=== PATIENT | female | born 2000 | race Caucasian/White ===

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

== ENCOUNTER 2021-02-19 01:58 | Emergency (ER) | payer OTHER, SELFPAY ==
--- NOTE | ~2021-02-19 | XR_ITS ---
EXAMINATION: XR chest 2V DATE: 02/19/2021 02:43 INDICATION: Burning pain in the chest TECHNIQUE: PA and lateral views of the chest are obtained. COMPARISON: None available FINDINGS: The lungs are free of acute opacities. There is no pleural effusion or pneumothorax. The ca rdiomediastinal silhouette is normal. The visualized bones and soft tissues are unremarkable. IMPRESSION: 1. No acute cardiopulmonary abnormality. Reviewed, dictated and finalized at location A.
--- NOTE | 2021-02-19 02:00 | ECG_ITS ---
Measurements Intervals [place] Rate: 115 P: 44 NM: 164 QRS: 40 QRSD: 101 T: 20 QT: 337 QTc: 467 Interpretive Statements SINUS TACHYCARDIA INCOMPLETE RIGHT BUNDLE BRANCH BLOCK BASELINE ARTIFACT- I, II, III, AVR, AVF ABNORMAL ECG Electronically Signed On 02-19-2021 7:12:58 CDT by Jonah Dutton D.O.
[2021-02-19 02:01] VITALS: BP 157/97; PULSE 110; RESP 16; TEMP 36.7; O2SAT 99
[2021-02-19 02:30] LABS: Basophils Absolute Auto 0.1 K/mm3 (0.0-0.1); Basophils Percent Auto 0.9 % (0.2-1.2); Eosinophils Absolute Auto 0.2 K/mm3 (0-0.3); Eosinophils Percent Auto 3.4 % (0-4.4); Hematocrit 44.3 % (37.0-47.0); Hemoglobin 14.9 g/dL (12.0-15.0); Immature Granulocyte Absolute 0.02 K/mm3 (0.00-0.031); Immature Granulocyte Percent A 0.3 % (0-0.5); Lymphocytes Absolute Auto 1.68 K/mm3 (0.9-3.2); Lymphocytes Percent Auto 28.9 % (18.3-44.2); Mean Corpuscular HGB Conc 33.6 g/dl (32-36); Mean Corpuscular Hemoglobin 28.4 pg (26-34); Mean Corpuscular Volume 84.5 fl (80-100); Mean Platelet Volume 11.7 fl (7.4-10.4); Monocytes Absolute Auto 0.5 K/mm3 (0.1-0.6); Monocytes Percent Auto 9.3 % (2.6-8.5); Neutrophils Absolute Auto 3.3 K/mm3 (1.3-6.7); Neutrophils Percent Auto 57.2 % (45.5-73.1); Platelet Count Result 198 k/mm3 (150-375); Red Blood Count 5.24 M/mm3 (4.2-5.4); Red Cell Distribution Width 12.7 % (11.5-14.5); White Blood Count 5.8 K/mm3 (4.5-10.0)
[2021-02-19 02:39] LABS: Anion Gap 9 mmol/L (8-16); Blood Urea Nitrogen 4 mg/dL (8-21); Calcium 9.8 mg/dL (8.9-10.7); Carbon Dioxide 24 mmol/L (22-30); Chloride 105 mmol/L (98-107); Estimated CRCL calculation 175 ml/min; Estimated Glomerular Filt Rate > 60; Glucose 107 mg/dL (65-110); Potassium 3.8 mmol/L (3.4-5.0); Sodium 138 mmol/L (134-143)
[2021-02-19 02:41] LABS: Prothrombin Time 12.6 Seconds (11.1-14.7)
[2021-02-19 02:44] LABS: Partial Thromboplastin Time 32.1 SECONDS (22.3-36.8)
[2021-02-19 02:50] LABS: Troponin I < 0.012 ng/mL (0.000-0.034)
[2021-02-19 03:05] LABS: Alanine Aminotransferase 72 U/L (4-35); Albumin Level 4.7 g/dL (3.7-5.6); Alkaline Phosphatase 94 U/L (45-116); Aspartate Amino Transferase 55 U/L (14-36); Bilirubin,Total 0.4 mg/dL (0.2-1.3); Lipase 55 U/L (23-300)
[2021-02-19 03:06] VITALS: BP 143/96; PULSE 112; PULSE 113; RESP 23; TEMP 36.5; O2SAT 97; O2SAT 99
--- NOTE | 2021-02-19 03:26 | ED.GENADULT ---
HPI - General Adult General Chief complaint: Chest Pain Stated complaint: chest burning x1 wk Time Seen by Provider: 02/19/21 03:08 History of Present Illness HPI narrative: Patient 20-year-old female presents the emergency department with chief complaint of chest burning. The patient reports she is been having burning in her chest when she coughs for the last several months since she had COVID-19. The patient denies fever reports that she smokes cigarettes denies wheezing patient reports that has not improved by anything nor is it worsened by anything. The patient does report that she has an appointment scheduled with her primary care physician but I decided that since has been continuing on she decided to come to the emergency department. The patient denies swelling in her lower extremities denies localizing pain in her chest. Related Data Allergies Allergy/AdvReac Type Severity Reaction Status Date / Time No Known Allergies Allergy Unverified 07/02/17 20:35 Review of Systems Review of Systems: Narrative: A 10 system review of systems was completed on the patient and is negative except for what is stated in the HPI. Nursing and ancillary documentation was reviewed. PMFSH Past Medical History Medical History Hypothyroidism Social History Social History Smoking status: Never smoker Exam Narrative: Exam Narrative: GENERAL: Well-appearing, well-nourished, and in no acute distress. HEAD: Normocephalic, atraumatic. EYES: PERRLA and EOMI. ENT: Nares clear, no rhinorrhea or epistaxis. Mucous membranes moist. NECK: Supple. CHEST: Clear to auscultation. No respiratory distress. HEART: Regular rate and rhythm. No murmur heard. Normal peripheral pulses. ABDOMEN: Soft, nontender, nondistended, normal active bowel sounds. EXTREMITIES: Normal range of motion. No edema. SKIN: Warm, dry, no rash. NEURO: No focal deficits. Alert and oriented x3. PSYCH: Normal mood and affect. Course Course Emergency Course: EKG is sinus tachycardia rate [address] elevation or ST depression Vital Signs Vital signs: Vital Signs Temperature 36.7 C 02/19/21 02:01 Pulse Rate 110 H 02/19/21 02:01 Respiratory Rate 16 02/19/21 02:01 Blood Pressure 157/97 H 02/19/21 02:01 Pulse Oximetry 99 02/19/21 02:01 Temperature 36.5 C 02/19/21 03:06 Pulse Rate 112 H 02/19/21 03:06 Respiratory Rate 23 H 02/19/21 03:06 Blood Pressure 143/96 H 02/19/21 03:06 Pulse Oximetry 99 02/19/21 03:06 Medical Decision Making Vital Signs Vital Signs: Vital Signs Temperature 36.7 C 02/19/21 02:01 Pulse Rate 110 H 02/19/21 02:01 Respiratory Rate 16 02/19/21 02:01 Blood Pressure 157/97 H 02/19/21 02:01 Pulse Oximetry 99 02/19/21 02:01 Temperature 36.5 C 02/19/21 03:06 Pulse Rate 112 H 02/19/21 03:06 Respiratory Rate 23 H 02/19/21 03:06 Blood Pressure 143/96 H 02/19/21 03:06 Pulse Oximetry 99 02/19/21 03:06 Lab Data Result diagrams: 02/19/21 02:12 02/19/21 02:12 Labs: Lab Results 02/19/21 02/19/21 02/19/21 Range/Units 02:11 02:12 02:12 WBC 5.8 (4.5-10.0) K/mm3 RBC 5.24 (4.2-5.4) M/mm3 Hgb 14.9 (12.0-15.0) g/dL Hct 44.3 (37.0-47.0) % MCV 84.5 (80-100) fl MCH 28.4 (26-34) pg MCHC 33.6 (32-36) g/dl RDW 12.7 (11.5-14.5) % Plt Count 198 (150-375) k/mm3 MPV 11.7 H (7.4-10.4) fl Immature Gran % (Auto) 0.3 (0-0.5) % Neut % (Auto) 57.2 (45.5-73.1) % Lymph % (Auto) 28.9 (18.3-44.2) % [place] % (Auto) 9.3 H (2.6-8.5) % Eos % (Auto) 3.4 (0-4.4) % Baso % (Auto) 0.9 (0.2-1.2) % Lymph # (Auto) 1.68 (0.9-3.2) K/mm3 [place] # (Auto) 0.5 (0.1-0.6) K/mm3 Eos # (Auto) 0.2 (0-0.3) K/mm3 Baso # (Auto) 0.1 (0.0-0.1) K/mm3 Abs Immat Gran (auto) 0.02 (0.00-0.03
[2021-02-19 04:25] VITALS: BP 141/92; PULSE 107; RESP 22; O2SAT 97
== END 2021-02-19 04:27 | disposition home or self-care (01) ==
PROVIDERS: Emergency Provider Emergency Medicine; PCP Physician Assistant
DX: R07.89 Other chest pain (principal); E03.9 Hypothyroidism, unspecified; R00.0 Tachycardia, unspecified; I45.10 Unspecified right bundle-branch block; Z86.16 Personal history of COVID-19
CPT/HCPCS: 36415; 71046; 80048; 80076; 83690; 84484; 85025; 85610; 85730; 93005; 99284

== ENCOUNTER 2021-12-07 15:59 | Outpatient (CLI) | payer OTHER, SELFPAY ==
--- NOTE | ~2021-12-07 | XR_ITS ---
EXAM: XR finger 2nd LT min 2V HISTORY: PAIN IN INDEX FINGER OF LEFT HAND, PAIN IN LEFT FINGERS COMPARISON: None available FINDINGS: Normal mineralization. No fracture or dislocation. No lytic or blastic lesion. Joint space s maintained. No erosion or periosteal change. Soft tissues within normal limits. IMPRESSION: Normal left second finger radiograph findings. Reviewed, dictated and finalized at location K.
== END 2021-12-07 16:00 | disposition home or self-care (01) ==
PROVIDERS: PCP Physician Assistant; Visit Provider Physician Assistant
DX: R50.9 Fever, unspecified (principal)
CPT/HCPCS: 73140

== ENCOUNTER 2022-10-05 14:41 | Emergency (ER) | payer SELFPAY ==
[2022-10-05 14:53] VITALS: BP 116/60; PULSE 88; RESP 16; TEMP 37.1; O2SAT 99
--- NOTE | 2022-10-05 15:29 | ED.URI ---
HPI - URI/Sore Throat General Chief Complaint: Upper Respiratory Infection Stated Complaint: covid sx Time Seen by Provider: 10/05/22 15:29 Source: patient Mode of arrival: ambulatory Limitations: no limitations History of Present Illness HPI Narrative: patient is a 21-year-old female that presents with 3-4 days of sore throat, fatigue, headache, nausea, sweats chills. taken home COVID test that was negative. patient has taken Tylenol and DayQuil with little to no relief. Related Data Allergies Allergy/AdvReac Type Severity Reaction Status Date / Time No Known Allergies Allergy Verified 10/05/22 14:51 Review of Systems Review of Systems: CONSTITUTIONAL: Denies malaise, chills, sweats, or fever.? EYES: Denies visual changes, redness, or discharge.? ENT: Reports rhinorrhea, congestion, sinus pain, otalgia and sore throat.? CARDIOVASCULAR: Denies chest pain, palpitations, or edema.? RESPIRATORY: Reports cough.? Denies dyspnea.? GASTROINTESTINAL: Denies abdominal pain, nausea, vomiting, diarrhea? SKIN: Denies rash or itching.? MUSCULOSKELETAL: Denies myalgia.? NEUROLOGIC: Denies headache All systems reviewed & are unremarkable except as noted in HPI and below PMFSH Past Medical History Medical History Hypothyroidism Social History Social History Smoking status: Never smoker Comments At time of signature, agree with nursing past medical, surgical, social and family history. There is no relevant family history pertinent to the presenting complaint? Exam Narrative: GENERAL: Well-appearing, well-nourished, and in no acute distress.? HEAD: Normocephalic, atraumatic.? EYES: PERRLA, conjunctivae clear, and EOMI. No nystagmus.? ENT: Nares clear, turbinates pink, no rhinorrhea or epistaxis. Mucous membranes moist. TM pearly forrester with sharp light reflex bilaterally; no tragal tenderness. Oropharynx without erythema or lesions. Tonsils not enlarged and without exudate.? NECK: Supple. No lymphadenopathy. CHEST: No respiratory distress. Tight lung patel throughout with expiratory wheezes.? No bony deformities, no asymmetry. Speaks in full sentences.? HEART: Regular rate and rhythm. No murmur heard. ? ABDOMEN: Soft, nontender, nondistended EXTREMITIES: Normal range of motion. No edema. ? SKIN: Warm, dry, no rash.? NEURO: Alert and oriented x3. No focal deficits. PSYCH: Normal mood and affect? Course Course Emergency Course: Patient is aware of diagnosis, understands and agrees to treatment plan.? Anticipatory guidance given.? Patient agrees to follow-up as directed and is aware of reasons to seek care at the emergency department.? Portions of this record may have been created with voice recognition software? Level of Care: Express Care Visit Reevaluation(s) Reevaluation #1: patient still has expiratory wheezes, patient reports feeling much better and able to take a deep breath. Date: 10/05/22 Time: 16:40 Vital Signs Vital signs: Vital Signs Temperature 37.1 C 10/05/22 14:53 Pulse Rate 88 10/05/22 14:53 Respiratory Rate 16 10/05/22 14:53 Blood Pressure 116/60 10/05/22 14:53 Pulse Oximetry 99 10/05/22 14:53 Oxygen Delivery Room Air 10/05/22 14:53 Temperature 37.1 C 10/05/22 14:53 Pulse Rate 88 10/05/22 14:53 Respiratory Rate 16 10/05/22 14:53 Blood Pressure 116/60 10/05/22 14:53 Pulse Oximetry 99 10/05/22 14:53 Oxygen Delivery Room Air 10/05/22 14:53 Reviewed MDM - URI/Sore Throat MDM Narrative Medical decision making narrative: Differential diagnosis considered: Clement virus, strep pharyngitis, allergic rhinitis, upper respiratory tract infection, sinusitis, rhinosinusitis, nasopharyngitis. viral pharyngitis, otitis media, otitis externa, pneumonia, bronchitis, viral cough syndrome, viral syndrome, and influenza.? Exam findings show no acute concerns or c
[2022-10-05] MEDS: predniSONE 20 MG TABLET 60 MG PO (15:49)
[2022-10-05] MEDS: IPRATROPIUM BR 0.02% INH SOLN 0.5 MG/2.5 ML VIAL INHALATION (15:50)
[2022-10-05] MEDS: ALBUTEROL SULFATE NEB 2.5 MG/3 ML INH INHALATION (15:50)
== END 2022-10-05 16:45 | disposition home or self-care (01) ==
PROVIDERS: Emergency Provider Nurse Practitioner Family
DX: J06.9 Acute upper respiratory infection, unspecified (principal); E03.9 Hypothyroidism, unspecified
CPT/HCPCS: 87081; 87804; 87880; 94640; 99213; G0463; J7512

== ENCOUNTER 2023-05-12 12:19 | Emergency (ER) | payer OTHER, MEDICAID, SELFPAY ==
--- NOTE | 2023-05-12 12:24 | ED.WOUNDLAC ---
HPI - Wound/Laceration General Chief Complaint: Wound/Laceration Stated Complaint: Left Arm Laceration Time Seen by Provider: 05/12/23 12:23 Source: patient Mode of arrival: ambulatory Limitations: no limitations History of Present Illness HPI narrative: Abbey is a 22-year-old female patient presenting to the clinic today with complaints of a left arm laceration that occurred yesterday around 2:00 p.m. states she was helping her significant other with a transmission when she was under the car and caught her left wrist/arm on the jackie part of the underside of the truck. Has a 4 cm gaping laceration to the volar aspect of the left wrist. She reports tetanus status is unknown Related Data Allergies Allergy/AdvReac Type Severity Reaction Status Date / Time No Known Allergies Allergy Verified 05/12/23 12:24 Review of Systems Review of Systems: Pertinent positives per HPI. Patient denies any fever, chills, rash, headache, visual changes, dizziness, cough, runny nose, sore throat, shortness of breath, chest pain, palpitations, nausea, vomiting, diarrhea, constipation, abdominal pain, or any urinary issues. PMFSH Past Medical History Medical History Hypothyroidism Social History Social History Smoking status: Never smoker Comments At the time of my signature, I reviewed and agree with the nursing past medical, surgical, social, and family history. There is no relevant family history pertinent to the patient complaint. Exam Narrative: General: Well-developed, well nourished, in no apparent distress Head: Normocephalic, atraumatic. Cardio: Regular rate and rhythm, s1 and s2 normal, no murmur appreciated. Resp: Clear to auscultation bilaterally, no rhonchi, rales, wheezing or rubs. Integumentary: [place], warm, and dry, 4 cm gaping volar medial wrist laceration, 7 superficial scratches to the left forearm Course Course Emergency Course: Portions of this record may have been created with voice recognition software. Level of Care: Express Care Visit Vital Signs Vital signs: Vital signs reviewed Procedures Laceration Laceration 1: Date: 05/12/23 Site: upper extremity (Left wrist) Side (If applicable): left Size (cm): 4 Description: linear, flap and irregular Depth: simple, single layer Local Anesthetic: lidocaine 1% Amount of anesthesia used (mL): 2 Pre-repair: wound explored, irrigated and irrigated extensively ====== Skin Level ====== Skin layer closed with: nylon Size (cm): 4-0 Number of sutures: 3 Technique: simple, interrupted ====== Subcutaneous Layer ====== ====== Muscle Layer ====== ====== Tendon Layer ====== Dressing: Verbal consent obtained for laceration repair. Risk and benefits explained and patient voiced understanding. Area was cleansed with wound wasg and a 25 gauge needle was then used to instill (2) ml of 1% lidocaine without epi into the wound edges. Area was prepped and draped using sterile technique. A 4-0 suture on a p needle was used to place (3) interrupted sutures bringing the wound edges together- well approximated- mckayla. Patient tolerated procedure well. Sterile dressing applied. MDM - Wound/Laceration MDM Narrative Medical decision making narrative: At the time of visit patient is resting comfortably on the exam table. Laceration repair was performed placing 3 interrupted sutures loosely to allow for drainage as wound is greater than [address] the patient on Keflex. Superficial scratches were cleansed with wound cleanser and triple antibiotic ointment was applied. Triple antibiotic and dressing was applied over the low left wrist laceration. Tetanus shot was given and supportive measures were discussed with the patient she voiced
[2023-05-12 12:35] VITALS: BP 160/93; PULSE 106; RESP 16; TEMP 37.7; O2SAT 99
[2023-05-12] MEDS: TETANUS,DIPHTHERIA,AC PERTUSSIS ADULT (0.5 ML) BOOSTRIX IM (12:47)
== END 2023-05-12 13:14 | disposition home or self-care (01) ==
LOC: EXPCOLL 12:25
PROVIDERS: Emergency Provider Nurse Practitioner Family
DX: S61.512A Laceration without foreign body of left wrist, initial encounter (principal); W45.8XXA Other foreign body or object entering through skin, initial encounter; Z23 Encounter for immunization; E03.9 Hypothyroidism, unspecified
CPT/HCPCS: 12002; 90471; 90715; 99213; G0463

== ENCOUNTER 2023-05-23 14:47 | Emergency (ER) | payer OTHER, MEDICAID, SELFPAY ==
[2023-05-23 15:00] VITALS: BP 127/58; PULSE 99; RESP 18; TEMP 36.8; O2SAT 100
--- NOTE | 2023-05-23 15:18 | ED.GENADULT ---
HPI - General Adult General Chief complaint: Wound/Laceration Stated complaint: Stitch Removal Time Seen by Provider: 05/23/23 15:18 Source: patient, RN notes reviewed and old records reviewed Mode of arrival: ambulatory Limitations: no limitations History of Present Illness HPI narrative: 22-year-old female presents to the [facility] requesting to have sutures removed hours placed 11 days ago. States that she only took 3 doses of the antibiotic Related Data Home Medications Medication Instructions Recorded Confirmed No Home Medications 05/23/23 05/23/23 Allergies Allergy/AdvReac Type Severity Reaction Status Date / Time No Known Allergies Allergy Verified 05/23/23 14:57 Review of Systems Review of Systems: All systems reviewed & are unremarkable except as noted in HPI and below Constitutional: Constitutional: Reports no additional constitutional complaints Eyes: Eyes: Reports no additional eye complaints ENT: Reports system reviewed and no additional complaints, except as documented Cardiovascular: Cardiovascular: Reports no additional cardiovascular complaints, Denies chest pain and Denies dyspnea Respiratory: Respiratory: Reports no additional respiratory complaints, Denies chest congestion, Denies cough and Denies dyspnea Gastrointestinal: Gastrointestinal: Reports no additional gastrointestinal complaints, Denies abdominal pain, Denies nausea and Denies vomiting Musculoskeletal: Musculoskeletal: Reports no additional musculoskeletal complaints Integumentary/Breasts: Skin/Breast: Reports as per HPI Neurologic: Reports system reviewed and no additional complaints, except as documented Psychiatric: Psychiatric: Reports no additional psychiatric complaints Allergic/Immunologic: Allergic/Immunologic: Reports no additional allergic/immunologic complaints PMFSH Past Medical History Medical History Hypothyroidism Social History Social History Smoking status: Never smoker Comments At the time of my signature, I reviewed and agree with the nursing past medical, surgical, social, and family history. There is no relevant family history pertinent to the patient complaint. Exam Const: General: cooperative, healthy appearing, comfortable, no acute distress, well developed, alert and well nourished Nutritional Appearance: well nourished Orientation/consciousness: patient oriented x3 Limitations: no limitations HENMT: Head: normal to inspection Ears: hearing grossly normal bilaterally and external ears normal Face/Nose/Sinus: Normal external nose present, Normal nares present, Normal nasal mucous membranes and turbinates present, normal facial exam and face symmetric Face and sinus: normal facial exam and face symmetric Eyes: General: appearance normal, both eyes and all related structures Alignment and Position: alignment normal Periorbital: periorbital findings normal Pupils: Equal, round and reactive pupils present EOM: EOMs intact bilaterally Neck: Neck: normal visual inspection, full ROM, no lymphadenopathy and no meningeal signs Chest: Chest palpation & inspection: normal inspection of the chest Resp: Effort & Inspection: normal respiratory effort and able to speak in complete sentences Cardio: Rate: regular rate Rhythm: regular rhythm Back/Spine/Pelvis: Cervical Spine: cervical ROM normal Skin: General skin exam: normal color and no rashes or lesions noted Lesions: no lesions Rashes: no rashes Other: [place], inflammation noted around surgical site, area cleaned with surgical wound hand dry cleaner. Three sutures removed. Five Steri-Strips placed Neuro: General: patient oriented x3, gait normal, tone normal, moves all extremities and no meningeal signs Cranial nerves: Yes Equal, round and reactive pupils present Cognition (Neuro): normal cognition Speech: normal speech Gait exa
== END 2023-05-23 15:33 | disposition home or self-care (01) ==
PROVIDERS: Emergency Provider Nurse Practitioner
DX: Z48.02 Encounter for removal of sutures (principal); E03.9 Hypothyroidism, unspecified
CPT/HCPCS: 99211; G0463

== ENCOUNTER 2023-12-07 14:47 | Emergency (ER) | payer OTHER, MEDICAID, SELFPAY ==
[2023-12-07 15:05] VITALS: BP 114/74; PULSE 94; RESP 22; TEMP 36.6; O2SAT 100
[2023-12-07 15:38] LABS: Basophils Absolute Auto 0.1 K/mm3 (0.0-0.1); Basophils Percent Auto 0.6 % (0.2-1.2); Eosinophils Percent Auto 0.5 % (0-4.4); Hematocrit 41.2 % (37.0-47.0); Hemoglobin 14.3 g/dL (12.0-15.0); Immature Granulocyte Absolute 0.03 K/mm3 (0.00-0.031); Immature Granulocyte Percent A 0.4 % (0-0.5); Lymphocytes Absolute Auto 1.17 K/mm3 (0.9-3.2); Lymphocytes Percent Auto 13.9 % (18.3-44.2); Mean Corpuscular HGB Conc 34.7 g/dl (32-36); Mean Corpuscular Hemoglobin 29.5 pg (26-34); Mean Corpuscular Volume 85.1 fl (80-100); Mean Platelet Volume 11.8 fl (7.4-10.4); Monocytes Absolute Auto 0.5 K/mm3 (0.1-0.6); Neutrophils Absolute Auto 6.6 K/mm3 (1.3-6.7); Neutrophils Percent Auto 78.6 % (45.5-73.1); Platelet Count Result 224 k/mm3 (150-375); Red Blood Count 4.84 M/mm3 (4.2-5.4); Red Cell Distribution Width 12.9 % (11.5-14.5); White Blood Count 8.4 K/mm3 (4.5-10.0)
[2023-12-07 15:50] LABS: Alanine Aminotransferase 14 U/L (6-35); Albumin Level 4.9 g/dL (3.5-5.1); Alkaline Phosphatase 78 U/L (38-126); Anion Gap 11 mmol/L (4-12); Aspartate Amino Transferase 18 U/L (14-36); Bilirubin,Total 0.7 mg/dL (0.2-1.3); Blood Urea Nitrogen 7 mg/dL (7-17); Calcium 10.2 mg/dL (8.4-10.2); Carbon Dioxide 21 mmol/L (22-30); Chloride 107 mmol/L (98-107); Estimated CRCL calculation 151 ml/min; Estimated Glomerular Filt Rate > 60; Glucose 119 mg/dL (65-110); Lipase 52 U/L (23-300); Potassium 3.8 mmol/L (3.4-5.0); Sodium 139 mmol/L (137-145)
--- NOTE | 2023-12-07 16:11 | ED.ABDPAIN ---
HPI - Abdominal Pain General Chief Complaint: Abdominal Pain Stated Complaint: abd pain, Time Seen by Provider: 12/07/23 15:40 Source: patient Mode of arrival: ambulatory Limitations: no limitations History of Present Illness HPI narrative: Zainab is a 23-year-old female patient presenting to ER today with complaints of upper abdominal pain that started yesterday. She reports that this morning the pain came back and was worse. She took a Zofran and that did not help. States the pain is a dull ache/burning pain in the upper abdomen and into the chest. Last menstrual period was October 05. 2, para 1. Last bowel movement was this morning. Does have some associated nausea. Related Data Home Medications Medication Instructions Recorded Confirmed No Home Medications 05/23/23 05/23/23 Allergies Allergy/AdvReac Type Severity Reaction Status Date / Time No Known Allergies Allergy Verified 05/23/23 14:57 Review of Systems Review of Systems: Pertinent positives per HPI. Patient denies any fever, chills, rash, headache, visual changes, dizziness, cough, runny nose, sore throat, shortness of breath, palpitations, nausea, vomiting, diarrhea, constipation, PMFSH Past Medical History Medical History Hypothyroidism Social History Social History Smoking status: Never smoker Comments At the time of my signature, I reviewed and agree with the nursing past medical, surgical, social, and family history. There is no relevant family history pertinent to the patient complaint. Exam Narrative: General: Well-developed, well nourished, in no apparent distress. Head: Normocephalic, atraumatic. Cardio: Regular rate and rhythm, s1 and s2 normal, no murmur appreciated. Resp: Clear to auscultation bilaterally, no rhonchi, rales, wheezing or rubs. Abdomen: Soft, pliable, bowel sounds present in all quadrants, upper abdominal tender to palpation, no organomegly, no CVAT tenderness. Course Course Emergency Course: Portions of this record may have been created with voice recognition software. Vital Signs Vital signs: Vital Signs Temperature 36.6 C 12/07/23 15:05 Pulse Rate 94 12/07/23 15:05 Respiratory Rate 22 H 05/03/24 15:05 Blood Pressure 114/74 12/07/23 15:05 Pulse Oximetry 100 12/07/23 15:05 Oxygen Delivery Room Air 12/07/23 15:05 Temperature 36.6 C 12/07/23 15:05 Pulse Rate 94 12/07/23 15:05 Respiratory Rate 22 H 12/07/23 15:05 Blood Pressure 114/74 12/07/23 15:05 Pulse Oximetry 100 12/07/23 15:05 Oxygen Delivery Room Air 12/07/23 15:05 Vital signs reviewed MDM - Abdominal Pain MDM Narrative Medical decision making narrative: At the time of visit patient is resting comfortably on the exam table. Patient appears to be nontoxic. Labs: CBC shows white blood cell count of 8.4, H&H of 14.3 and 41.2, platelet count is 224, chemistry shows sodium a 139, potassium at 3.8, CO2 of 21, chloride 107, BUN of 7, creatinine 0.5, GFR is greater than 60, glucose is 119, liver function test within normal limits, lipase is 52. Urinalysis pending Medications ordered: 1 L of normal saline, 4 mg of Zofran, Maalox 30 mL Plan: Patient eloped after seeing provider-states that the nurse was rude and she wants to go to a different emergency room. INT removed and patient left. Differential Diagnosis Differential diagnosis: Likely abdominal pain, acute appendicitis, constipation, diverticulitis, endometriosis, gastroenteritis, pancreatitis and small bowel obstruction Lab Data 12/07/23 15:33 12/07/23 15:33 Labs: Lab Results 12/07/23 Range/Units 15:33 WBC 8.4 (4.5-10.0) K/mm3 RBC 4.84 (4.2-5.4) M/mm3 Hgb 14.3 (12.0-15.0) g/dL Hct 41.2 (37.0-47.0) % MCV 85.1 (80-100) fl MCH 29.5 (26-34) pg MCHC 34
--- NOTE | 2023-12-07 16:30 | PC.NURSE ---
Pt standing in hallway yelling I AM LEAVING. Pt went back into her room, this RN walked in with pts medications and pt states you don't even know what is wrong with me and you are giving me medications? This RN explained the ordered medications were fluids, medicine to help nausea, and medicine to help settle the acid in her stomach. Pt responded with Fuck that, I am going to another ER. Take this shit out of my arm. This RN continued to remove pts IV. IV was removed intact with pt complaining, stating you don't have to be so fucking rude, you ripped that out of my arm as hard as you could. This RN educated the pt on how IVs were removed. Pt then ambulated out of the ER in her gown yelling, grab my shit, Neil. I will get dressed in the car. COMPUTER SUPPORT TECHNICIAN Lit fernandez.
== END 2023-12-07 16:38 | disposition left against medical advice (07) ==
PROVIDERS: Emergency Medicine; Emergency Provider Nurse Practitioner Family
DX: O26.891 Other specified pregnancy related conditions, first trimester (principal); R10.10 Upper abdominal pain, unspecified; O99.281 Endocrine, nutritional and metabolic diseases complicating pregnancy, first trimester; E03.9 Hypothyroidism, unspecified; Z3A.00 Weeks of gestation of pregnancy not specified
CPT/HCPCS: 36415; 80053; 81025; 83690; 85025; 99283

== ENCOUNTER 2024-05-20 12:28 | Emergency (ER) | payer OTHER, MEDICAID, SELFPAY ==
[2024-05-20 12:35] VITALS: BP 121/55; PULSE 94; RESP 20; TEMP 37.4; O2SAT 100
--- NOTE | 2024-05-20 12:48 | ED.WOUNDLAC ---
HPI - Wound/Laceration General Chief Complaint: Wound/Laceration Stated Complaint: remove stitches Source: patient Mode of arrival: ambulatory Limitations: no limitations History of Present Illness HPI narrative: 23-year-old female presented for suture removal. She reports [address] to the right eyebrow which were placed 8 days ago at an outside hospital. Denies any complication of the wound. Related Data Home Medications Medication Instructions Recorded Confirmed No Home Medications 05/23/23 05/23/23 Allergies Allergy/AdvReac Type Severity Reaction Status Date / Time No Known Allergies Allergy Verified 05/23/23 14:57 Review of Systems Review of Systems: CONSTITUTIONAL: Denies body aches, fever, chills, or sweats. EYES: Denies visual changes, redness, or discharge. CARDIOVASCULAR: Denies chest pain, palpitations, or edema. RESPIRATORY: Denies cough or dyspnea. SKIN: reports laceration/sutures right eyebrow NEUROLOGIC: Denies headache PMFSH Past Medical History Medical History Hypothyroidism Social History Social History Smoking status: Never smoker Comments At time of signature, I have reviewed and agree with nursing past medical, surgical, social and family history unless otherwise noted. Please see nursing chart for further information. There is no relevant family history pertinent to the presenting complaint Exam Narrative: GENERAL: Well-appearing EYES: conjunctivae clear, and EOMI. ENT: Mucous membranes moist. CHEST: Clear to auscultation. HEART: Regular rate and rhythm. SKIN: Warm, dry. right eyebrow with approx 1cm vertical lac healing; [address] NEURO: Alert and oriented x3. Course Course Emergency Course: Patient is aware of diagnosis, understands and agrees to treatment plan. Anticipatory guidance given. Patient agrees to follow-up as directed and is aware of reasons to seek care at the emergency department. Portions of this record may have been created with voice recognition software Level of Care: Express Care Visit Vital Signs Vital signs: Vital Signs Temperature 99.3 F 05/20/24 12:35 Pulse Rate 94 05/20/24 12:35 Respiratory Rate 20 05/20/24 12:35 Blood Pressure 121/55 L 05/20/24 12:35 Pulse Oximetry 100 05/20/24 12:35 Oxygen Delivery Room Air 05/20/24 12:35 Temperature 99.3 F 05/20/24 12:35 Pulse Rate 94 05/20/24 12:35 Respiratory Rate 20 05/20/24 12:35 Blood Pressure 121/55 L 05/20/24 12:35 Pulse Oximetry 100 05/20/24 12:35 Oxygen Delivery Room Air 05/20/24 12:35 Reviewed Procedures Other Procedure Procedure 1: Other Procedure: 3 sutures removed from right eyebrow, the suture at the distal end of the wound was complicated for removal. LET gel applied. Pt tolerated well. MDM - Wound/Laceration MDM Narrative Medical decision making narrative: Discussed physical exam findings. Tolerated suture removal. Advised supportive measures and signs/symptoms to go to the ER. Pt is appropriate for outpt treatment and f/u. Differential Diagnosis Differential diagnosis: Likely laceration, abrasion, avulsion of skin and other (suture removal) Discharge Plan Discharge Clinical Impression: Encounter for removal of sutures Patient Disposition: Home, Self-Care Condition: Stable Instructions: Head Laceration (ED) Additional Instructions: Keep the area clean and dry - cleanse with warm water and mild soap and allow to fully dry. Ok to apply neosporin to the site Keep it open to air (no bandages) Watch for worsening symptoms including pain, redness, swelling, streaking, pus/drainage, fever. Go to the ER with any of these symptoms or concerns. Follow up with primary care provider in 1 week as needed. Prescriptions: No Action No Home Medications
[2024-05-20] MEDS: LIDOCAINE, EPINEPHRINE, TETRACAINE VISCOUS SOLN 3 ML TOPICAL (13:13)
== END 2024-05-20 13:35 | disposition home or self-care (01) ==
PROVIDERS: Emergency Provider Nurse Practitioner Family
DX: S01.111D Laceration without foreign body of right eyelid and periocular area, subsequent encounter (principal); X58.XXXD Exposure to other specified factors, subsequent encounter; E03.9 Hypothyroidism, unspecified
CPT/HCPCS: 99211; G0463

== ENCOUNTER 2024-10-15 10:59 | Emergency (ER) | payer OTHER, MEDICAID, SELFPAY ==
[2024-10-15 11:05] VITALS: BP 144/74; PULSE 92; RESP 18; TEMP 36.2; O2SAT 100
--- NOTE | 2024-10-15 11:12 | ED.GENADULT ---
HPI - General Adult General Chief complaint: Nausea/Vomiting/Diarrhea Stated complaint: Vomiting/Chest Discomfort Source: patient and RN notes reviewed Mode of arrival: ambulatory Limitations: no limitations History of Present Illness HPI narrative: 24 y/o female presented for c/o burning in the chest with nausea and occasional vomiting. Onset one week, however she is 2 months post and says she also had these symptoms throughout her . Pt contacted her pcp today, who advised Obgyn follow up. Pt took Pepcid today only, nothing else for symptoms this week. States she was seen at 12 hospitals throughout her and says no one could find the source and no one is taking her seriously. Denies any alleviating or aggravating factors, pain is described as a pressure and has frequent dry heaves. Taking ibuprofen. Related Data Home Medications ?Medication ?Instructions ?Recorded ?Confirmed ?Last Taken ?Type No Home Medications 05/23/23 05/23/23 Unknown History Allergies Allergy/AdvReac Type Severity Reaction Status Date / Time No Known Allergies Allergy Verified 10/15/24 11:12 Review of Systems Review of Systems: CONSTITUTIONAL: Denies body aches, fever, chills ENT: Denies rhinorrhea, congestion CARDIOVASCULAR: reports chest pain, Denies palpitations, or edema. RESPIRATORY: Denies cough or dyspnea. GASTROINTESTINAL: Endorses nausea, vomiting, diarrhea. Denies abdominal pain, hematochezia, melena, hematemesis GENITOURINARY: Denies dysuria, hematuria, or CVA tenderness. SKIN: Denies rash, itching, or wounds. MUSCULOSKELETAL: Denies back pain, joint pain NEUROLOGIC: Denies headache, numbness, tingling, or weakness. All systems reviewed & are unremarkable except as noted in HPI and below PMFSH Past Medical History Medical History Hypothyroidism Social History Social History Smoking status: Never smoker Comments At time of signature, I have reviewed and agree with nursing past medical, surgical, social and family history unless otherwise noted. Please see nursing chart for further information. There is no relevant family history pertinent to the presenting complaint Exam Narrative: GENERAL: Tearful. and in no acute distress. EYES: EOMI. Conjunctivae normal. ENT: Mucous membranes pink and moist. CHEST: No respiratory distress. Clear to auscultation. Nontender chest. HEART: Regular rate and rhythm. No murmur appreciated. Normal peripheral pulses. ABDOMEN: abd soft, nondistended, normal active bowel sounds. nontender abdomen; No guarding, rebound tenderness, asymmetry SKIN: Warm, dry, no rash. Capillary refill normal. Normal skin turgor. NEURO: No focal deficits. Alert and oriented x3. Course Course Emergency Course: Patient is aware of diagnosis, understands and agrees to treatment plan. Anticipatory guidance given. Patient agrees to follow-up as directed and is aware of reasons to seek care at the emergency department. Portions of this record may have been created with voice recognition software Level of Care: Express Care Visit Vital Signs Vital signs: Vital Signs Temperature 97.1 F L 10/15/24 11:05 Pulse Rate 92 10/15/24 11:05 Respiratory Rate 18 10/15/24 11:05 Blood Pressure 144/74 H 10/15/24 11:05 Pulse Oximetry 100 10/15/24 11:05 Oxygen Delivery Room Air 10/15/24 11:05 Temperature 97.1 F L 10/15/24 11:05 Pulse Rate 92 10/15/24 11:05 Respiratory Rate 18 10/15/24 11:05 Blood Pressure 144/74 H 10/15/24 11:05 Pulse Oximetry 100 10/15/24 11:05 Oxygen Delivery Room Air 10/15/24 11:05 Medical Decision Making MDM Narrative Medical decision making narrative: Pt tearful throughout the encounter. PO maalox given. Pt walked out of room stating she was going to the ER. Before she left, Discussed possible etiologies, advised against NSAIDs and recommend f/u with GI. Also advised close f/u with obgyn regarding possible depression, pt states she is not depressed just tired of dealing with this and not being taken seriously. She is scheduled with obgyn tomorrow. Says she is going to the ER. Differential Diagnosis Differential Diagnosis: Consider gastroenteritis, GERD, bowel obstruction or perforation, cholecystitis, appendicitis, hernia, mesenteric ischemia, pancreatitis, peritonitis, AAA Vital Signs Vital Signs: Vital Signs Temperature 97.1 F L 10/15/24 11:05 Pulse Rate 92 10/15/24 11:05 Respiratory Rate 18 10/15/24 11:05 Blood Pressure 144/74 H 10/15/24 11:05 Pulse Oximetry 100 10/15/24 11:05 Oxygen Delivery Room Air 10/15/24 11:05 Temperature 97.1 F L 10/15/24 11:05 Pulse Rate 92 10/15/24 11:05 Respiratory Rate 18 10/15/24 11:05 Blood Pressure 144/74 H 10/15/24 11:05 Pulse Oximetry 100 10/15/24 11:05 Oxygen Delivery Room Air 10/15/24 11:05 Discharge Plan Discharge Clinical Impression: Chest pain due to GERD Patient Disposition: Elopement After Seen by Prov Condition: Stable Instructions: Antibiotic Form, Depression (DC), Diet for Stomach Ulcers and Gastritis (ED), GERD (Gastroesophageal Reflux Disease) (ED) Additional Instructions: STOP ibuprofen Tylenol only for pain Stay hydrated. Take small sips of fluid containing electrolytes frequently. Bacon foods (bananas, rice, applesauce, toast, crackers) Avoid fatty, greasy, fried. acidic, or spicy foods. Limit dairy until symptoms are improved. Remain sitting up after meal for at least 30 minutes Take medicine as directed You must follow up with your OBGYN as well as PCP within 3 days. Follow up with the GI specialist, call to schedule an appointment. You should go to the hospital if you experience persistent nausea and vomiting that does not resolve and does not allow you to tolerate any food or fluids, fevers, increasing abdominal pain, persistent diarrhea, dizziness, fainting, or for any other concerns. Patient Language: Citizen Of [place] Prescriptions: No Action No Home Medications Follow-up/Referrals: Oni Jefferson MD [Physician] - [facility] [Primary Care Provider] -
[2024-10-15] MEDS: MAG HYDROX/AL HYDROX/SIMETH 30 ML UDC PO (11:21)
--- OUTSIDE RECORDS SUMMARY | 2024-10-15 12:39 | XMS_ITS | Data Portability ---
Author Organization [employer] , [facility]_Marito Address [address] [place] [address] Assessment No assessment recorded. 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 Procedures None recorded. Surgeries None recorded. Imaging US, obstetric , follow-up 2023 024 [facility], [address] [place], [address], 07/09/2024 19:30:09 US, obstetric , follow-up 2023 024 [facility] Not available 06/23/2024 15:24:42 Medication Orders None recorded. Patient TargetsNo targets recorded. Patient InstructionsNo instructions recorded. Reason for Referral None Reported. Results Created Date Observation Date Name Description Value Unit Range Abnormal Flag Note LastModifiedBy Organization Detail LastModifiedTime 06/23/20 24 06/25/2024 COMPR EHENS CHELLY METAB OLIC PANEL sodium 140 mmol/ L 136 - 145 normal Not Available [address], [address], 06/25/2024 12:48:43 06/23/20 24 06/25/2024 COMPR EHENS CHELLY METAB OLIC PANEL potassium 3.9 mmol/ L 3.5 - 5.1 normal Not Available [address], [address], 06/25/2024 12:48:43 06/23/2006/25/2024 COMPR EHENS CHELLY METAB OLIC PANEL chloride 106 mmol/ L 98 - 107 normal Not Available [address], [address], 06/25/2024 12:48:43 06/23/2006/25/2024 COMPR EHENS CHELLY METAB OLIC PANEL glucose 90 mg/dL 74 - 106 normal Not Available [address], [address], 06/25/2024 12:48:43 06/23/20 24 06/25/2024 COMPR EHENS CHELLY METAB OLIC PANEL carbon dioxide 23 mmol/ L 20 - 32 normal Not Available [address], [address], 06/25/2024 12:48:43 06/23/2006/25/2024 COMPR EHENS CHELLY METAB OLIC PANEL calcium 8.8 mg/dL 8.5 - 10.1 normal Not Available [address], [address], 06/25/2024 12:48:43 06/23/2006/25/2024 COMPR EHENS CHELLY METAB OLIC PANEL creatinine 0.42 mg/dL 0.60 - 1.00 low Not Available [place] [facility] [address] [place], [address], 06/25/2024 12:48:43 06/23/20 24 06/25/2024 COMPR EHENS CHELLY METAB OLIC PANEL eGFR 142 mL/mi n/1.7 3m2 >60 normal The eGFR is based on the CKD-E PI 2020 equat ion. To calcu late the new eGFR from a previ ous Creat inine or Cysta tin C resul t, go to [email or web address] :[email or web address] s/[email or web address] qi/gf r_cal culat or Not Available [address], [address], 06/25/2024 12:48:43 06/23/20 24 06/25/2024 COMPR EHENS CHELLY METAB OLIC PANEL AST 9 U/L 15 - 37 low Not Available [address], [address], 06/25/2024 12:48:43 06/23/20 24 06/25/2024 COMPR EHENS CHELLY METAB OLIC PANEL ALT 12 U/L 14 - 59 low Not Available [address], [address], 06/25/2024 12:48:43 06/23/20 24 06/25/2024 COMPR EHENS CHELLY METAB OLIC PANEL alk phos 117 U/L 46 - 116 high Not Available [place] [facility] [address] [place] [address], [address], 06/25/2024 12:48:43 06/23/20 24 06/25/2024 COMPR EHENS CHELLY METAB OLIC PANEL albumin 2.7 g/dL 3.4 - 5.0 low Not Available [address], [address], 06/25/2024 12:48:43 06/23/20 24 06/25/2024 COMPR EHENS CHELLY METAB OLIC PANEL protein, total 6.2 g/dL 6.4 - 8.2 low Not Available [place] [facility] [address] [place] [address], [address], 06/25/2024 12:48:43 06/23/20 24 06/25/2024 COMPR EHENS CHELLY METAB OLIC PANEL bilirubin, total 0.3 mg/dL 0.2 - 1.0 normal Not Available [address], [address], 06/25/2024 12:48:43 06/23/20 24 06/25/2024 COMPR EHENS CHELLY METAB OLIC PANEL urea nitrogen (BUN) 3 mg/dL 7 - 18 low Not Available [facility] [address] [place] [address], [address], 06/25/2024 12:48:43 07/09/20 24 07/11/2024 STREP TOCOC CUS, GROUP B CULTU RE streptococcu s, group B culture SEE NOTE abnormal STREP TOCOC CUS, GROUP B CULTU RE Micro Numbe r: [id number] Test Statu s: Final Speci men Sourc e: Recto vag Speci men Quali ty: Adequ ate Resul t: Group B Strep tococ cus isola bertin Beta- hemol ytic strep tococ ci are predi ctabl y susce ptibl e to Penic illin and other beta- lacta ms. Susce ptibi lity testi ng not routi theo perfo rmed. Pleas e conta ct the labor atory withi n 3 days if susce ptibi lity testi ng is josesito ed. Note per CDC guide lines optim al recov kaleb is achie april by swabb ing both the lower vagin a and rectu m (thro ugh the anal sphin cter) . Not Available [facility] [address] [address], [place], [address], 07/11/2024 08:37:41 08/05/20 24 08/05/2024 COMPR EHENS CHELLY METAB OLIC PANEL glucose 131 mg/dL 70-99 high Not Available [facility] (Lab) [address] [place], [address], 08/05/2024 11:21:24 08/05/20 24 08/05/2024 COMPR EHENS CHELLY METAB OLIC PANEL BUN 4 mg/dL 7-18 low Not Available [facility] (Lab) [address] [facility], [place], [address], 08/05/2024 11:21:24 08/05/20 24 08/05/2024 COMPR EHENS CHELLY METAB OLIC PANEL creatinine 0.44 mg/dL 0.55-1 [address] [facility] (Lab) [address] [place], [address], 08/05/2024 11:21:24 08/05/20 24 08/05/2024 COMPR EHENS CHELLY METAB OLIC PANEL sodium 137 mmol/ L 136-[address] [facility] (Lab) [address] [place], [address], 08/05/2024 11:21:24 08/05/20 24 08/05/2024 COMPR EHENS CHELLY METAB OLIC PANEL potassium 3.3 mmol/ L 3.5-5. [address] [facility] (Lab) [address] [place], [address], 08/05/2024 11:21:24 08/05/20 24 08/05/2024 COMPR EHENS CHELLY METAB OLIC PANEL chloride 109 mmol/ L 97-[address] [facility] (Lab) [address] [place], [address], 08/05/2024 11:21:24 08/05/20 24 08/05/2024 COMPR EHENS CHELLY METAB OLIC PANEL total CO2 21.0 mmol/ L 21-[address] [facility] (Lab) [address] [facility], [place], [address], 08/05/2024 11:21:24 08/05/20 24 08/05/2024 COMPR EHENS CHELLY METAB OLIC PANEL calcium 8.6 mg/dL 8.5-[address] [facility] (Lab) [address] [facility], [place], [address], 08/05/2024 11:21:24 08/05/20 24 08/05/2024 COMPR EHENS CHELLY METAB OLIC PANEL total bilirubin 0.2 mg/dL 0.2-1. 2 THIS ASSAY IS NOT RECOM ELIZABETH D FOR PATIE NTS UNDER GOING TREAT MENT WITH ELTRO MBOPA G DUE TO THE POTEN TIAL FOR FALSE LY ELEVA BERTIN RESUL TS. Not Available [facility] (Lab) [address] [facility], [place], [address], 08/05/2024 11:21:24 08/05/20 24 08/05/2024 COMPR EHENS CHELLY METAB OLIC PANEL total protein 6.0 g/dL 6.4-8. [address] [facility] (Lab) [place], [address], 08/05/2024 11:21:24 08/05/20 24 08/05/2024 COMPR EHENS CHELLY METAB OLIC PANEL albumin 2.3 g/dL 3.4-5. [address] [facility] (Lab) [place], [address], 08/05/2024 11:21:24 08/05/20 24 08/05/2024 COMPR EHENS CHELLY METAB OLIC PANEL AST 10 U/L 15-37 low Not Available [facility] (Lab) [address] [facility], [place], [address], 08/05/2024 11:21:24 08/05/20 24 08/05/2024 COMPR EHENS CHELLY METAB OLIC PANEL ALT 8 U/L 14-55 low Not Available [facility] (Lab) [place], [address], 08/05/2024 11:21:24 08/05/20 24 08/05/2024 COMPR EHENS CHELLY METAB OLIC PANEL alk phosphatase 180 U/L 50-136 high Not Available [facility] (Lab) [address] [facility], [place], [address], 08/05/2024 11:21:24 08/05/20 24 08/05/2024 COMPR EHENS CHELLY METAB OLIC PANEL anion gap 7.0 mmol/ L 2-[address] [facility] (Lab) [place], [address], 08/05/2024 11:21:24 08/05/20 24 08/05/2024 COMPR EHENS CHELLY METAB OLIC PANEL BUN creatinine ratio 9.0 6-26 Not Available [facility] (Lab) [place], [address], 08/05/2024 11:21:24 08/05/20 24 08/05/2024 COMPR EHENS CHELLY METAB OLIC PANEL A:g ratio 0.6 ratio 1.0-2. [address] [facility] (Lab) [place], [address], 08/05/2024 11:21:24 08/05/20 24 08/05/2024 COMPR EHENS CHELLY METAB OLIC PANEL est GFR >90 mL/mi n/1.7 3_M2 >90 NOTE: eGFR is not calcu lated for patie nts <18 years of age or gende r unkno wn. This is an estim ated GFR calcu latio n using the new CKD EPI creat inine equat ion witho ut race and so does not requi re a corre ction facto r for race. This estim ated GFR shoul d not be used for calcu latin g drug doses . Not Available [facility] (Lab) [address], [place], [address], 08/05/2024 11:21:24 08/05/20 24 08/05/2024 TYPE AND SCREE N ABO/Rh(D) O POSITI VE Not Available [facility] (Lab) [place], [address], 08/05/2024 11:32:35 08/05/20 24 08/05/2024 TYPE AND SCREE N antibody screen NEGATI VE Not Available [facility] (Lab) [place], [address], 08/05/2024 11:32:35 08/05/20 24 08/05/2024 TYPE AND SCREE N xm expiration 2024,2 359 Not Available [facility] (Lab) [place], [address], 08/05/2024 11:32:35 08/05/20 24 08/05/2024 UA REFLE X TO MICRO specimen type URINE CLEAN CATCH Not Available [facility] (Lab) [place], [address], 08/05/2024 11:35:42 08/05/20 24 08/05/2024 UA REFLE X TO MICRO color LIGHT YELLOW Not Available [facility] (Lab) [address], [place], [address], 08/05/2024 11:35:42 08/05/20 24 08/05/2024 UA REFLE X TO MICRO clarity CLEAR Not Available [facility] (Lab) [address] [facility], [place], [address], 08/05/2024 11:35:42 08/05/20 24 08/05/2024 UA REFLE X TO MICRO specific gravity 1.011 1.001- 1.[address] [facility] (Lab) [address], [place], [address], 08/05/2024 11:35:42 08/05/20 24 08/05/2024 UA REFLE X TO MICRO pH, urine 6.5 5.0-9. [address] [facility] (Lab) [address] [facility], [place], [address], 08/05/2024 11:35:42 08/05/20 24 08/05/2024 UA REFLE X TO MICRO leukocytes NEGATI VE neg Not Available [facility] (Lab) [address] [facility], [place], [address], 08/05/2024 11:35:42 08/05/20 24 08/05/2024 UA REFLE X TO MICRO nitrite NEGATI VE neg Not Available [facility] (Lab) [address], [place], [address], 08/05/2024 11:35:42 08/05/20 24 08/05/2024 UA REFLE X TO MICRO protein NEGATI VE mg/dL <30 Not Available [facility] (Lab) [place], [address], 08/05/2024 11:35:42 08/05/20 24 08/05/2024 UA REFLE X TO MICRO glucose NORMAL mg/dL norm Not Available [facility] (Lab) [place], [address], 08/05/2024 11:35:42 08/05/20 24 08/05/2024 UA REFLE X TO MICRO ketone NEGATI VE mg/dL neg Not Available [facility] (Lab) [address], [place], [address], 08/05/2024 11:35:42 08/05/20 24 08/05/2024 UA REFLE X TO MICRO urobilinogen NORMAL mg/dL norm Not Available [facility] (Lab) [place], [address], 08/05/2024 11:35:42 08/05/20 24 08/05/2024 UA REFLE X TO MICRO bilirubin NEGATI VE mg/dL neg Not Available [facility] (Lab) [place], [address], 08/05/2024 11:35:42 08/05/20 24 08/05/2024 UA REFLE X TO MICRO blood NEGATI VE neg Not Available [facility] (Lab) [place], [address], 08/05/2024 11:35:42 08/05/20 24 08/05/2024 SYPHI LIS IGG IGM AB syphilis IgG IgM Ab NON-RE ACTIVE nr No serol ogic evide nce of syphi lis. No follo w-up neces massimo unles s clini alexandrea indic ated. Not Available [facility] (Lab) [place], [address], 08/05/2024 11:42:20 08/05/20 24 08/05/2024 DRUGS OF ABUSE PANEL , URINE amphetamines , urine NEGATI VE neg Not Available [facility] (Lab) [address] [facility], [place], [address], 08/05/2024 12:11:12 08/05/20 24 08/05/2024 DRUGS OF ABUSE PANEL , URINE barbituates, urine NEGATI VE neg Not Available [facility] (Lab) [address], [place], [address], 08/05/2024 12:11:12 08/05/2008/05/2024 DRUGS OF ABUSE PANEL , URINE benzodiazapi yenny, urine NEGATI VE neg Not Available [facility] (Lab) [address] [facility], [place], [address], 08/05/2024 12:11:12 08/05/20 24 08/05/2024 DRUGS OF ABUSE PANEL , URINE cannabinoids /THC, urine POSITI VE neg abnormal Not Available [facility] (Lab) [address] [facility], [place], [address], 08/05/2024 12:11:12 08/05/20 24 08/05/2024 DRUGS OF ABUSE PANEL , URINE cocaine, urine NEGATI VE neg Not Available [facility] (Lab) [address] [facility], [place], [address], 08/05/2024 12:11:12 08/05/20 24 08/05/2024 DRUGS OF ABUSE PANEL , URINE methadone, urine NEGATI VE neg Not Available [facility] (Lab) [address] [facility], [place], [address], 08/05/2024 12:11:12 08/05/20 24 08/05/2024 DRUGS OF ABUSE PANEL , URINE opiates, urine NEGATI VE neg Not Available [facility] (Lab) [place], [address], 08/05/2024 12:11:12 08/05/20 24 08/05/2024 DRUGS OF ABUSE PANEL , URINE phencyclidin es, urine NEGATI VE neg NOTE: RESUL TS OF THIS DRUG SCREE N SHAGGY D BE USED FOR MEDIC AL PURPO SES ONLY AND NOT FOR LEGAL OR EMPLO YMENT PURPO SES. POSIT CHELLY RESUL TS ARE NOT CONFI RMED. MEDIC ATION S CONTA INING EPHED RINE MAY CAUSE FALSE POSIT CHELLY AMPHE TAMIN E CALL [phone], LAB, TO REQUE ST CONFI RMATI ON TESTI NG. IF CREAT ININE IS <40 mg/dL . RECOL LECTI ON IS SUGGE STED. AMPHE TAMIN E- 500 NG/ML JOS TURAT E- 200 NG/ML BENZO DIAZE PINES - 200 NG/ML THC- 50 NG/ML COCAI NE- 150 NG/ML METHA DONE- 300 NG/ML OPIAT E- 300 MG/ML PCP- 25 NG/ML Not Available [facility] (Lab) [place], [address], 08/05/2024 12:11:12 08/05/20 24 08/05/2024 DRUGS OF ABUSE PANEL , URINE creatinine, urine 80.9 mg/dL 28-217 Not Available [facility] (Lab) [place], [address], 08/05/2024 12:11:12 08/05/20 24 08/05/2024 CREAT ININE , URINE creatinine, urine 79.1 mg/dL 28-217 Not Available [facility] (Lab) [place], [address], 08/05/2024 17:26:16 08/05/20 24 08/05/2024 TOTAL PROTE IN, URINE total protein, urine 14.7 mg/dL <10 high Not Available [facility] (Lab) [address] [facility], [place], [address], 08/05/2024 17:26:17 08/05/20 24 08/08/2024 SJS SURGI KAYLEE PATHO LOGY path report [facility] Hospi shayla Depar tment of Labor atory Medic ine [address] [place] [address] Telep elly: , exten noe [id number] Patho logy Repor t Surgi kaylee Patho logy Repor t Name: ABBEY WAITE Speci men #: [id number] Age: [birth year] (Age: 23) Locat ion: [facility] IF Sex: F Proce dure Date: 08/05 Hospi shayla #: [id number] Date Recei april: 025 Date Repor bertin: 025 Provi bhargavi: BEAR Chin MD [facility] e: Place nta Clini kaylee Histo ry: G2, P2 at 39-6/ 7 weeks with mecon ium stain ed fluid . 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 The membr anes are thick , edema tous, and green and exhib it a circu mmarg inate inser tion. The umbil ical cord is 27 cm in lengt h with a diame ter of 1.2 cm. It is eccen trica lly inser bertin, 5 cm from the edge of the disc. The cord does not exhib it any areas of stric ture or true knots . Secti ons of the cord revea l three vesse ls. The disc is 558 grams and 17 x 15 x 3 cm. The surfa ce is blue- green with promi nent vascu latur e. The mater nal surfa ce is disru pted and the compl etene ss of the disc canno t be gross ly asses sed. Secti ons revea l a red brown paren chyma with a singl e 1 cm firm hayder ated area near the cente r of the disc, occup amanda less than 5% of the total place ntal volum e. Repre senta tive tissu e is submi tted as follo ws: 1 - membr anes 2 - umbil ical cord 3 paren chyma to inclu de mater nal surfa ce and firm area 4 paren chyma to inclu de surfa ce. Gross exami natio n (when appli cable ) was perfo rmed at [facility], [address] [place] [address] . This case was inter prete d and jennifer d out at [facility], [address] [facility]. , [facility] [address] . Keren ctron icall y Jennifer d Out ENE GROSS MD Not Available [facility] (Lab) One [facility], [place], [address], 08/08/2024 14:07:40 08/06/19 25 08/06/2024 CBC WITH DIFF WBC 11.33 x10'3 /uL 4.5-11 .[address] [facility] (Lab) One [facility], [place], [address], 08/06/2024 09:06:49 08/06/1908/06/2024 CBC WITH DIFF RBC 3.49 x10'6 /uL 4.20-5 .[address] [facility] (Lab) [address], [place], [address], 08/06/2024 09:06:49 08/06/1908/06/2024 CBC WITH DIFF hemoglobin 10.1 g/dL 12.0-1 [address] [facility] (Lab) [address] [place], [address], 08/06/2024 09:06:49 08/06/1908/06/2024 CBC WITH DIFF hematocrit 29.2 % 38.0-4 [address] [facility] (Lab) [address], [place], [address], 08/06/2024 09:06:49 08/06/1908/06/2024 CBC WITH DIFF MCV 83.7 fL 81.0-[address] [facility] (Lab) [address] [place], [address], 08/06/2024 09:06:49 08/06/1908/06/2024 CBC WITH DIFF MCH 28.9 pg 27.0-[address] [facility] (Lab) [address], [place], [address], 08/06/2024 09:06:49 08/06/1908/06/2024 CBC WITH DIFF MCHC 34.6 g/dL 32.0-[address] [facility] (Lab) [address], [place], [address], 08/06/2024 09:06:49 08/06/1908/06/2024 CBC WITH DIFF RDW 12.6 % 11.5-[address] [facility] (Lab) [address] [facility], [place], [address], 08/06/2024 09:06:49 08/06/1908/06/2024 CBC WITH DIFF platelet count 134 x10'3 /uL 130-[address] [facility] (Lab) [address] [facility], [place], [address], 08/06/2024 09:06:49 08/06/1908/06/2024 CBC WITH DIFF MPV 14.2 fL 9.3-12 .[address] [facility] (Lab) [address], [place], [address], 08/06/2024 09:06:49 08/06/1908/06/2024 CBC WITH DIFF diff type AUTOMA BERTIN DIFFER ENTIAL Not Available [facility] (Lab) [address] [facility], [place], [address], 08/06/2024 09:06:49 08/06/1908/06/2024 CBC WITH DIFF neutrophils 73.4 % Not Available [facility] (Lab) [address], [place], [address], 08/06/2024 09:06:49 08/06/1908/06/2024 CBC WITH DIFF lymphocytes 16.6 % Not Available [facility] (Lab) [address], [place], [address], 08/06/2024 09:06:49 08/06/1908/06/2024 CBC WITH DIFF monocytes 7.7 % Not Available [facility] (Lab) [address] [facility], [place], [address], 08/06/2024 09:06:49 08/06/1908/06/2024 CBC WITH DIFF eosinophils 1.5 % Not Available [facility] (Lab) [place], [address], 08/06/2024 09:06:49 08/06/1908/06/2024 CBC WITH DIFF basophils 0.4 % Not Available [facility] (Lab) [address] [facility], [place], [address], 08/06/2024 09:06:49 08/06/1908/06/2024 CBC WITH DIFF immature granulocytes 0.4 % Not Available [facility] (Lab) [address] [facility], [place], [address], 08/06/2024 09:06:49 08/06/1908/06/2024 CBC WITH DIFF abs. neutrophils 8.32 x10'3 /uL 1.80-7 [address] [facility] (Lab) [address] [place], [address], 08/06/2024 09:06:49 08/06/1908/06/2024 CBC WITH DIFF abs. lymphocytes 1.88 x10'3 /uL 1.00-[address] [facility] (Lab) [address] [place], [address], 08/06/2024 09:06:49 08/06/1908/06/2024 CBC WITH DIFF abs. monocytes 0.87 x10'3 /uL 0.24-0 .[address] [facility] (Lab) [address] [facility], [place], [address], 08/06/2024 09:06:49 08/06/19 25 08/06/2024 CBC WITH DIFF abs. eosinophils 0.17 x10'3 /uL 0.04-[address] [facility] (Lab) [place], [address], 08/06/2024 09:06:49 08/06/19 25 08/06/2024 CBC WITH DIFF abs. basophils 0.05 x10'3 /uL 0.01-[address] [facility] (Lab) [place], [address], 08/06/2024 09:06:49 08/06/19 25 08/06/2024 CBC WITH DIFF abs. immature grans 0.04 x10'3 /uL 0.00-[address] [facility] (Lab) One [facility], [place], [address], 08/06/2024 09:06:49 06/23/20 24 06/23/2024 , david lutz follo w-up No observ ation record ed. junler Maggie [address], [place], [address], 06/23/2024 16:40:37 07/09/20 24 07/09/2024 US, david tric follo w-up No observ ation record ed. tamikadavis Maggie [address], [place], [address], 07/13/2024 22:17:26 Result Notes None recorded. Problems Name Problem SNOMED Code Status Onset Date Resolution Date Notes Provider Name and Address Organization Details Recorded Time [id number] Active 2023 TRENTON Hampton [address] [facility], [place], [phone], [facility] 4 09:25:32 Hyperemesi s gravidarum [id number] Active Severe. Has presented to ER multiple times. Currently on Reglan/ Promethazi ne/ Prednisone pack. Patient continues taking Pepcid, Reglan, and Potassium. Continues to experience vomiting occasional ly but much improved overall. --> Update 06/23/24: Pt declines refills, doing well on above listed regimen. UA dip notable for SG 1.000, no Ketones. Up 3 lbs from last visit 3 weeks ago. TRENTON Gurrola [address] [place] [address], [phone], [facility] 4 15:41:53 Marijuana user [id number] Active Carlita Lara, JAGDEEP [address] [place] [address], [phone], [facility] 4 13:08:56 Varicella non-immune [id number] Active Plan Varicella Vaccine . TRENTON Gurrola [address] [place] [address], [phone], [facility] 4 15:41:30 Hypokalemi a [id number] Active K+ 3.4 on 05/19/24. Rx for p.o. K+ given. --> Update 06/23/24: Repeat CMP drawn; results pending. Pt self admittedly has been tolerating K+ supplement ation and has 3 doses left. Further POC pending lab result review. TRENTON Gurrola [address] [place] [address], [phone], [facility] IV 4 15:41:19 High risk 52002695 Active Hx: [id number] L1, Delivery Methods: x 1. NOB labs: B+/RI/NRx4 . Last Pap: 08/2023 NILM. GTT: 129. GBS: ____. Aneuploidy screening: UNITY NIPT & MSAFP WNL. Anatomy Scan: Complete on 04/21/24 with [facility]. TRENTON Gurrola [address] [place] [address], [phone], [place] [facility] IV 4 15:44:00 High risk 31441492 Active Hx: [id number] L1, Delivery Methods: x 1. NOB labs: B+/RI/NRx4 . Last Pap: 08/2023 NILM. GTT: 129. GBS: ____. Aneuploidy screening: [facility] NIPT & MSAFP WNL. Anatomy Scan: Complete on 04/21/24 with [facility]. TRENTON Gurrola [address] [place] [address], [address], [facility] - [facility] IV 4 15:44:00 Syncope 115466057 Active head laceration from trauma r/t syncope. Sutures removed by PCP in 05/2024. --> Update 06/23/24: lac intact, healing well, no erythema or drainage at site. TRENTON Gurrola [address] [place] [address], [phone], [facility] - [facility] IV 4 15:42:11 Syncope [id number] Active head laceration from trauma r/t syncope. Sutures removed by PCP in 05/2024. --> Update 06/23/24: lac intact, healing well, no erythema or drainage at site. TRENTON Gurrola [address] [place], [address], [employer] - [facility] IV 4 15:42:11 Obesity 617819105 Active BMI 36.9. GTT 129. U/S: 03/24 62.2%. TRENTON Gurrola [facility] [place], [address], [place] [employer] - [facility] IV 4 15:43:29 Obesity 987648344 Active BMI 36.9. GTT 129. U/S: 03/24 62.2%. TRENTON Gurrola [address] [place], [address], [employer] - [facility] IV 4 15:43:29 Uterine size for dates discrepanc y 801104825 Active noted on 06/23/24. Repeat Growth/YUDELKA : 27.8%, YUDELKA 9.83. Elana Tayler TRENTON Nava [address] [place], [address], [facility] [employer] [facility] IV 4 15:43:48 Uterine size for dates discrepanc y 135860561 Active noted on 06/23/24. Repeat Growth/YUDELKA : 27.8%, YUDELKA 9.83. ElanaTRENTON Scott [address] [facility], [place], [address], [facility] IV 4 15:43:48 Problem Notes None recorded. Procedures Surgical History Date Name Laterality Status Provider Name and Address Organization Details Recorded Time Date of Last Pap Smear completed [facility] [employer] [facility] IV 08/08/2023 13:10:07 Remove tonsils and adenoids completed Jazmyn [facility] [employer] IV 04/21/2024 16:55:14 Imaging Results Imaging Date Name Status LastModified by Organiz ation Details LastModified Time 06/23/2024 US, obstetric, follow-up completed kavita Lutze [address], [place], [address], 06/23/2024 16:40:37 07/09/2024 US, obstetric, follow-up completed marcelino Maggie [address], [place], [address], 07/13/2024 22:17:26 Procedure Notes None recorded. Medical Equipment None Reported. Allergies No known drug allergies Medications Name Sig Start Date Stop Date Status Note LastModified by Organization Details LastModified Time senna s 8.6-50mg tablets TAKE 1 TABLET BY MOUTH EVERY DAY 12/17 completed Not Available Not Available Not Available cyclobenzap rine 10 mg tablet 04/21 completed Not Available Not Available Not Available Vitamin B-6 25 mg tablet TAKE 1 TABLET BY MOUTH EVERY 8 HOURS NEEDED FOR NAUSEA AND VOMITING 12/17 completed Not Available Not Available Not Available nicotine 14 mg/24 hr daily transdermal patch APPLY 1 PATCH TOPICALLY TO THE SKIN EVERY DAY 04/21 completed Not Available Not Available Not Available sucralfate 1 gram tablet 03/24 completed Not Available Not Available Not Available prednisone 20 mg tablet TAKE 2 TABLETS BY MOUTH ONCE DAILY FOR 3 DAYS, THEN TAKE 1 ONCE DAILY FOR 3 DAYS 08/08 completed Not Available Not Available Not Available omeprazole 40 mg capsule,del ayed release 04/21 completed Not Available Not Available Not Available famotidine 20 mg tablet TAKE 1 TABLET BY MOUTH TWICE DAILY 07/14 completed Not Available Not Available Not Available cephalexin 500 mg capsule TAKE 1 CAPSULE BY MOUTH EVERY 12 HOURS FOR 7 DAYS 08/08 completed Not Available Not Available Not Available promethazin e 25 mg tablet 12/17 completed Not Available Not Available Not Available Promethegan 25 mg rectal suppository UNWRAP AND INSERT 1 SUPPOSITO RY RECTALLY EVERY 12 HOURS 01/13 completed Not Available Not Available Not Available polyethylen e glycol 3350 17 gram/dose oral powder MIX 17 GRAMS OF POWDER INTO 8 OZ OF WATER AND DRINK ONCE A DAY 12/17 completed Not Available Not Available Not Available methylpredn isolone 4 mg tablets in a dose pack TAKE BY MOUTH DIRECTED ON INSIDE OF PACKAGE 12/17 completed Not Available Not Available Not Available albuterol sulfate HFA 90 mcg/actuati on aerosol inhaler INHALE 2 PUFFS BY MOUTH 4 TIMES DAILY NEEDED FOR SHORTNESS OF BREATH FOR WHEEZING 12/05 completed Not Available Not Available Not Available ondansetron 4 mg disintegrat ing tablet DISSOLVE 1 TABLET ON THE TONGUE EVERY 6 HOURS NEEDED 12/17 completed Not Available Not Available Not Available metoclopram teri 10 mg tablet TAKE 1 TABLET BY MOUTH FOUR TIMES DAILY 07/14 completed Not Available Not Available Not Available cyclobenzap rine 5 mg tablet TAKE 1 TABLET BY MOUTH THREE TIMES DAILY NEEDED FOR MUSCLE STRAIN 03/04 completed Not Available Not Available Not Available Pepcid 07/14 completed Not Available Not Available Not Available 07/14 completed Not Available Not Available Not Available FeroSul 325 mg (65 mg iron) tablet TAKE 1 TABLET BY MOUTH TWICE DAILY 07/14 completed Not Available Not Available Not Available PNV #30-iron-fo lic acid-omega3 05/14 completed Not Available Not Available Not Available potassium chloride ER 20 mEq tablet,exte nded release TAKE 1 TABLET BY MOUTH EVERY DAY 07/14 completed Not Available Not Available Not Available [employer] (doxylamine ) 25 mg tablet TAKE 1 TABLET BY MOUTH EVERY NIGHT AT BEDTIME NEEDED FOR SLEEP 12/17 completed Not Available Not Available Not Available Vitals Date Recorded Body height Body mass index (BMI) Body weight Systolic blood pressure Diastolic blood pressure Provider Name and Address Organization Details Last Updated DateTime 06/23/2024 160.02 cm 36.9 kg/m2 36606.64 9908 g 120 mm[Hg] 78 mm[Hg] Rosalie Rossi [employer] IV 4 14:15:15 Date Recorded Body height Body mass index (BMI) Body weight Systolic blood pressure Diastolic blood pressure Provider Name and Address Organization Details Last Updated DateTime 07/09/2024 160.02 cm 36.5 kg/m2 76103.03 g 120 mm[Hg] 75 mm[Hg] [facility] [employer] IV 4 15:05:12 Date Recorded Body height Body mass index (BMI) Body weight Systolic blood pressure Diastolic blood pressure Provider Name and Address Organization Details Last Updated DateTime 07/14/2024 160.02 cm 37.2 kg/m2 62513.4 g 120 mm[Hg] 60 mm[Hg] [facility] [employer] IV 4 14:29:31 Date Recorded Body height Body mass index (BMI) Body weight Systolic blood pressure Diastolic blood pressure Provider Name and Address Organization Details Last Updated DateTime 07/23/2024 160.02 cm 37.6 kg/m2 26251.02 g 125 mm[Hg] 70 mm[Hg] [facility] [employer] IV 4 14:25:21 Date Recorded Body height Body mass index (BMI) Body weight Systolic blood pressure Diastolic blood pressure Provider Name and Address Organization Details Last Updated DateTime 08/04/2024 160.02 cm 37.6 kg/m2 51955.3 g 125 mm[Hg] 80 mm[Hg] [facility] [employer] IV 4 14:12:02 Social History Question Answer Notes LastModified by Organizat ion Details LastModified Time Tobacco Smoking Status Current Every Day Smoker Loren Carlos [facility], [facility] 01/14/2024 12:38:29 Are You Blind Or Do You Have Difficulty Seeing? No [email or web address] Information not available 08/08/2023 Are You Currently Employed? Yes [email or web address] Information not available 08/08/2023 Are You Deaf Or Do You Have Serious Difficulty Hearing? No [email or web address] Information not available 08/08/2023 What Type Of Diet Are You Following? REGULAR Information not available 01/14/2024 How Many Children Do You Have? 1 [email or web address] Information not available 08/08/2023 Are There Any Occupational Health Risks Where You Work? No [email or web address] Information not available 08/08/2023 What Is Your Relationship Status? Single [email or web address] Information not available 08/08/2023 Are You Sexually Active? Yes [email or web address] Information not available 08/08/2023 At What Age Did You Start Smoking Tobacco? 19 Information not available 01/14/2024 How Much Tobacco Do You Smoke? 0.5 PPD Information not available 01/14/2024 What Types Of Sporting Activities Do You Participate In? 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 No Information not available 08/08/2023 How Many Years Have You Smoked Tobacco? 4 [email or web address] Information not available 01/14/2024 Sex: Female Functional Status Question Answer Note LastModified by Organization D etails LastModified Time What is your exercise level? Moderate [email or web address] Information not available 08/08/2023 Mental Status None recorded. Family History Relationship Description Onset Age of this Age Resolved Age Notes LastModified by Organization Details LastModified Time Father No current problems or disability [email or web address] Not available 10/2023 13:11:04 Mother No current problems or disability Not available 10/2023 13:11:04 Medical History Condition Response Other Cancer N High Blood Pressure N Colon Cancer N Cytomegalovirus N Hyperthyroidism N Breast Cancer N Herpes (HSV) N MRSA N Blood Transfusion N Lung Cancer N Depression N Hypothyroidism N Incontinence N Panic Attacks N Neurological Disorder N Deep Vein Thrombosis N Anxiety Disorder N Autoimmune disease N Arthritis N Tuberculosis/Positive PPD N Shingles N Polycystic Ovarian Syndrome N Infertility N Cervical Cancer N Hematuria N Chlamydia N Varicosities N Stroke N Crohn's Disease N Seasonal allergies N Alzheimer's/Dementia N COPD/Emphysema N HPV/Genital Warts N Endometriosis N IBS (Irritable Bowel Syndrome) N History of Abnormal Pap N High Cholesterol N Liver Disease N Fibromyalgia N Kidney Infection N Ulcer N Kidney Disease N HIV N Gallbladder disease N Von Willebrand disease N Sickle Cell Disease/Trait N ADD/ADHD N Eating Disorder N Diabetes Mellitus (non-insulin dependent ) N Anemia N Ovarian Problems N Multiple Sclerosis N Gonorrhea N Frequent Urinary Tract infections N Osteopenia N Headaches/migraines N GERD (reflux) N Ovarian Cancer N Diabetes (insulin dependent) N Seizures/Epilepsy N Breast Problems N Fibroids N Asthma N Heart Attack N Endometrial Cancer N Lupus N Rubella N Blood Clotting Disorder N Bipolar Disorder N Diabetes Mellitus (during ) N Ulcerative Colitis N Hepatitis N Heart Disease N Pulmonary Embolism N RPR N Chicken Pox N Osteoporosis N Gynecological History Statement/Question Response Flow Moderate Date of last HPV Date of LMP 10/06/2023 Duration of Flow (days) 6 Most Recent Mammogram Current Control Method Age at Menarche 14 Date of Last Colonoscopy Most Recent Bone Density Frequency of Cycle (Q days) 28-30 Date of Last Pap Smear 08/08/2023 Obstetrics History GPAL:G 2 P 1 0 0 1 Type Value Full Term 1 Living 1 Total 2 Past Encounters Encounter ID Performer Location Encounter Start Date Encounter Closed Date Diagnosis/Indication Diagnosis SNOMED-CT Code Diagnosis ICD10 Code Diagnosis Note [id number] TRENTON [place] [facility] [address] [place] [address] 08/08/2023 12:51:36 08/08/2023 13:45:54 Gynecologic examination 73442169 Z01.419 22y.o. here for annual exam. - Pap today - RTO PRN or annual Screening for malignant neoplasm of cervix 401188836 Z12.4 ASCCP guidelines reviewed with pt. Pap collected and sent. Further POC pending lab result review. Pt states understand ing of POC. Depression screening 171 318982 Z13.31 PHQ9: Negative. Pt educated on normal scoring. No further management needed. Female infertility 32296 08 N97.9 Will refer to [facility]. Discussed need for partner to have semen analysis since her HSG was normal, she is having regular cycles, and she is getting +OPK's [id number] TRENTON [place] [facility] [address] [place] [address] 12/06/2023 11:29:33 12/06/2023 11:54:59 Amenorrhea 46597944 N91.0 N91.1 Z32.00 UPT in office is positive. Pt educated on dietary recommenda tions, to take PNV daily, on Threatened Ab precaution s, and when to notify HCP/go to ER. Plan to F/U in 2 weeks for NOB visit. test positive 866529024 Z32.01 Unable to determine viabilityH CG todayGesta tional sac visualized intrauteri neWill RTO in 2 weeks for repeat scan [id number] TRENTON [place] [address] [address] 12/20/2023 11:47:54 12/20/2023 12:33:06 Normal 32247807 Z34.82 Additional diagnosis detail: Encounter for supervisio n of other normal , second trimester Gestation period, 7 weeks 03437758 Z3A.01 Additional diagnosis detail: 7 weeks gestation of Hyperemesi s gravidarum 95759645 O21.0 Finish Medrol PackContin ue Reglan and Promethazi ne [id number] TRENTON [place] [address] [address] 12/18/2023 10:52:17 12/18/2023 11:30:14 Nausea and vomiting 95217959 R11.2 Discussed need to finish Medrol packRx for Reglan sentStates Zofran is ineffectiv ePromethaz ine suppositor ies rx'd Moderate dehydration 754 7290787 105 E86.0 Discussed importance of fluid intake test positive 591284601 Z32.01 BSUS with FHT's at 132. Keep upcoming NOB visit on 12/20/23 Nondepende nt cannabis abuse, continuous 764689446 F12.10 Discussed risks of smoking marijuana with . Patient states it is the only thing that helps her [id number] PAGE CUELLAR, BSW [facility] [address] [place] [address] 01/14/2024 12:34:08 01/14/2024 13:30:46 Gestation period, 10 weeks 00784022 Z3A.10 Normal 2932671 2 Z34.91 Pt comes in today for a New/First OB visit.Gest ation: 10w 5dEDD: 08/06/2024 -- PMH: HTN, Anxiety, Depression ? No PMH-- Medication s: Taking daily PNV when she can keep it down. Daily marijuana user, famotidine , metoclopra mide, promethazi ne suppositor ies.-- Previous OB History: Vaginal delivery- No complicati ons with vaginal delivery or - - Mom/Sister s with hx of Pre-Eclamp myah: Denies-- History of Genital HSV: Denies-- Genetic Questions in OB Episode Done-- Accepts [employer]. Would like to know gender. Discussed logging on to the [employer] portal to find Gender Results-- PAP up to date --BMI at Confirmati on: 32.2 POC-- NOB labs done today-- Accepts [employer]-- PAP Up to Date-- Pre-Pregna ncy BMI: 32.2-- RTC 4 weeks Guide: Given and reviewed. Toxoplasmo sis precaution s reviewed. Reviewed office visit schedule during . Reviewed Quickening and normal FHTs. Greater than thirty minutes spent with patient in consultati on (>50% face-to-fa ce). Patient labs and notes were reviewed. Patient questions were answered. Additional patient care was coordinate d. screening 9917 80502 Z36.89 Carrier de tection, molecular genetics 1359994 Z14.8 Hyperemesi s gravidarum 70420769 O21.0 Pt educated on smaller/mo re frequent meals, pushing p.o. water intake by taking sips, and avoiding spicy/frie d foods. Advised against smoking marijuana in as it can have the opposite side effects.Af ter consulting with Dr. Lara patient will be sent to [facility] for direct admit to L&D for fluids and anti-emeti cs. Nicotine user 897307699 Z72.0 Marijuana user 477806602 F12.90 [id number] JESSICA AGUILAR NP [address] [address] 02/11/2024 15:42:46 02/11/2024 17:08:48 Gestation period, 14 weeks 69000046 Z3A.14 Additional diagnosis detail: 14 weeks gestation of Normal 8149513 2 Z34.82 Pt is here for a LEYDA appointmen t. She is taking vitamins. She has no complaints or questions. Has not felt movement yet. Denies vaginal bleeding, abdominal cramps, contractio ns, or LOF. Denies headache, vision changes, swelling of hands or face, and epigastric pain. Discussed PTL and precaution s given. There are no identifiab le risk factors for pre-term labor. Additional diagnosis detail: Encounter for supervisio n of other normal , second trimester Hyperemesis 642277080 R1 1.10 Patient reports improvemen t with regular use of reglan and Pepcid.- Reviewed diet changes to reduce acid (decrease tomatoes, chocolate, citrus juice, spicy foods), sleeping with torso elevated- Recommend Tums as needed [id number] HETAL MOLINA DO [address] [address] 03/04/2024 14:55:57 03/04/2024 15:58:29 Gestation period, 17 weeks 65549841 Z3A.17 Additional diagnosis detail: 17 weeks gestation of Normal 3290493 2 Z34.82 Additional diagnosis detail: Encounter for supervisio n of other normal , second trimester Screening for disorder 764635043 Z36.0 [id number] Chelsie Lara MD [address] [address] 03/24/2024 15:05:08 03/24/2024 16:17:41 Gestation period, 20 weeks 32758250 Z3A.20 screening 2437 11758 Z36.3 Normal 9510692 2 Z34.82 [id number] LE CHÁVEZ NP [address] [address] 04/21/2024 16:27:36 04/21/2024 17:30:21 Normal 65952510 Z34.82 Pt is here for a LEYDA appointmen светлана. She is taking vitamins. She has no complaints or questions. Reports feeling movement. Denies vaginal bleeding, abdominal cramps, N/V, contractio ns, or LOF. Denies headache, vision changes, swelling of hands or face, and epigastric pain. Discussed PTL and precaution s given. There are no identifiab le risk factors for pre-term labor. Reminded pt that I do not delivery babies.Rec ommended to see delivery provider next visitRTC - 4 wks Gestation period, 24 weeks 515828344 Z3A.24 screening for malformation 389270838 Z36.3 Disorder o f left sciatic nerve 3132126479 51392 M54.32 [id number] Jordana GarzaZhao is, [facility] [address] [place] [address] 05/14/2024 10:04:36 05/14/2024 14:37:45 Hypokalemia 45506122 E87.6 [id number] Jordana GarzaZhao is, [facility] [address] [place] [address] 05/19/2024 14:34:19 05/19/2024 16:21:48 Normal 94794833 Z34.83 screening 2437 27787 Z36.89 Acute hypokalemia 968755 03 E87.6 Gestation period, 28 weeks 72202998 Z3A.28 [id number] Jordana GarzaZhao is, [facility] h [address] [facility] [address] 06/02/2024 14:19:19 06/02/2024 15:09:36 Gestation period, 35 weeks 43413476 Z3A.35 Normal 3851300 2 Z34.83 [id number] Chelsie Lara MD [facility] [address] [facility] [address] 06/23/2024 14:04:39 06/24/2024 15:25:15 Normal 27669277 Z34.83 Patient continues taking Pepcid, reglan and Potassium. Continues to have vomiting occasional ly but much improved. Patient denies vaginal leaking, bleeding, cramping. Endorses movement.F ollow up in 2 weeks Hypokalemia 91838186 E87 .6 Varicella non-immune 371 409061 O09.899 Z28.39 Marijuana user 624766041 F12.90 Hyperemesi s gravidarum 93867151 O21.0 Gestation period, 33 weeks 99307409 Z3A.33 Uterine si ze for dates discrepancy 424906579 O26.487 [id number] Jordana Jean is, [facility] [address] [facility] [address] 07/09/2024 14:13:03 07/09/2024 15:21:35 screening 422411504 Z36.85 Normal 2916719 2 Z34.83 Morbid obesity 241513422 E66.01 [id number] Jordana Jean is, [facility] [address] [facility] [address] 07/14/2024 14:08:16 07/14/2024 15:02:03 screening 983678543 Z36.85 Normal 6892255 2 Z34.83 Gestation period, 36 weeks 66532616 Z3A.36 [id number] Jordana Jean is, [facility] [address] [facility] [place] [address] 07/23/2024 14:18:32 07/23/2024 14:48:27 Gestation period, 38 weeks 45371421 Z3A.38 Normal 5510806 2 Z34.83 [id number] Jordana GarzaZhao is, [facility] [address] [facility] [place] [address] 08/04/2024 14:03:44 08/04/2024 15:40:18 Normal 16712558 Z34.83 Gestation period, 39 weeks 96175055 Z3A.39 Health Concerns Section Related Observation LastModified by Organization Detai ls LastModified Time None Recorded Concern Status LastModified by Organization Details LastModified Time None Recorded Advance Directives Directive None Recorded Payers Encounter Date Sequence Insurance Name Policy Number Policy Sivla Covered Member ID Silva Member ID Guarantor Name 06/23/2024 2 [place] [facility] Abbey Gearing [id number] Abbey Gearing 06/23/2024 1 [facility] [employer] Abbey Gearing [id number] Abbey Gearing 07/09/2024 2 [place] [facility] Abbey Gearing [id number] Abbey Gearing 07/09/2024 1 [facility] [employer] Abbey Gearing [id number] Abbey Gearing 07/14/2024 2 [place] [facility] [place] [facility] Abbey Gearing [id number] Abbey Gearing 07/14/2024 1 [facility] [employer] Abbey Gearing [id number] Abbey Gearing 07/23/2024 2 [place] [facility] [place] [facility] Abbey Gearing [id number] Abbey Gearing 08/04/2024 2 [place] [facility] Abbey Gearing [id number] Abbey Gearing Notes Date Note Type Note Provider Name and Address Organization Details Recorded Time 06/23/2024 text/html Patient is here today for a routine OB visit. She is currently at {{6 7 8 9 10 11 1 2 13 14 15 16 17 18 19 20 21 22 23 24 25 26 27 28 2 9 30 31 32 33 34 35 36 37 38 39 40 41 33.5#}} weeks gestation. vitamins: {{yes* no}} She {{has* has not}} felt movement.She denies any complaints of the presence of vaginal bleed, leaking fluid, abdominal cramps, nausea, vomiting, headache or visual disturbances. Chelsie Lara MD [address] [facility], [place], [address], [facility] 06/28/2024 08:04:47 07/09/2024 text/html Patient is here today for a routine OB visit. She is currently at {{6 7 8 9 10 11 1 2 13 14 15 16 17 18 19 20 21 22 23 24 25 26 27 28 2 9 30 31 32 33 34 35 36* 37 38 39 4 0 41}} weeks gestation. vitamins: {{yes* no}} She {{has* has not}} felt movement.She denies any complaints of the presence of vaginal bleed, leaking fluid, abdominal cramps, nausea, vomiting, headache or visual disturbances. Pt states she is still smoking and wants to know what affects the baby. Pt stated she cut back. No concerns today. Jordana Mercer CNM [address] [place], [address], [facility] 07/09/2024 15:20:49 07/14/2024 text/html Patient is here today for a routine OB visit. She is currently at {{6 7 8 9 10 11 1 2 13 14 15 16 17 18 19 20 21 22 23 24 25 26 27 28 2 9 30 31 32 33 34 35 36 37 38 39 40 41 36.5#}} weeks gestation. vitamins: {{yes* no}} She {{has* has not}} felt movement. She denies any complaints of the presence of vaginal bleed, leaking fluid, abdominal cramps, nausea, vomiting, headache or visual disturbances. No concerns Jrodana Mercer CNM [facility] [place], [address], [facility] 07/14/2024 14:44:40 07/23/2024 text/html Patient is here today for a routine OB visit. She is currently at {{6 7 8 9 10 11 1 2 13 14 15 16 17 18 19 20 21 22 23 24 25 26 27 28 2 9 30 31 32 33 34 35 36 37 38* 39 4 0 41}} weeks gestation. vitamins: {{yes no*}} She {{has* has not}} felt movement.She denies any complaints of the presence of vaginal bleed, leaking fluid, abdominal cramps, nausea, vomiting, headache or visual disturbances. No concerns Jordana Mercer CNM [address] [place], [address], [employer] IV 07/23/2024 14:45:41 08/04/2024 text/html Patient is here today for a routine OB visit. She is currently at {{6 7 8 9 10 11 1 2 13 14 15 16 17 18 19 20 21 22 23 24 25 26 27 28 2 9 30 31 32 33 34 35 36 37 38 39 40 41 39.5#}} weeks gestation. vitamins: {{yes no*}} She {{has* has not}} felt movement.She denies any complaints of the presence of vaginal bleed, leaking fluid, abdominal cramps, headache or visual disturbances. Pt c/o nausea and vomiting. Jordana Mercer, CNMontserrat [address] [facility], [place], [address], [facility] Data Symmetry 08/04/2024 14:27:25 OBGyn Episode Ob Episode Information Episode Created Date Number of Fetuses Patient Bloodtype Patient rh Status Prepregnancy Weight lbs Domestic Partner Domestic Partner Phone Father Name Materials Research Engineer Status 12/20/19 24 1 O Positive OPEN Fetus Data First Name Last Name Admitted to NICU Weight (g) Sex Living Outcome Pediatric Complications Fetus ID Race Codes Race Delivery Type [id number] Problems Problem Notes Previous at 16y/o. Delivery Plans: [facility]. PP Contraception Plans: uncertain at this time Problem Name Start Date End Date Resolution Snomed Code Not e Syncope [id number] head lacer ation from trauma r/t syncope. Sutures removed by PCP in 05/2024. --> Update 06/23/24: lac intact, healing well, no erythema or drainage at site. Obesity [id number] BMI 36.9. GTT 129. U/S: 03/24 62.2%. Varicella non-immune [id number] Plan Varicella Vaccine . Marijuana user [id number] Hypokalemia [id number] K+ 3.4 o n 05/19/24. Rx for p.o. K+ given. --> Update 06/23/24: Repeat CMP drawn; results pending. Pt self admittedly has been tolerating K+ supplementation and has 3 doses left. Further POC pending lab result review. Uterine size for dates discrepancy [id number] noted on 08/23/23. Repeat Growth/YUDELKA: 27.8%, YUDELKA 9.83. Hyperemesis gravidarum [id number] Severe. Has pre sented to ER multiple times. Currently on Reglan/ Promethazine/ Prednisone pack. Patient continues taking Pepcid, Reglan, and Potassium. Continues to experience vomiting occasionally but much improved overall. --> Update 06/23/24: Pt declines refills, doing well on above listed regimen. UA dip notable for SG 1.000, no Ketones. Up 3 lbs from last visit 3 weeks ago. High risk [id number] Hx: [id number], Delivery Methods: x 1. NOB labs: B+/RI/NRx4. Last Pap: 08/2023 NILM. GTT: 129. GBS: ____. Aneuploidy screening: UNITY NIPT & MSAFP WNL. Anatomy Scan: Complete on 04/21/24 with [facility]. Craig Calculation Initial Craig Date Initial Exam Date Initial Exam Provider Initial Ultrasound Date Last Menstrual Period Date Ultra Sound Weeks Gestation 08/06/2024 12/20/2023 12/20/2023 10/06/2023 7 Eighteen To Twenty Week Craig Update Ultra Sound Date Fundal Height At Umbil Quickening Date Ultra Sound Latest Weeks Gestation Final Craig Confirmed By Final Craig Confirmed Date Final Craig Date Ultra Sound Latest Days Gestation 0 awittler 06/19/2024 08/06/19 25 0 Pre-celeste Flowsheet Flowsheet Date 12/20/2023 Boland Score Blood Edema Fundus Height Fundus Units Glucose Ketones Leukocytes Nitrite Labor Signs Protein Cervic Dilation Cervic Effacement Cervic Station none none none neg Type Weight in lbs Pre/Post Dialysis Refused Weight 182.082001539696 BP Diastolic BP Location Tested BP Systolic BP Type 62 118 Fetus Heart Rate Present A 161 Fetus Movement Comments Hyperemesis much improved wi th Medrol pack, Reglan. She has used Promethazine supposity x 1 and will use PRN Flowsheet Date 01/14/2024 Boland Score Blood Edema Fundus Height Fundus Units Glucose Ketones Leukocytes Nitrite Labor Signs Protein Cervic Dilation Cervic Effacement Cervic Station none none none trace Type Weight in lbs Pre/Post Dialysis Refused With clothes 182.900593075954 BP Diastolic BP Location Tested BP Systolic BP Type 64 L arm 112 sitting Fetus Heart Rate Present A 142 Present Fetus Movement A No Comments 1st OB visit today. NOB and unity collected. Pap is UTD. Severe hyperemesis, patient states has been vomiting since 0800 yesterday morning. Also c/o stabbing chest pain. Patient is daily marijuana user and is wanting help to stop smoking cigarettes and marijuana. Education provided on marijuana side effects when will make nausea and vomitting worse. Patient states that promethazine and reglan no longer helping. Went ER yesterday and patient states doc just told her to quit smoking marijuana. Consulted with Dr. Lara and recommended sending patient to [facility], patient will be directly admitted to L&D. Patient notified of recommendations, voices understanding left office to go to [facility]. Flowsheet Date 02/11/2024 Boland Score Blood Edema Fundus Height Fundus Units Glucose Ketones Leukocytes Nitrite Labor Signs Protein Cervic Dilation Cervic Effacement Cervic Station Type Weight in lbs Pre/Post Dialysis Refused Weight 187.051334501471 BP Diastolic BP Location Tested BP Systolic BP Type 60 112 Fetus Heart Rate Present A 143 Fetus Movement A No Comments LEYDA No Ob complaints. report s improvement with N/V and GERD symptoms. RTC in 4 wks AFP at next visit. Flowsheet Date 03/04/2024 Boland Score Blood Edema Fundus Height Fundus Units Glucose Ketones Leukocytes Nitrite Labor Signs Protein Cervic Dilation Cervic Effacement Cervic Station Type Weight in lbs Pre/Post Dialysis Refused Weight 192.57777363725 BP Diastolic BP Location Tested BP Systolic BP Type 68 116 Fetus Heart Rate Present A 145 Fetus Movement Comments was in ER for nausea/vomitin gdiscussed thc use increases the symptoms and causes exterminator termite affects on neonates mental and emotional development. AFP todayRTO in 3-4w for anatomy scan Flowsheet Date 03/24/2024 Boland Score Blood Edema Fundus Height Fundus Units Glucose Ketones Leukocytes Nitrite Labor Signs Protein Cervic Dilation Cervic Effacement Cervic Station none none none neg Type Weight in lbs Pre/Post Dialysis Refused With clothes 194.034035138638 BP Diastolic BP Location Tested BP Systolic BP Type 62 110 sitting Fetus Heart Rate Present A 140 Fetus Movement A Yes Comments Incomplete Anatomical survey . Follow up in 4 weeks. Flowsheet Date 04/21/2024 Boland Score Blood Edema Fundus Height Fundus Units Glucose Ketones Leukocytes Nitrite Labor Signs Protein Cervic Dilation Cervic Effacement Cervic Station none none Type Weight in lbs Pre/Post Dialysis Refused With clothes 195.360859316093 BP Diastolic BP Location Tested BP Systolic BP Type 70 110 sitting Fetus Heart Rate Present A 138 Present Fetus Movement A Yes Comments Anatomy completed today. Ant erior Placenta. No OB complaints today. Says that she is having some left sided siatica pain. Will refer her to PT. Next visit will have 3T labs & 1hr GTT. RTC - 4wks. Flowsheet Date 05/14/2024 Boland Score Blood Edema Fundus Height Fundus Units Glucose Ketones Leukocytes Nitrite Labor Signs Protein Cervic Dilation Cervic Effacement Cervic Station none trace Type Weight in lbs Pre/Post Dialysis Refused With clothes 199.075304511757 BP Diastolic BP Location Tested BP Systolic BP Type 60 110 sitting Fetus Heart Rate Present A 144 Fetus Movement A Yes Comments ob prob visit-head laceratio n from syncope CDI, will have sutures removed by PCP next week, reviewed hypokalemia and Rx sent has 3T labs 05/19 Flowsheet Date 05/19/2024 Boland Score Blood Edema Fundus Height Fundus Units Glucose Ketones Leukocytes Nitrite Labor Signs Protein Cervic Dilation Cervic Effacement Cervic Station 27 cm Type Weight in lbs Pre/Post Dialysis Refused With clothes 201.257007371374 BP Diastolic BP Location Tested BP Systolic BP Type 60 100 sitting Fetus Heart Rate Present A 135 Fetus Movement Comments 3T labs and CMP today, no OB concerns Flowsheet Date 06/02/2024 Boland Score Blood Edema Fundus Height Fundus Units Glucose Ketones Leukocytes Nitrite Labor Signs Protein Cervic Dilation Cervic Effacement Cervic Station 30 cm Type Weight in lbs Pre/Post Dialysis Refused With clothes 204.824964052743 BP Diastolic BP Location Tested BP Systolic BP Type 60 110 sitting Fetus Heart Rate Present A 135 Fetus Movement A Yes Comments CMP up to 3.4 continue oral Potassium. 28 week labs WNL Flowsheet Date 06/23/2024 Boland Score Blood Edema Fundus Height Fundus Units Glucose Ketones Leukocytes Nitrite Labor Signs Protein Cervic Dilation Cervic Effacement Cervic Station 36 cm none neg Type Weight in lbs Pre/Post Dialysis Refused 208.42834307899 BP Diastolic BP Location Tested BP Systolic BP Type 78 120 Fetus Heart Rate Present A 138 Present Fetus Movement A Yes Comments S>D. 27.8%, YUDELKA 9.83, 4D don e. Pt educated on PTL precautions and discussed when to notify HCP/go to L&D. Flowsheet Date 07/09/2024 Boland Score Blood Edema Fundus Height Fundus Units Glucose Ketones Leukocytes Nitrite Labor Signs Protein Cervic Dilation Cervic Effacement Cervic Station Type Weight in lbs Pre/Post Dialysis Refused With clothes 206.542659564343 BP Diastolic BP Location Tested BP Systolic BP Type 75 120 sitting Fetus Heart Rate Present A 135 Fetus Movement Comments 34%ile, concerned about MJ u se, has cut back. Encouraged cessation but reassured her baby will not be taken away for only MJ use Flowsheet Date 07/14/2024 Boland Score Blood Edema Fundus Height Fundus Units Glucose Ketones Leukocytes Nitrite Labor Signs Protein Cervic Dilation Cervic Effacement Cervic Station 35 cm none neg Type Weight in lbs Pre/Post Dialysis Refused With clothes 210.883142388760 BP Diastolic BP Location Tested BP Systolic BP Type 60 120 sitting Fetus Heart Rate Present A 140 Fetus Movement A Yes Comments GBS + reviewed labor precaut ions Flowsheet Date 07/23/2024 Boland Score Blood Edema Fundus Height Fundus Units Glucose Ketones Leukocytes Nitrite Labor Signs Protein Cervic Dilation Cervic Effacement Cervic Station 36 cm none neg Type Weight in lbs Pre/Post Dialysis Refused With clothes 212.135261253380 BP Diastolic BP Location Tested BP Systolic BP Type 70 125 sitting Fetus Heart Rate Present A 144 Fetus Movement A Yes Comments doing well no OB concerns Flowsheet Date 08/04/2024 Boland Score Blood Edema Fundus Height Fundus Units Glucose Ketones Leukocytes Nitrite Labor Signs Protein Cervic Dilation Cervic Effacement Cervic Station 40 cm Type Weight in lbs Pre/Post Dialysis Refused With clothes 212.648291537795 BP Diastolic BP Location Tested BP Systolic BP Type 80 125 sitting Fetus Heart Rate Present A 140 Fetus Movement A Yes Comments IOL 08/07 [address] Menstrual History Last Menstrual Date Menses Monthly On Bcp Conception Prior Menses Frequency Hcg Plus Date Menarche Onset Age 0310/06/2023 Delivery Information Delivery Date Delivery Type Labor Anesthesia Weeks Gestation Incision Type Labor Labor Length Hrs Delivered By Post Complications Tubal Sterilization Discharge Date Comments Discharge Information Feeding Method Contraceptive Method Maternal HG B and HCT Levels Ob Episode Information Episode Created Date Number of Fetuses Patient Bloodtype Patient rh Status Prepregnancy Weight lbs Domestic Partner Domestic Partner Phone Father Name Materials Research Engineer Status 08/08/19 24 1 CLOSED Fetus Data First Name Last Name Admitted to NICU Weight (g) Sex Living Outcome Pediatric Complications Fetus ID Race Codes Race Delivery Type M Full Term [id number] Craig Calculation Initial Craig Date Initial Exam Date Initial Exam Provider Initial Ultrasound Date Last Menstrual Period Date Ultra Sound Weeks Gestation 0 Eighteen To Twenty Week Craig Update Ultra Sound Date Fundal Height At Umbil Quickening Date Ultra Sound Latest Weeks Gestation Final Craig Confirmed By Final Craig Confirmed Date Final Craig Date Ultra Sound Latest Days Gestation 0 0 Menstrual History Last Menstrual Date Menses Monthly On Bcp Conception Prior Menses Frequency Hcg Plus Date Menarche Onset Age Delivery Information Delivery Date Delivery Type Labor Anesthesia Weeks Gestation Incision Type Labor Labor Length Hrs Delivered By Post Complications Tubal Sterilization Discharge Date Comments 7 Discharge Information Feeding Method Contraceptive Method Maternal HG B and HCT Levels
--- OUTSIDE RECORDS SUMMARY | 2024-10-15 12:39 | XMS_ITS | Data Portability ---
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 Plan of Treatment Reminders Order Date Submit Date Provider Last Modified By Organization Details Last Modified Time Details Appointments None recorded. Lab rapid SARS CoV 2 Ag, QL IA, respiratory specimen 2021 022 CAMMIE In-Office Order, Internal Use Only DO Not Attach Compendium DO Not Attach Compendium, Do Not Delete/merge, [id number] 15:30:27 rapid SARS CoV 2 Ag, QL IA, respiratory specimen 2021 022 [email or web address] In-Office Order, Internal Use Only DO Not Attach Compendium DO Not Attach Compendium, Do Not Delete/merge, [id number] 2 16:13:33 HbA1c (hemoglobin A1c), blood 2019 020 [facility], [address], [place], [address], 0 16:09:27 HIV 1+2 AB + HIV 1 p24 Ag, qualitative immunoassay , serum 2019 020 CAM[facility]E [facility], [address], [place], [address], 0 16:09:28 RPR (rapid plasma reagin), serum 2019 020 [facility], [address], [place], [address], 0 16:09:28 CT + NG + TV, DNA, urine/swab 2019 020 [facility], [address], [place], [address], 0 16:09:27 TSH + free T4, serum 2019 020 [facility], [address], [place], [address], 0 16:09:26 Referral nutritionis t/dietitian referral [address], [address], [place], [address], 2 09:31:53 Procedures None recorded. Surgeries None recorded. Imaging XR, finger(s), 2 or more view 2021 [facility], [facility] [address], [place], [address], 19:28:38 Medication Orders dextrometho marshal-umesh enesin ER 60 mg-1,200 mg tab,extend release,12h r 2021 [email or web address] [facility]71837, [address] [place] [address], [place], [place], [id number], 2 15:55:27 Medrol (Juan Alberto) 4 mg tablets in a dose pack 2021 [facility] #71039, [address], [place], [place], [id number], 2 14:30:50 ibuprofen 600 mg tablet 2021 [facility] #07799, [address], [place], [place], [id number], 16:41:49 Multivitami ns 28 mg iron-800 mcg tablet 2021 022 CAMMIE [facility]698, [address], [place], [place], [id number], 16:41:28 Patient TargetsNo targets recorded. Patient Instructions Encounter Date Encounter Id Patient Instructions Last Modified By Organization Details Last Modified Time 06/08/2020 [id number] safer sex: care instructions Not available 06/08/2020 16:29:50 12/07/2021 [id number] polycystic ovary syndrome: care instructions Not available 12/08/2021 09:31:41 03/15/2022 [id number] Reviewed the following recommendations: -Stay home and separate from others as much as possible. -Monitor your symptoms and seek medical attention for trouble breathing, persistent chest pain, confusion, or bluish lips or face. -Wear a mask if you must be around other people. -Wash your hands often for 20 seconds with soap and water and clean high-touch surfaces daily -You may discontinue home isolation if your symptoms are improving and it has been 10 days since symptoms started. [email or web address] Not available 03/15/2022 15:55:27 Reason for Referral Machine Inspector/dietitian Refer ral for Polycystic ovary syndrome Referring Physician: Kiran Cabrera, Systems Software Engineer, Encounter Date: 12/07/2021 Results Created Date Observation Date Name Description Value Unit Range Abnormal Flag Note LastModifiedBy Organization Detail LastModifiedTime 06/17/2006/18/2020 TSH + free T4, serum TSH 2.290 uIU/m L 0.450- 4.500 Not Available [facility] ([facility]) [address], [place], [address], 06/19/2020 16:09:26 06/17/20 20 06/18/2020 TSH + free T4, serum T4,free(dire ct) 1.22 NG/dL 0.93-1 .60 Not Available [facility] ([facility]) [address] [place], [address], 06/19/2020 16:09:26 06/17/20 20 06/19/2020 CT + NG + TV, DNA, urine /swab chlamydia by YVES Negati ve negati ve Not Available [facility] ([facility]) [address] [place], [address], 06/19/2020 16:09:26 06/17/2006/19/2020 CT + NG + TV, DNA, urine /swab gonococcus by YVES Negati ve negati ve Not Available [facility] ([facility]) [address] [place], [address], 06/19/2020 16:09:26 06/17/20 20 06/19/2020 CT + NG + TV, DNA, urine /swab trich vag by YVES Negati ve negati ve Not Available [facility] ([facility]) [address] [place], [address], 06/19/2020 16:09:26 06/17/2006/18/2020 HbA1c (hemo globi n A1c), blood hemoglobin A1C 5.6 % 4.8-5. 6 Predi abete s: 5.7 - 6.4 Diabe ayanna: >6.4 Glyce angela contr ol for adult s with diabe ayanna: <7.0 Not Available [facility] ([facility]) [address], [place], [address], 06/19/2020 16:09:27 06/17/2006/18/2020 RPR (rapi d plasm a reagi n), serum RPR Non Reacti ve non reacti ve Not Available [facility] ([facility]) [address] [place], [address], 06/19/2020 16:09:28 06/17/2006/18/2020 HIV 1+2 AB + HIV 1 p24 Ag, quali tativ e immun oassa y, serum HIV screen 4TH generation wrfx Non Reacti ve non reacti ve Not Available [facility] ([facility]) [address], [place], [address], 06/19/2020 16:09:28 01/14/20 22 01/13/2022 rapid SARS CoV 2 Ag, QL IA, respi rator y speci men rapid SARS CoV 2 Ag, QL IA, respiratory specimen negati ve Not Available In-Office Order Internal Use Only DO Not Attach Compendium DO Not Attach Compendium, Do Not Delete/merge, [id number] 01/13/2022 15:35:27 03/13/20 22 03/13/2022 rapid SARS CoV 2 Ag, QL IA, respi rator y speci men rapid SARS CoV 2 Ag, QL IA, respiratory specimen positi ve Not Available In-Office Order Internal Use Only DO Not Attach Compendium DO Not Attach Compendium, Do Not Delete/merge, [id number] 03/13/2022 15:18:59 02/20/20 21 02/19/2021 XR, chest No observ ation record ed. [address] (Imaging) [address] [place] [address] [place] [address], [phone], 02/23/2021 14:15:26 12/08/19 22 12/07/2021 XR, finge r(s), 2 or more view No observ ation record ed. [address] [place] [address], [address], 12/08/2021 14:50:19 Result Notes None recorded. Problems Name Problem SNOMED Code Status Onset Date Resolution Date Notes Provider Name and Address Organization Details Recorded Time Attention deficit hyperactivi ty disorder 383780741 Active Daily Pepe [place] null, [place] [facility] 5 14:22:53 Otitis media 51033141 Completed 11/27/2019 SEB IRVING Attn: Jb g,[address], [place], [address], [place] [facility] 0 15:36:36 Pharyngitis 071924890 Completed 11/27/2019 SEB IRVING Attn: Jb simon,[address], [place], [address], [facility] 0 15:36:41 Problem Notes None recorded. Procedures Surgical History Date Name Laterality Status Provider Name and Address Organization Details Recorded Time 1 hysteroscopy completed Rachell Andrews [place] 12/07/2021 16:09:56 0 Tonsillectomy completed Daily Pepe [place] 09/17/2014 14:22:53 Adenoidectomy completed Daily camargo [place] - [facility] 07/25/2017 14:14:27 Imaging Results Imaging Date Name Status LastModified by Organiz ation Details LastModified Time 02/19/2021 XR, chest completed [address] (Imaging) [address] [facility] [address] [place] [address], [phone], 02/23/2021 14:15:26 12/07/2021 XR, finger(s), 2 or more view completed [address] [facility] [address] [place] [address], [address], 12/08/2021 14:50:19 Procedure Notes None recorded. Medical Equipment None Reported. Allergies No known drug allergies Medications Name Sig Start Date Stop Date Status Note LastModified by Organization Details LastModified Time amoxicillin 500 mg capsule 02/23 completed Not Available Not Available Not Available metformin 500 mg tablet 12/07 completed Not Available Not Available Not Available cetirizine 10 mg tablet Take 1 tablet every day by oral route for 30 days. 12/07 completed Not Available Not Available Not Available ibuprofen 800 mg tablet 12/07 completed Not Available Not Available Not Available fluconazole 150 mg tablet Take 1 tablet by oral route for 1 day. 12/07 completed Not Available Not Available Not Available ondansetron HCl 8 mg tablet 12/07 completed Not Available Not Available Not Available dextroamphe tamine-amph etamine 10 mg tablet TAKE 1 TABLET BY MOUTH EVERY DAY AT NOON 12/07 completed Not Available Not Available Not Available metformin 850 mg tablet active Not Available Not Available Not Available permethrin 5 % topical cream APPLY (THOROUGH LY MASSAGE INTO SKIN FROM HEAD TO SOLES OF FEET) BY TOPICAL ROUTE ONCE LEAVE ON FOR 8-14 HR, THEN REMOVE BY THOROUGH WASHING 11/14 completed Not Available Not Available Not Available acetaminoph en 300 mg-codeine 30 mg tablet 02/23 completed Not Available Not Available Not Available amoxicillin 500 mg tablet Take 1 tablet twice a day by oral route for 10 days. 07/25 completed Not Available Not Available Not Available Adderall XR 20 mg capsule,ext ended release Take 1 capsule every day by oral route. 09/04 completed Not Available Not Available Not Available alprazolam 0.5 mg tablet 12/07 completed Not Available Not Available Not Available doxycycline monohydrate 100 mg capsule 01/19 completed Not Available Not Available Not Available levothyroxi ne 50 mcg tablet Take 1 tablet every day by oral route before meals. 12/07 completed Not Available Not Available Not Available dextroamphe tamine-amph etamine 20 mg tablet TAKE 1 TABLET BY MOUTH EVERY DAY 12/07 completed Not Available Not Available Not Available dextrometho rphan-guaif enesin ER 60 mg-1,200 mg tab,extend release,12h r Take 1 tablet every 12 hours by oral route for 10 days. 2021 active Not Available Not Available Not Avai lable ergocalcife rol (vitamin D2) 1,250 mcg (50,000 unit) capsule Take 1 capsule every week by oral route. 04/08 completed Not Available Not Available Not Available ibuprofen 600 mg tablet Take 1 tablet every 8 hours by oral route for 14 days. active Not Available Not Available No t Available methylpredn isolone 4 mg tablets in a dose pack TAKE DIRECTED ON THE PACKAGE X5 DAYS active Not Available Not Available No t Available albuterol sulfate HFA 90 mcg/actuati on aerosol inhaler Inhale 2 puffs every 4 hours by inhalatio n route as needed. 04/19 completed Not Available Not Available Not Available ondansetron 4 mg disintegrat ing tablet 12/07 completed Not Available Not Available Not Available azithromyci n 1 gram oral packet Take 1 g every day by oral route. 04/08 completed Not Available Not Available Not Available azithromyci n 500 mg tablet 1 tablet po x once 11/20 completed Not Available Not Available Not Available medroxyprog esterone 150 mg/mL intramuscul ar syringe 11/14 completed Not Available Not Available Not Available Focalin 09/04 completed Not Available Not Available Not Available 28 mg iron-800 mcg tablet Take 1 tablet every day by oral route for 90 days. active Not Available Not Available No t Available Vitals Date Recorded Body height Body mass index (BMI) Percentile per age and sex Body mass index (BMI) Body weight Heart rate Oxygen saturation Oxygen saturation in Arterial blood by Pulse oximetry Systolic blood pressure Diastolic blood pressure Provider Name and Address Organization Details Last Updated DateTime 2 161.29 cm 98 % 39.1 kg/m2 570221. 69 g 92 /min 98 % 98 % 118 mm[Hg] 78 mm[Hg] Rachell Andrews MA [facility] 2 16:12:12 Social History Question Answer Notes LastModified by [employer] ion Details LastModified Time Tobacco Smoking Status Current Every Day Smoker lucy once in a while Rachell Andrews MA [facility], [facility] 12/07/2021 16:10:38 Animal Exposure? Yes Dog [email or web address] Information not available 09/17/2014 Do You Wear A Helmet When Biking? No [email or web address] Information not available 09/17/2014 Are You Or Have You Been Involved With Bullying? No Information not available 09/17/2014 What Is Your Level Of Caffeine Consumption? Heavy Information not available 04/19/2020 What Type Of Lead Software Engineer Do You Use? None [email or web address] Information not available 09/17/2014 What Type Of Diet Are You Following? REGULAR [email or web address] Information not available 09/17/2014 Which Illicit Or Recreational Drugs Have You Used? N/a Information not available 04/19/2020 Do You Or Have You Ever Used E-cigarettes Or Vape? Never Used Electronic Cigarettes Information not available 11/27/2019 Have There Been Any Changes To Your Family Or Social Situation? Yes Pt Had A Baby At Age 17. [email or web address] Information not available 11/19/2018 Are There Any Guns Present In Your Home? No Information not available 04/08/2019 Hard Of Hearing Or Deaf In One Or Both Ears? No Information not available 04/19/2020 What Is Your Home Situation? Other Lives With Boyfriend, Sister, And Pt Baby Information not available 09/17/2014 Do You Use Insect Repellent Routinely? Yes [email or web address] Information not available 09/17/2014 Legally Blind In One Or Both Eyes? No Information not available 04/19/2020 Live Alone Or With Others? With Others Information not available 04/19/2020 What Was The Date Of Your Most Recent Tobacco Screening? 12/07/2021 Information not available 12/07/2021 How Many Children Do You Have? 1 Information not available 03/18/2020 What Is Your Parents' Marital Status? Unmarried [email or web address] Information not available 09/17/2014 Pool Exposure No Information not available 09/17/2014 Do You Have Any Siblings? 1 Sister 1 Brother [email or web address] Information not available 09/17/2014 Do You Have Smoke And Carbon Monoxide Detectors In Your Home? Yes [email or web address] Information not available 09/17/2014 Are You Passively Exposed To Smoke? Yes Inside Smokers [email or web address] Information not available 09/17/2014 Do You Or Have You Ever Used Smokeless Tobacco? Never Used Smokeless Tobacco Information not available 11/27/2019 How Much Tobacco Do You Smoke? 0.5 PPD Information not available 12/07/2021 What Types Of Sporting Activities Do You Participate In? None Information not available 02/24/2020 General Stress Level Low Information not available 03/18/2020 Do You Use Sunscreen Routinely? Yes [email or web address] Information not available 09/17/2014 On What Date Was Tobacco Cessation Counseling Provided? 12/07/2021 Information not available 12/07/2021 How Many Years Have You Smoked Tobacco? 1 Information not available 11/27/2019 Sex: Unknown Functional Status Question Answer Note LastModified by Organization D etails LastModified Time Are you able to care for yourself? Yes Information n ot available 04/19/2020 What is your exercise level? None [email or web address] Information not available 07/25/2017 Mental Status None recorded. Family History Relationship Description Onset Age of this Age Resolved Age Notes LastModified by Organization Details LastModified Time Unspecified Relation Diabetes mellitus Not available 2014 14:22:53 Unspecified Relation Hypercholest erolemia [email or web address] Not available 2014 14:22:53 Unspecified Relation Family history of malignant neoplasm [email or web address] Not available 2014 14:22:53 Father No current problems or disability [email or web address] Not available 07/25 14:12:08 Mother No current problems or disability [email or web address] Not available 07/25 14:12:08 Medical History Condition Response Coronary Artery Disease N Other N Atrial Fibrillation N High Blood Pressure N Kidney or Bladder Problems N Thyroid Problems N GI Problems N Depression N COPD N Blood Clots N Skin Problems N Anemia N Heart Attack ([place]) N Anxiety Disorder N Diabetes N Muscle, Joint, or Bone Problems N Seizures/Epilepsy N Acid Reflux (GERD) N Cancer N Stroke N Asthma N Allergies N High Cholesterol N Hepatitis N Liver Disease N Headaches N Heart Failure N Osteoporosis N Gynecological History Statement/Question Response Flow Moderate Frequency of Cycle (Q days) 28 Menses Monthly N Duration of Flow (days) 6 Age at Menarche 11 Current Control Method None Age at First Child 16 LMP Approximate Obstetrics History GPAL:G 1 P 0 1 0 1 Type Value Multiple Births 0 Full Term 0 Induced 0 Spontaneous 0 Premature 1 Living 1 Ectopics 0 Total 1 Immunizations Vaccine Type Date Status Note Provider Nam e and Address Organization Details Recorded Time Meningococcal MCV4O 8 completed Not Available [facility] 08/23/2019 02:49:14 meningococcal B, OMV 8 completed Not Available [facility] 08/23/2019 02:51:06 Influenza, split virus, quadrivalent, PF 8 completed Not Available [facility] 08/23/2019 02:36:30 Hib, unspecified formulation 2 completed Daily Pe[place], [place] [facility] 09/17/2014 08:38:51 pneumococcal conjugate PCV 7 4 completed Daily [place] [facility] 09/17/2014 08:38:51 Hep B, adolescent or pediatric 2 completed Daily [place] [facility] 09/17/2014 08:38:51 Tdap 2 completed Daily [place] [facility] 09/17/2014 08:38:51 meningococcal MCV4, unspecified formulation 3 completed Daily [place] [facility] 09/17/2014 08:38:51 DTaP 2 completed Daily Mosheryle JESS[place] [facility] 09/17/2014 08:38:51 IPV 2 completed Daily MosherJESSIE helm [place] [facility] 09/17/2014 08:38:51 DTaP 2 completed Daily Moshervolodymyr [place] [facility] 09/17/2014 08:38:51 MMR 4 completed Daily [place] [facility] 09/17/2014 08:38:51 DTaP 2 completed Daily Moshervolodymyr [place] [facility] 09/17/2014 08:38:51 IPV 2 completed Daily [place] [facility] 09/17/2014 08:38:51 influenza, unspecified formulation 3 completed Daily MosherJESSIE helm [place] [facility] 09/17/2014 08:38:51 Hib, unspecified formulation 2 completed Daily Moshervolodymyr [place] [facility] 09/17/2014 08:38:51 IPV 7 completed Daily [place] [facility] 09/17/2014 08:38:51 Hep A, ped/adol, 2 dose 7 completed Daily [place] [facility] 09/17/2014 08:38:51 varicella 4 completed Daily [place] [facility] 09/17/2014 08:38:51 varicella 7 completed Daily [place] [facility] 09/17/2014 08:38:51 DTaP 3 completed [place] [facility] 09/17/2014 08:38:51 Hep B, adolescent or pediatric 2 completed Daily [place] [facility] 09/17/2014 08:38:51 Hib, unspecified formulation 2 completed [place] [facility] 09/17/2014 08:38:51 influenza, unspecified formulation 0 completed Dailymaranda [place] [facility] 09/17/2014 08:38:51 influenza, unspecified formulation 1 completed Daily [place] [facility] 09/17/2014 08:38:51 pneumococcal conjugate PCV 7 3 completed Daily [place] [facility] 09/17/2014 08:38:51 Hep B, adolescent or pediatric 2 completed Daily [place] [facility] 09/17/2014 08:38:51 DTaP 7 completed Daily [place] [facility] 09/17/2014 08:38:51 IPV 3 completed Daily [place] [facility] 09/17/2014 08:38:51 MMR 6 completed Daily [place] [facility] 09/17/2014 08:38:51 Hep B, adolescent or pediatric 0 completed Daily [place] [facility] 09/17/2014 08:38:51 Hep A, ped/adol, 2 dose 5 completed Daily [place] [facility] 09/17/2014 08:38:51 Past Encounters Encounter ID Performer Location Encounter Start Date Encounter Closed Date Diagnosis/Indication Diagnosis SNOMED-CT Code Diagnosis ICD10 Code Diagnosis Note [id number] [facility] (Peds) [address] [place] [address] 09/17/2014 13:49:16 09/17/2014 14:45:38 Otitis media 28628609 Avoid water in ears. Can use decongesta nt to relieve pressure. Amoxicilli n bid for 10 days ERX. Pharyngitis 805158841 Owens pportive treatment otc recommende d. Hand hygiene. [id number] [facility] [address] [place] [address] 07/25/2017 13:45:04 07/27/2017 10:44:48 Well child 382667839 Z00.129 discussed routine adolescent carediscus sed safety and home schoolingd iscussed healthy weight with diet and exercise declined HPV. discussed importance of control which pt will be starting. Obesity 808082104 E66.9 weight reduction with diet and exercise Increased blood pressure 90762132 R03.0 RTC 1 month to recheck. work on diet and exercise Poor socia l circumstances 683146500 Z60.9 Attention deficit hyperactivity disorder 681684550 F90.9 rtc 1 month to recheck BP and evaluate results. [id number] [facility] [address] [place] [address] 09/04/2017 11:13:45 09/05/2017 08:33:24 Attention deficit hyperactivity disorder 918473733 F90.9 pt states her focus is improved on medication . [id number] [facility] [address] [place] [address] 11/27/2017 13:44:16 11/28/2017 09:49:40 Attention deficit hyperactivity disorder 652305360 F90.9 pt states her focus is improved on medication . when pt starts home schooling she may require a half dose at noon. will follow. Active or passive immunization 032773210 Z23 Infestatio n by Sarcoptes scabiei al hominis 826368362 B86 [id number] [facility] [address] [place] [address] 05/29/2018 16:14:19 05/31/2018 16:25:04 Active or passive immunization 909592152 Z23 Attention deficit hyperactivity disorder 501323888 F90.9 pt states her focus is improved on medication . pt states she is not having any problems with insomnia. [id number] [facility] [address] [place] [address] 11/14/2018 11:25:37 11/15/2018 13:15:23 Obesity 566198602 E66.9 weight reduction with diet and exercise [facility] 262401515 Z30.02 discussed with t importance of OCP and condom use in preventing STD and . pt's response is oh well we dont want to use condoms and we dont want to prevent anything. Nausea 041182338 R11.0 likely due to viral illness. reassuranc e. rest, push fluids, etc [id number] [facility] [address] [place] [address] 11/19/2018 15:48:52 11/20/2018 10:39:51 Attention deficit hyperactivity disorder 625372460 F90.9 pt states her focus is improved on medication . pt states she is not having any problems with insomnia. Chlamydial infection 105 515137 A74.9 Vitamin D deficiency 347 45331 E55.9 [id number] MD Glory [facility] (Peds) [address] [place] [address] 04/08/2019 16:35:37 04/09/2019 09:53:43 Attention deficit hyperactivity disorder 483258958 F90.9 pt states her focus is improved on medication . pt states she is not having any problems with insomnia. will do refill when pt returns on 04-14 [id number] MD [facility] [address] [place] [address] 11/21/2019 15:35:44 11/26/2019 10:25:55 Attention deficit hyperactivity disorder 200852798 F90.9 pt states her focus is improved on medication . pt states she is not having any problems with insomnia. [id number] SEB IRVING [facility] [address] [place] [address] 11/27/2019 09:37:31 12/01/2019 09:56:32 Allergic rhinitis 90326537 J30.9 Patient has has allergies and post nasal drip. This may be casing patient to have chronic dry cough x 2 months. Avoid triggers, take medication as prescribed . - trial of cetirizine Cough 85413042 R05 chronic dry cough x weeks. Does have allergies and not currently on anything. has never been told she has asthma in the past-trial of albuterol [id number] SEB IRVING [facility] [address] [place] [address] 12/09/2019 14:06:20 12/10/2019 11:59:48 Allergic rhinitis 46906585 J30.9 Patient has has allergies and post nasal drip. This may be casing patient to have chronic dry cough x 2 months. Avoid triggers, take medication as prescribed . - trial of cetirizine - stop smoking- f/u prn Obesity [id number] E66.9 patient weights 240lbs. Has trouble losing weight. Is not folling any diets and only drinks sweetened drinks. Not exercising . - labs- 30 mins of excercise 5x week- discussed diet and portions. She is to start by gibing up soda/sweet drinks. may do crystal lyte.- f/u prn [id number] Blossom Vasquez MA [facility] [address] [place] [address] 12/12/2019 09:52:49 12/16/2019 03:46:34 [id number] SEB IRVING [facility] [address] [place] [address] 12/24/2019 15:41:01 12/25/2019 11:34:53 Attention deficit hyperactivity disorder [id number] F90.9 patient has been taking adderall for ADHD for many years. She is doing well on medication without any side effects. denies palpitatio n, cp, sob, weight loss, decreased appetite. [id number] SEB IRVING [facility] [address] [place] [address] 01/23/2020 14:32:31 01/27/2020 06:10:49 Hypothyroidism 93150283 E03.9 TSH 10.9. started on levothyrox ine 50 mcg. Patient needs to have labs taken. She is taking medication in moring one hour before food. - continue medication - obtain labs [id number] SEB IRVING [facility] [address] [place] [address] 02/24/2020 09:46:46 02/25/2020 09:44:55 Hypothyroidism 64714736 E03.9 TSH 10.9. started on levothyrox ine 50 mcg. Patient needs to have labs taken. She is taking medication in moring one hour before food. - continue medication - obtain labs Attention deficit hyperactivity disorder 137775219 F90.9 patient has been taking adderall for ADHD for many years. She is doing well on medication without any side effects. denies palpitatio n, cp, sob, weight loss, decreased appetite. [id number] SEB IRVING [facility] [address] [place] [address] 03/18/2020 09:26:20 03/19/2020 08:47:03 Obesity 605603960 E66.9 patient weights 240lbs. Has trouble losing weight. Is not folling any diets and only drinks sweetened drinks. Not exercising . - labs- 30 mins of excercise 5x week- discussed diet and portions. She is to start by gibing up soda/sweet drinks. may do crystal lyte.- f/u prn [id number] SEB IRVING [facility] [address] [place] [address] 04/19/2020 11:07:32 04/21/2020 13:13:06 At increased risk of sexually transmitted infection [id number] Z20.2 patient with recent exposure of chlamydia and completed treatment continues to have symptoms. She has had unprotecte d intercours e with same partner who was treated at different time. - labs, will treat prophylact ically after labs obtained.- UA- disucssed safe sex- need repeat testing in 3 months Urinary tr act infectious disease 52859627 N39.0 patient is having dysuria. Hypothyroidism 96464357 E03.9 TSH 10.9. started on levothyrox ine 50 mcg. Patient needs to have labs taken. She is taking medication in moring one hour before food. - continue medication - obtain labs [id number] SEB IRVING [facility] [address] [place] [address] 06/08/2020 16:23:51 06/09/2020 08:38:27 Hyperglycemia 23990162 R73.9 patient checked glucose this morning and was >230. Worried about diabetes. Ate a lot of lasgna the night before. At [facility] risk of sexually transmitted infection 232743450 Z20.2 patient with recent exposure of chlamydia and completed treatment continues to have symptoms. She has had unprotecte d intercours e with same partner who was treated at different time. - labs, will treat prophylact ically after labs obtained.- UA- disucssed safe sex- need repeat testing in 3 months Urinary tr act infectious disease 22824732 N39.0 patient is having dysuria. Hypothyroidism 49257482 E03.9 TSH 10.9. started on levothyrox ine 50 mcg. Patient needs to have labs taken. She is taking medication in moring one hour before food. - continue medication - obtain labs [id number] SEB IRVING [facility] [address] [place] [address] 12/07/2021 15:47:42 12/08/2021 16:53:41 Trying to conceive [id number] Z31.9 continue to follow OBGYN Pain in fi nger of left hand [id number] M79.645 - rice- ibupfrofen - xray Polycystic ovary syndrome 225703255 E28.2 discussed diet in detail, increasing exercise to [address] continue with Dr Lofton [id number] SEB SMITH [facility] [address] [place] [address] 01/13/2022 14:54:57 01/17/2022 09:03:20 Suspected COVID-19 [id number] Z20.398 [id number] SEB SMITH [facility] [address] [place] [address] 03/13/2022 14:59:03 03/14/2022 10:08:28 Viral syndrome 228914917 B34.9 COVID positivept requesting phone visitprovi bhargavi tried calling pt 3x, phone number cannot take calls at this timewill keep as nurse visit [id number] Fabian Cao MD [facility] [address] [place] [address] 03/15/2022 13:55:35 03/16/2022 09:54:03 COVID-19 [id number] U07.1 Patient tested positive on 03/13/22.Sym ptoms began 03/10/22 which include sore throat, ear pain, nasal congestion , chest tightness and a productive cough.Per CDC guidelines patient may leave quarantine on 03/16/22 and must continue to wear a well fitting mask until 03/20/22.Seb mireles voiced understand ingPatient wanted to return to work sooner, but 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 Health Concerns Section Related Observation LastModified by Organization Detai ls LastModified Time None Recorded Concern Status LastModified by Organization Details LastModified Time None Recorded Advance Directives Directive None Recorded Payers Encounter Date Sequence Insurance Name Policy Number Policy Silva Covered Member ID Silva Member ID Guarantor Name 06/08/2020 1 [facility] (MEDICAID HMO) [id number] Abbey Gearing [id number] Riya Gearing 12/07/2021 1 [facility] (MEDICAID HMO) [id number] 0003 Abbey Gearing [id number] Riya Gearing 01/13/2022 1 [facility] (MEDICAID HMO) [id number] 0003 Abbey Gearing [id number] Riya Gearing 03/13/2022 1 [facility] (MEDICAID HMO) [id number] 0003 Abbey Gearing [id number] Riya Perez 03/15/2022 1 [facility] (MEDICAID HMO) [id number] 0003 Abbey Farahing [id number] Riya Perez Notes Date Note Type Note Provider Name and Address Organization Details Recorded Time 06/08/2020 text/html patient presents for lab work. She has elevated blood glucose of >200 fasting this morning and is concerned about diabetes. She has not had lab work done from last visit and wants it sent to [facility]. SEB IRVING Attn: Accounting,[address], [place], [address], [facility] 06/08/2020 16:31:33 12/07/2021 text/html Abbey is a 21 YO F pmhxz adhd, PCOS presenting for finger pain and questions Right hand dominant patient with pointer and middle finger pain x 2 months. elbow started 3 weeks. . pointer finger worst on left hand. no medication for pain. 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 no numbness or tingling. pain is left elbow is constant. finger has worsened in last month. Patient follows Dr Lofton. Was given metformin for PCOS and advised weight loss. she has been with her boyfriend for years and has one child. She does not ce protection and has not been able to get . SEB IRVING Attn: Accounting,[address], [place], [address], [facility] 12/08/2021 09:32:13 03/13/2022 text/html Pt presents for COVID test. SEB SMITH Attn: Accounting[address] [place], [address], [facility] 03/13/2022 16:12:31 03/15/2022 text/html COVID-19 Symptom s December 2019Reported bypatient.COVID-19 Signs and Symptomscough improving (productive of green sputum); headache resolved; sore throat improving; No fever, abdominal pain, nausea, or vomiting. No loss of taste or smell Associated Symptoms:chest pain;yellow-green, thick sputum;green sputum; +nasal congestion Prior Labs and ImagingCOVID-19 nasopharyngeal swab (positive POC rapid covid on 03/13/22) Abbey is a 21 year old female presenting via phone for an evaluation of covid. Patient tested positive on 03/13/22. Her symptoms include sore throat, ear pain, nasal congestion, chest tightness and a productive cough. Patient has not been taking anything consistently for her symptoms.ibuprofen has provided no relief. Otherwise as noted below. Fabian Cao MD Attn: Accounting,[address], [place], [address], [facility] 03/30/2022 12:36:55 OBGyn Episode Ob Episode Information Episode Created Date Number of Fetuses Patient Bloodtype Patient rh Status Prepregnancy Weight lbs Domestic Partner Domestic Partner Phone Father Name [place] Packer Status 07/25/20 17 1 CLOSED Fetus Data First Name Last Name Admitted to NICU Weight (g) Sex Living Outcome Pediatric Complications Fetus ID Race Codes Race Delivery Type Prematur e [id number] Craig Calculation Initial Craig Date Initial Exam [...] Complications Tubal Sterilization Discharge Date Comments 7 37 false Discharge Information Feeding Method Contraceptive Method Maternal HG B and HCT Levels
--- OUTSIDE RECORDS SUMMARY | 2024-10-15 12:39 | XMS_ITS | Data Portability ---
Author Organization [facility] Hawks Address [address] [place] [address] Care Team Providers Care Booster Operator Name Role Phone MARC WALTERS Primary Care Provider Assessment Encounter Date Assessment Date Assessment LastModified by Organization Details LastModified Time 02/08/2022 02/08/2022 handouts given, plan se for partner, will check progesterone level with next cycle, if under 10 plan letrozole 5mg days 3-9, will need monthly progesterone levels to continue, limited cycles, ovarian hyperstimulation, multiple gestation ans other se reviewed, if severe pain to ED. will await semen analysis and prog level will schedule med check in 3-4 months Not available 02/08/2022 17:15:37 06/02/2022 06/02/2022 reviewed side effects risks and benefits of letrozole including hyperstimulation of ovary, need for limited use, multiple gestation, chowdary, cramping, if any severe abd pain to ED. SA rx and all handouts given f/u 3 mo if no +UPT, will be checking progesterone monthly Not available 06/02/2022 12:38:50 Plan of Treatment Reminders Order Date Submit Date Provider Last Modified By Organization Details Last Modified Time Details Appointments None recorded. Lab 17-hydroxyp rogesterone , QN, serum 2020 021 [facility] (Lab), [address], [place], [address], 21:05:41 dhea-sulfat e, serum 2020 021 [facility] (Lab), [address] [facility] [address], [place], [address], 1 21:05:37 estradiol, serum 2020 [facility] (Lab), [address], [place], [address], 21:05:38 FSH (follicle-s timulating hormone), serum 2020 [facility] (Lab), [address], [place], [address], 1 21:05:39 HbA1c (hemoglobin A1c), blood 2020 [facility] (Lab), [address], [place], [address], 21:05:37 lh (luteinizin g hormone), serum 2020 [facility] (Lab), [address], [place], [address], 21:05:38 progesteron e, serum 2020 [facility] (Lab), [address] [facility], [place], [address], 21:05:39 prolactin, serum 2020 [facility] (Lab), [address], [place], [address], 1 21:05:39 shbg (sex hormone-bin ding globulin), serum 2020 [facility] (Lab), [address], [place], [address], 1 21:05:40 TSH, serum or plasma 2020 [facility] (Lab), [address], [place], [address], 21:05:40 testosteron e free/testos terone total, ratio, serum 2020 [facility] (Lab), [address], [place], [address], 21:05:41 Referral None recorded. Procedures None recorded. Surgeries None recorded. Imaging None recorded. Medication Orders letrozole 2.5 mg tablet 2021 [id number], [address], [place], [id number], 2 12:39:21 metformin 850 mg tablet 2021 [id number], [address], [place], [id number], 2 16:56:31 metformin 500 mg tablet 2020 021 [email or web address] 1 [facility] #[id number], [address], [place], [id number], 2 16:56:28 Patient TargetsNo targets recorded. Patient InstructionsNo instructions recorded. Reason for Referral None Reported. Results Created Date Observation Date Name Description Value Unit Range Abnormal Flag Note LastModifiedBy Organization Detail LastModifiedTime 06/20/2006/20/2021 HEMOG LOBIN A1C hemoglobin A1C 5.6 % 0-5.6 The Ameri can [employer] [facility] [employer] n recom mends that a prima ry goal of thera nasim logan d be a HBA1C of < 7% and that physi ciaeliezer logan d reeva luate the treat ment regim en in patie nts with HBA1C value s consi stent ly > 8%. <5.7% Lisandra l 5.7 - 6.4% Incre ased risk for diabe ayanna >=6.5 % Diagn ostic of diabe ayanna <7.0% Goal of thera py >8.0% Actio n sugge sted Not Available [facility] (Lab) [address] [facility] [address], [place], [address], 06/25/2021 21:05:37 06/20/20 21 06/20/2021 DHEA SULFA TE DHEA-sulfate 193 ug/dL Femal e Range s Age(y ) Range (ug/d L) 10-15 34-28 0 15-20 65-36 8 20-25 148-4 07 25-35 99-34 0 35-45 61-33 7 45-55 35-25 6 55-65 19-20 5 65-75 9-246 > 75 12-15 4 Not Available [facility] (Lab) [address] [facility], [place], [address], 06/25/2021 21:05:37 06/20/20 21 06/20/2021 LH (LUTE NIZIN G HORMO NE) LH 32.5 mIU/m L This assay was perfo rmed using [employer] ratio n reage nts and test kits. Value s obtai tracey with other assay metho ds or kits canno t be used inter [facility] . Femal es Mid-F ollic ular: 2.4-1 2.6 mIU/m L Mid-C ycle: 14.0- 95.6 mIU/m L Mid-L uteal : 1.0-1 1.4 mIU/m L Postm enopa use: 7.7-5 8.5 mIU/m L Not Available [facility] (Lab) [address] [place], [address], 06/25/2021 21:05:38 06/20/20 21 06/20/2021 ESTRA DIOL estradiol 118.0 pg/mL This assay was perfo rmed using [employer] reage nts and test kits. Value s obtai tracey with other assay metho ds or kits canno t be used inter [facility] . Femal e Estra diol Range s: Folli cular phase 12.4- 233 pg/mL Ovula tion phase 41.0- 398 pg/mL Lutea l phase 22.3- 341 pg/mL Postm enopa usal< 5-138 pg/mL Healt hy Pregn ant Women 1st Trime ster1 54-32 43 pg/mL 2nd Trime ster1 561-2 1280 pg/mL 3rd Trime ster8 525-> 36611 pg/mL Not Available [facility] (Lab) [address] [place], [address], 06/25/2021 21:05:38 06/20/20 21 06/20/2021 PROGE STERO NE progesterone 0.68 NG/mL This assay was perfo rmed using [employer] reage nts and test kits. Value s obtai tracey with other assay metho ds or kits canno t be used [facility] . Femal e Proge stero ne Range s: Folli cular phase 0.06- 0.89 ng/mL Ovula tion phase 0.12- 12.00 ng/mL Lutea l phase 1.83- 23.90 ng/mL Postm enopa usal< 0.05- 0.13 ng/mL Healt hy Pregn ant Women 1st Trime ster1 1.0-4 4.30 2nd Trime ster2 5.40- 83.30 3rd Trime ster5 8.70- 214.0 0 Not Available [facility] (Lab) [address] [place], [address], 06/25/2021 21:05:39 06/20/20 21 06/20/2021 PROLA CTIN prolactin, total 15.10 NG/mL 4.79-2 3.30 This assay was perfo rmed using [employer] reage nts and test kits. Value s obtai tracey with other assay metho ds or kits canno t be used inter [facility] . Not Available [facility] (Lab) [address] [place], [address], 06/25/2021 21:05:39 06/20/20 21 06/20/2021 FSH FSH 7.9 mIU/m L This assay was perfo rmed using [employer] reage nts and test kits. Value s obtai tracey with other assay metho ds or kits canno t be used inter [facility] . Femal es Folli cular : 3.5-1 2.5 mIU/m L Ovula tion: 4.7-2 1.5 mIU/m L Lutea l: 1.7-7 .7 mIU/m L Postm enopa use: 25.8- 134.8 mIU/m L Not Available [facility] (Lab) [address] [place], [address], 06/25/2021 21:05:39 06/20/20 21 06/20/2021 TSH, REFLE X FREE T4 TSH 3.85 uIU/m L 0.30-5 .33 Not Available [facility] (Lab) [address] [place], [address], 06/25/2021 21:05:40 06/20/20 21 06/20/2021 HUMAN SEX HORMO NE CONSTANCE NG GLOBU NATHANIEL sex hormone binding globulin 16.6 nmole s/L Not Available [facility] (Lab) [address] [place], [address], 06/25/2021 21:05:40 06/20/20 21 06/20/2021 VITAM IN B12 vitamin B12 342 pg/mL 180-91 4 Lisandra l Range : 180-9 14 pg/mL . Indet ermin ate Range : 145-1 80 pg/mL . Defic ient Range : <=145 pg/mL . Not Available [facility] (Lab) [address] [place], [address], 06/25/2021 21:05:41 06/20/20 21 06/20/2021 TESTO STERO NE, FREE( DIALY SIS) AND TOTAL (LC/M S/MS) testosterone , total 66 NG/dL 2-45 high For addit ional infor matmadi antonio e refer to http: //derrick joseph.que stdia gnost ics.c om/fa q/Tot Maricruz Proctor [facility] (This link is being provi ded for infor peg nal/ educa raad l purpo ses only. ) This test was devel oped and its elsa tical perfo rmanc e sukh cteri stics have been deter mined by [facility]. It has not been clear ed or appro april by the FDA. This assay has been valid ated pursu ant to the CLIA regul ation s and is used for clini shanice purpo ses. Not Available [facility] (Lab) [address], [place], [address], 06/25/2021 21:05:41 06/20/20 21 06/20/2021 TESTO STERO NE, FREE( DIALY SIS) AND TOTAL (LC/M S/MS) testosterone , free 10.9 pg/mL 0.1-6. 4 high This test was devel oped and its elsa tical perfo rmanc e sukh cteri stics have been deter mined by [facility]. It has not been clear ed or appro april by the FDA. This assay has been valid ated pursu ant to the CLIA regul ation s and is used for clini shanice purpo ses. Perfo rming Organ izati on Uvaldo ruvalcaba n: Site ID: [id number] Name: [facility] Addre ss: [id number] [address] [facility] [place] [address] Direc tor: Tomas espinal M.D. Not Available [facility] (Lab) [address], [place], [address], 06/25/2021 21:05:41 06/20/20 21 06/20/2021 17-OH PROGE STERO NE 17-hydroxypr ogesterone, lc/MS/MS 105 NG/dL Adult Femal e Refer ence Range s for 17-Hy droxy proge stero ne: Pre-M enopa usal Mid Folli cular : 23-10 2 ng/dL Pre-M enopa usal Surge : 67-34 9 ng/dL Pre-M enopa usal Mid Lutea l: 139-4 31 ng/dL Postm enopa usal Phase : < or = 45 ng/dL Pregn camille: First Trime ster: 78-45 7 ng/dL Secon d Trime ster: 90-35 7 ng/dL Third Trime ster: 144-5 78 ng/dL This test was devel oped and its elsa tical perfo rmanc e sukh cteri stics have been deter mined by [facility] . It has not been clear ed or appro april by FDA. This assay has been valid ated pursu ant to the CLIA regul ation s and is used for clini shanice purpo ses. Perfo rming Organ izati on Infor matlala n: Site ID: [id number] Name: [facility] , Addre ss: [id number] [facility] [place] [phone] Dire tor: Ale stephens MD,Ph D,BAYRON Not Available [facility] (Lab) [address] [facility] [address], [place], [address], 06/25/2021 21:05:41 Result Notes None recorded. Problems Name Problem SNOMED Code Status Onset Date Resolution Date Notes Provider Name and Address Organization Details Recorded Time Depressi ve disorder 24016739 Completed 201512/02/2020 Depressi on NOS;Jd rded Elsewher e: No Locat ion: [facility] S ource: EHR Garbage Pick Up Worker cory: N Celesteti ce ID: 0001 Junior lable Time: 01:30:[address] [facility] 12:54:15 Secondar y amenorrh ea [id number] Completed 201612/02/2020 Secondar y amenorrh ea;Recor ded Elsewher e: No Locat ion: [facility] S ource: EHR Garbage Pick Up Worker cory: N Practi ce ID: 0001 Junior lable Time: 10:30:00 AM Rosalie patel [facility] 12:54:56 Gestatio n period, 33 weeks [id number] Completed 201612/02/2020 33 weeks gestatio n of pregnanc y;Record ed Elsewher e: No Locat ion: [facility] S ource: EHR Garbage Pick Up Worker cory: N Celesteti ce ID: 0001 Junior lable Time: 05:00:00 PM Rosalie [facility] 12:54:25 Gestatio n period, 34 weeks [id number] Completed 201612/02/2020 34 weeks gestatio n of pregnanc y;Record ed Elsewher e: No Locat ion: [facility] S ource: EHR Garbage Pick Up Worker cory: N Celesteti ce ID: 0001 Junior lable Time: 05:00:00 PM Rosalie [facility] 12:54:26 Gestatio n period, 17 weeks [id number] Completed 201612/02/2020 17 weeks gestatio n of pregnanc y;Record ed Elsewher e: No Locat ion: [facility] S ource: EHR Garbage Pick Up Worker cory: N Celesteti ce ID: 0001 Junior lable Time: 02:00:00 PM Rosalie [facility] 12:54:21 Pregnanc y-induce d hyperten noe Completed 201612/02/2020 Gestatio nal htn w/o signific ant proteinu sushila, third trimeste r;Record ed Elsewher e: No Locat ion: [facility] S ource: EHR Garbage Pick Up Worker cory: N Celesteti ce ID: 0001 Junior lable Time: 01:00:00 PM Rosalie [facility] 12:54:54 Vaginola bial hernia Completed 201512/02/2020 Other specifie d noninfla mmatory disorder s of vagina;R ecorded Elsewher e: No Locat ion: [facility] S ource: EHR Garbage Pick Up Worker cory: N Practi ce ID: 0001 Junior lable Time: 04:00:00 PM Rosalie patel, [facility] 12:55:[address] Concept Completed 201612/02/2020 Encntr for architect naval exam (general ) (routine ) w/o abn findings ;Practic e ID: 0001 Rosalie Monroy [facility] 12:55:02 Uterine size for dates discrepa ncy Completed 201612/02/2020 Uterine size-vadim e discrepa ncy, second trimeste r;Practi ce ID: 0001 Rosalie [facility], [facility] 12:55:07 Pregnanc y, childbir th and puerperi um finding Completed 201612/02/2020 Encntr for suprvsn of normal first preg, first trimeste r;Practi ce ID: 0001 Rosalie [facility] 12:54:48 Pregnanc y, childbir th and puerperi um finding Completed 201612/02/2020 Encntr for suprvsn of normal first preg, second trimeste r;Practi ce ID: 0001 Rosalie Mon[facility], [facility] 12:54:50 Pregnanc y, childbir th and puerperi um finding Completed 201612/02/2020 Encntr for suprvsn of normal first preg, third trimeste r;Practi ce ID: 0001 Rosalie [facility], [facility] 12:54:52 Gestatio n period, 32 weeks [id number] Completed 201612/02/2020 32 weeks gestatio n of pregnanc y;Practi ce ID: 0001 Rosalie Mon[facility] 12:54:23 Single live [id number] Completed 201612/02/2020 Single live ;Re corded Elsewher e: No Locat ion: [facility] raman [facility] S ource: EHR Garbage Pick Up Worker cory: N Practi ce ID: 0001 Junior lable Time: 01:00:00 PM Rosalie [facility] 12:54:[address] Concept Completed 201712/02/2020 Encounte r for architect naval exam w/ abnormal finding; Recorded Elsewher e: No Locat ion: [facility] S ource: EHR Garbage Pick Up Worker cory: N Practi ce ID: 0001 Junior lable Time: 03:00:00 PM Rosalie Monroy [facility] 12:55:01 Syphilis test finding [id number] Completed 201612/02/2020 Encntr screen for infectio ns w sexl mode of transmis s;Record ed Elsewher e: No Locat ion: [facility] S ource: EHR Garbage Pick Up Worker cory: N Practi ce ID: 0001 Junior lable Time: 03:00:00 PM Rosalie Mon[facility] 12:55:05 Blood leukocyt e number above referenc e range [id number] Completed 201512/02/2020 Elevated white blood cell count, unspecif ied;Jd rded Elsewher e: No Locat ion: [facility] S ource: EHR Garbage Pick Up Worker cory: N Practi ce ID: 0001 Junior lable Time: 04:00:00 PM Rosalie Mon[facility] 12:54:35 Normal pregnanc y in multigra casey [id number] Completed 201612/02/2020 Encounte r for suprvsn of normal pregnanc y, third trimeste r;Record ed Elsewher e: No Locat ion: [facility] S ource: EHR Garbage Pick Up Worker cory: N Practi ce ID: 0001 Junior lable Time: 01:30:00 PM Rosalie Monroy [facility] 12:54:46 Body mass index 30+ - obesity [id number] Completed 201612/02/2020 Body mass index (BMI) 34.0-34. 9, adult;Re corded Elsewher e: No Locat ion: [facility] S ource: EHR Garbage Pick Up Worker cory: N Practi ce ID: 0001 Junior lable Time: 10:30:[address] [facility] 12:54:[address] Concept Completed 201612/02/2020 Encntr for routine child health exam w/o abnormal findings ;Recorde d Elsewher e: No [facility]: EHR Garbage Pick Up Worker cory: N Celesteti ce ID: 0001 Junior lable Time: 10:30:[address] [facility] 12:54:59 Evaluati on finding Completed 201512/02/2020 Hematuri a, unspecif ied;Jd rded Elsewher e: No [facility] EHR Garbage Pick Up Worker cory: N Celesteti ce ID: 0001 Junior lable Time: 04:00:00 PM Rosalie [facility] 12:54:19 Infectio n screenin g Completed 201712/02/2020 Encounte r for screenin g for oth infec/pa rastc diseases ;Recorde d Elsewher e: No Locat ion: [facility] S ource: EHR Garbage Pick Up Worker cory: N Practi ce ID: 0001 Junior lable Time: 10:00:[address] [facility] 12:54:37 Chlamydi al infectio n [id number] Completed 201512/02/2020 Chlamydi al infectio n, unspecif ied;Jd rded Elsewher e: No Locat ion: [facility] S ource: EHR Garbage Pick Up Worker cory: N Practi ce ID: 0001 Junior lable Time: 03:16:30 PM Rosalie Mon[facility], [facility] 12:54:14 Gestatio n period, 35 weeks [id number] Completed 201612/02/2020 35 weeks gestatio n of pregnanc y;Record ed Elsewher e: No Locat ion: [facility] S ource: EHR Garbage Pick Up Worker cory: N Practi ce ID: 0001 Junior lable Time: 01:00:00 PM Rosalie [facility] 12:54:28 Acute vaginiti s [id number] Completed 201712/02/2020 Vaginiti s;Record ed Elsewher e: No Locat ion: [facility] S ource: EHR Garbage Pick Up Worker cory: N Practi ce ID: 0001 Junior lable Time: 10:00:00 AM Rosalie [facility] 12:54:10 Gestatio n period, 36 weeks [id number] Completed 201612/02/2020 36 weeks gestatio n of pregnanc y;Record ed Elsewher e: No Locat ion: [facility] S ource: EHR Garbage Pick Up Worker cory: N Practi ce ID: 0001 Junior lable Time: 03:00:00 PM Rosalie [facility] 12:54:30 Educatio n Completed 201512/02/2020 Encounte r for other general counseli ng and advice on contrace ption;Re corded Elsewher e: No Locat ion: [facility] S ource: EHR Garbage Pick Up Worker cory: N Practi ce ID: 0001 Junior lable Time: 01:30:00 PM Rosalie [facility] 12:54:17 Non-prot einuric hyperten noe of pregnanc y [id number] Completed 201612/02/2020 Gestatnl htn without signific ant protein, comp childbir th;Pract ice ID: 0001 Rosalie [facility] 12:54:44 Lacerati on of female perineum Completed 201612/02/2020 First degree perineal lacerati on during delivery ;Practic e ID: 0001 Rosalie [facility] 12:54:40 Gestatio n period, 37 weeks [id number] Completed 201612/02/2020 37 weeks gestatio n of pregnanc y;Practi ce ID: 0001 Rosalie [facility] 12:54:33 Lochia finding Completed 201612/02/2020 Encounte r for routine postpart um follow-u p;Practi ce ID: 0001 Rosalie Monroy [facility] 12:54:42 Problem Notes None recorded. Procedures Surgical History Date Name Laterality Status Provider Name and Address Organization Details Recorded Time 03/21/20 21 Hysteroscopy completed Nain Azevedo MD [address], [place], [address], [facility] 03/21/2021 16:36:06 08/06/19 08 Tonsillectomy completed Christy Hermosillo [facility] 09/03/2020 10:43:35 Imaging Results None recorded. Procedure Notes None recorded. Medical Equipment None Reported. Allergies No known drug allergies Medications Name Sig Start Date Stop Date Status Note LastModified by Organization Details LastModified Time senna s 8.6-50mg tablets TAKE 1 TABLET BY MOUTH EVERY DAY active Not Available Not Available No t Available metformin 500 mg tablet Take 1 tablet twice a day by oral route. 02/08 completed Not Available Not Available Not Available Adderall 20 mg tablet Take 1 tablet every day by oral route. 12/15 completed Not Available Not Available Not Available Vitamin B-6 25 mg tablet TAKE 1 TABLET BY MOUTH EVERY 8 HOURS NEEDED FOR NAUSEA AND VOMITING active Not Available Not Available No t Available ibuprofen 800 mg tablet Take 1 tablet 2 hours before the procedur e. 03/28 completed Not Available Not Available Not Available fluconazo le 150 mg tablet take 1 tablet by oral route once 06/20 completed Not Available Not Available Not Available ondansetr on HCl 8 mg tablet Take 1 tablet 2 hours before the procedur e. 03/28 completed Not Available Not Available Not Available dextroamp hetamine- amphetami ne 10 mg tablet 06/20 completed Not Available Not Available Not Available metformin 850 mg tablet Take 1 tablet twice a day by oral route. 02/08 completed Not Available Not Available Not Available amoxicill in 500 mg tablet take 1 tablet by oral route 3 times every day for 10 days 02/22 completed Prescrib ed Elsewher e: No Locat ion: [facility] M odify By: bcdominique barrios DateTime : 02/14/20 17 01:06:14 PM Not Available Not Available Not Available alprazola m 0.5 mg tablet Take 1 tablet 2 hours before the procedur e. 03/28 completed Not Available Not Available Not Available Microgest in FE 08/25 (28) 1 mg-20 mcg (21)/75 mg (7) tablet take 1 tablet by oral route every day 09/29 completed Prescrib ed Elsewher e: No Locat ion: [facility] M odify By: [email or web address] abram gray DateTime : 08/25/19 16 03:12:33 PM Not Available Not Available Not Available famotidin e 20 mg tablet TAKE 1 TABLET BY MOUTH EVERY 12 HOURS FOR 5 DAYS active Not Available Not Available No t Available Flagyl 500 mg tablet take 1 tablet by oral route every 12 hours 09/29 completed Prescrib ed Elsewher e: No Locat ion: [facility] odify By: [email or web address] trick En counter DateTime : 09/09/19 16 03:16:30 PM Not Available Not Available Not Available cephalexi n 500 mg capsule TAKE 1 CAPSULE BY MOUTH EVERY 12 HOURS FOR 7 DAYS active Not Available Not Available No t Available promethaz ine 25 mg tablet active Not Available Not Available Not Available Culbertson 10 mg-325 mg tablet Take 1 tablet 2 hours before the procedur e. 03/28 completed Not Available Not Available Not Available Prometheg an 25 mg rectal supposito ry UNWRAP AND INSERT 1 SUPPOSIT ORY RECTALLY EVERY 12 HOURS active Not Available Not Available No t Available ibuprofen 600 mg tablet 06/02 completed Not Available Not Available Not Available polyethyl patricia glycol 3350 17 gram/dose oral powder MIX 17 GRAMS OF POWDER INTO 8 OZ OF WATER AND DRINK ONCE A DAY active Not Available Not Available No t Available letrozole 2.5 mg tablet TAKE 2 TABLETS BY MOUTH EVERY DAY FOR 5 DAYS OF CYCLE 2022 active Not Available Not Available Not Avai lable methylpre dnisolone 4 mg tablets in a dose pack TAKE BY MOUTH DIRECTED ON INSIDE OF PACKAGE active Not Available Not Available No t Available ondansetr on 4 mg disintegr ating tablet DISSOLVE 1 TABLET ON THE TONGUE EVERY 6 HOURS NEEDED active Not Available Not Available No t Available metoclopr amide 10 mg tablet TAKE 1 TABLET BY MOUTH FOUR TIMES DAILY active Not Available Not Available No t Available Depo-Prov era 150 mg/mL intramusc ular syringe inject 1 millilit er by intramus cular route every 3 months 07/26 completed Prescrib ed Elsewher e: No Locat ion: Angelita camargo [facility] odify By: smcaley Encounarlene r DateTime : 07/18/20 17 01:00:00 PM Not Available Not Available Not Available Zithromax 500 mg tablet take 2 tablet by oral route once 12/02 completed Prescrib ed Elsewher e: No Locat ion: Angelita camargo [facility] odify By: dmrose E ncounter DateTime : 06/05/20 19 03:33:13 PM Not Available Not Available Not Available 28 mg iron-800 mcg tablet active Not Available Not Available Not Available [facility] (doxylami ne) 25 mg tablet TAKE 1 TABLET BY MOUTH EVERY NIGHT AT BEDTIME NEEDED FOR SLEEP active Not Available Not Available No t Available Vitals Date Recorded Body height Body mass index (BMI) Percentile per age and sex Body mass index (BMI) Body weight Systolic blood pressure Diastolic blood pressure Provider Name and Address Organization Details Last Updated DateTime 1 162.56 cm 99 % 42.4 kg/m2 815400. 32 g 136 mm[Hg] 85 mm[Hg] [facility] 1 10:21:37 Date Recorded Body height Body mass index (BMI) Percentile per age and sex Body mass index (BMI) Body weight Systolic blood pressure Diastolic blood pressure Provider Name and Address Organization Details Last Updated DateTime 1 162.56 cm 99 % 41 kg/m2 442866. 58 g 135 mm[Hg] 92 mm[Hg] [facility] 1 15:46:36 Date Recorded Body height Body mass index (BMI) Body mass index (BMI) Percentile per age and sex Body weight Systolic blood pressure Diastolic blood pressure Systolic blood pressure Diastolic blood pressure Provider Name and Address Organization Details Last Updated DateTime 2 162.56 cm 40.2 kg/m2 98 % 432769. 61 g 147 mm[Hg] 90 mm[Hg] 140 mm[Hg] 80 mm[Hg] [facility] 2 17:23:47 Date Recorded Body height Body mass index (BMI) Percentile per age and sex Body mass index (BMI) Body weight Systolic blood pressure Diastolic blood pressure Provider Name and Address Organization Details Last Updated DateTime 2 162.56 cm 98 % 38.3 kg/m2 604887. 1 g 123 mm[Hg] 84 mm[Hg] Christy Hermosillo [facility] 2 16:56:23 Date Recorded Body height Body mass index (BMI) Percentile per age and sex Body mass index (BMI) Body weight Systolic blood pressure Diastolic blood pressure Provider Name and Address Organization Details Last Updated DateTime 2 162.56 cm 97 % 37.1 kg/m2 26024.9 5 g 142 mm[Hg] 82 mm[Hg] Christy Hermosillo [facility] 12:23:26 Social History Question Answer Notes LastModified by Organizat ion Details LastModified Time Tobacco Smoking Status Current Every Day Smoker Rosalie Monroy [facility], [facility] 12/02/2020 12:57:05 What Is Your Level Of Alcohol Consumption? None Information not available 12/02/2020 Are You Blind Or Do You Have Difficulty Seeing? No Information not available 12/02/2020 What Is Your Level Of Caffeine Consumption? Occasional Information not available 12/02/2020 In The 14 Days Before Symptom Onset, Have You Had Close Contact With A Laboratory-confir med COVID-19 While That Case Was Ill? No Information not available 12/02/2020 In The 14 Days Before Symptom Onset, Have You Had Close Contact With A Person Who Is Under Investigation For COVID-19 While That Person Was Ill? No Information not available 12/02/2020 Have You Been To An Area Known To Be High Risk For COVID-19? No Information not available 12/02/2020 Are You Currently Employed? No Information not available 12/02/2020 Are You Deaf Or Do You Have Serious Difficulty Hearing? No Information not available 12/02/2020 What Type Of Diet Are You Following? REGULAR Information not available 12/02/2020 What Is The Highest Grade Or Level Of School You Have Completed Or The Highest Degree You Have Received? [id number] Information not available 12/02/2020 Do You Use Your Seat Belt Or Car Seat Routinely? Yes Information not available 12/02/2020 Do You Have Smoke And Carbon Monoxide Detectors In Your Home? Yes Information not available 12/02/2020 How Much Tobacco Do You Smoke? 0.5 PPD Information not available 12/02/2020 Do You Feel Stressed (tense, Restless, Nervous, Or Anxious, Or Unable To Sleep At Night)? [id number] Information not available 12/02/2020 Do You Use Any Illicit Or Recreational Drugs? No Information not available 12/02/2020 Do You Use Sunscreen Routinely? Yes Information not available 12/02/2020 Do You Or Have You Ever Used Any Other Forms Of Tobacco Or Nicotine? No Information not available 12/02/2020 Sex: Unknown Functional Status Question Answer Note LastModified by Organizat ion Details LastModified Time Do you have difficulty walking or climbing stairs? No [email or web address] Information not available 02/08/2022 Are you able to walk? YESWOREST Information not available 12/02/2020 Are you able to care for yourself? Yes [email or web address] Information not available 02/08/2022 Do you have difficulty dressing or bathing? No [email or web address] Information not available 02/08/2022 What is your exercise level? Occasional Information not available 12/02/2020 Mental Status None recorded. Family History Relationship Description Onset Age of this Age Resolved Age Notes LastModified by Organization Details LastModified Time Paternal Grandmother Malignant neoplasm of bone [email or web address] Not available 09/03 10:43:23 Medical History Condition Response Allergies (Food, seasonal, environmental ) N Other N Breast Cancer N Drug/Latex Allergies/Reactions N Blood Transfusion N Dermatologic Disorders N Lung Disease N Defects or Inherited Disease N Breast Problem N Gestational Diabetes N Hematologic disorders N Anesthesia Complications N History of STI Y Deep Vein Thrombosis N Polycystic ovary syndrome N Anxiety Disorder N Autoimmune disease N Arthritis N Infertility N Polyps N Acid Reflux (GERD) N History of abnormal pap N Cancer N Stroke N Varicosities N Neurologic/Epilepsy N Endometriosis N High Cholesterol N Headaches N Fibromyalgia N Kidney Disease N Heart Problems N Kidney or Bladder Problems N Thyroid Problems N GI Problems N Eating Disorder N Anemia N Art (IVF or FET) N Psychiatric Illness N Ovarian Cancer N Diabetes N Pulmonary (TB, Asthma) N Hepatitis/Liver Disease N No Past Medical History N Eczema N Urinary Tract Infection N Abuse/Domestic Violence N Asthma N Trauma/Violence N Depression/ depression N Heart Disease N Pre-Eclampsia N Hypertension Y Osteoporosis N Thrombophilias N Gynecological History Statement/Question Response Flow Moderate Date of LMP 05/07/2022 STIs/STDs Yes Was last menstrual period normal N Duration of Flow (days) 7 13 Current Control Method Seeking Pre gnancy Frequency of Cycle (Q days) Menses Monthly Y Age of first menstrual cycle 14 Date of Last Pap Smear Desired Control Method Seeking Pre gnancy LMP Approximate Obstetrics History GPAL:G 1 P 1 0 0 1 Type Value Full Term 1 Living 1 Total 1 Past Encounters Encounter ID Performer Location Encounter Start Date Encounter Closed Date Diagnosis/Indication Diagnosis SNOMED-CT Code Diagnosis ICD10 Code Diagnosis Note [id number] Monica Lam [facility] [address],[place] [address] 12/02/2020 12:16:13 12/02/2020 16:41:00 Pain in pelvis 05515078 R10.2 We agreed to updated TVUS and f/u visit. STD/Vagini tis testing sent. Needs to consider updated serum std panel. Reproducti ve care management 417884029 Z31.9 We agreed to pursue issue with pelvic pain first. Then, if still having issues with achieving we can refer to Nikki Mar CNM/JAGDEEP. [id number] Ursula [facility] [address],[place] [address] 12/14/2020 11:17:15 12/14/2020 12:10:06 Pain in pelvis 25608283 R10.2 [id number] Monica Lam [facility] [address],[place] [address] 12/15/2020 12:17:49 12/15/2020 15:57:45 Pain in pelvis 30129800 R10.2 TVUS reviewed We agreed to MD consult for further evaluation /POC of TVUS findings. Patient is to contact office or go to nearest ED/Urgent care if fever >/= 100.1, pain, excessive bleeding, unusual drainage or swelling in area of concern; or experienci ng worsening sx's or new onset of concerning sx's. Understand ing verbalized . All questions answered to patient satisfacti on. Time spent in visit is a total of 15 mins with at least 50% of visit consisting of counseling and review of plan of care. Additional precaution eddie measures were taken to minimize potential exposure to the Covid-19 virus during this patient s visit, including available hand statistical financial analyst upon arrive, cristy e check and being asked a series of screening questions. All staff wore face coverings during this encounter, as well as provided additional cleaning and sanitizing of all surfaces, including counter-to ps, pens, chairs, door handles, light switches, etc, prior to and following the patient s visit. [id number] Nain Azevedo MD [facility] [address],[place] [address] 12/16/2020 17:09:09 12/17/2020 10:59:22 Lesion of endometrium 8212073846 9101 N85.9 this patient is a 20-year-ol d female with abnormal uterine bleeding and uterine cramping that is severe. Pelvic ultrasound revealed an endometria l lesion. We discussed standard of care treatment for endometria l lesion. This may solve her pain and bleeding problem to have this treated. We agreed to hysterosco py with endometria l biopsy and possible polypectom y. We agreed to perform this in the office. We spent considerab le amount of time making this decision about the procedure/ surgery. [id number] Nain Azevedo MD [facility] [address],[facility] [address] 03/21/2021 12:23:19 03/21/2021 16:43:05 Lesion of endometrium 7186324188 9101 N85.9 hysterosco py was performed. The lesion within the endometriu m was identified . It appeared benign. It was transected with scissors. It was sampled with curettage. The patient tolerated the procedure well. [id number] Nain Azevedo MD [facility] [address] [address] 03/28/2021 16:07:23 03/28/2021 17:03:42 Abnormal uterine bleeding [id number] 9100 N93.9 this patient is a 20-year-ol d female presents for follow-up on abnormal endometriu m. Patient has concerns about fertility. She is trying to track her menstrual cycle. she was to become . She is trying to predict ovulation. She is not entered much informatio n into her ovulation predictor ed. We talked about the menstrual cycle. We talked about ovulation. Talked about progestero ne. We discussed her pathology results from her procedure. She plans to become . we spent more than 15 minutes face-to-fa ce discussing complex topic. [id number] Nain Azevedo MD [facility] [address] [address] 06/20/2021 10:06:15 06/20/2021 11:29:52 Abnormal uterine bleeding 2721990244 9100 N93.9 This patient is a 20-year-ol d female presents for abnormal uterine bleeding. Periods are irregularl y irregular. She does believe that they might be regular. She has tracked her periods, menses and they range from 40 days to 23 days. She has little data. We talked about the menstrual cycle and ovulation. emboli she does not ovulate regularly. We talked about her excess body weight. We talked about measure she could take to reduce body weight. We talked about her activity. Talked about her consumptio n of sugar sweetened beverages. Talked about the evaluation for infertilit y. We spent over 25 minutes face-to-fa ce. I spent 45 minutes on her case in total. She will obtain laboratory values today. She may return in 4-5 days for repeat progestero ne if her progestero ne is negative. I will see her again in 2 weeks to discuss infertilit y evaluation . [id number] Nain Azevedo MD [facility] [address] [address] 07/07/2021 15:27:25 07/08/2021 09:08:52 Polycystic ovary syndrome 538333387 E28.2 this patient is a 20-year-ol d female with abnormal uterine bleeding. We obtained a laboratory evaluation for PCOS. She has markedly elevated testostero ne, free and total. We talked about polycystic ovarian syndrome again in great detail. Spent more than 25 minutes with the patient discussing various aspects of polycystic ovarian syndrome, the normal menstrual cycle, etiology, natural history, infertilit y. Discussed for infertilit y treatment. We discussed weight loss. We discussed weight loss strategy. She has recently lost 10 lb. She cut out sugar sweetened beverages. We talked about treatment of polycystic ovarian syndrome on lowering her testostero ne. We agreed to metformin treatment. She will start metformin. 500 mg b.i.d.. She will return to the see me in 2 months. [id number] Nain Azevedo MD [facility] [address],[place] [address] 09/14/2021 17:14:56 09/14/2021 18:12:33 Polycystic ovary syndrome [id number] E28.2 this patient is a 20-year-ol d female presents for follow-up on polycystic ovarian syndrome, abnormal uterine bleeding, metformin. She was taking metformin has lost additional weight. She started to get regular menses back and then she discontinu ed her metformin. Her bleeding became irregular. We talked about further weight loss and adherence to medication s. Talked about infertilit y evaluation . She is trying to get for more than a year. Talked about referral to [facility] for ovulation induction. Talked about the cost associated with some of these things. We agreed to follow-up on her medication s and her abnormal uterine bleeding in 3 months. [id number] [facility] Mar CNM [facility] [address],[place] [address] 02/08/2022 16:46:54 02/08/2022 17:19:31 Trying to conceive [id number] Z31.9 [id number] [facility] Mar [facility] [address],[place] [address] 06/02/2022 12:13:40 06/02/2022 13:37:11 Anovulation 21720503 N97.0 Health Concerns Section Related Observation LastModified by Organization Detai ls LastModified Time None Recorded Concern Status LastModified by Organization Details LastModified Time None Recorded Advance Directives Directive None Recorded Payers Encounter Date Sequence Insurance Name Policy Number Policy Silva Covered Member ID Silva Member ID Guarantor Name 06/20/2021 1 [facility] (MEDICAID HMO) [id number] [facility] [employer] [facility] [id number] [facility] [employer] [facility] 07/07/2021 1 [facility] (MEDICAID HMO) [id number] [facility] [employer] [facility] [id number] [facility] 09/14/2021 1 [facility] (MEDICAID HMO) [id number] [employer] [id number] [employer] 02/08/2022 1 [facility] (MEDICAID HMO) [id number] Abbey Gearing [id number] [employer] G[employer] 06/02/2022 1 [facility] (MEDICAID HMO) [id number] Abbey Gearing [id number] [employer] Gearing Notes Date Note Type Note Provider Name and Address Organization Details Recorded Time 06/20/2021 text/html This patient is a 20-year-old female presents for abnormal uterine bleeding. Periods are irregularly irregular. She does believe that they might be regular. She has tracked her periods, menses and they range from 40 days to 23 days. She has little data. We talked about the menstrual cycle and ovulation. emboli she does not ovulate regularly. We talked about her excess body weight. We talked about measure she could take to reduce body weight. We talked about her activity. Talked about her consumption of sugar sweetened beverages. Talked about the evaluation for infertility. We spent over 25 minutes rfag-vo-lmas. I spent 45 minutes on her case in total. She will obtain laboratory values today. She may return in 4-5 days for repeat progesterone if her progesterone is negative. I will see her again in 2 weeks to discuss infertility evaluation. Nain Azevedo MD [address], [place], [address], [facility] 06/20/2021 11:07:38 07/07/2021 text/html this patient is a 20-year-old female with abnormal uterine bleeding. We obtained a laboratory evaluation for PCOS. She has markedly elevated testosterone, free and total. We talked about polycystic ovarian syndrome again in great detail. Spent more than 25 minutes with the patient discussing various aspects of polycystic ovarian syndrome, the normal menstrual cycle, etiology, natural history, infertility. Discussed for infertility treatment. We discussed weight loss. We discussed weight loss strategy. She has recently lost 10 lb. She cut out sugar sweetened beverages. We talked about treatment of polycystic ovarian syndrome on lowering her testosterone. We agreed to metformin treatment. She will start metformin. 500 mg b.i.d.. She will return to the see me in 2 months. Nain Azevedo MD [address], [place], [address], [facility] 07/07/2021 20:43:15 09/14/2021 text/html this patient is a 20-year-old female presents for follow-up on polycystic ovarian syndrome, abnormal uterine bleeding, metformin. She was taking metformin has lost additional weight. She started to get regular menses back and then she discontinued her metformin. Her bleeding became irregular. We talked about further weight loss and adherence to medications. Talked about infertility evaluation. She is trying to get for more than a year. Talked about referral to [facility] for ovulation induction. Talked about the cost associated with some of these things. We agreed to follow-up on her medications and her abnormal uterine bleeding in 3 months. Nain Azevedo MD [address], [place], [address], [facility] 09/14/2021 18:06:58 02/08/2022 text/html trying to concei ve x 1 year, hx in 2017, diagnosed pcos by dr azevedo and put on metformin, upset stomach too much and stopped. cycles are regular and does get positive ovulation kits monthly, no hx semen analysis [facility] Mar CNM [address], [place], [address], [facility] 02/08/2022 17:15:47 06/02/2022 text/html hx pcos, wants t o try and conceive, has not had any positive ovulation, would like to do SA and start medication, cycles monthly [facility] Mar CNM [address], [place], [address], [facility] 06/02/2022 12:39:31 OBGyn Episode Ob Episode Information Episode Created Date Number of Fetuses Patient Bloodtype Patient rh Status Prepregnancy Weight lbs Domestic Partner Domestic Partner Phone Father Name Electrical Discharge Machine Operator Status 09/03/19 21 1 CLOSED Fetus Data First Name Last Name Admitted to NICU Weight (g) Sex Living Outcome Pediatric Complications Fetus ID Race Codes Race Delivery Type 3005.04 7 M Full Term [id number] Vaginal Delivery Craig Calculation Initial Craig Date Initial Exam [...] Tubal Sterilization Discharge Date Comments 7 37 GHTN Discharge Information Feeding Method Contraceptive Method Maternal HG B and HCT Levels
--- OUTSIDE RECORDS SUMMARY | 2024-10-15 12:39 | XMS_ITS | CONTINUITY OF CARE DOCUMENT ---
Author Name dadaberniekathia Address Unknown Organization [facility] Address [address] [place] [address] [address] [place] [address] Phone [phone] Care Team Providers Care Coroner Technician Name Role Phone Sarbjit GOMEZ, Deni Unavailable [phone] Deni Schaffer MD Unavailable INSURANCE PROVIDERS Payer name Policy type / Coverage type [employer]ouez red libertarian ID [facility] [id number]
--- OUTSIDE RECORDS SUMMARY | 2024-10-15 12:40 | XMS_ITS | Clinical Summary ---
Author Organization [facility] Address [address] [place] [address] Care Team Providers Care Braider Setter Name Role Phone Carlita Lara NP Primary Care Provider [phone] Allergies No known active allergies Medications dextroamphetami ne-amphetamine XR (ADDERALL XR) 20 mg 24 hr capsule Take 20 mg by mouth every morning. Active diphenhydrAMINE (diphenhydrAMIN E) 25 mg capsule Take 1 tablet/capsul e (25 mg total) by mouth every 6 (six) hours as needed for itching. 20 capsule 12/24/2017 Active ibuprofen (ADVIL,MOTRIN) 600 mg tablet Take 1 tablet (600 mg total) by mouth 3 (three) times a day. Take with food. 30 tablet 12/24/2017 Active ketorolac (TORADOL) 10 mg tablet Take 1 tablet (10 mg total) by mouth every 6 (six) hours as needed for pain. Take with food. 20 tablet 10/05/2018 Active pyridoxine (VITAMIN B6) 25 mg tablet Take 1 tablet (25 mg total) by mouth every 8 (eight) hours as needed (nausea/vomit ing) 30 tablet 1 12/08/2023 Active doxylamine (UNISOM) 25 mg tablet Take 1 tablet (25 mg total) by mouth nightly as needed for sleep 30 tablet 12/08/2023 Active promethazine (PHENERGAN) 25 mg tablet Take 1 tablet (25 mg total) by mouth every 6 (six) hours as needed for nausea or vomiting 30 tablet 12/08/2023 Active polyethylene glycol (Miralax) 17 gram/dose bulk powder Take 17 g by mouth daily Mix 1 scoop (17g) in 8oz of water and drink daily. 255 g 12/08/2023 Active senna-docusate (PERICOLACE) 8.6-50 mg Take 1 tablet by mouth daily 20 tablet 12/08/2023 Active Surgical History Surgery Date Site/Laterality Comments TONSILECTOMY, ADENOIDECTOMY, BILATERAL MYRINGOTOMY AND TUBES ADENOIDECTOMY Medical History Medical History Date Comments Adhd Gestational hypertension Social History Tobacco Use Types Packs/Day Years Used Date Smoking Tobacco: Every Day Cigarettes Smokeless Tobacco: Never Alcohol Use Standard Drinks/Week Comments Yes 0 (1 standard drink = 0.6 oz pur e alcohol) Personal Safety Answer Date Recorded Have you ever been in or are you currently in a harmful physical or emotional relationship or is someone making you feel afraid or unsafe? 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 Gender Identity Not on file Sexual Orientation Not on file Obstetrics History Para Term AB IAB SAB Ectopic Multiple Livin g Live Births 2 Date Outcome GA Total Labor Labor/2nd/3rd Weight Sex Type Anes PTL Daysi A1 A5 Name Clin Last Filed Vital Signs Vital Sign Reading Time Taken Comments Blood Pressure 131/56 01/13/2024 7:51 PM CDT Pulse 70 01/13/2024 7:51 PM CDT Temperature 36.6 C (97.8 F) 01/13/2024 7:51 PM CDT Respiratory Rate 24 01/13/2024 7:51 PM CDT Oxygen Saturation 100% 01/13/2024 7:51 PM CDT Inhaled Oxygen Concentration - - Weight 81.6 kg (180 lb) 01/13/2024 7:51 PM CDT Height 160 cm (5' 3 ) 01/13/2024 7:51 PM CDT Body Mass Index 31.89 01/13/2024 7:51 PM CDT Plan of Treatment Health Maintenance Due Date Last Done Comments Cervical Cancer Screening 2001 Chlamydia and Gonorrhea (GC/ CT) Screening 2001 Depression Screening 2001 Hepatitis C Screening 2001 Pneumococcal vaccine <65 (1 of 1 - PPSV23) 10/15/2007 04/19/2004, 01/10/2003, 07/10/2002, Additional history exists HPV Vaccines (1 - 3-dose series) 2016 Meningococcal B Vaccine (2 o f 2 - Bexsero SCDM 2-dose series) 05/29/2018 11/27/2017 Regular Well Visit/Exam 18-64 10/15/2019 Influenza Vaccine (#1) 2024 8, 05/20/2013, 09/10/2012, Additional history exists DTaP/Tdap/Td Vaccine (8 - Td or Tdap) 05/12/2033 05/12/2023, 02/22/2012, 05/23/2007, Additional history exists Varicella Vaccines Completed 05/23/2007, 04/19/2004 Hepatitis B Screening Completed 05/16/2010 , 07/10/2002, 05/26/2002, Additional history exists Insurance [facility] [employer] [facility] [place] Care Teams Braider Setter Relationship Specialty Start Date End Date Carlita Lara NP [address] [place] [address] PCP - General Obstetrics and Gynecology 01/13/24
--- OUTSIDE RECORDS SUMMARY | 2024-10-15 12:40 | XMS_ITS | Encounter Summary ---
Author Organization [facility] Address [facility] [place] [address] Care Team Providers Care Utility Systems Repairer Operator Name Role Phone Shilo Byrd MD Primary Care Provider [phone] None, Provider Primary Care Provider Unavaila ble Encounter Details Date Type Department Care Team (Late st Contact Info) Description 01/11/2019 Abstract SFL CONVERSION [address] [place] [address] , Generic ConversionMD Social History Tobacco Use Types Packs/Day Years Used Date Smoking Tobacco: Never Assessed Comments Unknown Sex and Gender Information Value Date Recorded Sex Assigned at Not on file Legal Sex Female 9:04 AM CDT Gender Identity Not on file Sexual Orientation Not on file documented as of this encounter Plan of Treatment Not on file documented as of this encounter Visit Diagnoses Not on filedocumented in this encounter Care Teams Utility Systems Repairer Operator Relationship Specialty Start Date End Date hSilo Byrd MD [address] [place] [address] PCP - General PEDIATRICS 10/18/19 05/11/24 None, Provider, PCP - General UNKNOWN PHYSICIAN SPECIALTY 05/12/24 documented as of this encounter
--- OUTSIDE RECORDS SUMMARY | 2024-10-15 12:40 | XMS_ITS | Clinical Summary ---
Author Organization [facility] Address [facility] [place] [address] Care Team Providers Care Youth Manager Name Role Phone None, Provider MD Primary Care Provider Unavaila ble Allergies No known active allergies Medications ferrous sulfate EC 325 (65 Fe) MG tablet Take 1 tablet (325 mg total) by mouth 2 (two) times daily with meals. 1 tablet/day with 4 ounces of orange juice, if does not upset stomach or constipate take this twice/day 60 tablet 5 Active ibuprofen (MOTRIN) 800 MG tablet Take 1 tablet (800 mg total) by mouth every 8 (eight) hours as needed for Pain. May take every 6 hours for first 2 days 30 tablet 1 5 10/06/19 25 Active Problems Problem Noted Date Diagnosed Date Irregular uterine contractions (HHS/HCC) 024 Hyperemesis gravidarum with metabolic disturbanc e (HHS/HCC) 02/24/2024 Hyperemesis affecting , antepartum (HHS /HCC) 02/24/2024 Hyperemesis gravidarum (HHS/HCC) 01/14/2024 Other chest pain 01/14/2024 Encounters Date Type Department Care Team Description 08/05/2024 10:51 AM LINOLEUM LAYER APPRENTICE Anesthesia Event [facility] [place] [address] Sanjay Blunt CRNA 08/05/2024 8:20 AM LINOLEUM LAYER APPRENTICE - 08/06/2024 7:00 PM LINOLEUM LAYER APPRENTICE Hospital Encounter [facility] [place] [address] Marv Engel MD Portale, Kimberly E, DO Contractions Discharge Disposition: Home or Self Care (Routine Discharge) 08/05/2024 Travel from Last 3 Months Family History Medical History Relation Comments Alcohol/Drug Father Heart Father chf Cancer Paternal Grandmother Relation Status Comments Brother Alive Father (Age 49) Maternal Grandfather Alive Maternal Grandmother Alive Mother Alive Paternal Grandfather Alive Paternal Grandmother Sister Alive Social History Tobacco Use Types Packs/Day Years Used Date Smoking Tobacco: Every Day Cigarettes Smokeless Tobacco: Never Tobacco Cessation:Ready to Q uit: No; Counseling Given: Yes Alcohol Use Standard Drinks/Week Comments Never 0 (1 standard drink = 0.6 oz pur e alcohol) [id number] Health Literacy Answer Date Recor ded How often do you need to hav e someone help you when you read instructions, pamphlets, or other written material from your doctor or pharmacy? Never 08/05/2024 [facility] Utilities Answer Date Recorded In the past 12 months has [facility], [employer], or water [employer] threatened to shut off services in your home? No 08/05/2024 Humiliation, Afraid, Rape, and Kick questionnair e Answer Date Recorded Within the last year, have y ou been afraid of your partner or ex-partner? No 08/05/2024 Within the last year, have y ou been humiliated or emotionally abused in other ways by your partner or ex-partner? No Within the last year, have y ou been kicked, hit, slapped, or otherwise physically hurt by your partner or ex-partner? No 08/05/2024 Within the last year, have y ou been raped or forced to have any kind of sexual activity by your partner or ex-partner? No 08/05/2024 Social Connection and Isolation Panel [NHANES] A nswer Date Recorded In a typical week, how many times do you talk on the phone with family, friends, or neighbors? Three times a week 08/05/20 How often do you get togethe r with friends or relatives? Three times a week 08/05/2024 How often do you attend [facility] or restoration services? Never 08/05/2024 Do you belong to any clubs o r organizations such as bahai groups, unions, fraternal or athletic groups, or school groups? No 08/05/2024 How often do you attend meet ings of the clubs or organizations you belong to? Never 08/05/2024 Are you , , di vorced, , never , or living with a partner? Living with partner 08/05/2024 AUDIT-C Answer Date Recorded Q1: How often do you have a drink containing alcohol? Never 08/05/2024 Q2: How many drinks containi ng alcohol do you have on a typical day when you are drinking? Patient does not drink Q3: How often do you have si x or more drinks on one occasion? Never 08/05/2024 Overall Financial Resource Strain (CARDIA) Answe r Date Recorded How hard is it for you to pa y for the very basics like food, housing, medical care, and heating? Not hard at all 08/05/2024 PHQ-2 Answer Date Recorded Patient Health Questionnaire-2 Score 0 08/05/2024 [facility] - Occupational Stress Questionnaire Answer Date Recorded Do you feel stress - tense, restless, nervous, or anxious, or unable to sleep at night because your mind is troubled all the time - these days? Not at all 08/05/2024 Exercise Vital Sign Answer Date Recorde d On average, how many days pe r week do you engage in moderate to strenuous exercise (like a brisk walk)? 4 days 08/05/2024 On average, how many minutes do you engage in exercise at this level? 30 min 08/05/2024 Hunger Vital Sign Answer Date Recorded Within the past 12 months, y ou worried that your food would run out before you got the money to buy more. Never true 08/05/20 24 Within the past 12 months, t he food you bought just didn't last and you didn't have money to get more. Never true 08/05/2024 PRAPARE - Transportation Answer Date Re corded In the past 12 months, has l ack of transportation kept you from medical appointments or from getting medications? No 07/08 In the past 12 months, has l ack of transportation kept you from meetings, work, or from getting things needed for daily living? No 08/05/2024 Housing Stability Vital Sign Answer Jj e Recorded In the last 12 months, was t here a time when you were not able to pay the mortgage or rent on time? No 08/05/2024 In the past 12 months, how m any times have you moved where you were living? 1 08/05/2024 At any time in the past [address] [facility], were you homeless or living in a prison (including now)? No 08/05/2024 Depression Answer Date Recor ded Last EPDS Total Score 1 08/06/2024 Last EPDS Self Harm Result Hardly ever 08/06 Comments No Sex and Gender Information Value Date Recorded Sex Assigned at Not on file Legal Sex Female 9:04 AM CDT Gender Identity Not on file Sexual Orientation Not on file Last Filed Vital Signs Vital Sign Reading Time Taken Comments Blood Pressure 125/76 08/06/2024 9:00 AM LINOLEUM LAYER APPRENTICE Pulse 76 08/06/2024 9:00 AM LINOLEUM LAYER APPRENTICE Temperature 36.7 C (98 F) 08/06/2024 9:00 AM LINOLEUM LAYER APPRENTICE Respiratory Rate 18 08/06/2024 9:00 AM LINOLEUM LAYER APPRENTICE Oxygen Saturation 100% 08/06/2024 9:00 AM LINOLEUM LAYER APPRENTICE Inhaled Oxygen Concentration - - Weight 96.2 kg (212 lb) 08/05/2024 8:40 AM LINOLEUM LAYER APPRENTICE Height 160 cm (5' 3 ) 08/05/2024 8:40 AM LINOLEUM LAYER APPRENTICE Body Mass Index 37.55 08/05/2024 8:40 AM LINOLEUM LAYER APPRENTICE Plan of Treatment Health Maintenance Due Date Last Done Comments Cervical Cancer Screening Pap Smear (Age 21 to 29) Every 3 Years 2001 Cervical Cancer Screening 2001 Annual Physical 2004 Pneumococcal Vaccine: Pediatrics (0 to 5 Years) and At-Risk Patients (6 to 64 Years) (1 of 2 - PCV) 10/15/2007 04/19/2004, 01/10/2003, 07/10/2002, Additional history exists HPV Vaccines (1 - 3-dose series) 2016 Chlamydia Screening Females ages 16-24 2017 Meningococcal B Vaccine (2 of 2 - Bexsero SCDM 2-dose series) 05/29/2018 11/27/2017 COVID-19 Vaccine (1 - 2024-25 season) 2024 Influenza Adult (#1) 2024 05/29/2018, 05/20/2013, 09/10/2012, Additional history exists DTaP, Tdap and Td Vaccines (8 - Td or Tdap) 05/12/2033 05/12/2023, 02/22/2012, 05/23/2007, Additional history exists Hepatitis B Vaccines Completed 05/16/2010, 07/10/2002, 07/10/2002, Additional history exists Meningococcal Vaccine Completed 11/27/2017, 013 Hepatitis C Completed 01/14/2024 RSV Immunizations Under 20 Months Aged Out No longer eligible based on patient's age to complete this topic Procedures Procedure Name Priority Date/Time Associated Diagnosis Comments CBC W/DIFF AUTOMATED Routine 08/06/2024 6:00 AM LINOLEUM LAYER APPRENTICE LABOR EPIDURAL Routine 08/05/2024 11:10 AM LINOLEUM LAYER APPRENTICE TYPE & SCREEN STAT 08/05/2024 9:40 AM LINOLEUM LAYER APPRENTICE COMPREHENSIVE METABOLIC PANEL Routine 08/05/2024 9:40 AM LINOLEUM LAYER APPRENTICE SYPHILIS AB (DIAGNOSTIC) WITH CASCADING REFLEX STAT 08/05/2024 9:40 AM LINOLEUM LAYER APPRENTICE CBC W/DIFF AUTOMATED STAT 08/05/2024 9:39 AM LINOLEUM LAYER APPRENTICE CREATININE URINE RANDOM Routine 08/05/2024 9:15 AM LINOLEUM LAYER APPRENTICE (HHS/HCC) PROTEIN TOTAL URINE RANDOM Routine 08/05/2024 9:15 AM LINOLEUM LAYER APPRENTICE (HHS/HCC) DRUG SCREEN RAPID STAT 08/05/2024 9:1 5 AM LINOLEUM LAYER APPRENTICE HC URINALYSIS AUTO W/O MICRO STAT 08/05/2024 9:15 AM LINOLEUM LAYER APPRENTICE PATHOLOGY Routine 08/05/2024 12:00 AM LINOLEUM LAYER APPRENTICE HEPATITIS C ANTIBODY Routine 01/14/2024 from Last 3 Months or Most Recently Relevant to Health Maintenance Results * (ABNORMAL) CBC W/DIFF AUTOMATED (08/06/2024 6:00 AM LINOLEUM LAYER APPRENTICE) Only the most recent of2 resultswithin the time period is included. WBC 11.33(H) 4.5 - 11.0 x10'3/uL 08/06/2024 8:06 AM [facility] RBC 3.49(L) 4.20 - 5.40 x10'6/uL 08/06/2024 8:06 AM [facility] HGB 10.1(L) 12.0 - 16.0 G/DL 08/06/2024 8:06 AM [facility] HCT 29.2(L) 38.0 - 48.0 % 08/06/2024 8:06 AM [facility] MCV 83.7 81.0 - 99.0 FL 08/06/2024 8:06 AM [facility] MCH 28.9 27.0 - 31.0 PG 08/06/2024 8:06 AM [facility] MCHC 34.6 32.0 - 36.0 G/DL 08/06/2024 8:06 AM [facility] RDW 12.6 11.5 - 14.5 % 08/06/2024 8:06 AM [facility] PLT 134 130 - 400 x10'3/uL 08/06/2024 8:06 AM [facility] MPV 14.2(H) 9.3 - 12.2 FL 08/06/2024 8:06 AM [facility] DIFFERENTIAL TYPE AUTOMATED DIFFERENTIAL 08/06/2024 8:06 AM [facility] NEUTROPHILS % 73.4 % 08/06/2024 8:06 AM LINOLEUM LAYER APPRENTICE [facility] LYMPHOCYTES % 16.6 % 08/06/2024 8:06 AM [facility] MONOCYTES % 7.7 % 08/06/2024 8:06 AM [facility] EOSINOPHILS 1.5 % 08/06/2024 8:06 AM [facility] BASOPHILS 0.4 % 08/06/2024 8:06 AM [facility] IMMATURE GRANS % 0.4 % 08/06/19 8:06 AM [facility] ABS. NEUTROPHILS 8.32(H) 1.80 - 7.70 x10'3/uL 08/06/2024 8:06 AM [facility] ABS. LYMPHOCYTES 1.88 1.00 - 4.80 x10'3/uL 08/06/2024 8:06 AM [facility] ABS. MONOCYTES 0.87(H) 0.24 - 0.86 x10'3/uL 08/06/2024 8:06 AM [facility] ABS. EOSINOPHILS 0.17 0.04 - 0.36 x10'3/uL 08/06/2024 8:06 AM [facility] ABS. BASOPHILS 0.05 0.01 - 0.08 x10'3/uL 08/06/2024 8:06 AM [facility] ABS. IMMATURE GRANULOCYTES 0.04 0.00 - 0.49 x10'3/uL 08/06/2024 8:06 AM [facility] 08/06/2024 6:00 AM LINOLEUM LAYER APPRENTICE us Marv Engel MD LABORATORY Final Result [facility] [address] [place] [address], [place] [phone] * LABOR EPIDURAL (08/05/2024 11:10 AM LINOLEUM LAYER APPRENTICE) Narrative Sanjay Blunt CRNA - 08/05/2024 11:10 AM LINOLEUM LAYER APPRENTICE Sanjay Blunt CRNA 08/05/2024 11:15 AM Epidural: Procedure Start: 08/05/2024 10:53 AM Procedure Stop: 08/05/2024 11:06 AM Patient location during procedure: OB Reason for block: labor epidural Preanesthetic Checklist Completed: patient identified, consent, pre-op evaluation, timeout performed, IV checked, risks and benefits discussed and monitors and equipment checked Procedure Information: Patient position: sitting Prep: site prepped and draped and chlorhexidine Patient monitoring: continuous pulse oximetry, heart rate and non-invasive blood pressure Approach: midline Location: L3-L4 Injection technique: CONSTANTINO saline Placement Location: lumbar Ultrasound-guided Placement: No Needle and Catheter: MRI Compatible: B Tao Perifix tray Ref # [id number] Needle type: Tuohy Needle gauge: 17 G Needle length: 3.5 in Needle insertion depth: 8 cm Catheter type: side hole Catheter size: 19 G Catheter at skin depth: 12.5 cm Test dose: negative and lidocaine 1.5% with epinephrine 1-to-200,000 Needle attempts: 1 Assessment Sensory level: L1 Additional Notes Called to room for c/o pain with ctx's. Pain rated at 10/10. Placed epidural without complications. Well tolerated. ARON/JOSE on completion. Post epidural pain rated at 0/10. Epidural kit Lot: [id number] Exp: 07/2025 Sanjay Blunt CRNA [place] ANESTHESIA Edited Res ult - Final * SYPHILIS AB (DIAGNOSTIC) WITH CASCADING REFLEX (08/05/2024 9:40 AM LINOLEUM LAYER APPRENTICE) SYPHILIS IGG IGM AB NON-REACTI VE NON-REACTI VE 08/05/2024 10:42 AM LINOLEUM LAYER APPRENTICE [facility] Comment: No serologic evidence of syphilis. No follow-up necessary unless clinically indicated. 08/05/2024 9:40 AM LINOLEUM LAYER APPRENTICE Marv Engel MD LABORATORY Final Result Performing Organization Address [facility]/ZIP Co de Phone Number [facility] [address] [place] [address], * TYPE & SCREEN (08/05/2024 9:40 AM LINOLEUM LAYER APPRENTICE) ABO/RH O POSITIVE 08/05/2024 10:32 AM LINOLEUM LAYER APPRENTICE [facility] ANTIBODY SCREEN NEGATIVE 08/05/2024 10:32 AM [facility] SAMPLE EXPIRATION 08/08/2024,2 359 08/05/2024 10:32 AM [facility] 08/05/2024 9:40 AM LINOLEUM LAYER APPRENTICE us Marv Engel MD BLOOD BANK TEST ORDERABLES F inal Result Performing Organization Address [facility] Co de Phone Number [facility] [address] [place] [address], [place] [phone] * (ABNORMAL) COMPREHENSIVE METABOLIC PANEL (08/05/2024 9:40 AM LINOLEUM LAYER APPRENTICE) GLUCOSE 131(H) 70 - 99 MG/DL 08/05/2024 10:21 AM [facility] BUN 4(L) 7 - 18 MG/DL 08/05/2024 10:21 AM [facility] CREATININE S/P/B 0.44(L) 0.55 - 1.02 MG/DL 08/05/2024 10:21 AM [facility] SODIUM S/P/B 137 136 - 145 MMOL/L 08/05/2024 10:21 AM [facility] POTASSIUM S/P/B 3.3(L) 3.5 - 5.1 MMOL/L 08/05/2024 10:21 AM [facility] CHLORIDE S/P/B 109 97 - 115 MMOL/L 08/05/2024 10:21 AM [facility] CO2 21.0 21 - 32 MMOL/L 08/05/2024 10:21 AM [facility] CALCIUM S/P/B 8.6 8.5 - 10.1 MG/DL 08/05/2024 10:21 AM [facility] BILIRUBIN TOTAL S/P/B 0.2 0.2 - 1.2 MG/DL 08/05/2024 10:21 AM [facility] Comment: THIS ASSAY IS NOT RECOMMENDED FOR PATIENTS UNDERGOING TREATMENT WITH ELTROMBOPAG DUE TO THE POTENTIAL FOR FALSELY ELEVATED RESULTS. TOTAL PROTEIN S/P/B 6.0(L) 6.4 - 8.2 G/DL 08/05/2024 10:21 AM [facility] ALBUMIN S/P/B 2.3(L) 3.4 - 5.0 G/DL 08/05/2024 10:21 AM [facility] AST 10(L) 15 - 37 U/L 08/05/2024 10:21 AM [facility] ALT 8(L) 14 - 55 U/L 08/05/2024 10:21 AM [facility] ALKALINE PHOSPHATASE S/P/B 180(H) 50 - 136 U/L 08/05/2024 10:21 AM [facility] ANION GAP 7.0 2 - 10 MMOL/L 08/05/2024 10:21 AM [facility] BUN CREATININE RATIO 9.0 6 - 26 08/05/2024 10:21 AM [facility] A/G RATIO 0.6(L) 1.0 - 2.0 RATIO 08/05/2024 10:21 AM [facility] GFR ESTIMATE >90 >90 ML/MIN/1.7 3 M2 08/05/2024 10:21 AM LINOLEUM LAYER APPRENTICE [facility] Comment: NOTE: eGFR is not calculated for patients <18 years of age or gender unknown. This is an estimated GFR calculation using the new CKD EPI creatinine equation without race and so does not require a correction factor for race. This estimated GFR should not be used for calculating drug doses. 08/05/2024 9:40 AM LINOLEUM LAYER APPRENTICE us Marv Engel MD LABORATORY Final Result Performing Organization Address [facility] Co de Phone Number [facility] [address] [place] [phone], [place] [phone] * (ABNORMAL) PROTEIN TOTAL URINE RANDOM (08/05/2024 9:15 AM LINOLEUM LAYER APPRENTICE) PROTEIN URINE TOTAL RANDOM 14.7(H) <10 MG/DL 08/05/2024 4:26 PM LINOLEUM LAYER APPRENTICE [facility] URINE SPECIMEN / Unknown 08/05/2024 9:15 AM LINOLEUM LAYER APPRENTICE us Marv Engel MD URINE ORDERABLES Final Resul t Performing Organization Address [facility] de Phone Number [facility] [address] [place] [phone], [place] [phone] * CREATININE URINE RANDOM (08/05/2024 9:15 AM LINOLEUM LAYER APPRENTICE) CREATININE (U) 79.1 28 - 217 MG/DL 08/05/2024 4:26 PM LINOLEUM LAYER APPRENTICE [facility] URINE SPECIMEN / Unknown 08/05/2024 9:15 AM LINOLEUM LAYER APPRENTICE us Marv Engel MD URINE ORDERABLES Final Resul t Performing Organization Address City/[facility] Co de Phone Number [facility] [address] [place] [address], * (ABNORMAL) DRUG SCREEN RAPID (08/05/2024 9:15 AM LINOLEUM LAYER APPRENTICE) AMPHETAMINE (U) NEGATIVE NEGATIVE 11:11 AM [facility] BARBITURATES SCREEN (U) NEGATIVE NEGATIVE 08/05/2024 11:11 AM [facility] BENZODIAZEPINES SCREEN (U) NEGATIVE NEGATIVE 08/05/2024 11:11 AM [facility] CANNABINOIDS SCREEN (U) POSITIVE(A) NEGATIVE 08/05/2024 11:11 AM [facility] COCAINE METABOLITES (U) NEGATIVE NEGATIVE 08/05/2024 11:11 AM [facility] METHADONE (U) NEGATIVE NEGATIVE 08/05/2024 11:11 AM [facility] OPIATE SCREEN (U) NEGATIVE NEGATIVE 024 11:11 AM [facility] PHENCYCLIDINE PCP (U) NEGATIVE NEGATIVE 08/05/2024 11:11 AM [facility] Comment: NOTE: RESULTS OF THIS DRUG SCREEN SHOULD BE USED FOR MEDICAL PURPOSES ONLY AND NOT FOR LEGAL OR EMPLOYMENT PURPOSES. POSITIVE RESULTS ARE NOT CONFIRMED. MEDICATIONS CONTAINING EPHEDRINE MAY CAUSE FALSE POSITIVE AMPHETAMINE CALL [phone], LAB, TO REQUEST CONFIRMATION TESTING. IF CREATININE IS <40 mg/dL. RECOLLECTION IS SUGGESTED. AMPHETAMINE- 500 NG/ML BARBITURATE- 200 NG/ML BENZODIAZEPINES- 200 NG/ML THC- 50 NG/ML COCAINE- 150 NG/ML METHADONE- 300 NG/ML OPIATE- 300 MG/ML PCP- 25 NG/ML CREATININE (U) 80.9 28 - 217 MG/DL 08/05/2024 11:11 AM [facility] URINE SPECIMEN / Unknown 08/05/2024 9:15 AM LINOLEUM LAYER APPRENTICE us Marv Engel MD URINE ORDERABLES Final Resul t [facility] [address] [place] [address], [place] [phone] * URINALYSIS (08/05/2024 9:15 AM LINOLEUM LAYER APPRENTICE) SPECIMEN TYPE URINE CLEAN CATCH 08/05/2024 10:25 AM [facility] COLOR (U) LIGHT YELLOW 08/05/2024 10:35 AM [facility] TRANSPARENCY CLEAR 08/05/2024 10:35 AM [facility] SPECIFIC GRAVITY (U) 1.011 1.001 - 1.030 08/05/2024 10:35 AM [facility] U PH 6.5 5.0 - 9.0 08/05/2024 10:35 AM [facility] LEUKOCYTES (U) NEGATIVE NEGATIVE 08/05/2024 10:35 AM [facility] NITRITES NEGATIVE NEGATIVE 08/05/2024 10:35 AM [facility] PROTEIN RANDOM (U) NEGATIVE <30 MG/DL 08/05/2024 10:35 AM [facility] GLUCOSE (U) NORMAL NORMAL MG/DL 08/05/2024 10:35 AM [facility] KETONES MG/DL (U) NEGATIVE NEGATIVE MG/DL 08/05/2024 10:35 AM [facility] UROBILINOGEN NORMAL NORMAL MG/DL 08/05/2024 10:35 AM [facility] BILIRUBIN (U) NEGATIVE NEGATIVE MG/DL 08/05/2024 10:35 AM [facility] BLOOD (U) NEGATIVE NEGATIVE 08/05/2024 10:35 AM [facility] URINE SPECIMEN OBTAINED BY CLEAN CATCH PROCEDURE / Unknown 08/05/2024 9:15 AM LINOLEUM LAYER APPRENTICE us Marv Engel MD URINE ORDERABLES Final Resul t [facility] [address] [place] [address], * Pathology-Placenta (08/05/2024 12:00 AM LINOLEUM LAYER APPRENTICE) PATHOLOGY [facility] Department of Laboratory Medicine [address] [place] [phone] , extension [phone] Pathology Report Surgical Pathology Report Name: BONNIE THOMPSON Specimen #: [id number] Age: 3 2000 (Age: 23) Location: [facility] Sex: F Procedure Date: 08/05/2024 Hospital #: [id number] Date Received: 08/07/2024 Date Reported: 08/08/2024 Provider: MARV ENGEL MD Source: Placenta Clinical History: G2, P2 at 39-6/7 weeks with meconium stained fluid. Postoperative Diagnosis: Male infant FINAL DIAGNOSIS: Placenta: -Third-trimester placenta, disc weight 558 g, with focal intravillous hemorrhage and no additional diagnostic villous abnormalities -Completeness of placenta cannot be determined grossly, see gross description - membranes demonstrate meconium laden macrophages and no additional diagnostic abnormalities -Unremarkable three-vessel umbilical cord Gross Description: Received in formalin, labeled with a patient label and as placenta is a specimen consisting of a placenta with attached membranes and umbilical cord. The membranes are thick, edematous, and green and exhibit a circummarginate insertion. The umbilical cord is 27 cm in length with a diameter of 1.2 cm. It is eccentrically inserted, 5 cm from the edge of the disc. The cord does not exhibit any areas of stricture or true knots. Sections of the cord reveal three vessels. The disc is 558 grams and 17 x 15 x 3 cm. The surface is blue-green with prominent vasculature. The maternal surface is disrupted and the completeness of the disc cannot be grossly assessed. Sections reveal a red brown parenchyma with a single 1 cm firm laminated area near the center of the disc, occupying less than 5% of the total placental volume. Sand Worker tissue is submitted as follows: 1 - membranes 2 - umbilical cord 3 parenchyma to include maternal surface and firm area 4 parenchyma to include surface. Gross examination (when applicable) was performed at [facility], [address] [facility], [place] [address]. This case was interpreted and signed out at [facility], [address] [place] [address]. Electronically Signed Out XAVI GROSS MD [facility] 08/05/2024 08/07/2024 11: 58 AM LINOLEUM LAYER APPRENTICE Comment:Placenta Marv Engel MD PATHOLOGY/CYTOLOGY ORDERABLE S Final Result [facility] [address] [place] [address], [id number] * HEPATITIS C ANTIBODY (01/14/2024) HEPATITIS C AB Non-Reacti ve us Default History Genericprovider LABORATORY Final Result from Last 3 Months or Most Recently Relevant to Health Maintenance Insurance MEDICAID [facility] Advance Directives * Full Code (Latest Code Status on File) Date Activated Date Inactivated Comments 08/05/2024 9:03 AM 08/06/2024 9:50 PM * Full Code Date Activated Date Inactivated Comments 02/24/2024 7:49 AM 02/24/2024 9:41 PM Care Teams Youth Manager Relationship Specialty Start Date End Date None, Provider, MD PCP - General UNKNOWN PHYSICIAN SPECIALTY 05/12/24
--- OUTSIDE RECORDS SUMMARY | 2024-10-15 12:40 | XMS_ITS | Referral Summary ---
Author Organization [facility] Address [address] [place] [address] Care Team Providers Care Toll Booth Operator Name Role Phone Carlita Lara NP Primary Care Provider [phone] Allergies No known active allergies Medications dextroamphetami [...] by mouth daily 20 tablet 12/08/2023 Active Social History Tobacco Use Types Packs/Day Years [...] on file Legal Sex Female 8:15 AM ADMINISTRATIVE RESOURCES ASSOCIATE Gender Identity Not on file Sexual Orientation [...] 01/13/2024 7:51 PM CDT Plan of Treatment Not on file Insurance [facility] Care Teams Toll Booth Operator Relationship Specialty Start Date End Date Carlita Lara NP [facility] [place] [address] PCP - General Obstetrics and Gynecology 01/13/24
--- OUTSIDE RECORDS SUMMARY | 2024-10-15 12:44 | XMS_ITS | CONTINUITY OF CARE DOCUMENT ---
Author Name [email or web address] Address Unknown Organization [facility] Address [id number] [place] [address] [address] [place] [address] Phone [phone] Care Team Providers Care Hard Metals Engraver Hand Name Role Phone Sarbjit GOMEZ, Deni Unavailable [phone] Deni Scahffer MD Unavailable [phone] [employer] Payer name Policy type / Coverage type Flynn red libertarian [facility] [id number]
== END 2024-10-15 11:35 | disposition left against medical advice (07) ==
PROVIDERS: Emergency Provider Nurse Practitioner Family
DX: K21.9 Gastro-esophageal reflux disease without esophagitis (principal); E03.9 Hypothyroidism, unspecified
CPT/HCPCS: 99213; A9270; G0463

== ENCOUNTER 2024-11-20 10:57 | Emergency (ER) | payer OTHER, MEDICAID, SELFPAY ==
[2024-11-20 11:11] VITALS: BP 143/81; PULSE 93; RESP 16; TEMP 36.6; O2SAT 100
--- NOTE | 2024-11-20 11:12 | ED_ITS ---
HPI - Eye Problem General Chief complaint: Eye Problems Stated complaint: [facility] Source: patient Mode of arrival: ambulatory Limitations: no limitations History of Present Illness HPI Narrative: 24-year-old female presented for complaint of right eye redness and drainage. Onset yesterday.. Woke this morning with right eye crusted shut. Reports with similar symptoms. Denies eye injury, pain, itching, vision changes, headache or photophobia. Does not wear contact lenses. chief complaint: eye pain Related Data Home Medications ?Medication ?Instructions ?Recorded ?Confirmed ?Last Taken ?Type pantoprazole 40 mg tablet,delayed mg PO 11/20/24 Unknown History release sucralfate 1 gram tablet 11/20/24 Unknown History Allergies Allergy/AdvReac Type Severity Reaction Status Date / Time No Known Allergies Allergy Verified 11/20/24 11:05 Review of Systems Review of Systems: per HPI All systems reviewed & are unremarkable except as noted in HPI and below PMFSH Past Medical History Medical History Hypothyroidism Social History Social History Smoking status: Never smoker Comments At time of signature, I have reviewed and agree with nursing past medical, surgical, social and family history unless otherwise noted. Please see nursing chart for further information. There is no relevant family history pertinent to the presenting complaint Exam Narrative: GENERAL: Well-appearing HEAD: Normocephalic, atraumatic. EYES: right conjunctival injection, purulent drainage and crust to the eyelid. No eye lid swelling/redness. PERRLA, EOMI. Lid eversion shows no foreign body ENT: Mucous membranes pink and moist. No rhinorrhea. TMs normal bilaterally. Throat normal. Uvula midline. CHEST: Clear to auscultation. SKIN: Warm, dry, no rash. Normal skin turgor. NEURO: No focal deficits. Alert and oriented x3 PSYCH: Normal affect. Course Course Emergency Course: Patient is aware of diagnosis, understands and agrees to treatment plan. Anticipatory guidance given. Patient agrees to follow-up as directed and is aware of reasons to seek care at the emergency department. Portions of this record may have been created with voice recognition software Level of Care: Express Care Visit Vital Signs Vital signs: Vital Signs Temperature 97.8 F 11/20/24 11:11 Pulse Rate 93 11/20/24 11:11 Respiratory Rate 16 11/20/24 11:11 Blood Pressure 143/81 H 11/20/24 11:11 Pulse Oximetry 100 11/20/24 11:11 Oxygen Delivery Room Air 11/20/24 11:11 Temperature 97.8 F 11/20/24 11:11 Pulse Rate 93 11/20/24 11:11 Respiratory Rate 16 11/20/24 11:11 Blood Pressure 143/81 H 11/20/24 11:11 Pulse Oximetry 100 11/20/24 11:11 Oxygen Delivery Room Air 11/20/24 11:11 MDM - Eye Problem MDM Narrative Medical decision making narrative: Discussed physical exam findings Consistent with right conjunctivitis. Advised supportive measures and signs/symptoms to go to the ER. Pt is appropriate for outpt treatment and f/u. Differential Diagnosis Differential diagnosis: Likely corneal abrasion, conjunctivitis, acute iritis and other Discharge Plan Discharge Clinical Impression: Bacterial conjunctivitis Patient Disposition: Home Condition: Stable Instructions: Antibiotic Form, Conjunctivitis (ED) Additional Instructions: Avoid touching or rubbing your eye. Use over the counter lubricating eye drops as needed for irritation Use a warm or cool washcloth on your eye for comfort Use eyedrops as directed - you are contagious for 24 hours after starting the antibiotic Practice good handwashing and hygiene to prevent spread of infection Do not wear the contact lenses. Use a new pair after the infection is resolved. Use new makeup, lashes etc. You may take Tylenol or ibuprofen for pain Follow-up with PCP or tools programmer if condition is not improving in 2-3days. Go to the emergency room if you have severe pain or pressure behind your eye, difficulty seeing, or other severe symptoms [facility] [phone] [facility] [phone] [facility] [phone] [facility] [phone] Patient Language: Greek Prescriptions: New polymyxin B sulf-trimethoprim 10,000 unit- 1 mg/mL drops 1 drp RIGHT EYE Q3H 7 Days Qty: 10 0RF Rx Instructions: while awake; do not exceed 6 doses in 24 hours No Action sucralfate 1 gram tablet pantoprazole 40 mg tablet,delayed release (DR/EC) PO Follow-up/Referrals: PHYSICIAN,RATE AND COST ANALYST [Primary Care Provider] - Stand Alone Forms: Work/School Release IP Time of Disposition: 11:25
--- OUTSIDE RECORDS SUMMARY | 2024-11-20 11:48 | XMS_ITS | Clinical Summary ---
Author Organization [facility] Address [address] [place] [address] Phone Care Team Providers Care Superintendent Stevedoring Name Role Phone Provider, None Primary Care Provider Unavailabl e Allergies No known active allergies Medications amphetamine-de xtroamphetamin e (ADDERALL) 20 MG Tablet Take 20 mg by mouth 2 times daily. Active MedroxyPROGEST ERone Acetate (DEPO-PROVERA IM) by Intramuscular route. Active methylPREDNISo lone (MEDROL DOSPACK) 4 MG Tablet Therapy Pack See product package insert for dosing schedule 21 Tab 8 Active Encounters Date Type Department Care Team Description 10/15/2024 11:53 PM CDT - 10/16/2024 1:45 AM CDT Emergency [facility] [address] [place] [address] Juan Krause MD Discharge Disposition: Left Against Medical Advice 10/15/2024 Travel from Last 3 Months Social History Tobacco Use Types Packs/Day Years Used Date Smoking Tobacco: Never Smokeless Tobacco: Never Alcohol Use Standard Drinks/Week Comments No 0 (1 standard drink = 0.6 oz pur e alcohol) Comments No Sex and Gender Information Value Date Recorded Sex Assigned at Not on file 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 Gender Identity Not on file Sexual Orientation Not on file Last Filed Vital Signs Vital Sign Reading Time Taken Comments Blood Pressure 126/96 10/15/2024 11:04 PM CDT Pulse 51 10/15/2024 11:04 PM CDT Temperature 36 C (96.8 F) 10/15/2024 11:04 PM CDT Respiratory Rate 18 10/15/2024 11:04 PM CDT Oxygen Saturation 98% 10/15/2024 11:04 PM CDT Inhaled Oxygen Concentration - - Weight 90.7 kg (200 lb) 10/15/2024 11:04 PM CDT Height 160 cm (5' 3 ) 10/15/2024 11:04 PM CDT Body Mass Index 35.43 10/15/2024 11:04 PM CDT Plan of Treatment Not on file Procedures Procedure Name Priority Date/Time Associated Diagnosis Comments POCT URINE HCG () STAT 10/16/2024 1:15 AM CDT URINALYSIS REFLEX IF INDICATED BY ABNORMAL RESULTS STAT 10/16/2024 1:15 AM CDT CBC WITH AUTO DIFFERENTIAL STAT 10/15/2024 11:15 PM CDT LIPASE STAT 10/15/2024 11:15 PM CDT COMPLETE BLOOD COUNT (CBC) WITH DIFF STAT 10/15/2024 11:15 PM CDT CMP (COMPREHENSIVE METABOLIC PANEL) STAT 10/15/2024 11:15 PM CDT RSV,SARS-COV-2,INFLUE NZA A&B BY PCR STAT 10/15/2024 11:15 PM CDT from Last 3 Months Results * (ABNORMAL) URINALYSIS REFLEX IF INDICATED BY ABNORMAL RESULTS (10/16/2024 1:15 AM CDT) SPECIFIC GRAVITY 1.015 1.003 - 1.030 10/16/2024 1:43 AM CDT [facility] URINE PH 7.0 5.0 - 9.0 10/16/2024 1:43 AM CDT [facility] WBC ESTERASE Negative Negative 10/16/2024 1:43 AM CDT [facility] NITRITE Negative Negative 10/16/2024 1:43 AM CDT [facility] PROTEIN, RANDOM URINE 30 mg/dL(A) Negative 10/16/2024 1:43 AM CDT [facility] URINE GLUCOSE, QUAL Negative Negative 10/16/2024 1:43 AM CDT [facility] URINE KETONES 50 mg/dL(A) Negative 10/16/2024 1:43 AM CDT [facility] UROBILINOGEN Normal Normal mg/dL 10/16/2024 1:43 AM CDT [facility] URINE BLOOD 10 /uL(A) Negative kaleb/ul 10/16/2024 1:43 AM CDT [facility] URINALYSIS COLOR Yellow 10/17/19 1:43 AM CDT [facility] URINALYSIS CLARITY Clear 10/16/2024 1:43 AM CDT [facility] WBC (Urine) 0-5 Negative, 0-5 /hpf 10/16/2024 1:43 AM CDT [facility] URINE RBC'S 3-5(A) Negative, 0-2 /hpf 10/16/2024 1:43 AM CDT [facility] EPITHELIAL CELLS Large amount squamous /lpf 10/16/2024 1:43 AM CDT [facility] BACTERIA, URINE Moderate(A) Negative /hpf 10/16/2024 1:43 AM CDT [facility] Urine URINE SPECIMEN OBTAINED BY CLEAN CATCH PROCEDURE / Unknown Non-Phlebotomy Collection / Unknown 10/16/2024 1:15 AM CDT 10/16/2024 1:20 AM CDT Juan Krause MD URINE ORDERABLES Final Re sult [facility] [address] [place] [address] * POCT Urine HCG () (10/16/2024 1:15 AM CDT) POC URINE Negative POC URINE CONTROL Run Boat Operator Pass Urine 10/16/2024 1:15 AM CDT Juan Krause MD POINT OF CARE TESTING (JESSIE SRIVASTAVA) Final Result * RSV,SARS-COV-2,INFLUENZA A&B BY PCR (10/15/2024 11:15 PM CDT) [facility] FLU A Negative Negative, Error 10/16/2024 12:06 AM CDT [facility] FLU B Negative Negative 10/16/2024 12:06 AM CDT [facility] RESP SYNC VIRUS Negative Negative 12:06 AM CDT [facility] SARSCOV2 NOT DETECTED (Reference Range for this test is Not Detected) 10/16/2024 12:06 AM CDT [facility] Comment:This test was perfor med by a Reverse Apprentice/Lineman PCR Method. Swab NASOPHARYNGEAL STRUCTURE / Unknown Non-Phlebotomy Collection / Unknown 10/15/2024 11:15 PM CDT 10/15/2024 11:27 PM CDT Juan Krause MD MICROBIOLOGY - GENERAL OR DERABLES Final Result [facility] [address] [place] [address] * (ABNORMAL) CBC with Auto Differential (10/15/2024 11:15 PM CDT) [facility] WBC 8.87 4.00 - 12.00 10(3)/mcL 10/15/2024 11:29 PM CDT [facility] RBC 4.57 3.80 - 5.30 10(6)/mcL 10/15/2024 11:29 PM CDT [facility] HEMOGLOBIN (HGB) 12.5 12.0 - 15.8 g/dL 10/15/2024 11:29 PM CDT [facility] HEMATOCRIT (HCT) 36.2 36.0 - 47.0 % 10/15/2024 11:29 PM CDT [facility] MCV 79.2(L) 82.0 - 96.0 fL 10/15/2024 11:29 PM CDT [facility] MCH 27.4 26.0 - 34.0 pg 10/15/2024 11:29 PM CDT [facility] MCHC 34.5 31.0 - 36.0 g/dL 10/15/2024 11:29 PM CDT [facility] PLATELET COUNT 216 140 - 440 10(3)/[facility] 10/15/2024 11:29 PM CDT [facility] RDW 13.3 11.8 - 15.5 % 10/15/2024 11:29 PM CDT [facility] MPV 12.1 9.7 - 12.4 fL 10/15/2024 11:29 PM CDT [facility] NEUTROPHILS 90.8(H) 47.0 - 73.0 % 10/15/2024 11:29 PM CDT [facility] LYMPHOCYTES 6.7(L) 18.0 - 42.0 % 10/15/2024 11:29 PM CDT [facility] MONOCYTES 2.3(L) 4.0 - 12.0 % 10/15/2024 11:29 PM CDT [facility] EOSINOPHILS 0.0 0.0 - 5.0 % 10/15/2024 11:29 PM CDT [facility] BASOPHILS 0.2 0.0 - 1.0 % 10/15/2024 11:29 PM CDT [facility] ABSOLUTE NEUTROPHILS 8.06(H) 1.60 - 7.70 10(3)/[facility] 10/15/2024 11:29 PM CDT [facility] ABSOLUTE LYMPHOCYTES 0.59(L) 1.30 - 3.20 10(3)/[facility] 10/15/2024 11:29 PM CDT [facility] ABSOLUTE MONOCYTES 0.20 0.20 - 1.00 10(3)/[facility] 10/15/2024 11:29 PM CDT [facility] ABSOLUTE EOSINOPHIL 0.00 0.00 - 0.40 10(3)/[facility] 10/15/2024 11:29 PM CDT [facility] ABSOLUTE BASOPHILS 0.02 0.00 - 0.10 10(3)/mcL 10/15/2024 11:29 PM CDT [facility] NRBC PER 100 WBC 0 10/16/19 11:29 PM CDT [facility] Blood Venipuncture / Unknown 10/15/2024 11:15 PM CDT 10/15/2024 11:27 PM CDT Juan Krause MD HEMATOLOGY ORDERABLES Fin al Result [facility] [address] [place] [address] * Lipase [id number] (10/15/2024 11:15 PM CDT) LIPASE 12 8 - 78 U/L 10/15/2024 11:49 PM CDT [facility] Blood Venipuncture / Unknown 10/15/2024 11:15 PM CDT 10/15/2024 11:27 PM CDT Juan Krause MD CHEMISTRY ORDERABLES Carly l Result [facility] [address] [place] [address] * (ABNORMAL) Comprehensive Metabolic Panel (Cmp) [id number] (10/15/2024 11:15 PM CDT) SODIUM 138 136 - 145 mmol/L 10/15/2024 11:49 PM CDT [facility] POTASSIUM 4.2 3.5 - 5.1 mmol/L 10/15/2024 11:49 PM CDT [facility] CHLORIDE 108(H) 98 - 107 mmol/L 10/15/2024 11:49 PM CDT [facility] CO2, VENOUS 18(L) 22 - 30 mmol/L 10/15/2024 11:49 PM CDT [facility] ANION GAP 16.2 <18.0 mmol/L 10/15/2024 11:49 PM CDT [facility] GLUCOSE 150(H) 70 - 99 mg/dL 10/15/2024 11:49 PM CDT [facility] BUN 11 5 - 18 mg/dL 10/15/2024 11:49 PM CDT [facility] CREATININE, BLOOD 0.69 0.60 - 1.00 mg/dL 10/15/2024 11:49 PM CDT [facility] BUN/CREATININE RATIO 16 12 - 20 ratio 10/15/2024 11:49 PM CDT [facility] TOTAL PROTEIN 8.0 6.0 - 8.0 g/dL 10/15/2024 11:49 PM CDT [facility] ALBUMIN 4.8 3.5 - 5.0 g/dL 10/15/2024 11:49 PM CDT [facility] A/G RATIO 1.5 1.0 - 2.2 10/15/2024 11:49 PM CDT [facility] CALCIUM 10.1 8.7 - 10.5 mg/dL 10/15/2024 11:49 PM CDT [facility] T BILI 0.5 0.2 - 1.2 mg/dL 10/15/2024 11:49 PM T [facility] SGOT (AST) 19 <43 U/L 10/15/2024 11:49 PM T [facility] SGPT (ALT) 15 <56 U/L 10/15/2024 11:49 PM T [facility] ALKALINE PHOSPHATASE 85 40 - 150 U/L 10/15/2024 11:49 PM T [facility] GFR, ESTIMATED >60 >=60 10/15/2024 11:49 PM T [facility] Comment: Creatinine Clearance is the preferred criteria for selecting drug dose adjustments in renally impaired patients. The GFR is provided as additional pertinent clinical information. GFR is reported in mL/min/1.73 sq m. Calculation based on the Chronic Kidney Disease Epidemiology Collaboration (CKD- EPI) equation refit without adjustment for race. GFR, EST. >60 >=60 025 11:49 PM CDT [facility] GFR, EST. NONAFRICAN >60 >=60 10/15/2024 11:49 PM CDT [facility] Blood Venipuncture / Unknown 10/15/2024 11:15 PM CDT 10/15/2024 11:27 PM CDT us Juan Krause MD CHEMISTRY ORDERABLES Carly lang Result [facility] [address] [place] [address] from Last 3 Months Insurance MEDICAID [place] Care Teams Superintendent Stevedoring Relationship Specialty Start Date End Date Provider, None [place] PCP - General 10/16/24
--- OUTSIDE RECORDS SUMMARY | 2024-11-20 11:48 | XMS_ITS | Data Portability ---
Author Organization [facility] Teja Rhodes Address [address] [place] [address] Care Team Providers Care Rug Washer Name Role Phone DEEPIKAKIRAN SHANKAR Primary Care Provider Assessment No assessment recorded. Plan of Treatment Reminders Order Date Submit Date Provider Last Modified By Organization Details Last Modified Time Details Appointments None recorded. Lab rapid SARS CoV 2 Ag, QL IA, respiratory specimen 2021 022 CAMMIE In-Office Order, Internal Use Only DO Not Attach Compendium DO Not Attach Compendium, Do Not Delete/merge, [id number] 15:30:27 rapid SARS CoV 2 Ag, QL IA, respiratory specimen 2021 022 [email or web address] In-Office Order, Internal Use Only DO Not Attach Compendium DO Not Attach Compendium, Do Not Delete/merge, [id number] 2 16:13:33 HbA1c (hemoglobin A1c), blood 2019 020 SENECA [facility], [address], [place], [address], 0 16:09:27 HIV 1+2 AB + HIV 1 p24 Ag, qualitative immunoassay , serum 2019 020 CAMMIE [facility], [address], [place], [address], 0 16:09:28 RPR (rapid plasma reagin), serum 2019 020 SENECA [facility], [address], [place], [address], 0 16:09:28 CT + NG + TV, DNA, urine/swab 2019 020 SENECA [facility], [address], [place], [address], 0 16:09:27 TSH + free T4, serum 2019 020 SENECA [facility], [address], [place], [address], 0 16:09:26 Referral nutritionis t/dietitian referral [address], [address], [place], [address], 2 09:31:53 Procedures None recorded. Surgeries None recorded. Imaging XR, finger(s), 2 or more view 2021 [facility], [facility], [place], [address], 19:28:38 Medication Orders dextrometho marshal-umesh enesin ER 60 mg-1,200 mg tab,extend release,12h r 2021 [email or web address] [facility] #78363, [address] [place] [address], [place], [place], [id number], 2 15:55:27 Medrol (Juan Alberto) 4 mg tablets in a dose pack 2021 [facility] #95627, [address] [facility], [place], [place], [id number], 2 14:30:50 ibuprofen 600 mg tablet 2021 [facility] #29181, [address] [facility], [place], [place], [id number], 16:41:49 Multivitami ns 28 mg iron-800 mcg tablet 2021 022 CAMMIE [facility] #97509, [address] [facility], [place], [place], [id number], 16:41:28 Patient TargetsNo targets recorded. Patient Instructions Encounter Date Encounter Id Patient Instructions Last Modified By Organization Details Last Modified Time 06/08/2020 [id number] safer sex: care instructions Not available 06/08/2020 16:29:50 12/07/2021 [id number] polycystic ovary syndrome: care instructions Not available 12/08/2021 09:31:41 03/15/2022 [id number] Reviewed the following recommendations: -Stay home and [...] has been 10 days since symptoms started. 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 Refer ral for Polycystic ovary syndrome Referring Physician: Kiran Cabrera, Supervisor [place], Encounter Date: 12/07/2021 Results Created Date Observation Date Name Description Value Unit Range Abnormal Flag Note LastModifiedBy Organization Detail LastModifiedTime 06/17/2006/18/2020 TSH + free T4, serum TSH 2.290 uIU/m L 0.450- 4.500 Not Available [facility] ([facility]) [address] [facility], [place], [address], 06/19/2020 16:09:26 06/17/20 20 06/18/2020 TSH + free T4, serum T4,free(dire ct) 1.22 NG/dL 0.93-1 .60 Not Available [facility] ([facility]) [address] [place], [address], 06/19/2020 16:09:26 06/17/20 20 06/19/2020 CT + NG + TV, DNA, urine /swab chlamydia by YVES Negati ve negati ve Not Available [facility] ([facility]) [address] [place], [address], 06/19/2020 16:09:26 06/17/2006/19/2020 CT + NG + TV, DNA, urine /swab gonococcus by YVES Negati ve negati ve Not Available [facility] ([facility]) [address] [place], [address], 06/19/2020 16:09:26 06/17/20 20 06/19/2020 CT + NG + TV, DNA, urine /swab trich vag by YVES Negati ve negati ve Not Available [facility] ([facility]) [address] [place], [address], 06/19/2020 16:09:26 06/17/2006/18/2020 HbA1c (hemo globi n A1c), blood hemoglobin A1C 5.6 % 4.8-5. 6 Predi abete s: 5.7 - 6.4 Diabe ayanna: >6.4 Glyce angela contr ol for adult s with diabe ayanna: <7.0 Not Available [facility] ([facility]) [address] [facility], [place], [address], 06/19/2020 16:09:27 06/17/2006/18/2020 RPR (rapi d plasm a reagi n), serum RPR Non Reacti ve non reacti ve Not Available [facility] ([facility]) [address] [place], [address], 06/19/2020 16:09:28 06/17/2006/18/2020 HIV 1+2 AB + HIV 1 p24 Ag, quali tativ e immun oassa y, serum HIV screen 4TH generation wrfx Non Reacti ve non reacti ve Not Available [facility] ([facility]) [address] [facility], [place], [address], 06/19/2020 16:09:28 01/14/20 22 01/13/2022 rapid SARS CoV 2 Ag, QL IA, respi rator y speci men rapid SARS CoV 2 Ag, QL IA, respiratory specimen negati ve Not Available In-Office Order Internal Use Only DO Not Attach Compendium DO Not Attach Compendium, Do Not Delete/merge, [id number] 01/13/2022 15:35:27 03/13/20 22 03/13/2022 rapid SARS CoV 2 Ag, QL IA, respi rator y speci men rapid SARS CoV 2 Ag, QL IA, respiratory specimen positi ve Not Available In-Office Order Internal Use Only DO Not Attach Compendium DO Not Attach Compendium, Do Not Delete/merge, [id number] 03/13/2022 15:18:59 02/20/20 21 02/19/2021 XR, chest No observ ation record ed. [address] (Imaging) [address] [place] [address] [place] [address], [phone], 02/23/2021 14:15:26 12/08/19 22 12/07/2021 XR, finge r(s), 2 or more view No observ ation record ed. [address] [place] [address], [address], 12/08/2021 14:50:19 Result Notes None recorded. Problems Name Problem SNOMED Code Status Onset Date Resolution Date Notes Provider Name and Address Organization Details Recorded Time Attention deficit hyperactivi ty disorder 099973763 Active Daily Pepe [place] null, [place] [facility] 5 14:22:53 Otitis media 75136537 Completed 11/27/2019 SEB IRVING Attn: Jb g,[address], [place], [address], [place] 0 15:36:36 Pharyngitis [id number] Completed 11/27/2019 SEB IRVING Attn: Jb simon,[address], [place], [address], [facility] 0 15:36:41 Problem Notes None recorded. Procedures Surgical History Date Name Laterality Status Provider Name and Address Organization Details Recorded Time 1 hysteroscopy completed Rachell Andrews [place] 12/07/2021 16:09:56 0 Tonsillectomy completed Daily Pepe [place] 09/17/2014 14:22:53 Adenoidectomy completed Daily camargo [place] 07/25/2017 14:14:27 Imaging Results Imaging Date Name Status LastModified by Organiz ation Details LastModified Time 02/19/2021 XR, chest completed [address] (Imaging) [address] [facility] [address] [place] [address], [phone], 02/23/2021 14:15:26 12/07/2021 XR, finger(s), 2 or more view completed [address] [facility] [address] [place] [address], [address], 12/08/2021 14:50:19 Procedure Notes None recorded. Medical [...] 2 161.29 cm 98 % 39.1 kg/m2 233848. 69 g 92 /min 98 % 98 % 118 mm[Hg] 78 mm[Hg] Rachell Andrews MA [facility] 2 16:12:12 Social History Question Answer Notes LastModified by [employer] ion Details LastModified Time Tobacco Smoking Status Current Every Day Smoker lucy once in a while Rachell Andrews MA [facility], [facility] 12/07/2021 16:10:38 Animal Exposure? Yes Dog [email or web address] Information not available 09/17/2014 Do You Wear A Helmet When Biking? No [email or web address] Information not available 09/17/2014 Are You Or Have You Been Involved With Bullying? No [email or web address] Information not available 09/17/2014 What Is Your Level Of Caffeine Consumption? Heavy Information not available 04/19/2020 What Type Of Valve Maker Do You Use? None [email or web address] Information not available 09/17/2014 What Type Of Diet Are You Following? REGULAR [email or web address] Information not available 09/17/2014 Which Illicit Or Recreational Drugs Have You Used? N/a Information not available 04/19/2020 Do You Or Have You Ever Used E-cigarettes Or Vape? Never Used Electronic Cigarettes Information not available 11/27/2019 Have There Been Any Changes To Your Family Or Social Situation? Yes Pt Had A Baby At Age 17. [email or web address] Information not available 11/19/2018 Are There Any Guns Present In Your Home? No [email or web address] Information not available 04/08/2019 Hard Of Hearing Or Deaf In One Or Both Ears? No Information not available 04/19/2020 What Is Your Home Situation? Other Lives With Boyfriend, Sister, And Pt Baby Information not available 09/17/2014 Do You Use Insect Repellent Routinely? Yes [email or web address] Information not available 09/17/2014 Legally Blind In One Or Both Eyes? No Information not available 04/19/2020 Live Alone Or With Others? With Others Information not available 04/19/2020 What Was The Date Of Your Most Recent Tobacco Screening? 12/07/2021 Information not available 12/07/2021 How Many Children Do You Have? 1 Information not available 03/18/2020 What Is Your Parents' Marital Status? Unmarried [email or web address] Information not available 09/17/2014 Pool Exposure No [email or web address] Information not available 09/17/2014 Do You Have Any Siblings? 1 Sister 1 Brother Information not available 09/17/2014 Do You Have Smoke And Carbon Monoxide Detectors In Your Home? Yes Information not available 09/17/2014 Are You Passively Exposed To Smoke? Yes Inside Smokers Information not available 09/17/2014 Do You Or Have You Ever Used Smokeless Tobacco? Never Used Smokeless Tobacco Information not available 11/27/2019 How Much Tobacco Do You Smoke? 0.5 PPD Information not available 12/07/2021 What Types Of Sporting Activities Do You Participate In? None Information not available 02/24/2020 General Stress Level Low Information not available 03/18/2020 Do You Use Sunscreen Routinely? Yes Information not available 09/17/2014 On What Date Was Tobacco Cessation Counseling Provided? 12/07/2021 Information not available 12/07/2021 How Many Years Have You Smoked Tobacco? 1 Information not available 11/27/2019 Sex: Unknown Functional Status Question Answer Note LastModified by Organization D etails LastModified Time Are you able to care for yourself? Yes Information n ot available 04/19/2020 What is your exercise level? None Information not available 07/25/2017 Mental Status None recorded. Family History Relationship Description Onset Age of this Age Resolved Age Notes LastModified by Organization Details LastModified Time Unspecified Relation Diabetes mellitus Not available 2014 14:22:53 Unspecified Relation Hypercholest erolemia [email or web address] Not available 2014 14:22:53 Unspecified Relation Family history of malignant neoplasm [email or web address] Not available 2014 14:22:53 Father No current problems or disability [email or web address] Not available 07/25 14:12:08 Mother No current problems or disability [email or web address] Not available 07/25 14:12:08 Medical History Condition Response Coronary Artery Disease N Other N High Blood Pressure N Atrial Fibrillation N Kidney or Bladder Problems N Thyroid [...] Time Meningococcal MCV4O 8 completed Not Available [facility] 08/23/2019 02:49:14 meningococcal B, OMV 8 completed Not Available [facility] 08/23/2019 02:51:06 Influenza, split virus, quadrivalent, PF 8 completed Not Available [facility] 08/23/2019 02:36:30 Hib, unspecified formulation 2 completed [...] SNOMED-CT Code Diagnosis ICD10 Code Diagnosis Note [id number] [facility] (Peds) [address] [place] [address] 09/17/2014 13:49:16 09/17/2014 14:45:38 Otitis media 35378728 Avoid water in ears. Can use decongesta nt to relieve pressure. Amoxicilli n bid for 10 days ERX. Pharyngitis 726060237 Owens pportive treatment otc recommende d. Hand hygiene. [id number] [facility] [address] [place] [address] 07/25/2017 13:45:04 07/27/2017 10:44:48 Well child 539932732 Z00.129 discussed routine adolescent carediscus sed safety and home schoolingd iscussed healthy weight with diet and exercise declined HPV. discussed importance of control which pt will be starting. Obesity 529418080 E66.9 weight reduction with diet and exercise Increased blood pressure 72546174 R03.0 RTC 1 month to recheck. work on diet and exercise Poor socia l circumstances 882283365 Z60.9 Attention deficit hyperactivity disorder 186376145 F90.9 rtc 1 month to recheck BP and evaluate results. [id number] [facility] [address] [place] [address] 09/04/2017 11:13:45 09/05/2017 08:33:24 Attention deficit hyperactivity disorder 570517488 F90.9 pt states her focus is improved on medication . [id number] [facility] [address] [place] [address] 11/27/2017 13:44:16 11/28/2017 09:49:40 Attention deficit hyperactivity disorder 714913836 F90.9 pt states her focus is improved on medication . when pt starts home schooling she may require a half dose at noon. will follow. Active or passive immunization 917619949 Z23 Infestatio n by Sarcoptes scabiei al hominis [id number] B86 [id number] [facility] [address] [place] [address] 05/29/2018 16:14:19 05/31/2018 16:25:04 Active or passive immunization 526132870 Z23 Attention deficit hyperactivity disorder 111893016 F90.9 pt states her focus is improved on medication . pt states she is not having any problems with insomnia. [id number] [facility] [address] [place] [address] 11/14/2018 11:25:37 11/15/2018 13:15:23 Obesity 375491414 E66.9 weight reduction with diet and exercise [facility] 004947278 Z30.02 discussed with t importance of OCP and condom use in preventing STD and . pt's response is oh well we dont want to use condoms and we dont want to prevent anything. Nausea 651558387 R11.0 likely due to viral illness. reassuranc e. rest, push fluids, etc [id number] [facility] [address] [place] [address] 11/19/2018 15:48:52 11/20/2018 10:39:51 Attention deficit hyperactivity disorder 328556031 F90.9 pt states her focus is improved on medication . pt states she is not having any problems with insomnia. Chlamydial infection 105 821549 A74.9 Vitamin D deficiency 347 16261 E55.9 [id number] MD Glory [facility] (Peds) [address] [place] [address] 04/08/2019 16:35:37 04/09/2019 09:53:43 Attention deficit hyperactivity disorder 205035691 F90.9 pt states her focus is improved on medication . pt states she is not having any problems with insomnia. will do refill when pt returns on 04-14 [id number] [facility] [address] [place] [address] 11/21/2019 15:35:44 11/26/2019 10:25:55 Attention deficit hyperactivity disorder 960193404 F90.9 pt states her focus is improved on medication . pt states she is not having any problems with insomnia. [id number] SEB IRVING [facility] [address] [place] [address] 11/27/2019 09:37:31 12/01/2019 09:56:32 Allergic rhinitis 95197821 J30.9 Patient has has allergies and post nasal drip. This may be casing patient to have chronic dry cough x 2 months. Avoid triggers, take medication as prescribed . - trial of cetirizine Cough 56996969 R05 chronic dry cough x weeks. Does have allergies and not currently on anything. has never been told she has asthma in the past-trial of albuterol [id number] SEB IRVING [facility] [address] [place] [address] 12/09/2019 14:06:20 12/10/2019 11:59:48 Allergic rhinitis 65704871 J30.9 Patient has has allergies and post nasal drip. This may be casing patient to have chronic dry cough x 2 months. Avoid triggers, take medication as prescribed . - trial of cetirizine - stop smoking- f/u prn Obesity 898004136 E66.9 patient weights 240lbs. Has trouble losing weight. Is not folling any diets and only drinks sweetened drinks. Not exercising . - labs- 30 mins of excercise 5x week- discussed diet and portions. She is to start by gibing up soda/sweet drinks. may do crystal lyte.- f/u prn [id number] Blossom Vasquez MA [facility] [address] [place] [address] 12/12/2019 09:52:49 12/16/2019 03:46:34 [id number] SEB IRVING [facility] [address] [place] [address] 12/24/2019 15:41:01 12/25/2019 11:34:53 Attention deficit hyperactivity disorder 643363899 F90.9 patient has been taking adderall for ADHD for many years. She is doing well on medication without any side effects. denies palpitatio n, cp, sob, weight loss, decreased appetite. [id number] SEB IRVING [facility] [address] [place] [address] 01/23/2020 14:32:31 01/27/2020 06:10:49 Hypothyroidism 20798415 E03.9 TSH 10.9. started on levothyrox ine 50 mcg. Patient needs to have labs taken. She is taking medication in moring one hour before food. - continue medication - obtain labs [id number] SEB IRVING [facility] [address] [place] [address] 02/24/2020 09:46:46 02/25/2020 09:44:55 Hypothyroidism 93266574 E03.9 TSH 10.9. started on levothyrox ine 50 mcg. Patient needs to have labs taken. She is taking medication in moring one hour before food. - continue medication - obtain labs Attention deficit hyperactivity disorder 736231891 F90.9 patient has been taking adderall for ADHD for many years. She is doing well on medication without any side effects. denies palpitatio n, cp, sob, weight loss, decreased appetite. [id number] SEB IRVING [facility] [address] [place] [address] 03/18/2020 09:26:20 03/19/2020 08:47:03 Obesity 599374292 E66.9 patient weights 240lbs. Has trouble losing weight. Is not folling any diets and only drinks sweetened drinks. Not exercising . - labs- 30 mins of excercise 5x week- discussed diet and portions. She is to start by gibing up soda/sweet drinks. may do crystal lyte.- f/u prn [id number] SEB IRVING [facility] [address] [place] [address] 04/19/2020 11:07:32 04/21/2020 13:13:06 At increased risk of sexually transmitted infection 534838920 Z20.2 patient with recent exposure of chlamydia and completed treatment continues to have symptoms. She has had unprotecte d intercours e with same partner who was treated at different time. - labs, will treat prophylact ically after labs obtained.- UA- disucssed safe sex- need repeat testing in 3 months Urinary tr act infectious disease 49575782 N39.0 patient is having dysuria. Hypothyroidism 04464790 E03.9 TSH 10.9. started on levothyrox ine 50 mcg. Patient needs to have labs taken. She is taking medication in moring one hour before food. - continue medication - obtain labs [id number] SEB IRVING [facility] [address] [place] [address] 06/08/2020 16:23:51 06/09/2020 08:38:27 Hyperglycemia 48292926 R73.9 patient checked glucose this morning and was >230. Worried about diabetes. Ate a lot of lasgna the night before. [facility] transmitted infection 462315362 Z20.2 patient with recent exposure of chlamydia and completed treatment continues to have symptoms. She has had unprotecte d intercours e with same partner who was treated at different time. - labs, will treat prophylact ically after labs obtained.- UA- disucssed safe sex- need repeat testing in 3 months Urinary tr act infectious disease 83837877 N39.0 patient is having dysuria. Hypothyroidism 94777501 E03.9 TSH 10.9. started on levothyrox ine 50 mcg. Patient needs to have labs taken. She is taking medication in moring one hour before food. - continue medication - obtain labs [id number] SEB IRVING [facility] [address] [place] [address] 12/07/2021 15:47:42 12/08/2021 16:53:41 Trying to conceive 345908641 Z31.9 continue to follow OBGYN Pain in fi nger of left hand 2328805755 17593 M79.645 - rice- ibupfrofen - xray Polycystic ovary syndrome 872836335 E28.2 discussed diet in detail, increasing exercise to [address] with [address] Lofton [id number] SEB SMITH [facility] [address] [place] [address] 01/13/2022 14:54:57 01/17/2022 09:03:20 Suspected COVID-19 196044808 Z20.745 [id number] SEB SMITH [facility] [address] [place] [address] 03/13/2022 14:59:03 03/14/2022 10:08:28 Viral syndrome 275464926 B34.9 COVID positivept requesting phone visitprovi bhargavi tried calling pt 3x, phone number cannot take calls at this timewill keep as nurse visit [id number] Fabian Cao MD [facility] [address] [place] [address] 03/15/2022 13:55:35 03/16/2022 09:54:03 COVID-19 814800564 U07.1 Patient tested positive on 03/13/22.Sym ptoms began 03/10/22 which include sore throat, ear pain, nasal congestion , chest tightness and a productive cough.Per CDC guidelines patient may leave quarantine on 03/16/22 and must continue to wear a well fitting mask until 03/20/22.Seb mireles voiced understand ingPatient wanted to return to work sooner, but 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 and 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 wear a [...] Silva Member ID Guarantor Name 06/08/2020 1 [employer] (MEDICAID HMO) [id number] 0003 Abbey Gearing [id number] Riya Gearing 12/07/2021 1 [employer] [facility] (MEDICAID HMO) [id number] 0003 Abbey Gearing [id number] Riya Gearing 01/13/2022 1 [employer] (MEDICAID HMO) [id number] 0003 Abbey Gearing [id number] Riya Gearing 03/13/2022 1 [employer] (MEDICAID HMO) [id number] 0003 Abbey Gearing [id number] Riya Perez 03/15/2022 1 [facility] (MEDICAID HMO) [id number] 0003 Abbey Farahing [id number] Riya Perez Notes Date Note Type Note Provider Name and Address Organization Details Recorded Time 06/08/2020 text/html patient presents for lab work. She has elevated blood glucose of >200 fasting this morning and is concerned about diabetes. She has not had lab work done from last visit and wants it sent to [facility]. SEB IRVING Attn: Accounting,[address], [place], [address], [facility] 06/08/2020 16:31:33 12/07/2021 text/html Abbey is a 21 YO F pmhxz adhd, PCOS presenting for finger pain and questions Right hand dominant patient with pointer and middle finger pain x 2 months. elbow started 3 weeks. . pointer finger worst on left hand. no medication for pain. 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 no numbness or tingling. pain [...] IRVING Attn: Accounting,[address], [place], [address], [facility] 12/08/2021 09:32:13 03/13/2022 text/html Pt presents for COVID test. SEB SMITH Attn: Accounting[address] [place], [address], [facility] 03/13/2022 16:12:31 03/15/2022 text/html COVID-19 Symptom s [...] MD Attn: Accounting,[address], [place], [address], [facility] 03/30/2022 12:36:55 OBGyn Episode Ob Episode Information Episode Created Date Number of Fetuses Patient Bloodtype Patient rh Status Prepregnancy Weight lbs Domestic Partner Domestic Partner Phone Father Name Clinical Immunologist Status 07/25/20 17 1 CLOSED Fetus Data First Name Last Name Admitted to NICU Weight (g) Sex Living Outcome Pediatric Complications Fetus ID Race Codes Race Delivery Type Prematur e [id number] Craig Calculation Initial Craig Date Initial Exam [...]
--- OUTSIDE RECORDS SUMMARY | 2024-11-20 11:49 | XMS_ITS | Clinical Summary ---
Author Organization [facility] Address [facility] [place] [address] Care Team Providers Care Net Making Supervisor Name Role Phone None, Provider MD Primary Care Provider Unavaila ble Allergies No known active allergies Medications ferrous sulfate EC 325 (65 Fe) MG tablet Take 1 tablet (325 mg total) by mouth 2 (two) times daily with meals. 1 tablet/day with 4 ounces of orange juice, if does not upset stomach or constipate take this twice/day 60 tablet 5 Active ondansetron (ZOFRAN-ODT) 4 MG disintegrating tablet Take 1 tablet (4 mg total) by mouth every 8 (eight) hours as needed for Nausea. 20 tablet 5 Active Active Problems Problem Noted Date Diagnosed Date Irregular uterine contractions (HHS/HCC) 024 Hyperemesis gravidarum with metabolic disturbanc e (HHS/HCC) 02/24/2024 Hyperemesis affecting , antepartum (HHS /HCC) 02/24/2024 Hyperemesis gravidarum (HHS/HCC) 01/14/2024 Other chest pain 01/14/2024 Encounters Date Type Department Care Team Description 10/31/2024 3:03 PM CDT - 10/31/2024 7:55 PM CDT Emergency [facility] [place] [address] Shauna Rain DO Vomiting; Abdominal Pain Discharge Disposition: Home or Self Care (Routine Discharge) 10/31/2024 Travel 10/17/2024 2:03 AM CDT - 10/17/2024 4:31 AM CDT Emergency [facility] [place] [address] Ramiro Steen MD,PHD Vomiting Discharge Disposition: Home or Self Care (Routine Discharge) 10/17/2024 Travel from Last 3 Months Family History Medical History Relation Comments Alcohol/Drug Father Heart Father chf Cancer Paternal Grandmother Relation Status Comments Brother Alive Father (Age 49) Maternal Grandfather Alive Maternal Grandmother Alive Mother Alive Paternal Grandfather Alive Paternal Grandmother Sister Alive Social History Tobacco Use Types Packs/Day Years Used Date Smoking Tobacco: Unknown Cigarettes Smokeless Tobacco: Never Tobacco Cessation:Counseling Given: Not Answered Alcohol Use Standard Drinks/Week Comments Never 0 (1 standard drink = 0.6 oz pur e alcohol) B1300 Health Literacy Answer Date Recor ded How often do you need to hav e someone help you when you read instructions, pamphlets, or other written material from your doctor or pharmacy? Never 08/05/2024 [employer] Answer Date Recorded In the past 12 months has [facility] [employer], oil, or water [employer] threatened to shut off services in your [...] week 08/05/2024 How often do you attend [facility] or [facility] services? Never 08/05/2024 Do you belong to any clubs o r organizations such as worship groups, unions, fraternal or athletic groups, or [...] Recorded Patient Health Questionnaire-2 Score 0 08/05/2024 [facility] of Occupat ional [facility] - Occupational Stress Questionnaire Answer Date Recorded [...] any time in the past 12 m [facility], were you homeless or living in a longterm (including now)? No 08/05/2024 Depression Answer Date Recor ded Last EPDS Total Score 1 08/06/2024 Last EPDS Self Harm Result Hardly ever 08/06 Comments No Sex and Gender Information Value Date Recorded Sex Assigned at Female 10/17/2024 2:02 AM CDT Legal Sex Female 9:04 AM CDT Gender Identity Not on file Sexual Orientation Not on file Last Filed Vital Signs Vital Sign Reading Time Taken Comments Blood Pressure 125/80 10/31/2024 7:48 PM CDT Pulse 60 10/31/2024 7:48 PM CDT Temperature 36.1 C (97 F) 10/31/2024 3:40 PM CDT Respiratory Rate 18 10/31/2024 7:48 PM CDT Oxygen Saturation 98% 10/31/2024 7:48 PM CDT Inhaled Oxygen Concentration - - Weight 85.2 kg (187 lb 13.3 oz) 10/31/2024 3:15 PM CDT Height 160 cm (5' 3 ) 10/31/2024 3:15 PM CDT Body Mass Index 33.27 10/31/2024 3:15 PM CDT Plan of Treatment Health Maintenance Due Date Last Done Comments Cervical Cancer Screening Pap Smear (Age 21 to 29) Every 3 Years 2001 Cervical Cancer Screening 2001 Annual Physical 2004 HPV Vaccines (1 - 3-dose series) 2016 Chlamydia Screening Females ages 16-24 2017 Meningococcal B Vaccine (2 of 2 - Bexsero SCDM 2-dose series) 05/29/2018 11/27/2017 COVID-19 Vaccine ( season) 2024 DTaP, Tdap and Td Vaccines (8 - Td or Tdap) 05/12/2033 05/12/2023, 02/22/2012, 05/23/2007, Additional history exists Pneumococcal Vaccine: Pediatrics (0 to 5 Years) and At-Risk Patients (6 to 49 Years) Aged Out 04/19/2004, 01/10/2003, 07/10/2002, Additional history exists No longer eligible based on patient's age to complete this topic Hepatitis B Vaccines Completed 05/16/2010, 07/10/2002, 07/10/2002, Additional history exists Meningococcal Vaccine Completed 11/27/2017, 013 Hepatitis C Completed 01/14/2024 RSV Immunizations Under 20 Months Aged Out No longer eligible based on patient's age to complete this topic Procedures Procedure Name Priority Date/Time Associated Diagnosis Comments CT CHEST+ABD+PEL W CON STAT 5:42 PM CDT TEST URINE STAT 10/31/2024 4:44 PM CDT HC URINALYSIS AUTO W/O MICRO STAT 10/31/2024 4:44 PM CDT ECG 12-LEAD Routine 10/31/2024 3:52 PM CDT TROPONIN, QUANT STAT 10/31/2024 3:22 PM CDT HEPATIC FUNCTION PANEL STAT 3:22 PM CDT LIPASE STAT 10/31/2024 3:22 PM CDT BASIC METABOLIC PANEL STAT 10/31/2024 3:22 PM CDT CBC W/DIFF AUTOMATED STAT 10/31/2024 3:22 PM CDT ECG 12-LEAD STAT 10/17/2024 3:02 AM CDT CTA CHEST+CT ABD+PEL W CON STAT 10/17/2024 3:00 AM CDT TROPONIN, QUANT Routine 10/17/2024 2:16 AM CDT LIPASE STAT 10/17/2024 2:16 AM CDT COMPREHENSIVE METABOLIC PANEL STAT 10/17/2024 2:16 AM CDT CBC W/DIFF AUTOMATED STAT 10/17/2024 2:16 AM CDT HEPATITIS C ANTIBODY Routine 01/14/2024 from Last 3 Months or Most Recently Relevant to Health Maintenance Results * CT CHEST+ABD+PEL W CON (10/31/2024 5:42 PM CDT) Anatomical Region Laterality Modality Chest, Abdomen, Pelvis Computed Tomography 10/31/2024 6:25 PM CDT Impressions 10/31/2024 6:43 PM CDT IMPRESSION: Motion degraded evaluation of the chest, abdomen, and pelvis. No acute abnormality identified within the limits of the exam. Referred By: Interpreted By: Roberth Clements MD, 10/31/2024 6:25 PM Narrative 10/31/2024 6:43 PM CDT [address] [address] INDICATION: Chest and abdominal pain status post endoscopy COMPARISON: CT chest/abdomen/pelvis, 17 Oct 2024 TECHNIQUE: CT images of the chest, abdomen, and pelvis were obtained following the administration of IV contrast. Radiation dose reduction technique utilized. FINDINGS: CHEST: Cardiac chambers within normal size limits. No significant pericardial effusion. Thoracic aorta within normal limits. Normal caliber pulmonary trunk. No mediastinal, hilar, or axillary lymphadenopathy. No suspicious thyroid nodule. Esophagus within normal limits. Trachea and central airways are patent. Evaluation of the lung parenchyma is mildly degraded by respiratory motion. No pneumothorax. No pleural effusion. No focal airspace consolidation. 0.3 cm pulmonary nodule in the posterior right lower lobe, axial image 89. 0.3 cm nodule in the posterolateral right lower lobe, axial image 98. 0.2 cm nodule in the posterolateral left lower lobe, axial image 115. These nodules appear unchanged and are almost certainly benign; please note that Fleischner Society guidelines and apply to patients under age 35 given the very low risk of malignancy. No further follow-up for these nodules is indicated in the absence of strong background risk for malignancy. ABDOMEN/PELVIS: Motion degraded evaluation of the abdomen and anterior pelvis. Limited assessment of the hepatic parenchyma, gallbladder, pancreas, duodenum, gastric antrum, kidneys, proximal/mid ureters, spleen, small bowel and transverse colon. Normal size liver. No evidence of bowel obstruction. Appendix is not definitely visualized. No secondary signs of acute appendicitis. Gastric fundus and body filled with physiologic volume liquid. No evidence of outlet obstruction. No hydronephrosis or visualized hydroureter. Urinary bladder is in postvoid state, limiting evaluation of the wall. Uterus and adnexa within normal limits. No pelvic lymphadenopathy or significant free fluid. MSK: Mild chronic multilevel degenerative changes of the spine. Visualized body wall exhibits no acute abnormality. Procedure Note Roberth Clements MD - 10/31/[address] [address] INDICATION: Chest and abdominal pain status post endoscopy COMPARISON: CT chest/abdomen/pelvis, 17 Oct 2024 TECHNIQUE: CT images of the chest, abdomen, and pelvis were obtainedfollowing the administration of IV contrast. Radiation dose reductiontechnique utilized. FINDINGS: CHEST: Cardiac chambers within normal size limits. No significant pericardialeffusion. Thoracic aorta within normal limits. Normal caliber pulmonarytrunk. No mediastinal, hilar, or axillary lymphadenopathy. No suspicious thyroidnodule. Esophagus within normal limits. Trachea and central airways are patent. Evaluation of the lung parenchymais mildly degraded by respiratory motion. No pneumothorax. No pleuraleffusion. No focal airspace consolidation. 0.3 cm pulmonary nodule in theposterior right lower lobe, axial image 89. 0.3 cm nodule in theposterolateral right lower lobe, axial image 98. 0.2 cm nodule in theposterolateral left lower lobe, axial image 115. These nodules appearunchanged and are almost certainly benign; please note that FleischnerSociety guidelines and apply to patients under age 35 given the very lowrisk of malignancy. No further follow-up for these nodules is indicated inthe absence of strong background risk for malignancy. ABDOMEN/PELVIS: Motion degraded evaluation of the abdomen and anterior pelvis. Limitedassessment of the hepatic parenchyma, gallbladder, pancreas, duodenum,gastric antrum, kidneys, proximal/mid ureters, spleen, small bowel andtransverse colon. Normal size liver. No evidence of bowel obstruction. Appendix is notdefinitely visualized. No secondary signs of acute appendicitis. Gastricfundus and body filled with physiologic volume liquid. No evidence ofoutlet obstruction. No hydronephrosis or visualized hydroureter. Urinary bladder is in postvoid state, limiting evaluation of the wall.Uterus and adnexa within normal limits. No pelvic lymphadenopathy orsignificant free fluid. MSK: Mild chronic multilevel degenerative changes of the spine. Visualized body wall exhibits no acute abnormality. IMPRESSION: Motion degraded evaluation of the chest, abdomen, and pelvis. No acuteabnormality identified within the limits of the exam. Referred By: Interpreted By: Roberth Clements MD, 10/31/2024 6:25 PM Shauna Rain DO CT Final Result * (ABNORMAL) URINALYSIS (10/31/2024 4:44 PM CDT) SPECIMEN TYPE URINE, UNSPECIFIED 10/31/2024 4:44 PM CDT [facility] COLOR (U) YELLOW 10/31/2024 4:59 PM CDT [facility] TRANSPARENCY TURBID 10/31/2024 4:59 PM CDT [facility] SPECIFIC GRAVITY (U) 1.022 1.001 - 1.030 10/31/2024 4:59 PM CDT [facility] U PH 8.0 5.0 - 9.0 10/31/2024 4:59 PM CDT [facility] LEUKOCYTES (U) 25(A) NEGATIVE 10/31/2024 4:59 PM CDT [facility] NITRITES NEGATIVE NEGATIVE 10/31/2024 4:59 PM CDT [facility] PROTEIN RANDOM (U) 50(H) <30 MG/DL 10/31/2024 4:59 PM CDT [facility] GLUCOSE (U) NORMAL NORMAL MG/DL 10/31/2024 4:59 PM CDT [facility] KETONES MG/DL (U) 20(A) NEGATIVE MG/DL 10/31/2024 4:59 PM CDT [facility] UROBILINOGEN NORMAL NORMAL MG/DL 10/31/2024 4:59 PM CDT [facility] BILIRUBIN (U) NEGATIVE NEGATIVE MG/DL 10/31/2024 4:59 PM CDT [facility] BLOOD (U) NEGATIVE NEGATIVE 10/31/2024 4:59 PM CDT [facility] MUCUS FEW /LPF 10/31/2024 4:59 PM CDT [facility] WBC/HPF 5 <6 /HPF 10/31/2024 4:59 PM CDT [facility] RBC/HPF 3 <6 /HPF 10/31/2024 4:59 PM CDT [facility] BACTERIA (U) RARE(A) NONE /HPF 10/31/2024 4:59 PM CDT [facility] SQUAMOUS EPITHELIALS MANY /HPF 10/31/2024 4:59 PM CDT [facility] URINE SPECIMEN / Unknown 10/31/2024 4:44 PM CDT us Shauna Rain DO URINE ORDERABLES Final Result [facility] [address] [place] [address], [place] [phone] * TEST URINE (10/31/2024 4:44 PM CDT) URINE HCG TEST NEGATIVE 10/31/2024 5:04 PM CDT [facility] Comment: VERY DILUTE URINE SPECIMENS MAY NOT CONTAIN BLAST FURNACE KEEPER HELPER LEVELS OF HCG. IF IS STILL SUSPECTED, A SERUM HCG TEST IS RECOMMENDED. URINE SPECIMEN FROM URETHRA / Unknown 10/31/2024 4:44 PM CDT us Shauna Rain DO URINE ORDERABLES Final Result [facility] [address] [place] [address], [place] [phone] * ECG 12 lead (10/31/2024 3:52 PM CDT) Only the most recent of2 resultswithin the time period is included. 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 Rain us Shauna Rain DO ECG ORDERABLES Final Result [facility] * (ABNORMAL) BASIC METABOLIC PANEL (10/31/2024 3:22 PM CDT) [facility] GLUCOSE 142(H) 70 - 99 MG/DL 10/31/2024 4:03 PM CDT [facility] BUN 7 7 - 18 MG/DL 10/31/2024 4:03 PM CDT [facility] CREATININE S/P/B 0.70 0.55 - 1.02 MG/DL 10/31/2024 4:03 PM CDT [facility] SODIUM S/P/B 140 136 - 145 MMOL/L 10/31/2024 4:03 PM CDT [facility] POTASSIUM S/P/B 3.7 3.5 - 5.1 MMOL/L 10/31/2024 4:03 PM CDT [facility] CHLORIDE S/P/B 109 97 - 115 MMOL/L 10/31/2024 4:03 PM CDT [facility] CO2 21.2 21 - 32 MMOL/L 10/31/2024 4:03 PM CDT [facility] CALCIUM S/P/B 10.2(H) 8.5 - 10.1 MG/DL 10/31/2024 4:03 PM CDT [facility] ANION GAP 9.8 2 - 10 MMOL/L 10/31/2024 4:03 PM CDT [facility] BUN CREATININE RATIO 10.0 6 - 26 10/31/2024 4:03 PM CDT [facility] GFR ESTIMATE >90 >90 ML/MIN/1.7 3 M2 10/31/2024 4:03 PM CDT [facility] Comment: NOTE: eGFR is not calculated for patients <18 years of age or gender unknown. This is an estimated GFR calculation using the new CKD EPI creatinine equation without race and so does not require a correction factor for race. This estimated GFR should not be used for calculating drug doses. 10/31/2024 3:22 PM CDT us Shauna Rain DO LABORATORY Final Result [facility] [address] [place] [address], [place] [phone] * HEPATIC FUNCTION PANEL (10/31/2024 3:22 PM CDT) TOTAL PROTEIN S/P/B 8.0 6.4 - 8.2 G/DL 10/31/2024 4:03 PM CDT [facility] ALBUMIN S/P/B 4.1 3.4 - 5.0 G/DL 10/31/2024 4:03 PM CDT [facility] BILIRUBIN TOTAL S/P/B 0.5 0.2 - 1.2 MG/DL 10/31/2024 4:03 PM CDT [facility] Comment: THIS ASSAY IS NOT RECOMMENDED FOR PATIENTS UNDERGOING TREATMENT WITH ELTROMBOPAG DUE TO THE POTENTIAL FOR FALSELY ELEVATED RESULTS. BILIRUBIN DIRECT S/P/B <0.1 0.0 - 0.20 MG/DL 10/31/2024 4:03 PM CDT [facility] BILIRUBIN INDIRECT S/P/B NOT CALCULATED 0.0 - 0.9 MG/DL 10/31/2024 4:03 PM CDT [facility] ALKALINE PHOSPHATASE S/P/B 79 50 - 136 U/L 10/31/2024 4:03 PM CDT [facility] AST 16 15 - 37 U/L 10/31/2024 4:03 PM CDT [facility] ALT 23 14 - 55 U/L 10/31/2024 4:03 PM CDT [facility] A/G RATIO 1.1 1.0 - 2.0 RATIO 10/31/2024 4:03 PM CDT [facility] 10/31/2024 3:2 2 PM CDT us Shauna Rain DO LABORATORY Final Result [facility] [address] [place] [address], [place] [phone] * (ABNORMAL) CBC W/DIFF AUTOMATED (10/31/2024 3:22 PM CDT) Only the most recent of2 resultswithin the time period is included. WBC 9.07 4.5 - 11.0 x10'3/uL 10/31/2024 3:36 PM CDT [facility] RBC 4.86 4.20 - 5.40 x10'6/uL 10/31/2024 3:36 PM CDT [facility] HGB 12.7 12.0 - 16.0 G/DL 10/31/2024 3:36 PM CDT [facility] HCT 38.6 38.0 - 48.0 % 10/31/2024 3:36 PM CDT [facility] MCV 79.4(L) 81.0 - 99.0 FL 10/31/2024 3:36 PM CDT [facility] MCH 26.1(L) 27.0 - 31.0 PG 10/31/2024 3:36 PM CDT [facility] MCHC 32.9 32.0 - 36.0 G/DL 10/31/2024 3:36 PM CDT [facility] RDW 13.8 11.5 - 14.5 % 10/31/2024 3:36 PM CDT [facility] PLT 294 130 - 400 x10'3/uL 10/31/2024 3:36 PM CDT [facility] MPV 12.7(H) 9.3 - 12.2 FL 10/31/2024 3:36 PM CDT [facility] DIFFERENTIAL TYPE AUTOMATED DIFFERENTIAL 10/31/2024 3:36 PM CDT [facility] NEUTROPHILS % 86.4 % 10/31/2024 3:36 PM CDT [facility] LYMPHOCYTES % 9.6 % 10/31/2024 3:36 PM CDT [facility] MONOCYTES % 2.9 % 10/31/2024 3:36 PM CDT [facility] EOSINOPHILS 0.2 % 10/31/2024 3:36 PM CDT [facility] BASOPHILS 0.6 % 10/31/2024 3:36 PM CDT [facility] IMMATURE GRANS % 0.3 % 11/01/19 3:36 PM CDT [facility] ABS. NEUTROPHILS 7.84(H) 1.80 - 7.70 x10'3/uL 10/31/2024 3:36 PM CDT [facility] ABS. LYMPHOCYTES 0.87(L) 1.00 - 4.80 x10'3/uL 10/31/2024 3:36 PM CDT [facility] ABS. MONOCYTES 0.26 0.24 - 0.86 x10'3/uL 10/31/2024 3:36 PM CDT [facility] ABS. EOSINOPHILS 0.02(L) 0.04 - 0.36 x10'3/uL 10/31/2024 3:36 PM CDT [facility] ABS. BASOPHILS 0.05 0.01 - 0.08 x10'3/uL 10/31/2024 3:36 PM CDT [facility] ABS. IMMATURE GRANULOCYTES 0.03 0.00 - 0.49 x10'3/uL 10/31/2024 3:36 PM CDT [facility] 10/31/2024 3:22 PM CDT Shauna Rain DO LABORATORY Final Result [facility] [address] [place] [address], * TROPONIN, QUANT (10/31/2024 3:22 PM CDT) Only the most recent of2 resultswithin the time period is included. TROPONIN I HIGH SENSITIVITY <3 <54 ng/L 10/31/2024 4:03 PM CDT [facility] Comment: HIGH DOSES OF BIOTIN, TROPONIN-SPECIFIC AUTOANTIBODIES, AND ANTIBODY THERAPY CONTAINING HAMA MAY INTERFERE WITH THIS TEST RESULT. CORRELATION TO CLINICAL HISTORY AND PRESENTATION RECOMMENDED. 10/31/2024 3:22 PM CDT us Shauna Rain DO LABORATORY Final Result [facility] [address] [place] [address], [place] [phone] * LIPASE (10/31/2024 3:22 PM CDT) Only the most recent of2 resultswithin the time period is included. LIPASE 25 13 - 75 UNITS/L 10/31/2024 4:03 PM CDT [facility] 10/31/2024 3:22 PM CDT Shauna Rain DO LABORATORY Final Result Performing Organization Address City/[facility] Co de Phone Number [facility] [address] [place] [address], [place] [phone] * CTA CHEST+CT ABD+PEL W CON (10/17/2024 3:00 AM CDT) Anatomical Region Laterality Modality Abdomen, Chest Computed Tomogra phy 10/17/2024 3:03 AM CDT Impressions 10/17/2024 3:11 AM CDT Impression: 1. No PE. No acute pulmonary findings. 2. There is mild right hydronephrosis of uncertain etiology. There is no renal or ureteral calculus. Referred By: Interpreted By: Taran Boogie MD, 10/17/2024 3:03 AM Narrative 10/17/2024 3:11 AM CDT [facility] [address] [place], [place] [address] Examination: CTA CHEST+CT ABD+PEL W CON Exam time: 10/17/2024 2:48 AM INDICATION: Chest pain. Nausea and vomiting for 3 days. Comparison: None Technique: Thin section images were obtained of the chest with a CTA pulmonary embolism protocol and with IV contrast. 100 ml of Isovue 370 via the left antecubital fossa. Coronal, sagittal and coronal 3D MIP reconstructions. A dose lowering technique was used for this procedure, which may include, but is not limited to, dose reduction technique, automated exposure control, the use of iterative reconstruction, and ALARA (As Low As Reasonably Achievable)/ Image gently techniques. Findings: CHEST: There is adequate opacification of the pulmonary arteries, and no pulmonary embolism is identified. No airspace consolidation, pleural effusion, or pneumothorax. The central airways are patent. There is no lymphadenopathy. No pericardial effusion. No acute osseous abnormality. Abdomen/pelvis: The liver, gallbladder, spleen, pancreas, and adrenal glands are unremarkable. There is mild right hydronephrosis of uncertain etiology. There is no renal or ureteral calculus. There is symmetric renal enhancement. There is no calculus in the urinary bladder. There is a small amount of free pelvic fluid, presumably physiologic. There is no evidence for appendicitis. No bowel obstruction or free intraperitoneal air. No acute osseous abnormality. Procedure Note Taran Boogie MD - 10/17/[address] [address] Examination: CTA CHEST+CT ABD+PEL W CON Exam time: 10/17/2024 2:48 AM INDICATION: Chest pain. Nausea and vomiting for 3 days. Comparison: None Technique: Thin section images were obtained of the chest with a CTApulmonary embolism protocol and with IV contrast. 100 ml of Isovue 370via the left antecubital fossa. Coronal, sagittal and coronal 3D MIPreconstructions. A dose lowering technique was used for this procedure,which may include, but is not limited to, dose reduction technique,automated exposure control, the use of iterative reconstruction, and ALARA(As Low As Reasonably Achievable)/ Image gently techniques. Findings: CHEST: There is adequate opacification of the pulmonary arteries, and nopulmonary embolism is identified. No airspace consolidation, pleuraleffusion, or pneumothorax. The central airways are patent. There is nolymphadenopathy. No pericardial effusion. No acute osseousabnormality. Abdomen/pelvis: The liver, gallbladder, spleen, pancreas, and adrenalglands are unremarkable. There is mild right hydronephrosis of uncertainetiology. There is no renal or ureteral calculus. There is symmetricrenal enhancement. There is no calculus in the urinary bladder. There dayami small amount of free pelvic fluid, presumably physiologic. There is noevidence for appendicitis. No bowel obstruction or free intraperitonealair. No acute osseous abnormality. Impression: 1. No PE. No acute pulmonary findings. 2. There is mild right hydronephrosis of uncertain etiology. There is norenal or ureteral calculus. Referred By: Interpreted By: Taran Boogie MD, 10/17/2024 3:03 AM us Ramiro Steen MD,PHD CT Final Resu lt * (ABNORMAL) COMPREHENSIVE METABOLIC PANEL (10/17/2024 2:16 AM CDT) GLUCOSE 114(H) 70 - 99 MG/DL 10/17/2024 2:51 AM CDT [facility] BUN 15 7 - 18 MG/DL 10/17/2024 2:51 AM CDT [facility] CREATININE S/P/B 0.74 0.55 - 1.02 MG/DL 10/17/2024 2:51 AM CDT [facility] SODIUM S/P/B 135(L) 136 - 145 MMOL/L 10/17/2024 2:51 AM CDT [facility] POTASSIUM S/P/B 3.2(L) 3.5 - 5.1 MMOL/L 10/17/2024 2:51 AM CDT [facility] CHLORIDE S/P/B 102 97 - 115 MMOL/L 10/17/2024 2:51 AM CDT [facility] CO2 27.0 21 - 32 MMOL/L 10/17/2024 2:51 AM CDT [facility] CALCIUM S/P/B 9.7 8.5 - 10.1 MG/DL 10/17/2024 2:51 AM T [facility] BILIRUBIN TOTAL S/P/B 0.7 0.2 - 1.2 MG/DL 10/17/2024 2:51 AM T [facility] Comment: THIS ASSAY IS NOT RECOMMENDED FOR PATIENTS UNDERGOING TREATMENT WITH ELTROMBOPAG DUE TO THE POTENTIAL FOR FALSELY ELEVATED RESULTS. TOTAL PROTEIN S/P/B 8.2 6.4 - 8.2 G/DL 10/17/2024 2:51 AM T [facility] ALBUMIN S/P/B 4.3 3.4 - 5.0 G/DL 10/17/2024 2:51 AM T [facility] AST 19 15 - 37 U/L 10/17/2024 2:51 AM T [facility] ALT 29 14 - 55 U/L 10/17/2024 2:51 AM T [facility] ALKALINE PHOSPHATASE S/P/B 92 50 - 136 U/L 10/17/2024 2:51 AM [facility] ANION GAP 6.0 2 - 10 MMOL/L 10/17/2024 2:51 AM [facility] BUN CREATININE RATIO 20.3 6 - 26 10/17/2024 2:51 AM T [facility] A/G RATIO 1.1 1.0 - 2.0 RATIO 10/17/2024 2:51 AM [facility] GFR ESTIMATE >90 >90 ML/MIN/1.7 3 M2 10/17/2024 2:51 AM [facility] Comment: NOTE: eGFR is not calculated for patients <18 years of age or gender unknown. This is an estimated GFR calculation using the new CKD EPI creatinine equation without race and so does not require a correction factor for race. This estimated GFR should not be used for calculating drug doses. 10/17/2024 2:16 AM CDT us [facility] Final Result [facility] [address] [place] [address], * HEPATITIS C ANTIBODY (01/14/2024) HEPATITIS C AB Non-Reacti ve us Default History Genericprovider LABORATORY Final Result from Last 3 Months or Most Recently Relevant to Health Maintenance Insurance MEDICAID [facility] Advance Directives * Full Code (Latest Code Status on File) Date Activated Date Inactivated Comments 08/05/2024 9:03 AM 08/06/2024 9:50 PM * Full Code Date Activated Date Inactivated Comments 02/24/2024 7:49 AM 02/24/2024 9:41 PM Care Teams Net Making Supervisor Relationship Specialty Start Date End Date None, Provider, MD PCP - General UNKNOWN PHYSICIAN SPECIALTY 10/7/24
--- OUTSIDE RECORDS SUMMARY | 2024-11-20 11:49 | XMS_ITS | CONTINUITY OF CARE DOCUMENT ---
Author Name [email or web address] Address Unknown Organization [facility] Address [address] [place] [address] [address] [place] [address] Phone [phone] Care Team Providers Care Associate Entertainment Editor Name Role Phone Sarbjit GOMEZ, Deni Unavailable [phone] Deni Schaffer MD Unavailable [phone] INSURANCE PROVIDERS Payer name Policy type / Coverage type [place] red green party ID [facility] [place] [place] [id number]
--- OUTSIDE RECORDS SUMMARY | 2024-11-20 11:49 | XMS_ITS | Encounter Summary ---
Author Organization [facility] Address [facility] [place] [address] Care Team Providers Care Janitorial Services Supervisor Name Role Phone Shilo Byrd MD Primary Care Provider [phone] None, Provider Primary Care Provider Unavaila ble Encounter Details Date Type Department Care Team (Late st Contact Info) Description 01/11/2019 Abstract [facility] CONVERSION [address] [place] [address] , Generic ConversionMD Social History Tobacco Use [...] on filedocumented in this encounter Care Teams Janitorial Services Supervisor Relationship Specialty Start Date End Date Shilo Byrd MD [address] [place] [address] PCP - General PEDIATRICS 10/18/19 05/11/24 None, ProviderMD PCP - General UNKNOWN PHYSICIAN SPECIALTY 05/12/24 documented as of this encounter
--- OUTSIDE RECORDS SUMMARY | 2024-11-20 11:50 | XMS_ITS | Clinical Summary ---
Author Organization [facility] Address [address] [place] [address] Care Team Providers Care President And Cmo Name Role Phone Carlita Lara NP Primary Care Provider [phone] Allergies No known active allergies Medications dextroamphetami [...] by mouth daily 20 tablet 12/08/2023 Active Encounters Date Type Department Care Team Description 10/15/2024 2:50 PM CDT - 10/15/2024 3:19 PM CDT Emergency [facility] Emergency Department [address] [place] [address] Discharge Disposition: Left without being seen 10/15/2024 2:34 PM CDT - 10/15/2024 11:59 PM CDT Hospital Encounter [facility] Emergency, Room R Discharge Disposition: Discharge to home or self care 10/15/2024 1:02 PM CDT - 10/15/2024 1:15 PM CDT Emergency [facility] Emergency Department [address] [place] [address] Discharge Disposition: Left without being seen from Last 3 Months Surgical History Surgery Date Site/Laterality Comments TONSILECTOMY, [...] on file Legal Sex Female 8:15 AM [employer] Gender Identity Not on file Sexual Orientation Not on file Obstetrics History Para Term AB IAB SAB Ectopic Multiple Livin g Live Births 2 Date Outcome GA Total Labor Labor/2nd/3rd Weight Sex Type Anes PTL Daysi A1 A5 Name Clin Last Filed Vital Signs Vital Sign Reading Time Taken Comments Blood Pressure 121/84 10/15/2024 3:14 PM CDT Pulse 100 10/15/2024 3:14 PM CDT Temperature 36.6 C (97.8 F) 01/13/2024 7:51 PM CDT Respiratory Rate 18 10/15/2024 3:14 PM CDT Oxygen Saturation 100% 10/15/2024 3:14 PM CDT Inhaled Oxygen Concentration - - [...] , 07/10/2002, 05/26/2002, Additional history exists Insurance [facility] Care Teams President And Cmo Relationship Specialty Start Date End Date Carlita Lara NP [address] [place] [id number] PCP - General Obstetrics and Gynecology 01/13/24
--- OUTSIDE RECORDS SUMMARY | 2024-11-20 11:50 | XMS_ITS | Data Portability ---
Author Organization [facility] , [facility]_Marito Address [address] [place] [address] Assessment No assessment recorded. Plan of Treatment Reminders Order Date Submit Date Provider Last Modified By Organization Details Last Modified Time Details Appointments None recorded. Lab streptococc us group B, culture, unspecified specimen 2023 024 [facility], [address] [place], [address], 4 08:37:41 Referral gastroenter ologist referral 2024 025 CAMMIE Mccormick MD, [address] [place], [address], 5 04:12:14 Procedures None recorded. Surgeries None recorded. Imaging US, obstetric, follow-up [address] [facility], [place], [address] [place], [address], 4 19:30:09 Medication Orders ondansetron 4 mg disintegrat ing tablet 2024 025 [id number], [address], [place], [id number], 5 16:05:52 Carafate 1 gram tablet 2024 025 [id number], [address], [place], [place], [id number], 16:06:40 Patient TargetsNo targets recorded. Patient Instructions Encounter Date Encounter Id Patient Instructions Last Modified By Organization Details Last Modified Time 10/16/2024 [id number] - Continue takin g omeprazole as prescribed; consider usage of Carafate for coating relief. - Use Zofran for severe nausea as discussed. - Seek immediate care at the ER if chest pain or vomiting becomes unmanageable. - Keep a record of any symptoms for the upcoming GI consultation. - Ensure insurance and GI specialist access is arranged promptly. [email or web address] Not available 10/16/2024 16:24:01 During the visit , we discussed the necessity of evaluating and managing the patient's nausea and vomiting. I recommended a referral to a agriculture scientist for further investigation due to the severity and persistence of symptoms. Potential acid reflux was addressed, and omeprazole was prescribed. In addition, I discussed symptomatic relief with Carafate, which coats the gastrointestinal tract, and potentially Zofran for nausea control. We reviewed the process of obtaining the necessary GI evaluation, acknowledging possible delays in specialist availability but affirming the urgency given her chest discomfort and vomiting. I advised on the potential need to visit the ER if symptoms worsen. Additionally, we discussed navigating her insurance coverage to facilitate timely specialist access. [email or web address] Not available 10/16/2024 16:24:01 Reason for Referral Donor Recruitment Manager Referral for Nausea and vomiting Referring Physician: Miriam Storm, POPULATION GENETICIST, Encounter Date: 10/16/2024 Results Created Date Observation Date Name Description Value Unit Range Abnormal Flag Note LastModifiedBy Organization Detail LastModifiedTime 06/23/20 24 06/25/2024 COMPR EHENS CHELLY METAB OLIC PANEL sodium 140 mmol/ L 136 - 145 normal Not Available [facility] [address] [place], [address], 06/25/2024 12:48:43 06/23/20 24 06/25/2024 COMPR EHENS CHELLY METAB OLIC PANEL potassium 3.9 mmol/ L 3.5 - 5.1 normal Not Available [facility] [address] [place], [address], 06/25/2024 12:48:43 06/23/20 24 06/25/2024 COMPR EHENS CHELLY METAB OLIC PANEL chloride 106 mmol/ L 98 - 107 normal Not Available [address], [address], 06/25/2024 12:48:43 06/23/20 24 06/25/2024 COMPR EHENS CHELLY METAB OLIC PANEL glucose 90 mg/dL 74 - 106 normal Not Available [address], [address], 06/25/2024 12:48:43 06/23/20 24 06/25/2024 COMPR EHENS CHELLY METAB OLIC PANEL carbon dioxide 23 mmol/ L 20 - 32 normal Not Available [address], [address], 06/25/2024 12:48:43 06/23/20 24 06/25/2024 COMPR EHENS CHELLY METAB OLIC PANEL calcium 8.8 mg/dL 8.5 - 10.1 normal Not Available [address], [address], 06/25/2024 12:48:43 06/23/20 24 06/25/2024 COMPR EHENS CHELLY METAB OLIC PANEL creatinine 0.42 mg/dL 0.60 - 1.00 low Not Available [address], [address], 06/25/2024 12:48:43 06/23/20 24 06/25/2024 COMPR EHENS CHELLY METAB OLIC PANEL eGFR 142 mL/mi n/1.7 3m2 >60 normal The eGFR is based on the CKD-E PI 2020 sueat live. To calcu late the new eGFR from a previ ous Creat inine or Cysta usha C resul t, go to https ://alen grover.dami salazar/pr jay mancinial s/kdo qi/gf r_cal culat or Not Available [address], [address], 06/25/2024 12:48:43 06/23/20 24 06/25/2024 COMPR EHENS CHELLY METAB OLIC PANEL AST 9 U/L 15 - 37 low Not Available [address], [address], 06/25/2024 12:48:43 06/23/20 24 06/25/2024 COMPR EHENS CHELLY METAB OLIC PANEL ALT 12 U/L 14 - 59 low Not Available [address], [address], 06/25/2024 12:48:43 06/23/20 24 06/25/2024 COMPR EHENS CHELLY METAB OLIC PANEL alk phos 117 U/L 46 - 116 high Not Available [address], [address], 06/25/2024 12:48:43 06/23/20 24 06/25/2024 COMPR EHENS CHELLY METAB OLIC PANEL albumin 2.7 g/dL 3.4 - 5.0 low Not Available [address], [address], 06/25/2024 12:48:43 06/23/20 24 06/25/2024 COMPR EHENS CHELLY METAB OLIC PANEL protein, total 6.2 g/dL 6.4 - 8.2 low Not Available [address], [address], 06/25/2024 12:48:43 06/23/20 24 06/25/2024 COMPR EHENS CHELLY METAB OLIC PANEL bilirubin, total 0.3 mg/dL 0.2 - 1.0 normal Not Available [address], [address], 06/25/2024 12:48:43 06/23/20 24 06/25/2024 COMPR EHENS CHELLY METAB OLIC PANEL urea nitrogen (BUN) 3 mg/dL 7 - 18 low Not Available [facility] [address] [place] [address], [address], 06/25/2024 12:48:43 07/09/20 24 07/11/2024 STREP TOCOC CUS, GROUP B CULTU RE streptococcu s, group B culture SEE NOTE abnormal STREP TOCOC CUS, GROUP B CULTU RE Micro Numbe r: [id number] Test Statu s: Final Speci men [...] the anal sphin cter) . Not Available [facility] [address] [place], [address], 07/11/2024 08:37:41 08/05/20 24 08/05/2024 COMPR EHENS CHELLY METAB OLIC PANEL glucose 131 mg/dL 70-99 high Not Available [facility] (Lab) [place], [address], 08/05/2024 11:21:24 08/05/20 24 08/05/2024 COMPR EHENS CHELLY METAB OLIC PANEL BUN 4 mg/dL 7-18 low Not Available [facility] (Lab) [place], [address], 08/05/2024 11:21:24 08/05/20 24 08/05/2024 COMPR EHENS CHELLY METAB OLIC PANEL creatinine 0.44 mg/dL 0.55-1 .02 low Not Available [facility] (Lab) [address], [place], [address], 08/05/2024 11:21:24 08/05/20 24 08/05/2024 COMPR EHENS CHELLY METAB OLIC PANEL sodium 137 mmol/ L 136-14 5 Not Available [facility] (Lab) [address] [place], [address], 08/05/2024 11:21:24 08/05/20 24 08/05/2024 COMPR EHENS CHELLY METAB OLIC PANEL potassium 3.3 mmol/ L 3.5-5. 1 low Not Available [facility] (Lab) [address], [place], [address], 08/05/2024 11:21:24 08/05/20 24 08/05/2024 COMPR EHENS CHELLY METAB OLIC PANEL chloride 109 mmol/ L 97-115 Not Available [facility] (Lab) [address] [place], [address], 08/05/2024 11:21:24 08/05/20 24 08/05/2024 COMPR EHENS CHELLY METAB OLIC PANEL total CO2 21.0 mmol/ L 21-32 Not Available [facility] (Lab) [address] [place], [address], 08/05/2024 11:21:24 08/05/20 24 08/05/2024 COMPR EHENS CHELLY METAB OLIC PANEL calcium 8.6 mg/dL 8.5-10 .1 Not Available [facility] (Lab) [place], [address], 08/05/2024 11:21:24 08/05/20 24 08/05/2024 COMPR EHENS CHELLY METAB OLIC PANEL total bilirubin 0.2 mg/dL 0.2-1. 2 THIS ASSAY IS NOT RECOM ELIZABETH D FOR PATIE NTS UNDER GOING TREAT MENT WITH ELTRO MBOPA G DUE TO THE POTEN TIAL FOR FALSE LY ELEVA BERTIN RESUL TS. Not Available [facility] (Lab) [address] [facility], [place], [address], 08/05/2024 11:21:24 08/05/20 24 08/05/2024 COMPR EHENS CHELLY METAB OLIC PANEL total protein 6.0 g/dL 6.4-8. 2 low Not Available [facility] (Lab) [address], [place], [address], 08/05/2024 11:21:24 08/05/20 24 08/05/2024 COMPR EHENS CHELLY METAB OLIC PANEL albumin 2.3 g/dL 3.4-5. 0 low Not Available [facility] (Lab) [address], [place], [address], 08/05/2024 11:21:24 08/05/20 24 08/05/2024 COMPR EHENS CHELLY METAB OLIC PANEL AST 10 U/L 15-37 low Not Available [facility] (Lab) [address] [facility], [place], [address], 08/05/2024 11:21:24 08/05/20 24 08/05/2024 COMPR EHENS CHELLY METAB OLIC PANEL ALT 8 U/L 14-55 low Not Available [facility] (Lab) [address], [place], [address], 08/05/2024 11:21:24 08/05/20 24 08/05/2024 COMPR EHENS CHELLY METAB OLIC PANEL alk phosphatase 180 U/L 50-136 high Not Available [facility] (Lab) [address], [place], [address], 08/05/2024 11:21:24 08/05/20 24 08/05/2024 COMPR EHENS CHELLY METAB OLIC PANEL anion gap 7.0 mmol/ L 2-10 Not Available [facility] (Lab) [address], [place], [address], 08/05/2024 11:21:24 08/05/20 24 08/05/2024 COMPR EHENS CHELLY METAB OLIC PANEL BUN creatinine ratio 9.0 6-26 Not Available [facility] (Lab) [place], [address], 08/05/2024 11:21:24 08/05/20 24 08/05/2024 COMPR EHENS CHELLY METAB OLIC PANEL A:g ratio 0.6 ratio 1.0-2. 0 low Not Available [facility] (Lab) One [facility], [place], [address], 08/05/2024 11:21:24 08/05/20 24 08/05/2024 COMPR EHENS [...] latin g drug doses . Not Available [facility] (Lab) [place], [address], 08/05/2024 11:21:24 08/05/20 24 08/05/2024 TYPE AND SCREE N ABO/Rh(D) O POSITI VE Not Available [facility] (Lab) [place], [address], 08/05/2024 11:32:35 08/05/20 24 08/05/2024 TYPE AND SCREE N antibody screen NEGATI VE Not Available [facility] (Lab) [address], [place], [address], 08/05/2024 11:32:35 08/05/20 24 08/05/2024 TYPE AND SCREE N xm expiration 2024,2 359 Not Available [facility] (Lab) [address] [facility], [place], [address], 08/05/2024 11:32:35 08/05/20 24 08/05/2024 UA REFLE X TO MICRO specimen type URINE CLEAN CATCH Not Available [facility] (Lab) [address] [facility], [place], [address], 08/05/2024 11:35:42 08/05/20 24 08/05/2024 UA REFLE X TO MICRO color LIGHT YELLOW Not Available [facility] (Lab) [address] [facility], [place], [address], 08/05/2024 11:35:42 08/05/20 24 08/05/2024 UA REFLE X TO MICRO clarity CLEAR Not Available [facility] (Lab) [address] [facility], [place], [address], 08/05/2024 11:35:42 08/05/20 24 08/05/2024 UA REFLE X TO MICRO specific gravity 1.011 1.001- 1.030 Not Available [facility] (Lab) [address] [facility], [place], [address], 08/05/2024 11:35:42 12/31/08/05/2024 UA REFLE X TO MICRO pH, urine 6.5 5.0-9. 0 Not Available [facility] (Lab) [place], [address], 08/05/2024 11:35:42 08/05/20 24 08/05/2024 UA REFLE X TO MICRO leukocytes NEGATI VE neg Not Available [facility] (Lab) [place], [address], 08/05/2024 11:35:42 08/05/20 24 08/05/2024 UA REFLE X TO MICRO nitrite NEGATI VE neg Not Available [facility] (Lab) [place], [address], 08/05/2024 11:35:42 08/05/20 24 08/05/2024 UA REFLE X TO MICRO protein NEGATI VE mg/dL <30 Not Available [facility] (Lab) [place], [address], 08/05/2024 11:35:42 08/05/20 24 08/05/2024 UA REFLE X TO MICRO glucose NORMAL mg/dL norm Not Available [facility] (Lab) [place], [address], 08/05/2024 11:35:42 08/05/20 24 08/05/2024 UA REFLE X TO MICRO ketone NEGATI VE mg/dL neg Not Available [facility] (Lab) [place], [address], 08/05/2024 11:35:42 08/05/20 24 08/05/2024 UA REFLE X TO MICRO urobilinogen NORMAL mg/dL norm Not Available [facility] (Lab) [address] [facility], [place], [address], 08/05/2024 11:35:42 08/05/20 24 08/05/2024 UA REFLE X TO MICRO bilirubin NEGATI VE mg/dL neg Not Available [facility] (Lab) [address] [facility], [place], [address], 08/05/2024 11:35:42 08/05/20 24 08/05/2024 UA REFLE X TO MICRO blood NEGATI VE neg Not Available [facility] (Lab) [address] [facility], [place], [address], 08/05/2024 11:35:42 08/05/20 24 08/05/2024 SYPHI LIS IGG IGM AB syphilis IgG IgM Ab NON-RE ACTIVE nr No serol ogic evide nce of syphi lis. No follo w-up neces massimo unles s clini alexandrea indic ated. Not Available [facility] (Lab) [address] [facility], [place], [address], 08/05/2024 11:42:20 08/05/20 24 08/05/2024 DRUGS OF ABUSE PANEL , URINE amphetamines , urine NEGATI VE neg Not Available [facility] (Lab) [place], [address], 08/05/2024 12:11:12 08/05/20 24 08/05/2024 DRUGS OF ABUSE PANEL , URINE barbituates, urine NEGATI VE neg Not Available [facility] (Lab) [address] [facility], [place], [address], 08/05/2024 12:11:12 08/05/20 24 08/05/2024 DRUGS OF ABUSE PANEL , URINE benzodiazapi yenny, urine NEGATI VE neg Not Available [facility] (Lab) [place], [address], 08/05/2024 12:11:12 08/05/20 24 08/05/2024 DRUGS OF ABUSE PANEL , URINE cannabinoids /THC, urine POSITI VE neg abnormal Not Available [facility] (Lab) [place], [address], 08/05/2024 12:11:12 08/05/20 24 08/05/2024 DRUGS OF ABUSE PANEL , URINE cocaine, urine NEGATI VE neg Not Available [facility] (Lab) [place], [address], 08/05/2024 12:11:12 08/05/20 24 08/05/2024 DRUGS OF ABUSE PANEL , URINE methadone, urine NEGATI VE neg Not Available [facility] (Lab) [place], [address], 08/05/2024 12:11:12 08/05/20 24 08/05/2024 DRUGS OF ABUSE PANEL , URINE opiates, urine NEGATI VE neg Not Available [facility] (Lab) [place], [address], 08/05/2024 12:11:12 08/05/20 24 08/05/2024 DRUGS OF ABUSE PANEL , URINE phencyclidin es, urine NEGATI VE neg NOTE: RESUL TS OF THIS DRUG SCREE N SHOUL D BE USED FOR MEDIC AL PURPO [...] <40 mg/dL . RECOL LECTI ON IS CHRISTIE HO. AMPHE TAMIN E- 500 NG/ML JOS TURAT E- 200 NG/ML BENZO DIAZE PINES - 200 NG/ML THC- 50 NG/ML COCAI NE- 150 NG/ML METHA DONE- 300 NG/ML OPIAT E- 300 MG/ML PCP- 25 NG/ML Not Available [facility] (Lab) [place], [address], 08/05/2024 12:11:12 08/05/20 24 08/05/2024 DRUGS OF ABUSE PANEL , URINE creatinine, urine 80.9 mg/dL Not Available [facility] (Lab) [place], [address], 08/05/2024 12:11:12 08/05/20 24 08/05/2024 CREAT ININE , URINE creatinine, urine 79.1 mg/dL Not Available [facility] (Lab) [place], [address], 08/05/2024 17:26:16 08/05/20 24 08/05/2024 TOTAL PROTE IN, URINE total protein, urine 14.7 mg/dL <10 high Not Available [facility] (Lab) [place], [address], 08/05/2024 17:26:17 08/05/20 24 08/08/2024 SJS SURGI KAYLEE PATHO LOGY [facility] atory Medic ine [address] [facility] [place] [address] Telep elly: [phone], exten noe [phone] Patho logy Repor t Surgi kaylee Patho logy Repor t Name: ABBEY WAITE Specdorys men #: [id number] Age: [birth year] (Age: 23) Locat ion: [facility] IF Sex: F Proce dure Date: 08/05 Hospi shayla #: [id number] Date Recei april: Date Repor bertin: 025 Provi bhargavi: BEAR Chin MD [facility] e: Place nta Clini kaylee Histo ry: [...] appli cable ) was perfo rmed at [facility], [address] [facility], [place] [address] . This case was inter prete d and jennifer d out at [facility], [address] [facility] [address] . Keren ctron icall y Jennifer d Out ENE GROSS MD Not Available [facility] (Lab) [place], [address], 08/08/2024 14:07:40 08/06/19 25 08/06/2024 CBC WITH DIFF WBC 11.33 x10'3 /uL 4.5-11 .0 high Not Available [facility] (Lab) [place], [address], 08/06/2024 09:06:49 08/06/19 25 08/06/2024 CBC WITH DIFF RBC 3.49 x10'6 /uL 4.20-5 .40 low Not Available [facility] (Lab) [place], [address], 08/06/2024 09:06:49 08/06/19 25 08/06/2024 CBC WITH DIFF hemoglobin 10.1 g/dL 12.0-1 6.0 low Not Available [facility] (Lab) [place], [address], 08/06/2024 09:06:49 08/06/1908/06/2024 CBC WITH DIFF hematocrit 29.2 % 38.0-4 8.0 low Not Available [facility] (Lab) [address] [place], [address], 08/06/2024 09:06:49 08/06/1908/06/2024 CBC WITH DIFF MCV 83.7 fL 81.0-9 9.0 Not Available [facility] (Lab) [address] [facility], [place], [address], 08/06/2024 09:06:49 08/06/1908/06/2024 CBC WITH DIFF MCH 28.9 pg 27.0-3 1.0 Not Available [facility] (Lab) [address] [facility], [place], [address], 08/06/2024 09:06:49 08/06/1908/06/2024 CBC WITH DIFF MCHC 34.6 g/dL 32.0-3 6.0 Not Available [facility] (Lab) [address] [facility], [place], [address], 08/06/2024 09:06:49 08/06/1908/06/2024 CBC WITH DIFF RDW 12.6 % 11.5-1 4.5 Not Available [facility] (Lab) [place], [address], 08/06/2024 09:06:49 08/06/1908/06/2024 CBC WITH DIFF platelet count 134 x10'3 /uL 130-40 0 Not Available [facility] (Lab) [address] [facility], [place], [address], 08/06/2024 09:06:49 08/06/1908/06/2024 CBC WITH DIFF MPV 14.2 fL 9.3-12 .2 high Not Available [facility] (Lab) [address] [place], [address], 08/06/2024 09:06:49 08/06/1908/06/2024 CBC WITH DIFF diff type AUTOMA BERTIN DIFFER ENTIAL Not Available [facility] (Lab) [address], [place], [address], 08/06/2024 09:06:49 08/06/1908/06/2024 CBC WITH DIFF neutrophils 73.4 % Not Available [facility] (Lab) [address], [place], [address], 08/06/2024 09:06:49 08/06/1908/06/2024 CBC WITH DIFF lymphocytes 16.6 % Not Available [facility] (Lab) [address], [place], [address], 08/06/2024 09:06:49 08/06/1908/06/2024 CBC WITH DIFF monocytes 7.7 % Not Available [facility] (Lab) [address] [place], [address], 08/06/2024 09:06:49 08/06/1908/06/2024 CBC WITH DIFF eosinophils 1.5 % Not Available [facility] (Lab) [address], [place], [address], 08/06/2024 09:06:49 08/06/1908/06/2024 CBC WITH DIFF basophils 0.4 % Not Available [facility] (Lab) [address] [place], [address], 08/06/2024 09:06:49 08/06/1908/06/2024 CBC WITH DIFF immature granulocytes 0.4 % Not Available [facility] (Lab) [place], [address], 08/06/2024 09:06:49 08/06/1908/06/2024 CBC WITH DIFF abs. neutrophils 8.32 x10'3 /uL 1.80-7 .70 high Not Available [facility] (Lab) [address] [facility], [place], [address], 08/06/2024 09:06:49 08/06/1908/06/2024 CBC WITH DIFF abs. lymphocytes 1.88 x10'3 /uL 1.00-4 .80 Not Available [facility] (Lab) [place], [address], 08/06/2024 09:06:49 08/06/1908/06/2024 CBC WITH DIFF abs. monocytes 0.87 x10'3 /uL 0.24-0 .86 high Not Available [facility] (Lab) [address] [facility], [place], [address], 08/06/2024 09:06:49 08/06/1908/06/2024 CBC WITH DIFF abs. eosinophils 0.17 x10'3 /uL 0.04-0 .36 Not Available [facility] (Lab) [place], [address], 08/06/2024 09:06:49 08/06/1908/06/2024 CBC WITH DIFF abs. basophils 0.05 x10'3 /uL 0.01-0 .08 Not Available [facility] (Lab) [place], [address], 08/06/2024 09:06:49 08/06/19 25 08/06/2024 CBC WITH DIFF abs. immature grans 0.04 x10'3 /uL 0.00-0 .49 Not Available [facility] ([facility]) [address] [place], [address], 08/06/2024 09:06:49 06/23/20 24 06/23/2024 US, obste tric, follo w-up No observ ation record ed. awittler Maggie [address], [place], [address], 06/23/2024 16:40:37 07/09/20 24 07/09/2024 US, obste tric, follo w-up No observ ation record ed. jodierdavis Maggie [address], [place], [address], 07/13/2024 22:17:26 Result Notes None recorded. Problems Name Problem SNOMED Code Status Onset Date Resolution Date Notes Provider Name and Address Organization Details Recorded Time Pregnanc y 06446643 Completed 202310/16/2024 Le patel, [facility] 5 15:28:10 Hypereme sis gravidar um [id number] Completed Severe. Has presented to ER multiple times. Currently on Reglan/ Promethaz ine/ Prednison e pack. Patient continues taking Pepcid, Reglan, and Potassium . Continues to experienc e vomiting occasiona lly but much improved overall. --> Update 06/23/24: Pt declines refills, doing well on above listed regimen. UA dip notable for SG 1.000, no Ketones. Up 3 lbs from last visit 3 weeks ago. TRENTON Gurrola [address] [place], [address], [facility] 4 15:41:53 Eric benoit user [id number] Completed TRENTON Hampton [address] [place], [address], [place] [facility] 4 13:08:56 Varicell a non-immu ne [id number] Completed Plan Varicella Vaccine postpartu m. TRENTON Gurrola [address] [place] [address], [phone], [facility] [email or web address] [facility] IV 4 15:41:30 Hypokale akhil [id number] Completed K+ 3.4 on 05/19/24. Rx for p.o. K+ given. --> Update 06/23/24: Repeat CMP drawn; results pending. Pt self admittedl y has been toleratin g K+ supplemen tation and has 3 doses left. Further POC pending lab result review. TRENTON Gurrola [address] [place] [address], [phone], [facility] [email or web address] [facility] IV 4 15:41:19 High risk pregnanc y [id number] Active Hx: [id number] 0L1, Delivery Methods: x 1. NOB labs: B+/RI/NRx 4. Last Pap: 08/2023 NILM. GTT: 129. GBS: ____. Aneuploid y screening : UNITY NIPT & MSAFP WNL. Anatomy Scan: Complete on 04/21/24 with [facility]. TRENTON Gurrola [address] [place] [address], [place], [phone], [facility] IV 4 15:44:00 High risk pregnanc y [id number] Completed Hx: [id number] 0L1, Delivery Methods: x 1. NOB labs: B+/RI/NRx 4. Last Pap: 08/2023 NILM. GTT: 129. GBS: ____. Aneuploid y screening : UNITY NIPT & MSAFP WNL. Anatomy Scan: Complete on 04/21/24 with [facility]. TRENTON Gurrola [address] [place] [address], [phone], [facility] [employer] IV 4 15:44:00 Syncope [id number] Completed head laceratio n from trauma r/t syncope. Sutures removed by PCP in 05/2024. --> Update 06/23/24: lac intact, healing well, no erythema or drainage at site. ElanaTRENTON Scott [address] [place], [phone], [facility] IV 4 15:42:11 Syncope [id number] Active head laceratio n from trauma r/t syncope. Sutures removed by PCP in 05/2024. --> Update 06/23/24: lac intact, healing well, no erythema or drainage at site. TRENTON Gurrola [address] [facility] [facility], [place], [address], [facility] IV 4 15:42:11 Obesity [id number] Completed BMI 36.9. GTT 129. U/S: 03/24 62.2%. TRENTON Gurrola [address] [place] [address], [address], [facility] IV 4 15:43:29 Obesity 904610041 Active BMI 36.9. GTT 129. U/S: 03/24 62.2%. TRENTON Gurrola [address] [place] [address], [place], [address], [facility] IV 4 15:43:29 Uterine size for dates discrepa ncy [id number] Completed noted on 06/23/24. Repeat Growth/AF I: 27.8%, YUDELKA 9.83. TRENTON Gurrola [address] [place], [address], [facility] IV 4 15:43:48 Uterine size for dates discrepa ncy 843379171 Active noted on 06/23/24. Repeat Growth/AF I: 27.8%, YUDELKA 9.83. TRENTON Gurrola [address] [facility], [place], [address], [facility] IV 4 15:43:48 Problem Notes None recorded. Procedures Surgical History Date Name Laterality Status Provider Name and Address Organization Details Recorded Time Date of Last Pap Smear completed Rosalie Rossi [facility] IV 08/08/2023 13:10:07 Remove tonsils and adenoids completed Joeremedios Ramirez [facility] IV 04/21/2024 16:55:14 Imaging Results Imaging Date Name Status LastModified by Opal lee Details LastModified Time 06/23/2024 US, obstetric, follow-up completed kavita Maggie [address], [place], [address], 06/23/2024 16:40:37 07/09/2024 US, obstetric, follow-up completed marcelino Maggie [address], [place], [address], 07/13/2024 22:17:26 Procedure Notes None recorded. Medical [...] Available Not Available sucralfate 1 gram tablet TAKE 1 TABLET BY MOUTH FOUR TIMES DAILY NEEDED active Not Available Not Available No t Available prednisone 20 mg tablet TAKE 2 [...] completed Not Available Not Available Not Available pantoprazol e 40 mg tablet,jose yed release TAKE 1 TABLET BY MOUTH TWICE DAILY active Not Available Not Available No t Available promethazin e 25 mg tablet 12/17 [...] Not Available Not Available No t Available metoclopram teri 10 mg tablet TAKE 1 TABLET BY MOUTH FOUR TIMES DAILY 07/14 completed Not Available Not Available Not Available cyclobenzap rine 5 mg tablet TAKE 1 TABLET BY MOUTH THREE TIMES DAILY NEEDED FOR MUSCLE STRAIN 03/04 completed Not Available Not Available Not Available Pepcid 07/14 completed Not Available Not Available Not Available omeprazole active Not Available Not Av ailable Not Available Reglan active Not Available Not Availa ble Not Available 07/14 completed Not Available Not [...] Updated DateTime 07/09/2024 160.02 cm 36.5 kg/m2 85862.03 g 120 mm[Hg] 75 mm[Hg] Marky Corado [facility] 4 15:05:12 Date Recorded Body height Body mass index (BMI) Body weight Systolic blood pressure Diastolic blood pressure Provider Name and Address Organization Details Last Updated DateTime 07/14/2024 160.02 cm 37.2 kg/m2 86326.4 g 120 mm[Hg] 60 mm[Hg] Marky Mak [facility] 4 14:29:31 Date Recorded Body height Body mass index (BMI) Body weight Systolic blood pressure Diastolic blood pressure Provider Name and Address Organization Details Last Updated DateTime 07/23/2024 160.02 cm 37.6 kg/m2 97966.02 g 125 mm[Hg] 70 mm[Hg] Marky Mak [facility] 4 14:25:21 Date Recorded Body height Body mass index (BMI) Body weight Systolic blood pressure Diastolic blood pressure Provider Name and Address Organization Details Last Updated DateTime 08/04/2024 160.02 cm 37.6 kg/m2 47078.3 g 125 mm[Hg] 80 mm[Hg] Marky Mak [facility] 4 14:12:02 Date Recorded Body height Body mass index (BMI) Body weight Body temperature Systolic blood pressure Diastolic blood pressure Provider Name and Address Organization Details Last Updated DateTime 5 160.02 cm 33.6 kg/m2 69034.8 3 g 97.4 [degF] 108 mm[Hg] 72 mm[Hg] Le Hutchins [facility] 5 15:39:18 Social History Question Answer Notes LastModified by Organizat ion Details LastModified Time Tobacco Smoking Status Current Every Day Smoker Loren patel [facility] 01/14/2024 12:38:29 Are You Blind Or Do You Have Difficulty Seeing? No [email or web address] Information not available 08/08/2023 Are You Currently Employed? Yes [email or web address] Information not available 08/08/2023 Are You Deaf Or Do You Have Serious Difficulty Hearing? No [email or web address] Information not available 08/08/2023 What Type Of Diet Are You Following? REGULAR Information not available 01/14/2024 How Many Children Do You Have? 1 [email or web address] Information not available 08/08/2023 Are There Any Occupational Health Risks Where You Work? No [email or web address] Information not available 08/08/2023 What Is Your Relationship Status? Single [email or web address] Information not available 08/08/2023 Are You Sexually Active? Yes [email or web address] Information not available 08/08/2023 At What Age Did You Start Smoking Tobacco? 19 Information not available 01/14/2024 How Much Tobacco Do You Smoke? 0.5 PPD Information not available 01/14/2024 What Types Of Sporting Activities Do You Participate In? Serving Being On My Feet 8-12 Hours 5 Days A Week [email or web address] Information not available 08/08/2023 Do You Use Any Illicit Or Recreational Drugs? No [email or web address] Information not available 08/08/2023 How Many Years Have You Smoked Tobacco? 4 Information not available 01/14/2024 Sex: Female Functional Status Question Answer Note LastModified by Organization D etails LastModified Time What is your exercise level? Moderate Information not available 08/08/2023 Mental Status None recorded. Family History Relationship Description Onset Age of this Age Resolved Age Notes LastModified by Organization Details LastModified Time Father No current problems or disability [email or web address] Not available 10/2023 13:11:04 Mother No current problems or disability Not available 10/2023 13:11:04 Medical History Condition Response Other Cancer N High Blood Pressure N Colon Cancer N Cytomegalovirus N Hyperthyroidism N MRSA N Blood Transfusion N Herpes (HSV) N Breast Cancer N Lung Cancer N Hypothyroidism N Depression N Incontinence N Panic Attacks N Neurological Disorder N Deep Vein Thrombosis N Anxiety Disorder N Autoimmune disease N Arthritis N Shingles N Tuberculosis/Positive PPD N Infertility N Polycystic Ovarian Syndrome N Cervical Cancer N Chlamydia N Hematuria N Stroke N Varicosities N Seasonal allergies N Crohn's Disease N Alzheimer's/Dementia N COPD/Emphysema N Endometriosis N HPV/Genital Warts N IBS (Irritable Bowel Syndrome) N History of Abnormal Pap N High Cholesterol N Liver Disease N Kidney Infection N Fibromyalgia N Ulcer N Kidney Disease N HIV [...] Date of last HPV Date of LMP 09/17/2024 Duration of Flow (days) 6 Most Recent Mammogram Current Control Method None Age at Menarche 14 Date of Last Colonoscopy Most Recent Bone Density Frequency of Cycle (Q days) 28-30 Date of Last Pap Smear 08/08/2023 Obstetrics History GPAL:G 2 P 2 0 0 2 Type Value Full Term 2 Living 2 Total 2 Past Encounters Encounter ID Performer Location Encounter Start Date Encounter Closed Date Diagnosis/Indication Diagnosis SNOMED-CT Code Diagnosis ICD10 Code Diagnosis Note [id number] Carlitaniraj LaraTRENTON [facility] [address] [place] [address] 08/08/2023 12:51:36 08/08/2023 13:45:54 Gynecologic examination 32527982 Z01.419 22y.o. here for annual exam. - Pap today - RTO PRN or annual Screening for malignant neoplasm of cervix 348098286 Z12.4 ASCCP guidelines reviewed with pt. Pap collected and sent. Further POC pending lab result review. Pt states understand ing of POC. Depression screening 171 367664 Z13.31 PHQ9: Negative. Pt educated on normal scoring. No further management needed. Female infertility 38937 08 N97.9 Will refer to [facility]. Discussed need for partner to have semen analysis since her HSG was normal, she is having regular cycles, and she is getting +OPK's [id number] Carlita LaraTRENTON [facility] [address] [place] [address] 12/06/2023 11:29:33 12/06/2023 11:54:59 Amenorrhea 65492999 N91.0 N91.1 Z32.00 UPT in office is positive. Pt educated on dietary recommenda tions, to take PNV daily, on Threatened Ab precaution s, and when to notify HCP/go to ER. Plan to F/U in 2 weeks for NOB visit. test positive 866583708 Z32.01 Unable to determine viabilityH CG todayGesta tional sac visualized intrauteri neWill RTO in 2 weeks for repeat scan [id number] TRENTON Hampton [facility] [address] [place] [address] 12/20/2023 11:47:54 12/20/2023 12:33:06 Normal 74774830 Z34.82 Additional diagnosis detail: Encounter for supervisio n of other normal , second trimester Gestation period, 7 weeks 77876351 Z3A.01 Additional diagnosis detail: 7 weeks gestation of Hyperemesi s gravidarum 75020544 O21.0 Finish Medrol PackContin ue Reglan and Promethazi ne [id number] TRENTON Hampton [facility] [address] [place] [address] 12/18/2023 10:52:17 12/18/2023 11:30:14 Nausea and vomiting 71262239 R11.2 Discussed need to finish Medrol packRx for Reglan sentStates Zofran is ineffectiv ePromethaz ine suppositor ies rx'd Moderate dehydration 100 3011556 105 E86.0 Discussed importance of fluid intake test positive 885540530 Z32.01 BSUS with FHT's at 132. Keep upcoming NOB visit on 12/20/23 Nondepende nt cannabis abuse, continuous 510897245 F12.10 Discussed risks of smoking marijuana with . Patient states it is the only thing that helps her [id number] PAGE CUELLAR, [employer] [place] [facility] h [address] [place] [address] 01/14/2024 12:34:08 01/14/2024 13:30:46 Gestation period, 10 weeks 85218998 Z3A.10 Normal 5823476 2 Z34.91 Pt comes in today for [...] Genetic Questions in OB Episode Done-- Accepts [facility]. Would like to know gender. Discussed logging on to the [employer] portal to find Gender Results-- PAP up to date --BMI at Confirmati on: 32.2 POC-- NOB labs done today-- Accepts Capablue-- PAP Up to Date-- Pre-Pregna ncy BMI: 32.2-- RTC 4 weeks Guide: Given and reviewed. Toxoplasmo sis precaution s reviewed. Reviewed office visit schedule during . Reviewed Quickening and normal FHTs. Greater than thirty minutes spent with patient in consultati on (>50% face-to-fa ce). Patient labs and notes were reviewed. Patient questions were answered. Additional patient care was coordinate d. screening 2437 73228 Z36.89 Carrier de tection, molecular genetics 7203339 Z14.8 Hyperemesi s gravidarum 36368916 O21.0 Pt educated on smaller/mo re frequent meals, pushing p.o. water intake by taking sips, and avoiding spicy/frie d foods. Advised against smoking marijuana in as it can have the opposite side effects.Af ter consulting with Dr. Lara patient will be sent to [facility] for direct admit to L&D for fluids and anti-emeti cs. Nicotine user 729941735 Z72.0 Marijuana user 422391534 F12.90 [id number] JESSICA AGUILAR NP [facility] [address] [place] [address] 02/11/2024 15:42:46 02/11/2024 17:08:48 Gestation period, 14 weeks 49252323 Z3A.14 Additional diagnosis detail: 14 weeks gestation of Normal 8742587 2 Z34.82 Pt is here for a [...] of other normal , second trimester Hyperemesis 528601591 R1 1.10 Patient reports improvemen t with regular use of reglan and Pepcid.- Reviewed diet changes to reduce acid (decrease tomatoes, chocolate, citrus juice, spicy foods), sleeping with torso elevated- Recommend Tums as needed [id number] HETAL MOLINA DO [address] [address] 03/04/2024 14:55:57 03/04/2024 15:58:29 Gestation period, 17 weeks 77734908 Z3A.17 Additional diagnosis detail: 17 weeks gestation of Normal 1822765 2 Z34.82 Additional diagnosis detail: Encounter for supervisio n of other normal , second trimester Screening for disorder 904220931 Z36.0 [id number] Chelsie Lara MD [address] [address] 03/24/2024 15:05:08 03/24/2024 16:17:41 Gestation period, 20 weeks 19766573 Z3A.20 screening 2437 48750 Z36.3 Normal 0216200 2 Z34.82 [id number] LE CHÁVEZ NP [address] [address] 04/21/2024 16:27:36 04/21/2024 17:30:21 Normal 24504399 Z34.82 Pt is here for a LEYDA [...] - 4 wks Gestation period, 24 weeks 186427554 Z3A.24 screening for malformation 184410431 Z36.3 Disorder o f left sciatic nerve 4369239702 94350 M54.32 [id number] Jordana Jean is, [facility] [address] [facility] [place] [address] 05/14/2024 10:04:36 05/14/2024 14:37:45 Hypokalemia 54062907 E87.6 [id number] Jordana Jean is, [facility] [address] [place] [address] 05/19/2024 14:34:19 05/19/2024 16:21:48 Normal 74260276 Z34.83 screening 2437 68439 Z36.89 Acute hypokalemia 681634 03 E87.6 Gestation period, 28 weeks 69748536 Z3A.28 [id number] Jordana Jean is, [facility] [address] [place] [address] 06/02/2024 14:19:19 06/02/2024 15:09:36 Gestation period, 35 weeks 65127146 Z3A.35 Normal 0625153 2 Z34.83 [id number] Chelsie Lara MD [facility] [address] [facility] [place] [address] 06/23/2024 14:04:39 06/24/2024 15:25:15 Normal 28668166 Z34.83 Patient continues taking Pepcid, reglan and Potassium. Continues to have vomiting occasional ly but much improved. Patient denies vaginal leaking, bleeding, cramping. Endorses movement.F ollow up in 2 weeks Hypokalemia 58072692 E87 .6 Varicella non-immune 371 490431 O09.899 Z28.39 Marijuana user 927493705 F12.90 Hyperemesi s gravidarum 66621118 O21.0 Gestation period, 33 weeks 53505958 Z3A.33 Uterine si ze for dates discrepancy 731025739 O26.909 [id number] Jordana savage, MIGUEL A [facility] [address] [place] [address] 07/09/2024 14:13:03 07/09/2024 15:21:35 screening 249647663 Z36.85 Normal 4708795 2 Z34.83 Morbid obesity 186478240 E66.01 [id number] Jordana savage, MIGUEL A [facility] [address] [place] [address] 07/14/2024 14:08:16 07/14/2024 15:02:03 screening 025677623 Z36.85 Normal 6677883 2 Z34.83 Gestation period, 36 weeks 99105353 Z3A.36 [id number] Jordana savage, [address] [place] [address] 07/23/2024 14:18:32 07/23/2024 14:48:27 Gestation period, 38 weeks 27287801 Z3A.38 Normal 2275822 2 Z34.83 [id number] Jordana savage, [facility] [address] [place] [address] 08/04/2024 14:03:44 08/04/2024 15:40:18 Normal 08878328 Z34.83 Gestation period, 39 weeks 36976245 Z3A.39 [id number] PARMJIT NICKJAGDEEP [facility] [address] [place] [address] 10/16/2024 15:08:32 10/17/2024 13:50:09 Nausea and vomiting 38693604 R11.2 Based on the patient's symptoms and history, the primary differenti al includes gastroesop hageal reflux disease or another gastrointe stinal disorder. I recommende d initiating omeprazole with the addition of Carafate for symptomati c coating and protection of the gastrointe stinal lining. Zofran could be considered for severe nausea.The patient requires a referral to a gastroente rologist for a possible endoscopic evaluation . If symptoms escalate, particular ly with chest pain, ER evaluation is necessary. Further imaging such as a CT scan may be required should symptoms not resolve with current management . Bile-induc ed gastritis 40037754 K29.60 Health Concerns Section Related Observation LastModified by Organization Detai ls LastModified Time None Recorded Concern Status LastModified by Organization Details LastModified Time None Recorded Advance Directives Directive None Recorded Payers Encounter Date Sequence Insurance Name Policy Number Policy Silva Covered Member ID Silva Member ID Guarantor Name 07/09/2024 2 [place] [facility] Abbey Gearing [id number] Abbey Gearing 07/09/2024 1 [facility] [place] Abbey Gearing [id number] Abbey Gearing 07/14/2024 2 [place] [facility] Abbey Gearing [id number] Abbey Gearing 07/14/2024 1 [facility] [place] Abbey Gearing [id number] Abbey Gearing 07/23/2024 2 [place] [facility] Abbey Gearing [id number] Abbey Gearing 08/04/2024 2 [place] [facility] Abbey Gearing [id number] Abbey Gearing 10/16/2024 2 [place] [facility] Abbey Gearing [id number] Abbey Gearing 10/16/2024 1 [facility] [place] Abbey Gearing [id number] Abbey Gearing Notes Date Note Type Note Provider Name and Address Organization Details Recorded Time 07/09/2024 text/html Patient is here today for a routine OB visit. She is currently at {{6 7 8 9 10 11 12 13 14 15 16 17 18 19 20 21 22 23 24 25 26 27 28 29 30 31 32 33 34 35 36 * 37 38 39 40 41}} weeks gestation. vitamins: {{yes* no}} She {{has* has not}} felt movement.She denies any complaints of the presence of vaginal bleed, leaking fluid, abdominal cramps, nausea, vomiting, headache or visual disturbances. Pt states she is still smoking and wants to know what affects the baby. Pt stated she cut back. No concerns today. Jordana MercerCARYNMontserrat [address] [place], [address], [facility] [employer] IV 07/09/2024 15:20:49 07/14/2024 text/html Patient is here today for a routine OB visit. She is currently at {{6 7 8 9 10 11 12 13 14 15 16 17 18 19 20 21 22 23 24 25 26 27 28 29 30 31 32 33 34 35 36 37 38 39 40 41 36 .5#}} weeks gestation. vitamins: {{yes* no}} She {{has* has not}} felt movement. She denies any complaints of the presence of vaginal bleed, leaking fluid, abdominal cramps, nausea, vomiting, headache or visual disturbances. No concerns Jordana MercerMIGUEL A [address] [place], [address], [facility] [employer] IV 07/14/2024 14:44:40 07/23/2024 text/html Patient is here today for a routine OB visit. She is currently at {{6 7 8 9 10 11 12 13 14 15 16 17 18 19 20 21 22 23 24 25 26 27 28 29 30 31 32 33 34 35 36 37 38* 39 40 41}} weeks gestation. vitamins: {{yes no*}} She {{has* has not}} felt movement.She denies any complaints of the presence of vaginal bleed, leaking fluid, abdominal cramps, nausea, vomiting, headache or visual disturbances. No concerns Jordana MercerMIGUEL A [address] [place], [address], [facility] [employer] IV 07/23/2024 14:45:41 08/04/2024 text/html Patient is here today for a routine OB visit. She is currently at {{6 7 8 9 10 11 12 13 14 15 16 17 18 19 20 21 22 23 24 25 26 27 28 29 30 31 32 33 34 35 36 37 38 39 40 41 39 .5#}} weeks gestation. vitamins: {{yes no*}} She {{has* has not}} felt movement.She denies any complaints of the presence of vaginal bleed, leaking fluid, abdominal cramps, headache or visual disturbances. Pt c/o nausea and vomiting. Jordana Mercer, MIGUEL A [address] [place], [address], [facility] [employer] 08/04/2024 14:27:25 10/16/2024 text/html The patient is a 24-year-old female presenting with nausea and vomiting. The nausea and vomiting began with increased severity yesterday. She reports experiencing these symptoms persistently until last weekend and again from yesterday morning. Previously, during she experienced similar symptoms, but they resolved until yesterday. She describes the sensation of food not digesting and needing to induce emesis manually. She started taking omeprazole today for possible acid reflux but has limited relief. She has visited urgent care and the ER for these symptoms, but no imaging studies were performed. Her symptoms persist, particularly affecting her chest with pain described as nausea-related. TRENTON NICK [address] [place], [address], [facility] [employer] 10/16/2024 19:15:18 OBGyn Episode Ob Episode Information Episode Created Date Number of Fetuses Patient Bloodtype Patient rh Status Prepregnancy Weight lbs Domestic Partner Domestic Partner Phone Father Name Restaurant Host/Hostess Status 12/20/19 24 1 O Positive CLOSED Fetus Data First Name Last Name Admitted to NICU Weight (g) Sex Living Outcome Pediatric Complications Fetus ID Race Codes Race Delivery Type [id number] Problems Problem Notes Previous at 16y/o. Delivery Plans: [facility]. PP Contraception Plans: uncertain at this time Problem Name Start Date End Date Resolution Snomed Code Not e Syncope [id number] head lacer ation from trauma r/t syncope. Sutures removed by PCP in 05/2024. --> Update 06/23/24: lac intact, healing well, no erythema or drainage at site. Obesity 478971163 BMI 36.9. GTT 129. U/S: 03/24 62.2%. Varicella non-immune 636585831 Plan Varicella Vaccine . Marijuana user 471744956 Hypokalemia 64326025 K+ 3.4 o n 05/19/24. Rx for p.o. K+ given. --> Update 06/23/24: Repeat CMP drawn; results pending. Pt self admittedly has been tolerating K+ supplementation and has 3 doses left. Further POC pending lab result review. Uterine size for dates discrepancy 720260085 noted on 08/23/23. Repeat Growth/YUDELKA: 27.8%, YUDELKA 9.83. Hyperemesis gravidarum 28419367 Severe. Has pre sented to ER multiple times. Currently on Reglan/ Promethazine/ Prednisone pack. Patient continues taking Pepcid, Reglan, and Potassium. Continues to experience vomiting occasionally but much improved overall. --> Update 06/23/24: Pt declines refills, doing well on above listed regimen. UA dip notable for SG 1.000, no Ketones. Up 3 lbs from last visit 3 weeks ago. High risk 26631478 Hx: G4O3G9N5X6O8, Delivery Methods: x 1. NOB labs: B+/RI/NRx4. Last Pap: 08/2023 NILM. GTT: 129. GBS: ____. Aneuploidy screening: UNITY NIPT & MSAFP WNL. Anatomy Scan: Complete on 04/21/24 with [facility]. Craig Calculation Initial Craig Date Initial Exam [...] Weight in lbs Pre/Post Dialysis Refused Weight 182.644643488374 BP Diastolic BP Location Tested BP Systolic [...] in lbs Pre/Post Dialysis Refused With clothes 182.005397568378 BP Diastolic BP Location Tested BP Systolic [...] Dr. Lara and recommended sending patient to [facility], patient will be directly admitted to L&D. Patient notified of recommendations, voices understanding left office to go to [facility]. Flowsheet Date 02/11/2024 Boland Score Blood Edema Fundus Height Fundus Units Glucose Ketones Leukocytes Nitrite Labor Signs Protein Cervic Dilation Cervic Effacement Cervic Station Type Weight in lbs Pre/Post Dialysis Refused Weight 187.660098836776 BP Diastolic BP Location Tested BP Systolic [...] Weight in lbs Pre/Post Dialysis Refused Weight 192.08312460332 BP Diastolic BP Location Tested BP Systolic BP Type 68 116 Fetus Heart Rate Present A 145 Fetus Movement Comments was in ER for nausea/vomitin gdiscussed thc use increases the symptoms and causes [facility] affects on neonates mental and emotional development. AFP todayRTO in 3-4w for anatomy scan Flowsheet Date 03/24/2024 Boland Score Blood Edema Fundus Height Fundus Units Glucose Ketones Leukocytes Nitrite Labor Signs Protein Cervic Dilation Cervic Effacement Cervic Station none none none neg Type Weight in lbs Pre/Post Dialysis Refused With clothes 194.605372413347 BP Diastolic BP Location Tested BP Systolic [...] in lbs Pre/Post Dialysis Refused With clothes 195.987647636319 BP Diastolic BP Location Tested BP Systolic [...] in lbs Pre/Post Dialysis Refused With clothes 199.471072419719 BP Diastolic BP Location Tested BP Systolic [...] in lbs Pre/Post Dialysis Refused With clothes 201.579898234397 BP Diastolic BP Location Tested BP Systolic [...] in lbs Pre/Post Dialysis Refused With clothes 204.102116769340 BP Diastolic BP Location Tested BP Systolic [...] Type Weight in lbs Pre/Post Dialysis Refused 208.60006145184 BP Diastolic BP Location Tested BP Systolic [...] in lbs Pre/Post Dialysis Refused With clothes 206.091205408789 BP Diastolic BP Location Tested BP Systolic [...] in lbs Pre/Post Dialysis Refused With clothes [id number] BP Diastolic BP Location Tested BP Systolic [...] in lbs Pre/Post Dialysis Refused With clothes [id number] BP Diastolic BP Location Tested BP Systolic BP Type 70 125 sitting Fetus Heart Rate Present A 144 Fetus Movement A Yes Comments doing well no OB concerns Flowsheet Date 08/04/2024 Boland Score Blood Edema Fundus Height Fundus Units Glucose Ketones Leukocytes Nitrite Labor Signs Protein Cervic Dilation Cervic Effacement Cervic Station 40 cm Type Weight in lbs Pre/Post Dialysis Refused With clothes [id number] BP Diastolic BP Location Tested BP Systolic BP Type 80 125 sitting Fetus Heart Rate Present A 140 Fetus Movement A Yes Comments IOL 08/07 [address] Flowsheet Date 10/16/2024 Boland Score Blood Edema Fundus Height Fundus Units Glucose Ketones Leukocytes Nitrite Labor Signs Protein Cervic Dilation Cervic Effacement Cervic Station Type Weight in lbs Pre/Post Dialysis Refused With clothes [id number] BP Diastolic BP Location Tested BP Systolic BP Type 72 108 sitting Fetus Heart Rate Present Fetus Movement Comments Menstrual History Last Menstrual Date Menses Monthly [...] Domestic Partner Domestic Partner Phone Father Name Restaurant Host/Hostess Status 08/08/19 24 1 CLOSED Fetus Data First Name Last Name Admitted to NICU Weight (g) Sex Living Outcome Pediatric Complications Fetus ID Race Codes Race Delivery Type M Full Term [id number] Craig Calculation Initial Craig Date Initial Exam [...] Domestic Partner Domestic Partner Phone Father Name Restaurant Host/Hostess Status 10/17/19 25 1 CLOSED Fetus Data First Name Last Name Admitted to NICU Weight (g) Sex Living Outcome Pediatric Complications Fetus ID Race Codes Race Delivery Type Full Term [id number] Craig Calculation Initial Craig Date Initial Exam [...] Post Complications Tubal Sterilization Discharge Date Comments 4 Discharge Information Feeding Method Contraceptive Method Maternal HG B and HCT Levels
--- OUTSIDE RECORDS SUMMARY | 2024-11-20 11:50 | XMS_ITS | CONTINUITY OF CARE DOCUMENT ---
Author Name [email or web address] Address Unknown Organization [facility] Address [id number] [place] [address] [address] [place] [address] Phone [phone] Care Team Providers Care Scheduling Coordinator Name Role Phone Sarbjit GOMEZ, Deni Unavailable Deni Schaffer MD Unavailable INSURANCE PROVIDERS Payer name Policy type / Coverage type [place] red green party ID [facility] [place] [place] [id number]
--- OUTSIDE RECORDS SUMMARY | 2024-11-20 11:50 | XMS_ITS | Referral Summary ---
Author Organization [facility] Address [address] [place] [address] Care Team Providers Care Secretary Board Of Commissioners Name Role Phone Carlita Lara NP Primary Care Provider [phone] Encounters Date Type Department Care Team Description 10/15/2024 2:34 PM CDT - 10/15/2024 11:59 PM CDT Hospital Encounter [facility] Emergency, Room R Discharge Disposition: Discharge to home or self care 10/15/2024 2:50 PM CDT - 10/15/2024 3:19 PM CDT Emergency [facility] Emergency Department [address] [place] [address] Discharge Disposition: Left without being seen 10/15/2024 1:02 PM CDT - 10/15/2024 1:15 PM CDT Emergency [facility] Emergency Department [address] [place] [address] Discharge Disposition: Left without being seen from Last 3 Months Allergies No known active allergies Medications dextroamphetami [...] on file Legal Sex 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 [place] [address] PCP - General Obstetrics and Gynecology 01/13/24
== END 2024-11-20 11:23 | disposition home or self-care (01) ==
PROVIDERS: Emergency Provider Nurse Practitioner Family
DX: H10.9 Unspecified conjunctivitis (principal); E03.9 Hypothyroidism, unspecified; Z79.899 Other long term (current) drug therapy
CPT/HCPCS: 99213; G0463

== ENCOUNTER 2025-01-01 15:22 | Emergency (ER) | payer MEDICAID, SELFPAY ==
--- OUTSIDE RECORDS SUMMARY | 2025-01-01 15:26 | XMS_ITS | Clinical Summary ---
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 Gender Identity Not on file Sexual Orientation [...] 11:04 PM CDT Height 160 cm (5' 3) 10/15/2024 11:04 PM CDT Body Mass Index [...] - 1.030 10/16/2024 1:43 AM CDT [facility] URINE PH 7.0 5.0 - 9.0 10/16/2024 1:43 AM CDT [facility] WBC ESTERASE Negative Negative 10/16/2024 1:43 AM CDT [facility] NITRITE Negative Negative 10/16/2024 1:43 AM CDT [facility] PROTEIN, RANDOM URINE 30 mg/dL(A) Negative 10/16/2024 1:43 AM CDT [facility] URINE GLUCOSE, QUAL Negative Negative 10/16/2024 1:43 AM CDT [facility] URINE KETONES 50 mg/dL(A) Negative 10/16/2024 1:43 AM CDT [facility] UROBILINOGEN Normal Normal mg/dL 10/16/2024 1:43 AM CDT [facility] URINE BLOOD 10 /uL(A) Negative kaleb/ul 10/16/2024 1:43 AM CDT [facility] URINALYSIS COLOR Yellow 10/17/19 1:43 AM CDT [facility] URINALYSIS CLARITY Clear 10/16/2024 1:43 AM CDT [facility] WBC (Urine) 0-5 Negative, 0-5 /hpf 10/16/2024 1:43 AM CDT [facility] URINE RBC'S 3-5(A) Negative, 0-2 /hpf 10/16/2024 1:43 AM CDT [facility] EPITHELIAL CELLS Large amount squamous /lpf 10/16/2024 1:43 AM CDT [facility] BACTERIA, URINE Moderate(A) Negative /hpf 10/16/2024 1:43 AM CDT [facility] Urine URINE SPECIMEN OBTAINED BY CLEAN CATCH PROCEDURE / Unknown Non-Phlebotomy Collection / Unknown 10/16/2024 1:15 AM CDT 10/16/2024 1:20 AM CDT Juan Krause MD URINE ORDERABLES Final Re sult [facility] [address] [place] [address] * POCT Urine HCG () (10/16/2024 1:15 AM CDT) POC URINE Negative POC URINE CONTROL Privacy Officer Pass Urine 10/16/2024 1:15 AM CDT Juan Krause MD POINT OF CARE TESTING (JESSIE SRIVASTAVA) Final Result * RSV,SARS-COV-2,INFLUENZA A&B BY PCR (10/15/2024 11:15 PM CDT) [facility] FLU A Negative Negative, Error 10/16/2024 12:06 AM CDT [facility] FLU B Negative Negative 10/16/2024 12:06 AM CDT [facility] RESP SYNC VIRUS Negative Negative 12:06 AM CDT [facility] SARSCOV2 NOT DETECTED (Reference Range for this test is Not Detected) 10/16/2024 12:06 AM CDT [facility] Comment:This test was perfor med by a Reverse Playground Monitor PCR Method. Swab NASOPHARYNGEAL STRUCTURE / Unknown Non-Phlebotomy Collection / Unknown 10/15/2024 11:15 PM CDT 10/15/2024 11:27 PM CDT Juan Krause MD MICROBIOLOGY - GENERAL OR DERABLES Final Result [facility] [address] [place] [address] * (ABNORMAL) CBC with Auto Differential (10/15/2024 11:15 PM CDT) [facility] WBC 8.87 4.00 - 12.00 10(3)/mcL 10/15/2024 11:29 PM CDT [facility] RBC 4.57 3.80 - 5.30 10(6)/mcL 10/15/2024 11:29 PM CDT [facility] HEMOGLOBIN (HGB) 12.5 12.0 - 15.8 g/dL 10/15/2024 11:29 PM CDT [facility] HEMATOCRIT (HCT) 36.2 36.0 - 47.0 % 10/15/2024 11:29 PM CDT [facility] MCV 79.2(L) 82.0 - 96.0 fL 10/15/2024 11:29 PM CDT [facility] MCH 27.4 26.0 - 34.0 pg 10/15/2024 11:29 PM CDT [facility] MCHC 34.5 31.0 - 36.0 g/dL 10/15/2024 11:29 PM CDT [facility] PLATELET COUNT 216 140 - 440 10(3)/[facility] 10/15/2024 11:29 PM CDT [facility] RDW 13.3 11.8 - 15.5 % 10/15/2024 11:29 PM CDT [facility] MPV 12.1 9.7 - 12.4 fL 10/15/2024 11:29 PM CDT [facility] NEUTROPHILS 90.8(H) 47.0 - 73.0 % 10/15/2024 11:29 PM CDT [facility] LYMPHOCYTES 6.7(L) 18.0 - 42.0 % 10/15/2024 11:29 PM CDT [facility] MONOCYTES 2.3(L) 4.0 - 12.0 % 10/15/2024 11:29 PM CDT [facility] EOSINOPHILS 0.0 0.0 - 5.0 % 10/15/2024 11:29 PM CDT [facility] BASOPHILS 0.2 0.0 - 1.0 % 10/15/2024 11:29 PM CDT [facility] ABSOLUTE NEUTROPHILS 8.06(H) 1.60 - 7.70 10(3)/[facility] 10/15/2024 11:29 PM CDT [facility] ABSOLUTE LYMPHOCYTES 0.59(L) 1.30 - 3.20 10(3)/[facility] 10/15/2024 11:29 PM CDT [facility] ABSOLUTE MONOCYTES 0.20 0.20 - 1.00 10(3)/[facility] 10/15/2024 11:29 PM CDT [facility] ABSOLUTE EOSINOPHIL 0.00 0.00 - 0.40 10(3)/[facility] 10/15/2024 11:29 PM CDT [facility] ABSOLUTE BASOPHILS 0.02 0.00 - 0.10 10(3)/mcL 10/15/2024 11:29 PM CDT [facility] NRBC PER 100 WBC 0 10/16/19 11:29 PM CDT [facility] Blood Venipuncture / Unknown 10/15/2024 11:15 PM CDT 10/15/2024 11:27 PM CDT Juan Krause MD HEMATOLOGY ORDERABLES Fin al Result [facility] [address] [place] [address] * Lipase [id number] (10/15/2024 11:15 PM CDT) LIPASE 12 8 - 78 U/L 10/15/2024 11:49 PM CDT [facility] Blood Venipuncture / Unknown 10/15/2024 11:15 PM CDT 10/15/2024 11:27 PM CDT Juan Krause MD CHEMISTRY ORDERABLES Carly l Result [facility] [address] [place] [address] * (ABNORMAL) Comprehensive Metabolic Panel (Cmp) [id number] (10/15/2024 11:15 PM CDT) SODIUM 138 136 - 145 mmol/L 10/15/2024 11:49 PM CDT [facility] POTASSIUM 4.2 3.5 - 5.1 mmol/L 10/15/2024 11:49 PM CDT [facility] CHLORIDE 108(H) 98 - 107 mmol/L 10/15/2024 11:49 PM CDT [facility] CO2, VENOUS 18(L) 22 - 30 mmol/L 10/15/2024 11:49 PM CDT [facility] ANION GAP 16.2 <18.0 mmol/L 10/15/2024 11:49 PM CDT [facility] GLUCOSE 150(H) 70 - 99 mg/dL 10/15/2024 11:49 PM CDT [facility] BUN 11 5 - 18 mg/dL 10/15/2024 11:49 PM CDT [facility] CREATININE, BLOOD 0.69 0.60 - 1.00 mg/dL 10/15/2024 11:49 PM CDT [facility] BUN/CREATININE RATIO 16 12 - 20 ratio 10/15/2024 11:49 PM CDT [facility] TOTAL PROTEIN 8.0 6.0 - 8.0 g/dL 10/15/2024 11:49 PM CDT [facility] ALBUMIN 4.8 3.5 - 5.0 g/dL 10/15/2024 11:49 PM CDT [facility] A/G RATIO 1.5 1.0 - 2.2 10/15/2024 11:49 PM CDT [facility] CALCIUM 10.1 8.7 - 10.5 mg/dL 10/15/2024 11:49 PM CDT [facility] T BILI 0.5 0.2 - 1.2 mg/dL 10/15/2024 11:49 PM T [facility] SGOT (AST) 19 <43 U/L 10/15/2024 11:49 PM T [facility] SGPT (ALT) 15 <56 U/L 10/15/2024 11:49 PM T [facility] ALKALINE PHOSPHATASE 85 40 - 150 U/L 10/15/2024 11:49 PM T [facility] GFR, ESTIMATED >60 >=60 10/15/2024 11:49 PM T [facility] Comment: Creatinine Clearance is the preferred criteria for selecting drug dose adjustments in renally impaired patients. The GFR is provided as additional pertinent clinical information. GFR is reported in mL/min/1.73 sq m. Calculation based on the Chronic Kidney Disease Epidemiology Collaboration (CKD- EPI) equation refit without adjustment for race. GFR, EST. >60 >=60 025 11:49 PM CDT [facility] GFR, EST. NONAFRICAN >60 >=60 10/15/2024 11:49 PM CDT [facility] Blood Venipuncture / Unknown 10/15/2024 11:15 PM CDT 10/15/2024 11:27 PM CDT us Juan Krause MD CHEMISTRY ORDERABLES Carly lang Result [facility] [address] [place] [address] from Last 3 Months Insurance MEDICAID [place] Care Teams Gift Packer Relationship Specialty Start Date End Date Provider, None [place] PCP - General 10/16/24
--- OUTSIDE RECORDS SUMMARY | 2025-01-01 15:26 | XMS_ITS | Clinical Summary ---
Author Organization [facility] Address [address] [place] [address] Care Team Providers Care Spa Director/Finance Name Role Phone Carlita Lara NP Primary Care Provider [phone] Allergies No known active allergies Medications dextroamphetami [...] CDT - 10/15/2024 3:19 PM CDT Emergency [facility] Emergency Department [address] [place] [address] Discharge Disposition: Left without being seen 10/15/2024 2:34 PM CDT - 10/15/2024 11:59 PM CDT Hospital Encounter [facility] Emergency, Room R Discharge Disposition: Discharge to home or self care 10/15/2024 1:02 PM CDT - 10/15/2024 1:15 PM CDT Emergency [facility] Emergency Department [address] [place] [address] Discharge Disposition: Left without being seen from [...] on file 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 Gender Identity Not on file Sexual Orientation [...] 7:51 PM CDT Height 160 cm (5' 3) 01/13/2024 7:51 PM CDT Body Mass Index [...] Regular Well Visit/Exam 18-64 10/15/2019 Influenza Vaccine (Season Ended) 2025 05/29/2018, 05/20/2013, 09/10/2012, Additional history exists DTaP/Tdap/Td Vaccine (8 - Td or Tdap) 05/12/2033 05/12/2023, 02/22/2012, 05/23/2007, Additional history exists Varicella Vaccines Completed 05/23/2007, 04/19/2004 Hepatitis B Screening Completed 05/16/2010 , 07/10/2002, 05/26/2002, Additional history exists Insurance IDPA [facility] IDPA [facility] Care Teams Spa Director/Finance Relationship Specialty Start Date End Date Carlita Lara NP [facility] [place] [address] PCP - General Obstetrics and Gynecology 01/13/24
--- OUTSIDE RECORDS SUMMARY | 2025-01-01 15:26 | XMS_ITS | Data Portability ---
Author Organization [facility] [place] Address [address] [place] [address] Care Team Providers Care Furnace Mechanic Name Role Phone MARC WALTERS Primary Care [...] 17-hydroxyp rogesterone , QN, serum 2020 021 [facility] (Lab), [address], [place], [address], 21:05:41 dhea-sulfat e, serum 2020 021 [facility] (Lab), [address], [place], [address], 1 21:05:37 estradiol, serum 2020 [facility] (Lab), [address], [place], [address], 21:05:38 FSH (follicle-s timulating hormone), serum 2020 [facility] (Lab), [address], [place], [address], 1 21:05:39 HbA1c (hemoglobin A1c), blood 2020 [facility] (Lab), [address], [place], [address], 21:05:37 lh (luteinizin g hormone), serum 2020 [facility] (Lab), [address], [place], [address], 21:05:38 progesteron e, serum 2020 [facility] (Lab), [address], [place], [address], 21:05:39 prolactin, serum 2020 [facility] (Lab), [address], [place], [address], 1 21:05:39 shbg (sex hormone-bin ding globulin), serum 2020 [facility] (Lab), [address], [place], [address], 1 21:05:40 TSH, serum or plasma 2020 [facility] (Lab), [address], [place], [address], 21:05:40 testosteron e free/testos terone total, ratio, serum 2020 [facility] (Lab), [address], [place], [address], 21:05:41 Referral None recorded. Procedures None recorded. Surgeries None recorded. Imaging None recorded. Medication Orders letrozole 2.5 mg tablet 2021 [id number], [address], [place], [id number], 2 12:39:21 metformin 850 mg tablet 2021 [email or web address][id number], [address], [place], [id number], 2 16:56:31 metformin 500 mg tablet 2020 021 [email or web address] 1 [facility] #49956, [address], [place], [id number], 2 16:56:28 Patient TargetsNo targets recorded. Patient [...] >8.0% Actio n sugge sted Not Available [facility] (Lab) [address], [place], [address], 06/25/2021 21:05:37 06/20/20 21 06/20/2021 DHEA SULFA TE DHEA-sulfate 193 ug/dL Femal e Range s Age(y ) Range (ug/d L) 10-15 34-28 0 15-20 65-36 8 20-25 148-4 07 25-35 99-34 0 35-45 61-33 7 45-55 35-25 6 55-65 19-20 5 65-75 9-246 > 75 12-15 4 Not Available [facility] (Lab) [address], [place], [address], 06/25/2021 21:05:37 06/20/20 21 06/20/2021 LH (LUTE NIZIN G HORMO NE) LH 32.5 mIU/m L This assay was perfo rmed using [employer] ratio n reage nts and test kits. Value s obtai tracey with other assay metho ds or kits canno t be used inter [facility] . Femal es Mid-F ollic ular: 2.4-1 2.6 mIU/m L Mid-C ycle: 14.0- 95.6 mIU/m L Mid-L uteal : 1.0-1 1.4 mIU/m L Postm enopa use: 7.7-5 8.5 mIU/m L Not Available [facility] (Lab) [address] [place], [address], 06/25/2021 21:05:38 06/20/20 21 06/20/2021 ESTRA DIOL [...] 561-2 1280 pg/mL 3rd Trime ster8 525-> 47805 pg/mL Not Available [facility] (Lab) [address] [place], [address], 06/25/2021 21:05:38 06/20/20 21 06/20/2021 PROGE STERO NE progesterone 0.68 NG/mL This assay was perfo rmed using [employer] ratio n reage nts and test kits. Value s obtai tracey with other assay metho ds or kits canno t be used [facility] . Femal e Proge stero ne Range s: Folli cular phase 0.06- 0.89 ng/mL Ovula tion phase 0.12- 12.00 ng/mL Lutea l phase 1.83- 23.90 ng/mL Postm enopa usal< 0.05- 0.13 ng/mL Healt hy Pregn ant Women 1st Trime ster1 1.0-4 4.30 2nd Trime ster2 5.40- 83.30 3rd Trime ster5 8.70- 214.0 0 Not Available [facility] (Lab) [address] [place], [address], 06/25/2021 21:05:39 06/20/20 21 06/20/2021 PROLA CTIN prolactin, total 15.10 NG/mL 4.79-2 3.30 This assay was perfo rmed using [employer] ratio n reage nts and test kits. Value s obtai tracey with other assay metho ds or kits canno t be used inter [facility] . Not Available [facility] (Lab) [address] [place], [address], 06/25/2021 21:05:39 06/20/20 21 06/20/2021 FSH FSH [...] use: 25.8- 134.8 mIU/m L Not Available [facility] (Lab) [address] [place], [address], 06/25/2021 21:05:39 06/20/20 21 06/20/2021 TSH, REFLE X FREE T4 TSH 3.85 uIU/m L 0.30-5 .33 Not Available [facility] (Lab) [address] [place], [address], 06/25/2021 21:05:40 06/20/20 21 06/20/2021 HUMAN SEX HORMO NE CONSTANCE NG GLOBU NATHANIEL sex hormone binding globulin 16.6 nmole s/L Not Available [facility] (Lab) [address] [place], [address], 06/25/2021 21:05:40 06/20/20 21 06/20/2021 VITAM IN B12 vitamin B12 342 pg/mL 180-91 4 Lisandra l Range : 180-9 14 pg/mL . Indet ermin ate Range : 145-1 80 pg/mL . Defic ient Range : <=145 pg/mL . Not Available [facility] (Lab) [address] [place], [address], 06/25/2021 21:05:41 06/20/20 21 06/20/2021 TESTO STERO NE, FREE( DIALY SIS) AND TOTAL (LC/M S/MS) testosterone , total 66 NG/dL 2-45 high For addit ional infor matmadi antonio e refer to http: //derrick joseph.que stdia gnost ics.c om/fa q/Tot Maricruz Proctor [facility] (This link is being provi ded for infor peg nal/ educa raad l purpo ses only. ) This test was devel oped and its elsa tical perfo rmanc e sukh cteri stics have been deter mined by [employer]. It has not been clear ed or appro april by the FDA. This assay has been valid ated pursu ant to the CLIA regul ation s and is used for clini shanice purpo ses. Not Available [facility] (Lab) [address], [place], [address], 06/25/2021 21:05:41 06/20/20 21 06/20/2021 TESTO STERO NE, FREE( DIALY SIS) AND TOTAL (LC/M S/MS) testosterone , free 10.9 pg/mL 0.1-6. 4 high This test was devel oped and its elsa tical perfo rmanc e sukh cteri stics have been deter mined by [employer]. It has not been clear ed or appro april by the FDA. This assay has been valid ated pursu ant to the CLIA regul ation s and is used for clini shanice purpo ses. Perfo rming Organ izati on Uvaldo ruvalcaba n: Site ID: [id number] Name: [employer]-[facility] Addre ss: [id number] [address] [facility] [place] [place] [address] Direc tor: Tomas espinal M.D. Not Available [facility] (Lab) [address], [place], [address], 06/25/2021 21:05:41 06/20/20 21 06/20/2021 17-OH PROGE [...] Diagn ostic s [facility] . It has not been clear ed or appro april by FDA. This assay has been valid ated pursu ant to the CLIA regul ation s and is used for clini shanice purpo ses. Perfo rming Organ izati on Infor matlala n: Site ID: [id number] Name: [employer]/Cory [facility] , Addre ss: [id number] [address] [facility] [address] Dire tor: Ale stephens MD,Ph D,BAYRON Not Available [facility] (Lab) [address], [place], [address], 06/25/2021 21:05:41 Result Notes None recorded. Problems Name Problem SNOMED Code Status Onset Date Resolution Date Notes Provider Name and Address Organization Details Recorded Time Depressi ve disorder [id number] Completed 201512/02/2020 Depressi on NOS;Jd rded Elsewher e: No Locat ion: [facility] S ource: EHR Television Equipment Operator cory: N Celesteti ce ID: 0001 Junior lable Time: 01:30:00 PM [facility]ie [facility] 12:54:15 Secondar y amenorrh ea [id number] Completed 201612/02/2020 Secondar y amenorrh ea;Recor ded Elsewher e: No Locat ion: [facility] S ource: EHR Television Equipment Operator cory: N Practi ce ID: 0001 Junior lable Time: 10:30:00 AM Rosalie patel [facility] 12:54:56 Gestatio n period, 33 weeks [id number] Completed 201612/02/2020 33 weeks gestatio n of pregnanc y;Record ed Elsewher e: No Locat ion: [facility] S ource: EHR Television Equipment Operator cory: N Celesteti ce ID: 0001 Junior lable Time: 05:00:00 PM Rosalie Monroy [facility] 12:54:25 Gestatio n period, 34 weeks [id number] Completed 201612/02/2020 34 weeks gestatio n of pregnanc y;Record ed Elsewher e: No Locat ion: [facility] S ource: EHR Television Equipment Operator cory: N Celesteti ce ID: 0001 Junior lable Time: 05:00:00 PM Rosalie Monroy [facility] 12:54:26 Gestatio n period, 17 weeks [id number] Completed 201612/02/2020 17 weeks gestatio n of pregnanc y;Record ed Elsewher e: No Locat ion: [facility] S ource: EHR Television Equipment Operator cory: N Celesteti ce ID: 0001 Junior lable Time: 02:00:00 PM Rosalie Monroy [facility] 12:54:21 Pregnanc y-induce d hyperten noe Completed 201612/02/2020 Gestatio nal htn w/o signific ant proteinu sushila, third trimeste r;Record ed Elsewher e: No Locat ion: [facility] S ource: EHR Television Equipment Operator cory: N Celesteti ce ID: 0001 Junior lable Time: 01:00:00 PM Rosalie Monroy [facility] 12:54:54 Vaginola bial hernia Completed 201512/02/2020 Other specifie d noninfla mmatory disorder s of vagina;R ecorded Elsewher e: No Locat ion: Angelita [facility] S ource: EHR Television Equipment Operator cory: N Practi ce ID: 0001 Junior lable Time: 04:00:00 PM Rosalie patel, [facility] 12:55:[address] Concept Completed 201612/02/2020 Encntr for miner pick exam (general ) (routine ) w/o abn findings ;Practic e ID: 0001 Rosalie Monroy [facility] 12:55:02 Uterine size for dates discrepa ncy Completed 201612/02/2020 Uterine size-vadim e discrepa ncy, second trimeste r;Practi ce ID: 0001 Rosalie Monroy [facility], [facility] 12:55:07 Pregnanc y, childbir th and puerperi um finding Completed 201612/02/2020 Encntr for suprvsn of normal first preg, first trimeste r;Practi ce ID: 0001 Rosalie Monroy [facility] 12:54:48 Pregnanc y, childbir th and puerperi um finding Completed 201612/02/2020 Encntr for suprvsn of normal first preg, second trimeste r;Practi ce ID: 0001 Rosalie Monroy [facility], [facility] 12:54:50 Pregnanc y, childbir th and puerperi um finding Completed 201612/02/2020 Encntr for suprvsn of normal first preg, third trimeste r;Practi ce ID: 0001 Rosalie Monroy [facility], [facility] 12:54:52 Gestatio n period, 32 weeks [id number] Completed 201612/02/2020 32 weeks gestatio n of pregnanc y;Practi ce ID: 0001 Rosalie Monroy [facility], [facility] 12:54:23 Single live from juo n pregnanc y [id number] Completed 201612/02/2020 Single live ;Re corded Elsewher e: No Locat ion: [facility] S ource: EHR Television Equipment Operator cory: N Practi ce ID: 0001 Junior lable Time: 01:00:00 PM Rosalie Monroy [facility], [facility] 12:54:[address] Concept Completed 201712/02/2020 Encounte r for miner pick exam w/ abnormal finding; Recorded Elsewher e: No Locat ion: [facility] S ource: EHR Television Equipment Operator cory: N Practi ce ID: 0001 Junior lable Time: 03:00:00 PM Rosalie Monroy [facility], [facility] 12:55:01 Syphilis test finding [id number] Completed 201612/02/2020 Encntr screen for infectio ns w sexl mode of transmis s;Record ed Elsewher e: No Locat ion: [facility] S ource: EHR Television Equipment Operator cory: N Practi ce ID: 0001 Junior lable Time: 03:00:00 PM Rosalie Monroy [facility], [facility] 12:55:05 Blood leukocyt e number above referenc e range [id number] Completed 201512/02/2020 Elevated white blood cell count, unspecif ied;Jd rded Elsewher e: No Locat ion: [facility] S ource: EHR Television Equipment Operator cory: N Practi ce ID: 0001 Junior lable Time: 04:00:00 PM Rosalie Monroy [facility], [facility] 12:54:35 Normal pregnanc y in multigra casey [id number] 4106 Completed 201612/02/2020 Encounte r for suprvsn of normal pregnanc y, third trimeste r;Record ed Elsewher e: No Locat ion: Angelita camargo [facility] S ource: EHR Television Equipment Operator cory: N Celesteti ce ID: 0001 Junior lable Time: 01:30:00 PM Rosalie Monroy [facility] 12:54:46 Body mass index 30+ - obesity [id number] Completed 201612/02/2020 Body mass index (BMI) 34.0-34. 9, adult;Re corded Elsewher e: No Locat ion: Tyrell raman [facility] S ource: EHR Television Equipment Operator cory: N Celesteti ce ID: 0001 Junior lable Time: 10:30:00 AM Rosalie Monroy [facility] 12:54:[address] Concept Completed 201612/02/2020 Encntr for routine child health exam w/o abnormal findings ;Recorde d Elsewher e: No [facility]: EHR Television Equipment Operator cory: N Celesteti ce ID: 0001 Junior lable Time: 10:30:00 AM Rosalie Monroy [facility] 12:54:59 Evaluati on finding Completed 201512/02/2020 Hematuri a, unspecif ied;Jd rded Elsewher e: No [facility] S ource: EHR Television Equipment Operator cory: N Celesteti ce ID: 0001 Junior lable Time: 04:00:00 PM Rosalie Monroy [facility] 12:54:19 Infectio n screenin g Completed 201712/02/2020 Encounte r for screenin g for oth infec/pa rastc diseases ;Recorde d Elsewher e: No Locat ion: [facility] S ource: EHR Television Equipment Operator cory: N Celesteti ce ID: 0001 Junior lable Time: 10:00:00 AM Rosalie Monroy [facility] 12:54:37 Chlamydi al infectio n [id number] Completed 201512/02/2020 Chlamydi al infectio n, unspecif ied;Jd rded Elsewher e: No Locat ion: Angelita camargo [facility] S ource: EHR Television Equipment Operator cory: N Celesteti ce ID: 0001 Junior lable Time: 03:16:30 PM Rosalie Monroy [facility] 12:54:14 Gestatio n period, 35 weeks [id number] Completed 201612/02/2020 35 weeks gestatio n of pregnanc y;Record ed Elsewher e: No [facility] our[facility]: EHR Television Equipment Operator cory: N Celesteti ce ID: 0001 Junior lable Time: 01:00:00 PM Rosalie Monroy [facility] 12:54:28 Acute vaginiti s [id number] Completed 201712/02/2020 Vaginiti s;Record ed Elsewher e: No [facility] our[facility]: [employer] Television Equipment Operator cory: N Celesteti ce ID: 0001 Junior lable Time: 10:00:00 AM Rosalie Monroy [facility] 12:54:10 Gestatio n period, 36 weeks [id number] Completed 201612/02/2020 36 weeks gestatio n of pregnanc y;Record ed Elsewher e: No Locat ion: Angelita raman [facility] S ource: EHR Television Equipment Operator cory: N Practi ce ID: 0001 Junior lable Time: 03:00:00 PM Rosalie Monroy [facility] 12:54:30 Educatio n Completed 201512/02/2020 Encounte r for other general counseli ng and advice on contrace ption;Re corded Elsewher e: No Locat ion: Angelita camargo [facility] S ource: EHR Television Equipment Operator cory: N Practi ce ID: 0001 Junior lable Time: 01:30:00 PM Rosalie Monroy [facility] 12:54:17 Non-prot einuric hyperten noe of pregnanc y [id number] Completed 201612/02/2020 Gestatnl htn without signific ant protein, comp childbir th;Pract ice ID: 0001 Rosalie Monroy [facility] 12:54:44 Lacerati on of female perineum Completed 201612/02/2020 First degree perineal lacerati on during delivery ;Practic e ID: 0001 Rosalie Monroy [facility] 12:54:40 Gestatio n period, 37 weeks [id number] Completed 201612/02/2020 37 weeks gestatio n of pregnanc y;Practi ce ID: 0001 Rosalie Monroy [facility], [facility] 12:54:33 Lochia finding Completed 201612/02/2020 Encounte r for routine postpart um follow-u p;Practi ce ID: 0001 Rosalie Monroy [facility] 12:54:42 Problem Notes None recorded. Procedures Surgical History Date Name Laterality Status Provider Name and Address Organization Details Recorded Time 03/21/20 21 Hysteroscopy completed Nain Azevedo MD [address], [place], [address], [facility] 03/21/2021 16:36:06 08/06/19 08 Tonsillectomy completed Christy Hermosillo [facility] 09/03/2020 10:43:35 Imaging Results None [...] Prescrib ed Elsewher e: No Locat ion: [facility] M odify By: bcdominique barrios DateTime : [...] Prescrib ed Elsewher e: No Locat ion: [facility] M odify By: [email or web address] abram Shook counter DateTime : 08/25/19 16 03:12:33 PM Not Available Not Available Not Available famotidin e 20 mg tablet TAKE 1 TABLET BY MOUTH EVERY 12 HOURS FOR 5 DAYS active Not Available Not Available No t Available Flagyl 500 mg tablet take 1 tablet by oral route every 12 hours 09/29 completed Prescrib ed Elsewher e: No Locat ion: Angelita camargo [facility] odify By: [email or web address] trick En counter DateTime : 09/09/19 16 03:16:30 PM Not Available Not Available Not Available cephalexi n 500 mg capsule TAKE 1 CAPSULE BY MOUTH EVERY 12 HOURS FOR 7 DAYS active Not Available Not Available No t Available promethaz ine 25 mg tablet active Not Available Not Available Not Available [place] 10 mg-325 mg tablet Take 1 tablet [...] Elsewher e: No Locat ion: Angelita camargo [facility] odify By: [email or web address] Encounte r DateTime : 07/18/20 17 01:00:00 PM Not Available Not Available Not Available Zithromax 500 mg tablet take 2 tablet by oral route once 12/02 completed Prescrib ed Elsewher e: No Locat ion: Angelita camargo [facility] odify By: [email or web address] rojounter DateTime : 06/05/20 19 03:33:13 PM Not [...] 2 162.56 cm 40.2 kg/m2 98 % 619541. 61 g 147 mm[Hg] 90 mm[Hg] 140 mm[Hg] 80 mm[Hg] [facility] 2 17:23:47 Date Recorded Body height Body mass index (BMI) Percentile per age and sex Body mass index (BMI) Body weight Systolic blood pressure Diastolic blood pressure Provider Name and Address Organization Details Last Updated DateTime 2 162.56 cm 98 % 38.3 kg/m2 730715. 1 g 123 mm[Hg] 84 mm[Hg] [facility] 2 16:56:23 Date Recorded Body height Body mass index (BMI) Percentile per age and sex Body mass index (BMI) Body weight Systolic blood pressure Diastolic blood pressure Provider Name and Address Organization Details Last Updated DateTime 2 162.56 cm 97 % 37.1 kg/m2 19797.9 5 g 142 mm[Hg] 82 mm[Hg] Christy [facility] 2 12:23:26 Date Recorded Body height Body mass index (BMI) Percentile per age and sex Body mass index (BMI) Body weight Systolic blood pressure Diastolic blood pressure Provider Name and Address Organization Details Last Updated DateTime 1 162.56 cm 99 % 42.4 kg/m2 811124. 32 g 136 mm[Hg] 85 mm[Hg] [facility] 1 10:21:37 Date Recorded Body height Body mass index (BMI) Percentile per age and sex Body mass index (BMI) Body weight Systolic blood pressure Diastolic blood pressure Provider Name and Address Organization Details Last Updated DateTime 162.56 cm 99 % 41 kg/m2 503469. 58 g 135 mm[Hg] 92 mm[Hg] Hemalatha Jackson [facility] 15:46:36 Social History Question Answer Notes LastModified by Organizat ion Details LastModified Time Tobacco Smoking Status Current Every Day Smoker Rosalie Monroy amanda [facility] 12/02/2020 12:57:05 Are You Blind Or Do You Have [...] Or The Highest Degree You Have Received? [id number] Information not available 12/02/2020 Do You Use Your Seat Belt Or Car Seat Routinely? Yes Information not available 12/02/2020 Do You Have Smoke And Carbon Monoxide Detectors In Your Home? Yes Information not available 12/02/2020 How Much Tobacco Do You Smoke? 0.5 PPD Information not available 12/02/2020 Do You Use Sunscreen Routinely? Yes Information not available 12/02/2020 Do You Have Difficulty Walking Or Climbing Stairs? No [email or web address] Information not available 02/08/2022 Sex: Unknown Functional Status Question Answer Note LastModified by Organizat ion Details LastModified Time Do you use any illicit or recreational drugs? No Information not available 12/02/2020 Do you or have you ever used any other forms of tobacco or nicotine? No Information not available 12/02/2020 What is your level of alcohol consumption? None Information not available 12/02/2020 Are you currently employed? No Information not available 12/02/2020 Are you able to walk? YESWOREST Information not available 12/02/2020 Are you able to care for yourself? Yes [email or web address] Information n ot available 02/08/2022 Do you have difficulty dressing or bathing? No [email or web address] Information not available 02/08/2022 What is your exercise level? Occasional Information not available 12/02/2020 Mental Status Question Answer Note LastModified by Organization D etails LastModified Time Do you feel stressed (tense, restless, nervous, or anxious, or unable to sleep at night)? [id number] Information not available 12/02/2020 Family History Relationship Description Onset Age of this Age Resolved Age Notes LastModified by Organization Details LastModified Time Paternal Grandmother Malignant neoplasm of bone Not available 09/03 10:43:23 Medical History Condition Response Allergies (Food, seasonal, environmental ) N Other N Drug/Latex Allergies/Reactions N Blood Transfusion N Breast Cancer N Dermatologic Disorders N Lung Disease N Defects or Inherited Disease N Breast Problem N Gestational Diabetes N Hematologic disorders N Anesthesia Complications N History of STI Y Deep Vein Thrombosis N Polycystic ovary syndrome N Anxiety Disorder N Autoimmune disease N Arthritis N Polyps N Infertility N Acid Reflux (GERD) N History of abnormal pap N Cancer N Varicosities N Stroke N Neurologic/Epilepsy N Endometriosis N High Cholesterol N Fibromyalgia N Headaches N Kidney Disease N Heart Problems N Thyroid Problems N Kidney or Bladder Problems N GI Problems N Eating Disorder [...] SNOMED-CT Code Diagnosis ICD10 Code Diagnosis Note [id number] Monica Lam [place] [address] [address] 12/02/2020 12:16:13 12/02/2020 16:41:00 Pain in pelvis [id number] R10.2 We agreed to updated TVUS and f/u visit. STD/Vagini tis testing sent. Needs to consider updated serum std panel. Reproducti ve care management [id number] Z31.9 We agreed to pursue issue with pelvic pain first. Then, if still having issues with achieving we can refer to Nikki Mar CNM/JAGDEEP. [id number] Nain Azevedo MD [place] [address],[place] [address] 12/14/2020 11:17:15 12/14/2020 12:10:06 Pain in pelvis [id number] R10.2 [id number] Monica Lam [facility] [address],[place] [address] 12/15/2020 12:17:49 12/15/2020 15:57:45 Pain in pelvis [id number] R10.2 TVUS reviewed We agreed to MD [...] this patient s visit, including available hand sheet metal installer upon arrive, temperatur e check and being asked a series of screening questions. All staff wore face coverings during this encounter, as well as provided additional cleaning and sanitizing of all surfaces, including counter-to ps, pens, chairs, door handles, light switches, etc, prior to and following the patient s visit. [id number] Nain Azevedo MD [place] [address],[place] [address] 12/16/2020 17:09:09 12/17/2020 10:59:22 Lesion of endometrium [id number] 9101 N85.9 this patient is a 20-year-ol [...] making this decision about the procedure/ surgery. [id number] Nain Azevedo MD [place] [address],[facility] [place] [address] 03/21/2021 12:23:19 03/21/2021 16:43:05 Lesion of endometrium [id number] 9101 N85.9 hysterosco py was performed. The lesion within the endometriu m was identified . It appeared benign. It was transected with scissors. It was sampled with curettage. The patient tolerated the procedure well. [id number] Nain Azevedo MD [place] [address],[place] [address] 03/28/2021 16:07:23 03/28/2021 17:03:42 Abnormal uterine bleeding [id number] 9100 N93.9 this patient is a 20-year-ol [...] 15 minutes face-to-fa ce discussing complex topic. [id number] Nain Azevedo MD [place] [address] [address] 06/20/2021 10:06:15 06/20/2021 11:29:52 Abnormal uterine bleeding [id number] 9100 N93.9 This patient is a 20-year-ol [...] weeks to discuss infertilit y evaluation . [id number] Nain Azevedo MD [place] [address],[place] [address] 07/07/2021 15:27:25 07/08/2021 09:08:52 Polycystic ovary syndrome [id number] E28.2 this patient is a 20-year-ol d [...] to the see me in 2 months. [id number] Nain Azevedo MD [place] [address],[place] [address] 09/14/2021 17:14:56 09/14/2021 18:12:33 Polycystic ovary syndrome [id number] E28.2 this patient is a 20-year-ol d [...] her abnormal uterine bleeding in 3 months. [id number] Chikis Mar CNM [place] [address],[place] [address] 02/08/2022 16:46:54 02/08/2022 17:19:31 Trying to conceive [id number] Z31.9 [id number] Chikis Mar CNM [place] [address],[place] [address] 06/02/2022 12:13:40 06/02/2022 13:37:11 Anovulation [id number] N97.0 Health Concerns Section Related Observation LastModified by Organization Detai ls LastModified Time None Recorded Concern Status LastModified by Organization Details LastModified Time None Recorded Advance Directives Directive None Recorded Payers Encounter Date Sequence Insurance Name Policy Number Policy Silva Covered Member ID Silva Member ID Guarantor Name 06/20/2021 1 [facility] (MEDICAID HMO) [id number] [facility] [id number] [facility] 07/07/2021 1 [facility] (MEDICAID HMO) [id number] [employer] [id number] [employer] G[employer] 09/14/2021 1 [facility] (MEDICAID HMO) [id number] 0003 [employer] Gearing [id number] Abbey Gearing 02/08/2022 1 [facility] (MEDICAID HMO) [id number] 0003 Abbey Gearing [id number] Abbey Gearing 06/02/2022 1 [facility] (MEDICAID HMO) [id number] 0003 Abbey Gearing [id number] Abbey Gearing Notes Date Note Type Note [...] for infertility. We spent over 25 minutes btgr-af-hujy. I spent 45 minutes on her case in total. She will obtain laboratory values today. She may return in 4-5 days for repeat progesterone if her progesterone is negative. I will see her again in 2 weeks to discuss infertility evaluation. Nain Azevedo MD [address], [place], [address], [facility] 06/20/2021 11:07:38 07/07/2021 text/html this patient [...] months. Nain Azevedo MD [address], [place], [address], [facility] 07/07/2021 20:43:15 09/14/2021 text/html this patient [...] months. Nain Azevedo MD [address], [place], [address], [facility] 09/14/2021 18:06:58 02/08/2022 text/html trying to concei ve x 1 year, hx in 2017, diagnosed pcos by dr azevedo and put on metformin, upset stomach too much and stopped. cycles are regular and does get positive ovulation kits monthly, no hx semen analysis Chikis Mar CNM [address], [place], [address], [facility] 02/08/2022 17:15:47 06/02/2022 text/html hx pcos, wants t o try and conceive, has not had any positive ovulation, would like to do SA and start medication, cycles monthly Chikis Mar CNM [address], [place], [address], [facility] 06/02/2022 12:39:31 OBGyn Episode Ob Episode Information Episode Created Date Number of Fetuses Patient Bloodtype Patient rh Status Prepregnancy Weight lbs Domestic Partner Domestic Partner Phone Father Name Web Operations Administrator Status 09/03/19 21 1 CLOSED Fetus Data [...]
--- OUTSIDE RECORDS SUMMARY | 2025-01-01 15:26 | XMS_ITS | Referral Summary ---
Author Organization [facility] Address [address] [place] [address] Care Team Providers Care Dredge Pipe Installer Name Role Phone Carlita Lara NP Primary Care Provider [phone] Encounters Date Type Department Care Team Description 10/15/2024 2:34 PM CDT - 10/15/2024 11:59 PM CDT Hospital Encounter [facility] Emergency, Room R Discharge Disposition: Discharge to home or self care 10/15/2024 2:50 PM CDT - 10/15/2024 3:19 PM CDT Emergency [facility] Emergency Department [address] [place] [address] Discharge Disposition: Left without being seen 10/15/2024 1:02 PM CDT - 10/15/2024 1:15 PM CDT Emergency [facility] Emergency Department [address] [place] [address] Discharge Disposition: Left without being seen from [...] on file Legal Sex 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
--- OUTSIDE RECORDS SUMMARY | 2025-01-01 15:26 | XMS_ITS | Data Portability ---
Author Organization [facility] Teja Rhodes Address [address] [place] [address] Care Team Providers Care Apartment House Manager Name Role Phone DEEPIKAKIRAN SHANKAR Primary Care Provider Assessment No assessment recorded. Plan of Treatment Reminders Order Date Submit Date Provider Last Modified By Organization Details Last Modified Time Details Appointments None recorded. Lab rapid SARS CoV 2 Ag, QL IA, respiratory specimen 2021 022 CAMMIE In-Office Order, Internal Use Only DO Not Attach Compendium DO Not Attach Compendium, Do Not Delete/merge, [id number] 2 15:30:27 rapid SARS CoV 2 Ag, QL IA, respiratory specimen 2021 022 [email or web address] In-Office Order, Internal Use Only DO Not Attach Compendium DO Not Attach Compendium, Do Not Delete/merge, [id number] 2 16:13:33 HbA1c (hemoglobin A1c), blood 2019 020 MOJAVE [facility], [address], [place], [address], 0 16:09:27 HIV 1+2 AB + HIV 1 p24 Ag, qualitative immunoassay , serum 2019 020 CAMMIE [facility], [address], [place], [address], 0 16:09:28 RPR (rapid plasma reagin), serum 2019 020 MOJAVE [facility], [address], [place], [address], 0 16:09:28 CT + NG + TV, DNA, urine/swab 2019 020 MOJAVE [facility], [address], [place], [address], 0 16:09:27 TSH + free T4, serum 2019 020 MOJAVE [facility], [address], [place], [address], 0 16:09:26 Referral nutritionis t/dietitian referral [address], [address], [place], [address], 2 09:31:53 Procedures None recorded. Surgeries None recorded. Imaging XR, finger(s), 2 or more view 2021 [facility], [facility], [place], [address], 19:28:38 Medication Orders dextrometho marshal-umesh enesin ER 60 mg-1,200 mg tab,extend release,12h r 2021 [email or web address] [facility]14, [address] [place] [address], [place], [place], [id number], 2 15:55:27 Medrol (Juan Alberto) 4 mg tablets in a dose pack 2021 [facility] #41907, [address] [facility], [place], [place], [id number], 2 14:30:50 ibuprofen 600 mg tablet 2021 [facility] #70020, [address] [facility], [place], [place], [id number], 16:41:49 Multivitami ns 28 mg iron-800 mcg tablet 2021 022 CAMMIE [facility]20, [address] [facility], [place], [place], [id number], 16:41:28 Patient TargetsNo targets recorded. Patient Instructions Encounter Date Encounter Id Patient Instructions Last Modified By Organization Details Last Modified Time 06/08/2020 [id number] safer sex: care instructions Not available 06/08/2020 16:29:50 12/07/2021 [id number] polycystic ovary syndrome: care instructions Not available 12/08/2021 09:31:41 03/15/2022 [id number] Reviewed the following recommendations: -Stay home and [...] has been 10 days since symptoms started. [email or web address] Not available 03/15/2022 15:55:27 Reason for Referral Education Paraprofessional/dietitian Refer ral for Polycystic ovary syndrome Referring Physician: Kiran Cabrera, Iso Coordinator, Encounter Date: 12/07/2021 Results Created Date Observation Date Name Description Value Unit Range Abnormal Flag Note LastModifiedBy Organization Detail LastModifiedTime 06/17/2006/18/2020 TSH + free T4, serum TSH 2.290 uIU/m L 0.450- 4.500 Not Available [facility] ([facility]) [address] [facility], [place], [address], 06/19/2020 16:09:26 06/17/20 20 06/18/2020 TSH + free T4, serum T4,free(dire ct) 1.22 NG/dL 0.93-1 .60 Not Available [facility] ([facility]) [address] [place], [address], 06/19/2020 16:09:26 06/17/20 20 06/19/2020 CT + NG + TV, DNA, urine /swab chlamydia by YVES Negati ve negati ve Not Available [facility] ([facility]) [address] [place], [address], 06/19/2020 16:09:26 06/17/2006/19/2020 CT + NG + TV, DNA, urine /swab gonococcus by YVES Negati ve negati ve Not Available [facility] ([facility]) [address] [place], [address], 06/19/2020 16:09:26 06/17/20 20 06/19/2020 CT + NG + TV, DNA, urine /swab trich vag by YVES Negati ve negati ve Not Available [facility] ([facility]) [address] [place], [address], 06/19/2020 16:09:26 06/17/2006/18/2020 HbA1c (hemo globi n A1c), blood hemoglobin A1C 5.6 % 4.8-5. 6 Predi abete s: 5.7 - 6.4 Diabe ayanna: >6.4 Glyce angela contr ol for adult s with diabe ayanna: <7.0 Not Available [facility] ([facility]) [address] [facility], [place], [address], 06/19/2020 16:09:27 06/17/2006/18/2020 RPR (rapi d plasm a reagi n), serum RPR Non Reacti ve non reacti ve Not Available [facility] ([facility]) [address] [place], [address], 06/19/2020 16:09:28 06/17/2006/18/2020 HIV 1+2 AB + HIV 1 p24 Ag, quali tativ e immun oassa y, serum HIV screen 4TH generation wrfx Non Reacti ve non reacti ve Not Available [facility] ([facility]) [address] [facility] [facility], [place], [address], 06/19/2020 16:09:28 01/14/20 22 01/13/2022 rapid SARS CoV 2 Ag, QL IA, respi rator y speci men rapid SARS CoV 2 Ag, QL IA, respiratory specimen negati ve Not Available In-Office Order Internal Use Only DO Not Attach Compendium DO Not Attach Compendium, Do Not Delete/merge, [id number] 01/13/2022 15:35:27 03/13/20 22 03/13/2022 rapid SARS CoV 2 Ag, QL IA, respi rator y speci men rapid SARS CoV 2 Ag, QL IA, respiratory specimen positi ve Not Available In-Office Order Internal Use Only DO Not Attach Compendium DO Not Attach Compendium, Do Not Delete/merge, [id number] 03/13/2022 15:18:59 02/20/20 21 02/19/2021 XR, chest No observ ation record ed. [address] (Imaging) [address] [place] [address] [place] [address], [phone], 02/23/2021 14:15:26 12/08/19 22 12/07/2021 XR, finge r(s), 2 or more view No observ ation record ed. [address] [place] [address], [address], 12/08/2021 14:50:19 Result Notes None recorded. Problems Name Problem SNOMED Code Status Onset Date Resolution Date Notes Provider Name and Address Organization Details Recorded Time Attention deficit hyperactivi ty disorder 591106557 Active Daily Pepe [place] null, [place] [facility] 5 14:22:53 Otitis media 42731169 Completed 11/27/2019 SEB IRVING Attn: Jb g,[address] [facility], [place], [address], [place] [facility] 0 15:36:36 Pharyngitis 709359464 Completed 11/27/2019 SEB IRVING Attn: Jb simon,[address] [facility], [place], [address], [facility] [place] 0 15:36:41 Problem Notes None recorded. Procedures Surgical History Date Name Laterality Status Provider Name and Address Organization Details Recorded Time 1 hysteroscopy completed Rachell Andrews [place] [facility] 12/07/2021 16:09:56 0 Tonsillectomy completed Daily Pepe MA [facility] 09/17/2014 14:22:53 Adenoidectomy completed Daily camargo MA [facility] 07/25/2017 14:14:27 Imaging Results None recorded. Procedure Notes None [...] 2 161.29 cm 98 % 39.1 kg/m2 935874. 69 g 92 /min 98 % 98 % 118 mm[Hg] 78 mm[Hg] Rachell Andrews [place] [facility] 2 16:12:12 Social History Question Answer Notes LastModified by Organizat ion Details LastModified Time Tobacco Smoking Status Current Every Day Smoker lucy once in a while Rachell Andrews [place] null, [place] [facility] 12/07/2021 16:10:38 Animal Exposure? Yes Dog [email or web address] Informat ion not available 09/17/2014 Do You Wear A Helmet When Biking? No [email or web address] Information not available 09/17/2014 What Is Your Level Of Caffeine Consumption? Heavy Information not available 04/19/2020 What Type Of Rod Bending Machine Operator Do You Use? None [email or web address] Information not available 09/17/2014 What Type Of Diet Are You Following? REGULAR [email or web address] Information not available 09/17/2014 Which Illicit Or Recreational Drugs Have You Used? N/a Information not available 04/19/2020 Have There Been Any Changes To Your Family Or Social Situation? Yes Pt Had A Baby At Age 17. [email or web address] Information not available 11/19/2018 Are There Any Guns Present In Your Home? No [email or web address] Information not available 04/08/2019 Hard Of Hearing Or Deaf In One Or Both Ears? No Information not available 04/19/2020 What Is Your Home Situation? Other Lives With Boyfriend, Sister, And Pt Baby [email or web address] Information not available 09/17/2014 Do You Use Insect Repellent Routinely? Yes [email or web address] Information not available 09/17/2014 Legally Blind In One Or Both Eyes? No Information not available 04/19/2020 Live Alone Or With Others? With Others Information not available 04/19/2020 What Was The Date Of Your Most Recent Tobacco Screening? 12/07/2021 Information not available 12/07/2021 How Many Children Do You Have? 1 Information not available 03/18/2020 What Is Your Parents' Marital Status? Unmarried [email or web address] Information not available 09/17/2014 Pool Exposure No Information not available 09/17/2014 Do You Have Any Siblings? 1 Sister 1 Brother [email or web address] Information not available 09/17/2014 Do You Have Smoke And Carbon Monoxide Detectors In Your Home? Yes [email or web address] Information not available 09/17/2014 Are You Passively Exposed To Smoke? Yes Inside Smokers [email or web address] Information not available 09/17/2014 How Much Tobacco Do You Smoke? 0.5 PPD Information not available 12/07/2021 What Types Of Sporting Activities Do You Participate In? None Information not available 02/24/2020 General Stress Level Low Information not available 03/18/2020 Do You Use Sunscreen Routinely? Yes [email or web address] Information not available 09/17/2014 On What Date Was Tobacco Cessation Counseling Provided? 12/07/2021 Information not available 12/07/2021 How Many Years Have You Smoked Tobacco? 1 Information not available 11/27/2019 Sex: Unknown Functional Status Question Answer Note LastModified by Organizat ion Details LastModified Time Do you or have you ever used smokeless tobacco? Never used smokeless tobacco Information not available 11/27/2019 Are you able to care for yourself? Yes Information not available 04/19/2020 Do you or have you ever used e-cigarettes or vape? Never used electronic cigarettes Information not available 11/27/2019 What is your exercise level? None [email or web address] Information not available 07/25/2017 Mental Status Question Answer Note LastModified by Organization D etails LastModified Time Are you or have you been involved with bullying? No [email or web address] Information not available 09/17/2014 Family History Relationship Description Onset Age of this Age Resolved Age Notes LastModified by Organization Details LastModified Time Unspecified Relation Diabetes mellitus [email or web address] Not available 2014 14:22:53 Unspecified Relation Hypercholest erolemia [email or web address] Not available 2014 14:22:53 Unspecified Relation Family history of malignant neoplasm [email or web address] Not available 2014 14:22:53 Father No current problems or disability Not available 07/25 14:12:08 Mother No current problems or disability [email or web address] Not available 07/25 14:12:08 Medical History Condition Response Coronary Artery Disease N Other N Atrial Fibrillation N High Blood Pressure N Thyroid Problems N Kidney or Bladder Problems N Depression N COPD N Blood Clots N GI Problems N Skin Problems N Anemia N Heart Attack (NM) N Diabetes N Anxiety Disorder N Muscle, Joint, or Bone Problems N Seizures/Epilepsy N Acid Reflux (GERD) N Cancer N Stroke N Allergies N Asthma N High Cholesterol N Hepatitis N Liver Disease N Headaches N Osteoporosis N Heart Failure N Gynecological History Statement/Question Response Flow Moderate [...] Time Meningococcal MCV4O 8 completed Not Available [facility] 08/23/2019 02:49:14 meningococcal B, OMV 8 completed Not Available [facility] 08/23/2019 02:51:06 Influenza, split virus, quadrivalent, PF 8 completed Not Available [facility] 08/23/2019 02:36:30 Hib, unspecified formulation 2 completed [place] [facility] 09/17/2014 08:38:51 pneumococcal conjugate PCV 7 4 [place] [facility] 09/17/2014 08:38:51 Hep B, adolescent or pediatric 2 [place] [facility] 09/17/2014 08:38:51 Tdap 2 [place] [facility] 09/17/2014 08:38:51 meningococcal MCV4, unspecified formulation 3 [place] [facility] 09/17/2014 08:38:51 DTaP 2 completed Daily [place] [facility] 09/17/2014 08:38:51 IPV 2 completed Daiyl [place] [facility] 09/17/2014 08:38:51 DTaP 2 completed [place] [facility] 09/17/2014 08:38:51 MMR 4 completed Daily [place] [facility] 09/17/2014 08:38:51 DTaP 2 completed Daily [place] [facility] 09/17/2014 08:38:51 IPV 2 completed Daily [place] [facility] 09/17/2014 08:38:51 influenza, unspecified formulation 3 completed Daily Pepe MA [...] 08:38:51 Hib, unspecified formulation 2 completed Daily Mosher[place]JESS[place] [facility] 09/17/2014 08:38:51 influenza, unspecified formulation 0 completed Daily [place] [facility] 09/17/2014 08:38:51 influenza, unspecified formulation 1 completed Daily [place] [facility] 09/17/2014 08:38:51 pneumococcal conjugate PCV 7 3 completed Daily [place]ESS[place] [facility] 09/17/2014 08:38:51 Hep B, adolescent or pediatric 2 completed [place] [facility] 09/17/2014 08:38:51 DTaP 7 completed Daily Pepe [place] [facility] 09/17/2014 08:38:51 IPV 3 completed Daily [place]so[place]JESSIE [place] [facility] 09/17/2014 08:38:51 MMR 6 completed Daily Moshervolodymyr [place] [facility] 09/17/2014 08:38:51 Hep B, adolescent or pediatric 0 completed Daily [place] [facility] 09/17/2014 08:38:51 Hep A, ped/adol, 2 dose 5 completed Daily Pepe [place] [facility] 09/17/2014 08:38:51 Past Encounters Encounter ID Performer Location Encounter Start Date Encounter Closed Date Diagnosis/Indication Diagnosis SNOMED-CT Code Diagnosis ICD10 Code Diagnosis Note [id number] MD Justyn Rebollar (Peds) [address] [place] [address] 09/17/2014 13:49:16 09/17/2014 14:45:38 Otitis media 42279997 Avoid water in ears. Can use decongesta nt to relieve pressure. Amoxicilli n bid for 10 days ERX. Pharyngitis 187633398 Owens pportive treatment otc recommende d. Hand hygiene. [id number] MD Justyn Duque (Peds) [address] [place] [address] 07/25/2017 13:45:04 07/27/2017 10:44:48 Well child 064799531 Z00.129 discussed routine adolescent carediscus sed safety and home schoolingd iscussed healthy weight with diet and exercise declined HPV. discussed importance of control which pt will be starting. Obesity 407264559 E66.9 weight reduction with diet and exercise Increased blood pressure 01186097 R03.0 RTC 1 month to recheck. work on diet and exercise Poor socia l circumstances 912383115 Z60.9 Attention deficit hyperactivity disorder 267439954 F90.9 rtc 1 month to recheck BP and evaluate results. [id number] MD Justyn Duque (Peds) [address] [place] [address] 09/04/2017 11:13:45 09/05/2017 08:33:24 Attention deficit hyperactivity disorder 681368008 F90.9 pt states her focus is improved on medication . [id number] MD Justyn Duque (Peds) [address] [place] [address] 11/27/2017 13:44:16 11/28/2017 09:49:40 Attention deficit hyperactivity disorder 193579137 F90.9 pt states her focus is improved on medication . when pt starts home schooling she may require a half dose at noon. will follow. Active or passive immunization 130014643 Z23 Infestatio n by Sarcoptes scabiei al hominis 712775421 B86 [id number] MD Justyn Duque (Peds) [address] [place] [address] 05/29/2018 16:14:19 05/31/2018 16:25:04 Active or passive immunization 972975264 Z23 Attention deficit hyperactivity disorder 855348635 F90.9 pt states her focus is improved on medication . pt states she is not having any problems with insomnia. [id number] MD Justyn Duqeu (Peds) [address] [place] [address] 11/14/2018 11:25:37 11/15/2018 13:15:23 Obesity 677020876 E66.9 weight reduction with diet and exercise Family geovanna nning education 053296829 Z30.02 discussed with t importance of OCP and condom use in preventing STD and . pt's response is oh well we dont want to use condoms and we dont want to prevent anything. Nausea 081378230 R11.0 likely due to viral illness. reassuranc e. rest, push fluids, etc [id number] [facility] [address] [place] [address] 11/19/2018 15:48:52 11/20/2018 10:39:51 Attention deficit hyperactivity disorder 195744304 F90.9 pt states her focus is improved on medication . pt states she is not having any problems with insomnia. Chlamydial infection 105 079401 A74.9 Vitamin D deficiency 347 06558 E55.9 [id number] [facility] [address] [place] [address] 04/08/2019 16:35:37 04/09/2019 09:53:43 Attention deficit hyperactivity disorder 884406767 F90.9 pt states her focus is improved on medication . pt states she is not having any problems with insomnia. will do refill when pt returns on 04-14 [id number] [facility] [address] [place] [address] 11/21/2019 15:35:44 11/26/2019 10:25:55 Attention deficit hyperactivity disorder 463401204 F90.9 pt states her focus is improved on medication . pt states she is not having any problems with insomnia. [id number] SEB IRVING [facility] [address] [place] [address] 11/27/2019 09:37:31 12/01/2019 09:56:32 Allergic rhinitis 64941273 J30.9 Patient has has allergies and post nasal drip. This may be casing patient to have chronic dry cough x 2 months. Avoid triggers, take medication as prescribed . - trial of cetirizine Cough 07508095 R05 chronic dry cough x weeks. Does have allergies and not currently on anything. has never been told she has asthma in the past-trial of albuterol [id number] SEB IRVING [facility] [address] [place] [address] 12/09/2019 14:06:20 12/10/2019 11:59:48 Allergic rhinitis 62557209 J30.9 Patient has has allergies and post nasal drip. This may be casing patient to have chronic dry cough x 2 months. Avoid triggers, take medication as prescribed . - trial of cetirizine - stop smoking- f/u prn Obesity 758011892 E66.9 patient weights 240lbs. Has trouble losing weight. Is not folling any diets and only drinks sweetened drinks. Not exercising . - labs- 30 mins of excercise 5x week- discussed diet and portions. She is to start by gibing up soda/sweet drinks. may do crystal lyte.- f/u prn [id number] SEB IRVING [facility] [address] [place] [address] 12/12/2019 09:52:49 12/16/2019 03:46:34 [id number] SEB IRVING [facility] [address] [place] [address] 12/24/2019 15:41:01 12/25/2019 11:34:53 Attention deficit hyperactivity disorder 616084719 F90.9 patient has been taking adderall for ADHD for many years. She is doing well on medication without any side effects. denies palpitatio n, cp, sob, weight loss, decreased appetite. [id number] SEB IRVING [facility] [address] [place] [address] 01/23/2020 14:32:31 01/27/2020 06:10:49 Hypothyroidism 87246424 E03.9 TSH 10.9. started on levothyrox ine 50 mcg. Patient needs to have labs taken. She is taking medication in moring one hour before food. - continue medication - obtain labs [id number] SEB IRVING [facility] [address] [place] [address] 02/24/2020 09:46:46 02/25/2020 09:44:55 Hypothyroidism 62986258 E03.9 TSH 10.9. started on levothyrox ine 50 mcg. Patient needs to have labs taken. She is taking medication in moring one hour before food. - continue medication - obtain labs Attention deficit hyperactivity disorder 757781120 F90.9 patient has been taking adderall for ADHD for many years. She is doing well on medication without any side effects. denies palpitatio n, cp, sob, weight loss, decreased appetite. [id number] SEB IRVING [facility] [address] [place] [address] 03/18/2020 09:26:20 03/19/2020 08:47:03 Obesity 389340985 E66.9 patient weights 240lbs. Has trouble losing weight. Is not folling any diets and only drinks sweetened drinks. Not exercising . - labs- 30 mins of excercise 5x week- discussed diet and portions. She is to start by gibing up soda/sweet drinks. may do crystal lyte.- f/u prn [id number] SEB IRVING [facility] [address] [place] [address] 04/19/2020 11:07:32 04/21/2020 13:13:06 At increased risk of sexually transmitted infection 708775689 Z20.2 patient with recent exposure of chlamydia and completed treatment continues to have symptoms. She has had unprotecte d intercours e with same partner who was treated at different time. - labs, will treat prophylact ically after labs obtained.- UA- disucssed safe sex- need repeat testing in 3 months Urinary tr act infectious disease 63801478 N39.0 patient is having dysuria. Hypothyroidism 02532871 E03.9 TSH 10.9. started on levothyrox ine 50 mcg. Patient needs to have labs taken. She is taking medication in moring one hour before food. - continue medication - obtain labs [id number] [facility]B IRV[facility] [address] [place] [address] 06/08/2020 16:23:51 06/09/2020 08:38:27 Hyperglycemia 04089672 R73.9 patient checked glucose this morning and was >230. Worried about diabetes. Ate a lot of lasgna the night before. At [facility] risk of sexually transmitted infection 533941139 Z20.2 patient with recent exposure of chlamydia and completed treatment continues to have symptoms. She has had unprotecte d intercours e with same partner who was treated at different time. - labs, will treat prophylact ically after labs obtained.- UA- disucssed safe sex- need repeat testing in 3 months Urinary tr act infectious disease 51685190 N39.0 patient is having dysuria. Hypothyroidism 49974017 E03.9 TSH 10.9. started on levothyrox ine 50 mcg. Patient needs to have labs taken. She is taking medication in moring one hour before food. - continue medication - obtain labs [id number] SEB IRVING [facility] [address] [place] [address] 12/07/2021 15:47:42 12/08/2021 16:53:41 Trying to conceive 339372272 Z31.9 continue to follow OBGYN Pain in fi nger of left hand 2437888253 39736 M79.645 - rice- ibupfrofen - xray Polycystic ovary syndrome 592144574 E28.2 discussed diet in detail, increasing exercise to [address] continue with Dr Lofton [id number] Burton joseph MD [facility] [address] [place] [address] 01/13/2022 14:54:57 01/17/2022 09:03:20 Suspected COVID-19 768867119 Z20.906 [id number] Burton joseph MD [facility] [address] [place] [address] 03/13/2022 14:59:03 03/14/2022 10:08:28 Viral syndrome 718010056 B34.9 COVID positivept requesting phone visitprovi bhargavi tried calling pt 3x, phone number cannot take calls at this timewill keep as nurse visit [id number] Fabian Cao MD [facility] [address] [place] [address] 03/15/2022 13:55:35 03/16/2022 09:54:03 COVID-19 100199140 U07.1 Patient tested positive on 03/13/22.Sym ptoms began 03/10/22 which include sore throat, ear pain, nasal congestion , chest tightness and a productive cough.Per CDC guidelines patient may leave quarantine on 03/16/22 and must continue to wear a well fitting mask until 03/20/22.Seb mireles voiced understand ingPatient wanted to return to work sooner, but 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 and 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 wear a [...] Silva Member ID Guarantor Name 06/08/2020 1 [facility] (MEDICAID HM) [id number] 0003 Abbey Gearing [id number] Riya Gearing 12/07/2021 1 [facility] (MEDICAID HMO) [id number] 0003 Abbey Gearing [id number] Riya Gearing 01/13/2022 1 [facility] [place] (MEDICAID HM) [id number] 0003 Abbey Gearing [id number] Riya Gearing 03/13/2022 1 [facility] [place] (MEDICAID [place]) [id number] 0003 Abbey Gearing [id number] Riya Gearing 03/15/2022 1 [facility] [place] (MEDICA[place]) [id number] 0003 Abbey Gearing [id number] Riya [facility]earing Notes Date Note Type Note Provider Name and Address Organization Details Recorded Time 06/08/2020 text/html patient presents for lab work. She has elevated blood glucose of >200 fasting this morning and is concerned about diabetes. She has not had lab work done from last visit and wants it sent to [facility]. SEB IRVING Attn: [address] [place], [address], [facility] 06/08/2020 16:31:33 12/07/2021 text/html Abbey is a 21 YO F pmhxz adhd, PCOS presenting for finger pain and questions Right hand dominant patient with pointer and middle finger pain x 2 months. elbow started 3 weeks. . pointer finger worst on left hand. no medication for pain. 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 no numbness or tingling. pain is left elbow is constant. finger has worsened in last month. Patient follows Dr Lofton. Was given metformin for PCOS and advised weight loss. she has been with her boyfriend for years and has one child. She does not ce protection and has not been able to get . SEB IRVING Attn: [address] [place], [address], [facility] 12/08/2021 09:32:13 03/13/2022 text/html Pt presents for COVID test. SEB SMITH Attn: [address] [place], [address], [facility] 03/13/2022 16:12:31 03/15/2022 text/html COVID-19 Symptom s [...] below. Fabian Cao MD Attn: [address] [place], [address], [place] [facility] 03/30/2022 12:36:55 OBGyn Episode Ob Episode Information Episode Created Date Number of Fetuses Patient Bloodtype Patient rh Status Prepregnancy Weight lbs Domestic Partner Domestic Partner Phone Father Name Soft Mud Molder Status 07/25/20 17 1 CLOSED Fetus Data First Name Last Name Admitted to NICU Weight (g) Sex Living Outcome Pediatric Complications Fetus ID Race Codes Race Delivery Type Prematur [place] [id number] Craig Calculation Initial Craig Date Initial Exam [...]
--- OUTSIDE RECORDS SUMMARY | 2025-01-01 15:26 | XMS_ITS | Data Portability ---
Author Organization [employer] , [facility] Address [address] [place] [address] Assessment No assessment recorded. Plan of Treatment Reminders Order Date Submit Date Provider Last Modified By Organization Details Last Modified Time Details Appointments None recorded. Lab streptococc us group B, culture, unspecified specimen 2023 024 [facility], [address] [place], [address], 4 08:37:41 Referral gastroenter ologist referral 2024 025 [email or web address] 1 Otto Mccormick MD, [address] [place], [address], 5 14:50:44 Procedures None recorded. Surgeries None recorded. Imaging US, obstetric, follow-up 2023 024 [facility], [address] [place], [address], 4 19:30:09 Medication Orders ondansetron 4 mg disintegrat ing tablet 2024 025 [id number], [address], [place], [place], [id number], 5 16:05:52 Carafate 1 gram tablet 2024 025 [id number], [address], [place], [place], [id number], 16:06:40 Patient TargetsNo targets recorded. Patient Instructions Encounter Date Encounter Id Patient Instructions Last Modified By Organization Details Last Modified Time 10/16/2024 [id number] - Continue takin g omeprazole as prescribed; [...] vomiting. I recommended a referral to a veneer drier feeder for further investigation due to the severity [...] Not available 10/16/2024 16:24:01 Reason for Referral Kennel Supervisor Referral for Nausea and vomiting Referring Physician: Miriam Storm, NETWORK PROJECT MANAGER, Encounter Date: 10/16/2024 Results Created Date Observation Date Name Description Value Unit Range Abnormal Flag Note LastModifiedBy Organization Detail LastModifiedTime 06/23/20 24 06/25/2024 COMPR EHENS CHELLY METAB OLIC PANEL sodium 140 mmol/ L 136 - 145 normal Not Available [place], [address], 06/25/2024 12:48:43 06/23/20 24 06/25/2024 COMPR EHENS CHELLY METAB OLIC PANEL potassium 3.9 mmol/ L 3.5 - 5.1 normal Not [place], [address], 06/25/2024 12:48:43 06/23/20 24 06/25/2024 COMPR EHENS CHELLY METAB OLIC PANEL chloride 106 mmol/ L 98 - 107 normal Not Available [address], [address], 06/25/2024 12:48:43 06/23/20 24 06/25/2024 COMPR EHENS CHELLY METAB OLIC PANEL glucose 90 mg/dL 74 - 106 normal Not Available [address], [address], 06/25/2024 12:48:43 06/23/20 24 06/25/2024 COMPR EHENS CHELLY METAB OLIC PANEL carbon dioxide 23 mmol/ L 20 - 32 normal Not Available [address], [address], 06/25/2024 12:48:43 06/23/20 24 06/25/2024 COMPR EHENS CHELLY METAB OLIC PANEL calcium 8.8 mg/dL 8.5 - 10.1 normal Not Available [address], [address], 06/25/2024 12:48:43 06/23/20 24 06/25/2024 COMPR EHENS CHELLY METAB OLIC PANEL creatinine 0.42 mg/dL 0.60 - 1.00 low Not Available [address], [address], 06/25/2024 12:48:43 06/23/20 24 06/25/2024 COMPR EHENS CHELLY METAB OLIC PANEL eGFR 142 mL/mi n/1.7 3m2 >60 normal The eGFR is based on the CKD-E PI 2020 equat ion. To calcu late the new eGFR from a previ ous Creat inine or Cysta usha C resul t, go to https :[email or web address] grover.dami salazar/pr ofess ional s/kdo qi/gf r_cal culat or Not Available [address], [address], 06/25/2024 12:48:43 06/23/20 24 06/25/2024 COMPR EHENS CHELLY METAB OLIC PANEL AST 9 U/L 15 - 37 low Not Available [address], [address], 06/25/2024 12:48:43 06/23/20 24 06/25/2024 COMPR EHENS CHELLY METAB OLIC PANEL ALT 12 U/L 14 - 59 low Not Available [address], [address], 06/25/2024 12:48:43 06/23/20 24 06/25/2024 COMPR EHENS CHELLY METAB OLIC PANEL alk phos 117 U/L 46 - 116 high Not Available [address], [address], 06/25/2024 12:48:43 06/23/20 24 06/25/2024 COMPR EHENS CHELLY METAB OLIC PANEL albumin 2.7 g/dL 3.4 - 5.0 low Not Available [address], [address], 06/25/2024 12:48:43 06/23/20 24 06/25/2024 COMPR EHENS CHELLY METAB OLIC PANEL protein, total 6.2 g/dL 6.4 - 8.2 low Not Available [address], [address], 06/25/2024 12:48:43 06/23/20 24 06/25/2024 COMPR EHENS CHELLY METAB OLIC PANEL bilirubin, total 0.3 mg/dL 0.2 - 1.0 normal Not Available [address], [address], 06/25/2024 12:48:43 06/23/20 24 06/25/2024 COMPR EHENS CHELLY METAB OLIC PANEL urea nitrogen (BUN) 3 mg/dL 7 - 18 low Not Available [facility] [address] [place], [address], 06/25/2024 12:48:43 07/09/20 24 07/11/2024 STREP TOCOC CUS, GROUP B CULTU RE streptococcu s, group B culture SEE NOTE abnormal STREP TOCOC CUS, GROUP B CULTU RE Micro Numbe r: [id number] Test Statu s: Final Speci men Sourc e: Recto vag Speci men Quali ty: Adequ ate Resul t: Group B Strep tococ cus isola le Beta- hemol ytic strep tococ ci are [...] the anal sphin cter) . Not Available [facility] [address] [place], [address], 07/11/2024 08:37:41 08/05/20 24 08/05/2024 COMPR EHENS CHELLY METAB OLIC PANEL glucose 131 mg/dL 70-99 high Not Available [facility] (Lab) [place], [address], 08/05/2024 11:21:24 08/05/20 24 08/05/2024 COMPR EHENS CHELLY METAB OLIC PANEL BUN 4 mg/dL 7-18 low Not Available [facility] (Lab) [place], [address], 08/05/2024 11:21:24 08/05/20 24 08/05/2024 COMPR EHENS CHELLY METAB OLIC PANEL creatinine 0.44 mg/dL 0.55-1 .02 low Not Available [facility] (Lab) [address], [place], [address], 08/05/2024 11:21:24 08/05/20 24 08/05/2024 COMPR EHENS CHELLY METAB OLIC PANEL sodium 137 mmol/ L 136-14 5 Not Available [facility] (Lab) [address], [place], [address], 08/05/2024 11:21:24 08/05/20 24 08/05/2024 COMPR EHENS CHELLY METAB OLIC PANEL potassium 3.3 mmol/ L 3.5-5. 1 low Not Available [facility] (Lab) [address], [place], [address], 08/05/2024 11:21:24 08/05/20 24 08/05/2024 COMPR EHENS CHELLY METAB OLIC PANEL chloride 109 mmol/ L 97-115 Not Available [facility] (Lab) [address] [facility], [place], [address], 08/05/2024 11:21:24 08/05/20 24 08/05/2024 COMPR EHENS CHELLY METAB OLIC PANEL total CO2 21.0 mmol/ L 21-32 Not Available [facility] (Lab) [address] [place], [address], 08/05/2024 11:21:24 08/05/20 24 08/05/2024 COMPR EHENS CHELLY METAB OLIC PANEL calcium 8.6 mg/dL 8.5-10 .1 Not Available [facility] (Lab) [address] [place], [address], 08/05/2024 11:21:24 08/05/20 24 08/05/2024 COMPR EHENS CHELLY METAB OLIC PANEL total bilirubin 0.2 mg/dL 0.2-1. 2 THIS ASSAY IS NOT RECOM ELIZABETH D FOR PATIE NTS UNDER GOING TREAT MENT WITH ELTRO MBOPA G DUE TO THE POTEN TIAL FOR FALSE LY ELEVA LE RESUL TS. Not Available [facility] (Lab) [address], [place], [address], 08/05/2024 11:21:24 08/05/20 24 08/05/2024 COMPR EHENS CHELLY METAB OLIC PANEL total protein 6.0 g/dL 6.4-8. 2 low Not Available [facility] (Lab) [address], [place], [address], 08/05/2024 11:21:24 08/05/20 24 08/05/2024 COMPR EHENS CHELLY METAB OLIC PANEL albumin 2.3 g/dL 3.4-5. 0 low Not Available [facility] (Lab) [address], [place], [address], 08/05/2024 11:21:24 08/05/20 24 08/05/2024 COMPR EHENS CHELLY METAB OLIC PANEL AST 10 U/L 15-37 low Not Available [facility] (Lab) [address] [facility], [place], [address], 08/05/2024 11:21:24 08/05/20 24 08/05/2024 COMPR EHENS CHELLY METAB OLIC PANEL ALT 8 U/L 14-55 low Not Available [facility] (Lab) [address], [place], [address], 08/05/2024 11:21:24 08/05/20 24 08/05/2024 COMPR EHENS CHELLY METAB OLIC PANEL alk phosphatase 180 U/L 50-136 high Not Available [facility] (Lab) [address], [place], [address], 08/05/2024 11:21:24 08/05/20 24 08/05/2024 COMPR EHENS CHELLY METAB OLIC PANEL anion gap 7.0 mmol/ L 2-10 Not Available [facility] (Lab) [place], [address], 08/05/2024 11:21:24 08/05/20 24 08/05/2024 COMPR EHENS CHELLY METAB OLIC PANEL BUN creatinine ratio 9.0 6-26 Not Available [facility] (Lab) [place], [address], 08/05/2024 11:21:24 08/05/20 24 08/05/2024 COMPR EHENS CHELLY METAB OLIC PANEL A:g ratio 0.6 ratio 1.0-2. 0 low Not Available [facility] (Lab) One [facility], [place], [address], 08/05/2024 11:21:24 08/05/20 24 08/05/2024 COMPR EHENS [...] latin g drug doses . Not Available [facility] (Lab) [place], [address], 08/05/2024 11:21:24 08/05/20 24 08/05/2024 TYPE AND SCREE N ABO/Rh(D) O POSITI VE Not Available [facility] (Lab) One [facility] [place], [address], 08/05/2024 11:32:35 08/05/20 24 08/05/2024 TYPE AND SCREE N antibody screen NEGATI VE Not Available [facility] (Lab) [address], [place], [address], 08/05/2024 11:32:35 08/05/20 24 08/05/2024 TYPE AND SCREE N xm expiration 2024,[address] [facility] (Lab) [address] [facility], [place], [address], 08/05/2024 11:32:35 08/05/20 24 08/05/2024 UA REFLE X TO MICRO specimen type URINE CLEAN CATCH Not Available [facility] (Lab) [address] [facility], [place], [address], 08/05/2024 11:35:42 08/05/20 24 08/05/2024 UA REFLE X TO MICRO color LIGHT YELLOW Not Available [facility] (Lab) [address] [facility], [place], [address], 08/05/2024 11:35:42 08/05/20 24 08/05/2024 UA REFLE X TO MICRO clarity CLEAR Not Available [facility] (Lab) [address] [facility], [place], [address], 08/05/2024 11:35:42 08/05/20 24 08/05/2024 UA REFLE X TO MICRO specific gravity 1.011 1.001- 1.030 Not Available [facility] (Lab) [place], [address], 08/05/2024 11:35:42 08/05/20 24 08/05/2024 UA REFLE X TO MICRO pH, urine 6.5 5.0-9. 0 Not Available [facility] (Lab) [place], [address], 08/05/2024 11:35:42 08/05/20 24 08/05/2024 UA REFLE X TO MICRO leukocytes NEGATI VE neg Not Available [facility] (Lab) [place], [address], 08/05/2024 11:35:42 08/05/20 24 08/05/2024 UA REFLE X TO MICRO nitrite NEGATI VE neg Not Available [facility] (Lab) [place], [address], 08/05/2024 11:35:42 08/05/20 24 08/05/2024 UA REFLE X TO MICRO protein NEGATI VE mg/dL <[address] [facility] (Lab) [place], [address], 08/05/2024 11:35:42 08/05/20 24 08/05/2024 UA REFLE X TO MICRO glucose NORMAL mg/dL norm Not Available [facility] (Lab) [place], [address], 08/05/2024 11:35:42 08/05/20 24 08/05/2024 UA REFLE X TO MICRO ketone NEGATI VE mg/dL neg Not Available [facility] (Lab) [place], [address], 08/05/2024 11:35:42 08/05/20 24 08/05/2024 UA REFLE X TO MICRO urobilinogen NORMAL mg/dL norm Not Available [facility] (Lab) [address] [facility], [place], [address], 08/05/2024 11:35:42 08/05/20 24 08/05/2024 UA REFLE X TO MICRO bilirubin NEGATI VE mg/dL neg Not Available [facility] (Lab) [address] [facility], [place], [address], 08/05/2024 11:35:42 08/05/20 24 08/05/2024 UA REFLE X TO MICRO blood NEGATI VE neg Not Available [facility] (Lab) [address] [facility], [place], [address], 08/05/2024 11:35:42 08/05/20 24 08/05/2024 SYPHI LIS IGG IGM AB syphilis IgG IgM Ab NON-RE ACTIVE nr No serol ogic evide nce of syphi lis. No follo w-up neces massimo unles s clini alexandrea indic ated. Not Available [facility] (Lab) [address] [facility], [place], [address], 08/05/2024 11:42:20 08/05/20 24 08/05/2024 DRUGS OF ABUSE PANEL , URINE amphetamines , urine NEGATI VE neg Not Available [facility] (Lab) [address] [facility], [place], [address], 08/05/2024 12:11:12 08/05/20 24 08/05/2024 DRUGS OF ABUSE PANEL , URINE barbituates, urine NEGATI VE neg Not Available [facility] (Lab) [address] [facility], [place], [address], 08/05/2024 12:11:12 08/05/20 24 08/05/2024 DRUGS OF ABUSE PANEL , URINE benzodiazapi yenny, urine NEGATI VE neg Not Available [facility] (Lab) [place], [address], 08/05/2024 12:11:12 08/05/20 24 08/05/2024 DRUGS OF ABUSE PANEL , URINE cannabinoids /THC, urine POSITI VE neg abnormal Not Available [facility] (Lab) [place], [address], 08/05/2024 12:11:12 08/05/20 24 08/05/2024 DRUGS OF ABUSE PANEL , URINE cocaine, urine NEGATI VE neg Not Available [facility] (Lab) [place], [address], 08/05/2024 12:11:12 08/05/20 24 08/05/2024 DRUGS OF ABUSE PANEL , URINE methadone, urine NEGATI VE neg Not Available [facility] (Lab) [place], [address], 08/05/2024 12:11:12 08/05/20 24 08/05/2024 DRUGS OF ABUSE PANEL , URINE opiates, urine NEGATI VE neg Not Available [facility] (Lab) [place], [address], 08/05/2024 12:11:12 08/05/20 24 08/05/2024 DRUGS OF [...] mg/dL . RECOL LECTI ON IS CHRISTIE STED. AMPHE TAMIN E- 500 NG/ML JOS TURAT E- 200 NG/ML BENZO DIAZE PINES - 200 NG/ML THC- 50 NG/ML COCAI NE- 150 NG/ML METHA DONE- 300 NG/ML OPIAT E- 300 MG/ML PCP- 25 NG/ML Not Available [facility] (Lab) [place], [address], 08/05/2024 12:11:12 08/05/20 24 08/05/2024 DRUGS OF ABUSE PANEL , URINE creatinine, urine 80.9 mg/dL Not Available [facility] (Lab) [place], [address], 08/05/2024 12:11:12 08/05/20 24 08/05/2024 CREAT ININE , URINE creatinine, urine 79.1 mg/dL Not Available [facility] (Lab) [place], [address], 08/05/2024 17:26:16 08/05/20 24 08/05/2024 TOTAL PROTE IN, URINE total protein, urine 14.7 mg/dL <10 high Not Available [facility] (Lab) [place], [address], 08/05/2024 17:26:17 08/05/20 24 08/08/2024 SJS SURGI SHANICE PATHO LOGY [facility] atory Medic ine [address] [facility] [place] [address] Telep elly: [phone], exten noe [phone] Patho logy Repor t Surgi shanice Patho logy Repor t Name: BONNIE WAITE men #: [id number] Age: [birth year] (Age: 23) Locat ion: SEOWM IF Sex: F Proce dure Date: 08/05 Hospi shayla #: [id number] Date Recei april: Date Repor le: 025 Provi bhargavi: BEAR Chin MD [facility] e: Place nta Clini shanice Histo ry: G2, P2 at 39-6/ 7 [...] cm. It is eccen trica lly inser le, 5 cm from the edge of the [...] the cente r of the disc, occup amadna less than 5% of the total place ntal volum e. Repre senta tive tissu e is submi tted as follo ws: 1 - membr anes 2 - umbil ical cord 3 paren chyma to inclu de mater nal surfa ce and firm area 4 paren chyma to inclu de surfa ce. Gross exami natio n (when appli cable ) was perfo rmed at [facility], [address] [facility], [place] [address] . This case was inter prete d and jennifer d out at [facility], [address] [facility] [address] . Keren ctron icall y Jennifer d Out ENE GROSS MD Not Available [facility] (Lab) [place], [address], 08/08/2024 14:07:40 08/06/1908/06/2024 CBC WITH DIFF WBC 11.33 x10'3 /uL 4.5-11 .0 high Not Available [facility] (Lab) [place], [address], 08/06/2024 09:06:49 08/06/19 25 08/06/2024 CBC WITH DIFF RBC 3.49 x10'6 /uL 4.20-5 .40 low Not Available [facility] (Lab) [place], [address], 08/06/2024 09:06:49 08/06/19 25 08/06/2024 CBC WITH DIFF hemoglobin 10.1 g/dL 12.0-1 6.0 low Not Available [facility] (Lab) [place], [address], 08/06/2024 09:06:49 08/06/1908/06/2024 CBC WITH DIFF hematocrit 29.2 % 38.0-4 8.0 low Not Available [facility] (Lab) One [address] [facility], [place], [address], 08/06/2024 09:06:49 08/06/1908/06/2024 CBC WITH DIFF MCV 83.7 fL 81.0-9 9.0 Not Available [facility] (Lab) [address] [facility], [place], [address], 08/06/2024 09:06:49 08/06/1908/06/2024 CBC WITH DIFF MCH 28.9 pg 27.0-3 1.0 Not Available [facility] (Lab) [address] [facility], [place], [address], 08/06/2024 09:06:49 08/06/1908/06/2024 CBC WITH DIFF MCHC 34.6 g/dL 32.0-3 6.0 Not Available [facility] (Lab) [address] [facility], [place], [address], 08/06/2024 09:06:49 08/06/1908/06/2024 CBC WITH DIFF RDW 12.6 % 11.5-1 4.5 Not Available [facility] (Lab) [address] [facility], [place], [address], 08/06/2024 09:06:49 08/06/1908/06/2024 CBC WITH DIFF platelet count 134 x10'3 /uL 130-40 0 Not Available [facility] (Lab) [address] [facility], [place], [address], 08/06/2024 09:06:49 08/06/1908/06/2024 CBC WITH DIFF MPV 14.2 fL 9.3-12 .2 high Not Available [facility] (Lab) [address], [place], [address], 08/06/2024 09:06:49 08/06/1908/06/2024 CBC WITH DIFF diff type AUTOMA LE DIFFER ENTIAL Not Available [facility] (Lab) [address], [place], [address], 08/06/2024 09:06:49 08/06/1908/06/2024 CBC WITH DIFF neutrophils 73.4 % Not Available [facility] (Lab) [address], [place], [address], 08/06/2024 09:06:49 08/06/1908/06/2024 CBC WITH DIFF lymphocytes 16.6 % Not Available [facility] (Lab) [address], [place], [address], 08/06/2024 09:06:49 08/06/1908/06/2024 CBC WITH DIFF monocytes 7.7 % Not Available [facility] (Lab) [address], [place], [address], 08/06/2024 09:06:49 08/06/1908/06/2024 CBC WITH DIFF eosinophils 1.5 % Not Available [facility] (Lab) [address], [place], [address], 08/06/2024 09:06:49 08/06/1908/06/2024 CBC WITH DIFF basophils 0.4 % Not Available [facility] (Lab) [address], [place], [address], 08/06/2024 09:06:49 08/06/1908/06/2024 CBC WITH DIFF immature granulocytes 0.4 % Not Available [facility] (Lab) One [address] [facility], [place], [address], 08/06/2024 09:06:49 08/06/1908/06/2024 CBC WITH DIFF abs. neutrophils 8.32 x10'3 /uL 1.80-7 .70 high Not Available [facility] (Lab) [address] [facility], [place], [address], 08/06/2024 09:06:49 08/06/1908/06/2024 CBC WITH DIFF abs. lymphocytes 1.88 x10'3 /uL 1.00-4 .80 Not Available [facility] (Lab) [address] [facility], [place], [address], 08/06/2024 09:06:49 08/06/1908/06/2024 CBC WITH DIFF abs. monocytes 0.87 x10'3 /uL 0.24-0 .86 high Not Available [facility] (Lab) [address] [facility], [place], [address], 08/06/2024 09:06:49 08/06/1908/06/2024 CBC WITH DIFF abs. eosinophils 0.17 x10'3 /uL 0.04-0 .36 Not Available [facility] (Lab) [address] [facility], [place], [address], 08/06/2024 09:06:49 08/06/1908/06/2024 CBC WITH DIFF abs. basophils 0.05 x10'3 /uL 0.01-0 .08 Not Available [facility] (Lab) [place], [address], 08/06/2024 09:06:49 08/06/19 25 08/06/2024 CBC WITH DIFF abs. immature grans 0.04 x10'3 /uL 0.00-0 .49 Not Available [facility] (Lab) [address], [place], [address], 08/06/2024 09:06:49 06/23/20 24 06/23/2024 US, obste tric, follo w-up No observ ation record ed. awittler Maggie [address], [place], [address], 06/23/2024 16:40:37 07/09/20 24 07/09/2024 US, obste tric, follo w-up No observ ation record ed. jodierdavis Maggie [address], [place], [address], 07/13/2024 22:17:26 Result Notes None recorded. Problems Name Problem SNOMED Code Status Onset Date Resolution Date Notes Provider Name and Address Organization Details Recorded Time Pregnanc y 20018667 Completed 202310/16/2024 Steph [place], [place] [facility] IV 5 15:28:10 Hypereme sis gravidar um [id number] Completed Severe. Has presented to ER multiple [...] last visit 3 weeks ago. TRENTON Gurrola [address] [place], [address], [facility] [employer] [facility] IV 4 15:41:53 Eric benoit user [id number] Completed TRENTON Hampton [address] [facility], [place], [address], [facility] [employer] IV 4 13:08:56 Varicell a non-immu ne [id number] Completed Plan Varicella Vaccine postpartu m. TRENTON Gurrola [address] [place] [address], [phone], [facility] [employer] IV 4 15:41:30 Hypokale akhil [id number] Completed K+ 3.4 on 05/19/24. Rx for p.o. K+ given. --> Update 06/23/24: Repeat CMP drawn; results pending. Pt self admittedl y has been toleratin g K+ supplemen tation and has 3 doses left. Further POC pending lab result review. TRENTON Gurrola [address] [place] [address], [phone], [facility] [employer] IV 4 15:41:19 High risk pregnanc y [id number] Active Hx: [id number] 0L1, Delivery Methods: x 1. NOB labs: B+/RI/NRx 4. Last Pap: 08/2023 NILM. GTT: 129. GBS: ____. Aneuploid y screening : UNITY NIPT & MSAFP WNL. Anatomy Scan: Complete on 04/21/24 with [facility]. Elana Nava, TRENTON [address] [place] [address], [phone], [facility] [employer] IV 4 15:44:00 High risk pregnanc y [id number] Completed Hx: [id number] 0L1, Delivery Methods: x 1. NOB labs: B+/RI/NRx 4. Last Pap: 08/2023 NILM. GTT: 129. GBS: ____. Aneuploid y screening : UNITY NIPT & MSAFP WNL. Anatomy Scan: Complete on 04/21/24 with [facility]. TRENTON Gurrola [address] [place] [address], [phone], [facility] [employer] IV 4 15:44:00 Syncope [id number] Completed head laceratio n from trauma r/t syncope. Sutures removed by PCP in 05/2024. --> Update 06/23/24: lac intact, healing well, no erythema or drainage at site. TRENTON Gurrola [address] [place], [address], [facility] IV 4 15:42:11 Syncope [id number] Active head laceratio n from trauma r/t syncope. Sutures removed by PCP in 05/2024. --> Update 06/23/24: lac intact, healing well, no erythema or drainage at site. TRENTON Gurrola [address] [facility], [place], [address], [facility] IV 4 15:42:11 Obesity [id number] Completed BMI 36.9. GTT 129. U/S: 03/24 62.2%. TRENTON Gurrola [address] [place] [address], [phone], [place] [facility] IV 4 15:43:29 Obesity [id number] Active BMI 36.9. GTT 129. [place]/S: 03/24 62.2%. TRENTON Gurrola [address] [place] [address], [phone], [facility] IV 4 15:43:29 Uterine size for dates discrepa ncy [id number] Completed noted on 06/23/24. Repeat Growth/AF I: 27.8%, YUDELKA 9.83. TRENTON Gurrola [address] [place], [address], [place] [facility] IV 4 15:43:48 Uterine size for dates discrepa ncy [id number] Active noted on 06/23/24. Repeat Growth/AF I: 27.8%, YUDELKA 9.83. TRENTON Gurrola [address] [place], [phone], [facility] IV 4 15:43:48 Problem Notes None recorded. Procedures Surgical History Date Name Laterality Status Provider Name and Address Organization Details Recorded Time Date of Last Pap Smear completed Rosalie Rossi [facility] IV 08/08/2023 13:10:07 Remove tonsils and adenoids completed Jazmyn Ramirez [facility] IV 04/21/2024 16:55:14 Imaging Results None recorded. Procedure Notes None [...] Updated DateTime 5 160.02 cm 33.6 kg/m2 29515.8 3 g 97.4 [degF] 108 mm[Hg] 72 mm[Hg] Steph Hutchins [employer] IV 5 15:39:18 Date Recorded Body height Body mass index (BMI) Body weight Systolic blood pressure Diastolic blood pressure Provider Name and Address Organization Details Last Updated DateTime 07/09/2024 160.02 cm 36.5 kg/m2 95813.03 g 120 mm[Hg] 75 mm[Hg] Marky Corado [employer] IV 4 15:05:12 Date Recorded Body height Body mass index (BMI) Body weight Systolic blood pressure Diastolic blood pressure Provider Name and Address Organization Details Last Updated DateTime 07/14/2024 160.02 cm 37.2 kg/m2 74053.4 g 120 mm[Hg] 60 mm[Hg] Marky Corado [employer] IV 4 14:29:31 Date Recorded Body height Body mass index (BMI) Body weight Systolic blood pressure Diastolic blood pressure Provider Name and Address Organization Details Last Updated DateTime 07/23/2024 160.02 cm 37.6 kg/m2 30667.02 g 125 mm[Hg] 70 mm[Hg] Marky Mak [employer] 4 14:25:21 Date Recorded Body height Body mass index (BMI) Body weight Systolic blood pressure Diastolic blood pressure Provider Name and Address Organization Details Last Updated DateTime 08/04/2024 160.02 cm 37.6 kg/m2 26212.3 g 125 mm[Hg] 80 mm[Hg] Marky Mak [employer] 4 14:12:02 Social History Question Answer Notes LastModified by Organizat ion Details LastModified Time Tobacco Smoking Status Current Every Day Smoker Loren patel, [employer] 01/14/2024 12:38:29 Are You Blind Or Do You Have Difficulty Seeing? No [email or web address] Information not available 08/08/2023 Are You Deaf Or Do You Have Serious Difficulty Hearing? No [email or web address] Information not available 08/08/2023 What Type Of Diet Are You Following? REGULAR Information not available 01/14/2024 How Many Children Do You Have? 1 [email or web address] Information not available 08/08/2023 Are There Any Occupational Health Risks Where You Work? No Information not available 08/08/2023 What Is Your Relationship Status? Single [email or web address] Information not available 08/08/2023 Are You Sexually Active? Yes Information not available 08/08/2023 At What Age Did You Start Smoking Tobacco? 19 Information not available 01/14/2024 How Much Tobacco Do You Smoke? 0.5 PPD Information not available 01/14/2024 What Types Of Sporting Activities Do You Participate In? 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 4 Information not available 01/14/2024 Sex: Female Functional Status Question Answer Note LastModified by Organizat ion Details LastModified Time Do you use any illicit or recreational drugs? No [email or web address] Information not available 08/08/2023 Are you currently employed? Yes [email or web address] Information not available 08/08/2023 What is your exercise level? Moderate [email or web address] Information not available 08/08/2023 Mental Status None recorded. Family History Relationship Description Onset Age of this Age Resolved Age Notes LastModified by Organization Details LastModified Time Father No current problems or disability [email or web address] Not available 10/2023 13:11:04 Mother No current problems or disability [email or web address] Not available 10/2023 13:11:04 Medical History Condition Response Other Cancer N High Blood Pressure N Colon Cancer N Cytomegalovirus N Hyperthyroidism N Breast Cancer N Herpes (HSV) N Blood Transfusion N MRSA N Lung Cancer N Hypothyroidism N Depression N Incontinence N Panic Attacks N Neurological Disorder N Deep Vein Thrombosis N Anxiety Disorder N Autoimmune disease N Arthritis N Tuberculosis/Positive PPD N Shingles N Polycystic Ovarian Syndrome N Infertility N Cervical Cancer N Chlamydia N Hematuria N Stroke N Varicosities N Crohn's Disease N Seasonal allergies N Alzheimer's/Dementia N COPD/Emphysema N HPV/Genital Warts N Endometriosis N IBS (Irritable Bowel Syndrome) N History of Abnormal Pap N High Cholesterol N Liver Disease N Kidney Infection N Fibromyalgia N Ulcer N Kidney Disease N HIV N Gallbladder disease N Sickle Cell Disease/Trait N Von Willebrand disease N ADD/ADHD N Eating Disorder N Anemia N Diabetes Mellitus (non-insulin dependent ) N Ovarian Problems N Multiple Sclerosis N Gonorrhea N Frequent Urinary Tract infections N Osteopenia N Headaches/migraines N GERD (reflux) N Ovarian Cancer N Diabetes (insulin dependent) N Seizures/Epilepsy N Breast Problems N Fibroids N Heart Attack N Asthma N Lupus N Endometrial Cancer N Rubella N Blood Clotting Disorder N [...] SNOMED-CT Code Diagnosis ICD10 Code Diagnosis Note [id number] TRENTON Hampton [facility] [address] [place] [address] 08/08/2023 12:51:36 08/08/2023 13:45:54 Gynecologic examination 42173917 Z01.419 22y.o. here for annual exam. - Pap today - RTO PRN or annual Screening for malignant neoplasm of cervix 678347831 Z12.4 ASCCP guidelines reviewed with pt. Pap collected and sent. Further POC pending lab result review. Pt states understand ing of POC. Depression screening 171 228320 Z13.31 PHQ9: Negative. Pt educated on normal scoring. No further management needed. Female infertility 08627 08 N97.9 Will refer to [facility]. Discussed need for partner to have semen analysis since her HSG was normal, she is having regular cycles, and she is getting +OPK's [id number] PARMJIT HamptonJAGDEEP [address] [address] 12/06/2023 11:29:33 12/06/2023 11:54:59 Amenorrhea 30501330 N91.0 N91.1 Z32.00 UPT in office is positive. Pt educated on dietary recommenda tions, to take PNV daily, on Threatened Ab precaution s, and when to notify HCP/go to ER. Plan to F/U in 2 weeks for NOB visit. test positive 514173311 Z32.01 Unable to determine viabilityH CG todayGesta tional sac visualized intrauteri neWill RTO in 2 weeks for repeat scan [id number] Carlita LaraTRENTON [address] [address] 12/20/2023 11:47:54 12/20/2023 12:33:06 Normal 99504022 Z34.82 Additional diagnosis detail: Encounter for supervisio n of other normal , second trimester Gestation period, 7 weeks 76068195 Z3A.01 Additional diagnosis detail: 7 weeks gestation of Hyperemesi s gravidarum 88894405 O21.0 Finish Medrol PackContin ue Reglan and Promethazi ne [id number] TRENTON Hampton [facility] [address] [place] [address] 12/18/2023 10:52:17 12/18/2023 11:30:14 Nausea and vomiting 60067494 R11.2 Discussed need to finish Medrol packRx for Reglan sentStates Zofran is ineffectiv ePromethaz ine suppositor ies rx'd Moderate dehydration 059 5172989 105 E86.0 Discussed importance of fluid intake test positive 128778244 Z32.01 BSUS with FHT's at 132. 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 Patient states it is the only thing that helps her [id number] GUILLERMO ANDUJAR [facility] [address] [place] [address] 01/14/2024 12:34:08 01/14/2024 13:30:46 Gestation period, 10 weeks 93042954 Z3A.10 Normal 5157065 2 Z34.91 Pt comes in today for [...] Genetic Questions in OB Episode Done-- Accepts [facility]. Would like to know gender. Discussed logging on to the [facility] portal to find Gender Results-- PAP up to date --BMI at Confirmati on: 32.2 POC-- NOB labs done today-- Accepts [facility]-- PAP Up to Date-- Pre-Pregna ncy BMI: 32.2-- RTC 4 weeks Guide: Given and reviewed. Toxoplasmo sis precaution s reviewed. Reviewed office visit schedule during . Reviewed Quickening and normal FHTs. Greater than thirty minutes spent with patient in consultati on (>50% face-to-fa ce). Patient labs and notes were reviewed. Patient questions were answered. Additional patient care was coordinate d. screening 2437 02107 Z36.89 Carrier de tection, molecular genetics 6219935 Z14.8 Hyperemesi s gravidarum 11855196 O21.0 Pt educated on smaller/mo re frequent meals, pushing p.o. water intake by taking sips, and avoiding spicy/frie d foods. Advised against smoking marijuana in as it can have the opposite side effects.Af ter consulting with Dr. Lara patient will be sent to [facility] for direct admit to L&D for fluids and anti-emeti cs. Nicotine user 875910083 Z72.0 Marijuana user 442911344 F12.90 [id number] HETAL MOLINA DO [facility] [address] [place] [address] 02/11/2024 15:42:46 02/11/2024 17:08:48 Gestation period, 14 weeks 24239072 Z3A.14 Additional diagnosis detail: 14 weeks gestation of Normal 3814222 2 Z34.82 Pt is here for a [...] of other normal , second trimester Hyperemesis 872513919 R1 1.10 Patient reports improvemen t with regular use of reglan and Pepcid.- Reviewed diet changes to reduce acid (decrease tomatoes, chocolate, citrus juice, spicy foods), sleeping with torso elevated- Recommend Tums as needed [id number] HETAL MOLINA DO [address] [address] 03/04/2024 14:55:57 03/04/2024 15:58:29 Gestation period, 17 weeks 52987950 Z3A.17 Additional diagnosis detail: 17 weeks gestation of Normal 0177812 2 Z34.82 Additional diagnosis detail: Encounter for supervisio n of other normal , second trimester Screening for disorder 778764911 Z36.0 [id number] Chelsie Lara MD [address] [address] 03/24/2024 15:05:08 03/24/2024 16:17:41 Gestation period, 20 weeks 49257039 Z3A.20 screening 2437 03519 Z36.3 Normal 7756491 2 Z34.82 [id number] STEPH CHÁVEZ NP [address] [address] 04/21/2024 16:27:36 04/21/2024 17:30:21 Normal 65212414 Z34.82 Pt is here for a LEYDA [...] - 4 wks Gestation period, 24 weeks 209328741 Z3A.24 screening for malformation 253091289 Z36.3 Disorder o f left sciatic nerve 1351311794 67149 M54.32 [id number] Jordana Garza-Zhao savage, MIGUEL A [address] [address] 05/14/2024 10:04:36 05/14/2024 14:37:45 Hypokalemia 02960814 E87.6 [id number] Jordana savage, MIGUEL A [facility] [address] [place] [address] 05/19/2024 14:34:19 05/19/2024 16:21:48 Normal 15951161 Z34.83 screening 2437 17741 Z36.89 Acute hypokalemia 117706 03 E87.6 Gestation period, 28 weeks 14891008 Z3A.28 [id number] Jordana savage, MIGUEL A [facility] [address] [facility] [place] [address] 06/02/2024 14:19:19 06/02/2024 15:09:36 Gestation period, 35 weeks 83972283 Z3A.35 Normal 0199730 2 Z34.83 [id number] TRENTON Gurrola [facility] [address] [facility] [place] [address] 06/23/2024 14:04:39 06/24/2024 15:25:15 Normal 07897352 Z34.83 Patient continues taking Pepcid, reglan and Potassium. Continues to have vomiting occasional ly but much improved. Patient denies vaginal leaking, bleeding, cramping. Endorses movement.F ollow up in 2 weeks Hypokalemia 58392255 E87 .6 Varicella non-immune 371 327488 O09.899 Z28.39 Marijuana user 473134265 F12.90 Hyperemesi s gravidarum 41525550 O21.0 Gestation period, 33 weeks 67473060 Z3A.33 Uterine si ze for dates discrepancy 635405468 O26.643 [id number] Jordana savage, MIGUEL A [facility] [address] [facility] [place] [address] 07/09/2024 14:13:03 07/09/2024 15:21:35 screening 089288058 Z36.85 Normal 5784311 2 Z34.83 Morbid obesity 965597655 E66.01 [id number] Jordana savage, MIGUEL A [facility] [address] [facility] [place] [address] 07/14/2024 14:08:16 07/14/2024 15:02:03 screening 472107931 Z36.85 Normal 3984717 2 Z34.83 Gestation period, 36 weeks 51365390 Z3A.36 [id number] Jordana savage, MIGUEL A [facility] [address] [facility] [place] [address] 07/23/2024 14:18:32 07/23/2024 14:48:27 Gestation period, 38 weeks 54961360 Z3A.38 Normal 5683093 2 Z34.83 [id number] Jordana savage, MIGUEL A [facility] [address] [facility] [place] [address] 08/04/2024 14:03:44 08/04/2024 15:40:18 Normal 04711079 Z34.83 Gestation period, 39 weeks 64821892 Z3A.39 [id number] TRENTON NICK [facility] [address] [facility] [place] [address] 10/16/2024 15:08:32 10/17/2024 13:50:09 Nausea and vomiting 69601583 R11.2 Based on the patient's symptoms and [...] with current management . Bile-induc ed gastritis 50867736 K29.60 Health Concerns Section Related Observation LastModified by Organization Detai ls LastModified Time None Recorded Concern Status LastModified by Organization Details LastModified Time None Recorded Advance Directives Directive None Recorded Payers Insurance Date Sequence Insurance Name Policy Number Policy Silva Covered Member ID Silva Member ID Guarantor Name 10/15/2024 1 [facility] ([facility]) [employer]EX Bonnie Gearing [id number] Bonnie Gearing 05/21/2024 2 [facility] - MEDICA Bonnie Gearing [id number] Bonnie Gearing 07/23/2024 1 [facility] (HMO) ILONEX Bonnie Gearing [id number] Bonnie Gearing 10/16/2024 2 [place]: [facility] PUBLIC [facility] Bonnie Gearing [id number] Bonnei Gearing Notes Date Note Type Note Provider Name and Address Organization Details Recorded Time 07/09/2024 text/html Patient is here today for a routine OB visit. She is currently at 36 weeks gestation. vitamins: yes She has felt movement.She denies any complaints of the presence of vaginal bleed, leaking fluid, abdominal cramps, nausea, vomiting, headache or visual disturbances. Pt states she is still smoking and wants to know what affects the baby. Pt stated she cut back. No concerns today. Jordana Mercer CNM [facility] [place], [address], [employer] IV 07/09/2024 15:20:49 07/14/2024 text/html Patient is here today for a routine OB visit. She is currently at 6 7 8 9 10 11 12 1 3 14 15 16 17 18 1 9 20 21 22 23 24 2 5 26 27 28 29 30 3 1 32 33 34 35 36 3 7 38 39 40 41 36.5 weeks gestation. vitamins: yes She has felt movement. She denies any complaints of the presence of vaginal bleed, leaking fluid, abdominal cramps, nausea, vomiting, headache or visual disturbances. No concerns Jordana Mercer CNM [address] [place], [address], [employer] IV 07/14/2024 14:44:40 07/23/2024 text/html Patient is here today for a routine OB visit. She is currently at 38 weeks gestation. vitamins: no She has felt movement.She denies any complaints of the presence of vaginal bleed, leaking fluid, abdominal cramps, nausea, vomiting, headache or visual disturbances. No concerns Jordana Mercer CNM [address] [place], [address], [facility] [employer] IV 07/23/2024 14:45:41 08/04/2024 text/html Patient is here today for a routine OB visit. She is currently at 6 7 8 9 10 11 12 1 3 14 15 16 17 18 1 9 20 21 22 23 24 2 5 26 27 28 29 30 3 1 32 33 34 35 36 3 7 38 39 40 41 39.5 weeks gestation. vitamins: no She has felt movement.She denies any complaints of the presence of vaginal bleed, leaking fluid, abdominal cramps, headache or visual disturbances. Pt c/o nausea and vomiting. Jordana Mercer CNM [address] [place], [address], [facility] [employer] IV 08/04/2024 14:27:25 10/16/2024 text/html The patient is [...] with pain described as nausea-related. TRENTON NICK [address] [place], [address], [facility] [employer] IV 10/16/2024 19:15:18 OBGyn Episode Ob Episode Information Episode Created Date Number of Fetuses Patient Bloodtype Patient rh Status Prepregnancy Weight lbs Domestic Partner Domestic Partner Phone Father Name Armed Custom Protection Officer Status 12/20/19 24 1 O Positive CLOSED Fetus Data First Name Last Name Admitted to NICU Weight (g) Sex Living Outcome Pediatric Complications Fetus ID Race Codes Race Delivery Type [id number] Problems Problem Notes Previous at 16y/o. Delivery Plans: [facility]. PP Contraception Plans: uncertain at this time Problem Name Start Date End Date Resolution Snomed Code Not e Syncope 300971226 head lacer ation from trauma r/t syncope. Sutures removed by PCP in 05/2024. --> Update 06/23/24: lac intact, healing well, no erythema or drainage at site. Obesity 174090779 BMI 36.9. GTT 129. U/S: 03/24 62.2%. Varicella non-immune 499221004 Plan Varicella Vaccine . Marijuana user 593756191 Hypokalemia 22070179 K+ 3.4 o n 05/19/24. Rx for p.o. K+ given. --> Update 06/23/24: Repeat CMP drawn; results pending. Pt self admittedly has been tolerating K+ supplementation and has 3 doses left. Further POC pending lab result review. Uterine size for dates discrepancy 840954837 noted on 08/23/23. Repeat Growth/YUDELKA: 27.8%, YUDELKA 9.83. Hyperemesis gravidarum 37165512 Severe. Has pre sented to ER multiple times. Currently on Reglan/ Promethazine/ Prednisone pack. Patient continues taking Pepcid, Reglan, and Potassium. Continues to experience vomiting occasionally but much improved overall. --> Update 06/23/24: Pt declines refills, doing well on above listed regimen. UA dip notable for SG 1.000, no Ketones. Up 3 lbs from last visit 3 weeks ago. High risk 70394134 Hx: [id number], Delivery Methods: x 1. NOB labs: B+/RI/NRx4. Last Pap: 08/2023 NILM. GTT: 129. GBS: ____. Aneuploidy screening: [facility] NIPT & MSAFP WNL. Anatomy Scan: Complete on 04/21/24 with [facility]. Craig Calculation Initial Craig Date Initial Exam [...] Weight in lbs Pre/Post Dialysis Refused Weight 182.452485619165 BP Diastolic BP Location Tested BP Systolic [...] in lbs Pre/Post Dialysis Refused With clothes 182.049728156630 BP Diastolic BP Location Tested BP Systolic [...] Dr. Lara and recommended sending patient to [facility], patient will be directly admitted to L&D. Patient notified of recommendations, voices understanding left office to go to [facility]. Flowsheet Date 02/11/2024 Boland Score Blood Edema Fundus Height Fundus Units Glucose Ketones Leukocytes Nitrite Labor Signs Protein Cervic Dilation Cervic Effacement Cervic Station Type Weight in lbs Pre/Post Dialysis Refused Weight 187.931737750940 BP Diastolic BP Location Tested BP Systolic [...] Weight in lbs Pre/Post Dialysis Refused Weight 192.46774131115 BP Diastolic BP Location Tested BP Systolic BP Type 68 116 Fetus Heart Rate Present A 145 Fetus Movement Comments was in ER for nausea/vomitin gdiscussed thc use increases the symptoms and causes intermediate project manager affects on neonates mental and emotional development. AFP todayRTO in 3-4w for anatomy scan Flowsheet Date 03/24/2024 Boland Score Blood Edema Fundus Height Fundus Units Glucose Ketones Leukocytes Nitrite Labor Signs Protein Cervic Dilation Cervic Effacement Cervic Station none none none neg Type Weight in lbs Pre/Post Dialysis Refused With clothes 194.946637236149 BP Diastolic BP Location Tested BP Systolic [...] in lbs Pre/Post Dialysis Refused With clothes 195.223592808358 BP Diastolic BP Location Tested BP Systolic [...] in lbs Pre/Post Dialysis Refused With clothes 199.700283924669 BP Diastolic BP Location Tested BP Systolic [...] in lbs Pre/Post Dialysis Refused With clothes 201.445026031433 BP Diastolic BP Location Tested BP Systolic [...] in lbs Pre/Post Dialysis Refused With clothes 204.764649959241 BP Diastolic BP Location Tested BP Systolic [...] Type Weight in lbs Pre/Post Dialysis Refused 208.58362159905 BP Diastolic BP Location Tested BP Systolic [...] in lbs Pre/Post Dialysis Refused With clothes 206.447928598547 BP Diastolic BP Location Tested BP Systolic [...] in lbs Pre/Post Dialysis Refused With clothes 210.259681710284 BP Diastolic BP Location Tested BP Systolic [...] in lbs Pre/Post Dialysis Refused With clothes 212.748590722050 BP Diastolic BP Location Tested BP Systolic BP Type 70 125 sitting Fetus Heart Rate Present A 144 Fetus Movement A Yes Comments doing well no OB concerns Flowsheet Date 08/04/2024 Boland Score Blood Edema Fundus Height Fundus Units Glucose Ketones Leukocytes Nitrite Labor Signs Protein Cervic Dilation Cervic Effacement Cervic Station 40 cm Type Weight in lbs Pre/Post Dialysis Refused With clothes 212.088893163915 BP Diastolic BP Location Tested BP Systolic BP Type 80 125 sitting Fetus Heart Rate Present A 140 Fetus Movement A Yes Comments IOL / [address] St [address] Flowsheet Date 10/16/2024 Bolnad Score Blood Edema Fundus Height Fundus Units Glucose Ketones Leukocytes Nitrite Labor Signs Protein Cervic Dilation Cervic Effacement Cervic Station Type Weight in lbs Pre/Post Dialysis Refused With clothes 189.25393247931 BP Diastolic BP Location Tested BP Systolic [...] Domestic Partner Domestic Partner Phone Father Name Armed Custom Protection Officer Status 08/08/19 24 1 CLOSED Fetus Data First Name Last Name Admitted to NICU Weight (g) Sex Living Outcome Pediatric Complications Fetus ID Race Codes Race Delivery Type M Full Term [id number] Craig Calculation Initial Craig Date Initial Exam [...] Domestic Partner Domestic Partner Phone Father Name Armed Custom Protection Officer Status 10/17/19 25 1 CLOSED Fetus Data First Name Last Name Admitted to NICU Weight (g) Sex Living Outcome Pediatric Complications Fetus ID Race Codes Race Delivery Type Full Term [id number] Craig Calculation Initial Craig Date Initial Exam [...]
[2025-01-01 15:28] VITALS: BP 125/61; PULSE 93; RESP 18; TEMP 36.3; O2SAT 98
--- NOTE | 2025-01-01 16:04 | ED.ABDPAIN ---
HPI - Abdominal Pain General Chief Complaint: Abdominal Pain Stated Complaint: abdomen pain/vomiting Source: patient and RN notes reviewed Mode of arrival: ambulatory Limitations: no limitations History of Present Illness HPI narrative: 24 y/o female with history of frequent vomiting presented for c/o upper abdominal burning, nausea, and vomiting. Symptoms have been present since 10/2023 and reports these symptoms throughout , diagnoses with hyperemesis. 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 Says she has tried to wean off cannabis but says she has no information about this and 'no one is helping.' Says she had a scope with a GI doctor a few months ago but they did not find anything. Says she has been prescribed many medications but stops taking them because she does not know if they help. She says she cannot determine what causes the vomiting, but says it may be related to changing the type of cannabis. Related Data Home Medications ?Medication ?Instructions ?Recorded ?Confirmed ?Last Taken ?Type pantoprazole 40 mg tablet,delayed mg PO 11/20/24 Unknown History release sucralfate 1 gram tablet 11/20/24 Unknown History Allergies Allergy/AdvReac Type Severity Reaction Status Date / Time No Known Allergies Allergy Verified 01/01/25 15:41 Review of Systems Review of Systems: CONSTITUTIONAL: Denies body aches, fever, chills ENT: Denies rhinorrhea, congestion CARDIOVASCULAR: Denies chest pain, palpitations, or edema. RESPIRATORY: Denies cough or dyspnea. GASTROINTESTINAL: Endorses nausea, vomiting. Denies abdominal pain, hematochezia, melena, diarrhea GENITOURINARY: Denies dysuria, hematuria, or CVA tenderness. SKIN: Denies rash MUSCULOSKELETAL: Denies back pain, joint pain, or myalgia. NEUROLOGIC: Denies headache, numbness, tingling, or weakness. All systems reviewed & are unremarkable except as noted in HPI and below PMFSH Past Medical History Medical History Hypothyroidism Social History Social History Smoking status: Never smoker Comments At time of signature, I have reviewed and agree with nursing past medical, surgical, social and family history unless otherwise noted. Please see nursing chart for further information. There is no relevant family history pertinent to the presenting complaint Exam Narrative: GENERAL: Well-appearing EYES: EOMI. Conjunctivae normal. ENT: Mucous membranes pink and moist. CHEST: No respiratory distress. Clear to auscultation. HEART: Regular rate and rhythm. No murmur appreciated. Normal peripheral pulses. ABDOMEN: abd soft, nondistended, normal active bowel sounds. Nontender abdomen, No guarding, rebound tenderness, asymmetry EXTREMITIES: Normal range of motion. SKIN: Warm, dry, no rash. Capillary refill normal. Normal skin turgor. NEURO: No focal deficits. Alert and oriented x3. PSYCH: Tearful/irritable Course Course Emergency Course: Patient is aware of diagnosis, understands and agrees to treatment plan. Anticipatory guidance given. Patient agrees to follow-up as directed and is aware of reasons to seek care at the emergency department. Portions of this record may have been created with voice recognition software Level of Care: Express Care Visit Vital Signs Vital signs: Vital Signs Temperature 97.3 F L 01/01/25 15:28 Pulse Rate 93 01/01/25 15:28 Respiratory Rate 18 01/01/25 15:28 Blood Pressure 125/61 01/01/25 15:28 Pulse Oximetry 98 01/01/25 15:28 Oxygen Delivery Room Air 01/01/25 15:28 Temperature 97.3 F L 01/01/25 15:28 Pulse Rate 93 01/01/25 15:28 Respiratory Rate 18 01/01/25 15:28 Blood Pressure 125/61 01/01/25 15:28 Pulse Oximetry 98 01/01/25 15:28 Oxygen Delivery Room Air 01/01/25 15:28 MDM - Abdominal Pain MDM Narrative Medical decision making narrative: Discussed physical exam findings; pt with recurrent vomiting which she states is 2/2 cannabis. Provided with [facility] information. Will send Rx zofran, and she is advised to resume the medication previously prescribed by the GI specialist. Advised supportive measures and signs/symptoms to go to the ER. Pt is appropriate for outpt treatment and f/u. Differential Diagnosis Differential diagnosis: Likely abdominal pain, acute appendicitis, calculus of kidney, constipation, diverticulitis, endometriosis, gastroenteritis, pancreatitis and small bowel obstruction Discharge Plan Discharge Clinical Impression: Vomiting Patient Disposition: Home Condition: Stable Instructions: Antibiotic Form, Cyclic Vomiting Syndrome (ED) Additional Instructions: Take the medication as previously prescribed by the GI doctor Take nausea medication as directed Recommend establishing with a primary care provider and following up with GI specialist. Stay hydrated. Take small sips of fluid containing electrolytes frequently. Clear liquids (broth, jello, tea, sprite, pedialyte) Trimble foods (bananas, rice, applesauce, toast, crackers) Avoid fatty, greasy, fried or spicy foods. Limit dairy until symptoms are improved. You should go to the hospital if you experience persistent nausea and vomiting that does not resolve and does not allow you to tolerate any food or fluids, fevers, increasing abdominal pain, persistent diarrhea, dizziness, fainting, or for any other concerns. Patient Language: Chinese Prescriptions: New ondansetron 4 mg tablet,disintegrating 4 mg PO Q8H PRN (Reason: nausea and vomiting) Qty: 12 0RF No Action sucralfate 1 gram tablet pantoprazole 40 mg tablet,delayed release (DR/EC) PO Follow-up/Referrals: PHYSICIAN,ANIMAL CARETAKER [Primary Care Provider] - Rocky Carter MD [Physician] - Time of Disposition: 16:24
== END 2025-01-01 16:30 | disposition home or self-care (01) ==
PROVIDERS: Emergency Provider Nurse Practitioner Family
DX: R11.10 Vomiting, unspecified (principal); E03.9 Hypothyroidism, unspecified; F12.90 Cannabis use, unspecified, uncomplicated
CPT/HCPCS: 99213; G0463

== ENCOUNTER 2025-03-24 10:10 | Emergency (ER) | payer BC, SELFPAY ==
--- NOTE | 2025-03-24 10:13 | ED_ITS ---
HPI - Female Genitourinary General Chief complaint: Urogenital-Female Stated complaint: Vaginal Irritation Time Seen by Provider: 03/24/25 10:13 Source: patient Mode of arrival: ambulatory Limitations: no limitations History of Present Illness HPI Narrative: Abbey is a 24-year-old female patient presenting to the clinic today with complaints of vaginal irritation x2 months. She reports she is having some white clumpy vaginal discharge with external vaginal irritation. Tried some rjox-osv-ophsvnx yeast medication and she felt that seemed to help some but did not resolve her symptoms. She denies any pelvic pain or vaginal odor. Denies any concern for STIs. Last menstrual period was 1.5 weeks ago. Has not had intercourse for the past couple months. No concern for . Denies any abdominal pain or back pain. No urinary symptoms. Related Data Allergies Allergy/AdvReac Type Severity Reaction Status Date / Time No Known Allergies Allergy Verified 03/24/25 10:18 Review of Systems Review of Systems: Pertinent positives per HPI. Patient denies any fever, chills, rash, headache, visual changes, dizziness, cough, runny nose, sore throat, shortness of breath, chest pain, palpitations, nausea, vomiting, diarrhea, constipation, abdominal pain, or any urinary issues. [facility] Past Medical History Medical History Hypothyroidism Social History Social History Smoking status: Never smoker Comments At the time of my signature, I reviewed and agree with the nursing past medical, surgical, social, and family history. There is no relevant family history pertinent to the patient complaint. Exam Narrative: General: Well-developed, well nourished, in no apparent distress Head: Normocephalic, atraumatic. Cardio: Regular rate and rhythm, s1 and s2 normal, no murmur appreciated. Resp: Clear to auscultation bilaterally, no rhonchi, rales, wheezing or rubs. Abdomen: Soft, pliable, bowel sounds present in all quadrants, non-tender to palpation, no CVAT tenderness. : Deferred-patient declined exam and would like to self swab Course Course Emergency Course: Portions of this record may have been created with voice recognition software. Level of Care: Express Care Visit Vital Signs Vital signs: Vital Signs Temperature 36.7 C 03/24/25 10:16 Pulse Rate 86 03/24/25 10:16 Respiratory Rate 16 03/24/25 10:16 Blood Pressure 120/68 03/24/25 10:16 Pulse Oximetry 100 03/24/25 10:16 Oxygen Delivery Room Air 03/24/25 10:16 Temperature 36.7 C 03/24/25 10:16 Pulse Rate 86 03/24/25 10:16 Respiratory Rate 16 03/24/25 10:16 Blood Pressure 120/68 03/24/25 10:16 Pulse Oximetry 100 03/24/25 10:16 Oxygen Delivery Room Air 03/24/25 10:16 Vital signs reviewed MDM - Female Genitourinary MDM Narrative Medical decision making narrative: At the time of visit patient is resting comfortably on the exam table. Patient appears to be nontoxic. Complaints of vaginal irritation x2 months. She reports she is having some white clumpy vaginal discharge with external vaginal irritation. Tried some oivd-pnn-mihqtev yeast medication and she felt that seemed to help some but did not resolve her symptoms. She denies any pelvic pain or vaginal odor. Denies any concern for STIs. Last menstrual period was 1.5 weeks ago. Has not had intercourse for the past couple months. No concern for . Denies any abdominal pain or back pain. No urinary symptoms. Labs: Genital culture, BV, chlamydia, gonorrhea, and Trichomonas testing was sent to the lab. Plan: Patient is having white clumpy vaginal discharge with vaginal irritation. Will send in prescription for Flagyl to cover for BV and Trichomonas as well as Diflucan to cover for yeast infection. Will await further STI testing results for treatment if positive. Supportive measures were discussed with the patient and they voiced understanding discharge instructions and agrees to treatment plan. Return precautions reviewed Differential Diagnosis Differential diagnosis: Likely bacterial vaginosis, trichomoniasis, cervicitis, vaginitis and other (Vaginal yeast infection, STIs) Discharge Plan Discharge Clinical Impression: Vaginal discharge Patient Disposition: Home Condition: Stable Instructions: Antibiotic Form, Vaginal Discharge (ED) Additional Instructions: Take Diflucan as prescribed for yeast Take Flagyl as prescribed to cover for BV/Trichomonas We have tested you for STIs, bacterial vaginosis, and obtained a genital culture in the clinic today. Avoid any sexual activity- includes oral, anal, or vaginal intercourse until you get results back and have completed any additional recommended treatment regimens. We will contact you if testing is positive and make sure your treatment was appropriate for the type of STI. If symptoms worsen after treatment recommend reevaluation with your PCP, OBGYN, or STI clinic Patient Language: Italian Prescriptions: New metronidazole 500 mg tablet 500 mg PO Q12H 7 Days Qty: 14 0RF fluconazole 150 mg tablet 150 mg PO ONCE Qty: 2 0RF Rx Instructions: as a single dose. May repeat in 72 hours if needed. Follow-up/Referrals: UNKNOWN,DOCTOR [Primary Care Provider] Time of Disposition: 10:27 Quality NIHSS Nursing Documentation ED NIHSS nursing documentation: reviewed/agree
[2025-03-24 10:16] VITALS: BP 120/68; PULSE 86; RESP 16; TEMP 36.7; O2SAT 100
--- OUTSIDE RECORDS SUMMARY | 2025-03-24 10:34 | XMS_ITS | Encounter Summary ---
Author Organization [facility] Address [address] [place] [address] Phone Care Team Providers Care Aviation Tactical Readiness Officer Name Role Phone Provider, None Primary Care Provider Unavailabl e Encounter Details Date Type Department Care Team (Late st Contact Info) Description 01/21/2025 Lab Requisition [facility] [address] [place] [id number] System, Referring Not In [place] Social History Tobacco Use Types Packs/Day Years Used Date Smoking Tobacco: Never Smokeless Tobacco: Never Alcohol Use Standard Drinks/Week Comments No 0 (1 standard drink = 0.6 oz pur e alcohol) Comments No Sex and Gender Information Value Date Recorded Sex Assigned at Female 01/02/2025 2:08 AM CDT 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 Gender Identity Female 01/02/2025 2:08 AM CDT Sexual Orientation Not on file documented as of this encounter Plan of Treatment Not on file documented as of this encounter Procedures Procedure Name Priority Date/Time Associated Diagnosis Comments QUANTIFERON-TB GOLD PLUS Routine 01/21/2025 12:00 AM CDT documented in this encounter Results * QUANTIFERON-TB GOLD PLUS (01/21/2025 12:00 AM CDT) NIL CONTROL 0.00 <8.01 IU/mL 01/23/2025 9:47 AM CDT [facility] TB ANTIGEN 1 0.01 <0.35 IU/mL 01/23/2025 9:47 AM CDT [facility] TB ANTIGEN 2 0.01 <0.35 IU/mL 01/23/2025 9:47 AM CDT [facility] MITOGEN CONTROL 10.00 >0.49 IU/mL 01/24/20 9:47 AM CDT [facility] INTEPRETATION TB NEGATIVE NEGATIVE, NEGATIVE (TB antigen response less than 25% of internal negative control value) 01/23/2025 9:47 AM CDT [facility] Comment:No immune response t o Mycobacterium tuberculosis antigens was noted. M. tuberculosis infection unlikely. Blood Venipuncture / Unknown 01/21/2025 01/21/2025 3:32 PM CDT Narrative [facility] - 01/23/2025 9:47 AM CDT A POSITIVE QUANTIFERON-TB GOLD PLUS RESULT SHOULD NOT BE THE SOLE OR DEFINITIVE BASIS FOR DETERMINING INFECTION WITH M.TUBERCULOSIS. Diagnosing or excluding tuberculosis disease, and assessing the probability of LTBI, requires a combination of epidemiological, historical, medical and diagnostic findings (e.g., acid fast bacilli (AFB) smear and culture, chest xray) that should be taken into account when interpreting QFT-Plus results. Furthermore, the magnitude of the measured gamma interferon level cannot be correlated to stage or degree of infection, level of immune responsiveness, or likelihood for progression to active disease. The Nil control adjusts for background (e.g., elevated levels of circulating gamma interferon or presence of heterophile antibodies). The Mitogen control serves as an internal positive control and verifies each specimen tested can produce a gamma interferon response. Low mitogen may occur with insufficient lymphocytes, reduced lymphocyte activity due to improper specimen handling, filling/mixing of the mitogen tube, or inability of the patient's lymphocytes to generate gamma interferon. Infection with other Mycobacteria, including M. kansasii, M. szulgai, and M. marinum, may cause false positive results. A negative QuantiFERON-TB Gold Plus result does not preclude the possibility of M. tuberculosis infection or tuberculosis disease: false negative results can be due to incorrect blood sample collection/ improper handling of the specimen, stage of infection (e.g., specimen obtained prior to the development of cellular immune response), co-morbid conditions which affect immune function, or other individual immunological factors. The minimum number of lymphocytes required for a reliable test has not been established and may also be variable. Diagnostic testing for Mycobacterium tuberculosis using Interferon Gamma Release Assays should follow applicable published guidelines, including when testing in populations such as children, women, and HIV-infected or otherwise immunocompromised individuals. https://www.cdc.gov/tb/publications/guidelines/testing.htm [place] Referring Not In System IMMUNOLOGY ORDERABLES Fi nal Result [facility] [address] [place] [address], [place] documented in this encounter Visit Diagnoses Not on filedocumented in this encounter Care Teams Aviation Tactical Readiness Officer Relationship Specialty Start Date End Date Provider, None [place] PCP - General 10/16/24 documented as of this encounter
--- OUTSIDE RECORDS SUMMARY | 2025-03-24 10:34 | XMS_ITS | Clinical Summary ---
Author Organization [facility] Address [address] [place] [address] Care Team Providers Care Capacitor Assembler Name Role Phone Carlita Lara NP Primary Care Provider [phone] Allergies No known active allergies Medications dextroamphetami [...] Encounters Date Type Department Care Team Description 01/07/2025 1:57 PM CDT - 01/07/2025 3:49 PM CDT [facility] Department [address] [place], [place] [id number] Left against medical advice (Primary Dx); Abdominal pain Discharge Disposition: Left Against Medical Advice from Last 3 Months Surgical History Surgery [...] making you feel afraid or unsafe? 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 Gender Identity Not on file Sexual Orientation Not on file Obstetrics History Para Term AB IAB SAB Ectopic Multiple Livin g Live Births 2 Date Outcome GA Total Labor Labor/2nd/3rd Weight Sex Type Anes PTL Daysi A1 A5 Name Clin Last Filed Vital Signs Vital Sign Reading Time Taken Comments Blood Pressure 135/99 01/07/2025 12:58 PM CDT Pulse 62 01/07/2025 12:58 PM CDT Temperature 36.4 C (97.5 F) 01/07/2025 12:58 PM CDT Respiratory Rate 25 01/07/2025 12:56 PM CDT Oxygen Saturation 97% 01/07/2025 12:58 PM CDT Inhaled Oxygen Concentration - - Weight 81.6 kg (180 lb) 01/07/2025 12:56 PM CDT Height 160 cm (5' 3) 01/07/2025 12:51 PM CDT Body Mass Index 31.89 01/07/2025 12:51 PM CDT Plan of Treatment Health Maintenance Due Date Last Done Comments Cervical Cancer Screening 2001 Chlamydia and Gonorrhea (GC/ CT) Screening 2001 Depression Screening 2001 Hepatitis C Screening 2001 Pneumococcal vaccine <65 (1 of 1 - PPSV23, PCV20, or PCV21) 10/15/2007 04/19/2004, 01/10/2003, 07/10/2002, Additional history exists HPV Vaccines (1 - 3-dose series) 2016 Meningococcal B Vaccine (2 o f 2 - Bexsero SCDM 2-dose series) 05/29/2018 11/27/2017 Regular Well Visit/Exam 18-64 10/15/2019 Influenza Vaccine (#1) 2025 8, 05/20/2013, 09/10/2012, Additional history exists DTaP/Tdap/Td Vaccine (8 - Td or Tdap) 05/12/2033 05/12/2023, 02/22/2012, 05/23/2007, Additional history exists Varicella Vaccines Completed 05/23/2007, 04/19/2004 Hepatitis B Screening Completed 05/16/2010 , 07/10/2002, 05/26/2002, Additional history exists Procedures Procedure Name Priority Date/Time Associated Diagnosis Comments ECG 12-LEAD Routine 01/07/2025 12:58 PM CDT from Last 3 Months Results * ECG 12 lead (01/07/2025 12:58 PM CDT) 01/07/2025 12:5 8 PM CDT Narrative [facility] - 01/08/2025 7:47 AM CDT Vent Rate: 50 bpm RR Interval: 1179 msec [place] Interval: 142 msec QRS Duration: 114 msec QT Interval: 457 msec QTC Interval: 432 msec P-R-T [place]: 35 - 40 - 19 degrees IMPRESSION: SINUS BRADYCARDIA MODERATE INTRAVENTRICULAR CONDUCTION DELAY [110+ ms QRS DURATION] BORDERLINE ECG Electronically Signed By: Dr. Al Hernández [facility] Susie PARMAR ECG ORDERABLES Final Result [facility] from Last 3 Months Insurance IDPA IDPA [facility] Care Teams Capacitor Assembler Relationship Specialty Start Date End Date Carlita Lara NP [facility] [place] [address] PCP - General Obstetrics and Gynecology 01/13/24
--- OUTSIDE RECORDS SUMMARY | 2025-03-24 10:34 | XMS_ITS | Clinical Summary ---
Author Organization [facility] Address [address] [place] [address] Phone Care Team Providers Care Certified Coding Specialist Name Role Phone Provider, None Primary Care Provider Unavailabl e Allergies No known active allergies Medications amphetamine-dex troamphetamine (ADDERALL) 20 MG Tablet Take 20 mg by mouth 2 times daily. Active MedroxyPROGESTE Joel Acetate (DEPO-PROVERA IM) by Intramuscular route. Active methylPREDNISol one (MEDROL DOSPACK) 4 MG Tablet Therapy Pack See product package insert for dosing schedule 21 Tab 8 Active ondansetron (ZOFRAN-ODT) 4 MG TABLET DISPERSIBLE Take 1 Tablet by mouth every 8 hours as needed for Nausea - 1st line. 10 Tablet 5 Active Encounters Date Type Department Care Team Description 01/21/2025 Lab Requisition [facility] Laboratory Services [address] [place] [id number] System, Referring Not In 01/21/2025 Travel 01/02/2025 1:51 AM CDT - 01/02/2025 4:27 AM CDT Emergency [facility] [address] [place] [address] Guevara Up MD Nausea and vomiting, unspecified vomiting type Discharge Disposition: Discharged to home or Selfcare 01/02/2025 Travel from Last 3 Months Social History Tobacco Use Types Packs/Day Years Used Date Smoking Tobacco: Never Smokeless Tobacco: Never Alcohol Use Standard Drinks/Week Comments No 0 (1 standard drink = 0.6 oz pur e alcohol) Comments No Sex and Gender Information Value Date Recorded Sex Assigned at Female 01/02/2025 2:08 AM CDT 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 Gender Identity Female 01/02/2025 2:08 AM CDT Sexual Orientation Not on file Last Filed Vital Signs Vital Sign Reading Time Taken Comments Blood Pressure 111/64 01/02/2025 4:00 AM CDT Pulse 45 01/02/2025 4:00 AM CDT Temperature 37.1 C (98.7 F) 01/02/2025 1:58 AM CDT Respiratory Rate 17 01/02/2025 1:58 AM CDT Oxygen Saturation 99% 01/02/2025 4:00 AM CDT Inhaled Oxygen Concentration - - Weight 81.6 kg (180 lb) 01/02/2025 1:58 AM CDT Height 160 cm (5' 3) 01/02/2025 1:58 AM CDT Body Mass Index 31.89 01/02/2025 1:58 AM CDT Plan of Treatment Health Maintenance Due Date Last Done Comments Human Papillomavirus (HPV) Immunization (1 - 3-dose series) 2016 Meningococcal B Immunization (2 of 2 - Bexsero SCDM 2-dose series) 05/29/2018 11/27/2017 Pap Smear 2022 SARS-COV-2 Immunization ( - season) 2024 Influenza Immunization (#1) 04/06/202505/07, 05/20/2013, 09/10/2012, Additional history exists Respiratory Syncytial Virus (RSV) Immunization (Adult) (1 - 1-dose 75+ series) 2076 Pneumococcal Immunization Combined Aged Out 04/19/2004, 01/10/2003, 07/10/2002, Additional history exists No longer eligible based on patient's age to complete this topic Hepatitis B Immunization Completed 010, 07/10/2002, 05/26/2002, Additional history exists Meningococcal Immunization (ACWY) Completed 11/27/2017, 05/20/2013 TdaP Immunization Completed 05/12/2023, 02/22/2012 Hepatitis C Virus (HCV) Screening Completed 01/14/2024 Rotavirus Immunization Aged Out No lo nger eligible based on patient's age to complete this topic Procedures Procedure Name Priority Date/Time Associated Diagnosis Comments QUANTIFERON-TB GOLD PLUS Routine 01/21/2025 12:00 AM CDT GOLD TOP TUBE STAT 01/02/2025 2:22 AM CDT CBC WITH AUTO DIFFERENTIAL STAT 01/02/2025 2:22 AM CDT EXTRA TUBES STAT 01/02/2025 2:22 AM CDT CMP (COMPREHENSIVE METABOLIC PANEL) STAT 01/02/2025 2:22 AM CDT COMPLETE BLOOD COUNT (CBC) WITH DIFF STAT 01/02/2025 2:22 AM CDT from Last 3 Months Results * QUANTIFERON-TB GOLD PLUS (01/21/2025 12:00 AM CDT) NIL CONTROL 0.00 <8.01 IU/mL 01/23/2025 9:47 AM CDT [facility] TB ANTIGEN 1 0.01 <0.35 IU/mL 01/23/2025 9:47 AM CDT [facility] TB ANTIGEN 2 0.01 <0.35 IU/mL 01/23/2025 9:47 AM CDT [facility] MITOGEN CONTROL 10.00 >0.49 IU/mL 01/24/20 9:47 AM CDT [facility] INTEPRETATION TB NEGATIVE NEGATIVE, NEGATIVE (TB antigen response less than 25% of internal negative control value) 01/23/2025 9:47 AM CDT [facility] Comment:No immune response t o Mycobacterium tuberculosis antigens was noted. M. tuberculosis infection unlikely. Blood Venipuncture / Unknown 01/21/2025 01/21/2025 3:32 PM CDT Narrative [facility] - 01/23/2025 9:47 AM CDT A POSITIVE [...] In System IMMUNOLOGY ORDERABLES Fi nal Result [facility] [address] [place] [address], [place] * GOLD TOP TUBE (01/02/2025 2:22 AM CDT) Blood No Phlebotomy Charged / Unknown 01/02/2025 2:22 AM CDT 01/02/2025 2:52 AM CDT us Guevara Up MD CHEMISTRY ORDERABLES Final Result [facility] [address] [place] [address] * (ABNORMAL) CBC WITH AUTO DIFFERENTIAL (01/02/2025 2:22 AM CDT) [facility] WBC 9.74 4.00 - 12.00 10(3)/mcL 01/02/2025 2:55 AM CDT [facility] RBC 5.18 3.80 - 5.30 10(6)/mcL 01/02/2025 2:55 AM CDT [facility] HEMOGLOBIN (HGB) 14.2 12.0 - 15.8 g/dL 01/02/2025 2:55 AM CDT [facility] HEMATOCRIT (HCT) 41.7 36.0 - 47.0 % 01/02/2025 2:55 AM CDT [facility] MCV 80.5(L) 82.0 - 96.0 fL 01/02/2025 2:55 AM CDT [facility] MCH 27.4 26.0 - 34.0 pg 01/02/2025 2:55 AM CDT [facility] MCHC 34.1 31.0 - 36.0 g/dL 01/02/2025 2:55 AM CDT [facility] PLATELET COUNT 271 140 - 440 10(3)/[facility] 01/02/2025 2:55 AM CDT [facility] RDW 16.7(H) 11.8 - 15.5 % 01/02/2025 2:55 AM CDT [facility] MPV 12.5(H) 9.7 - 12.4 fL 01/02/2025 2:55 AM CDT [facility] NEUTROPHILS 82.6(H) 47.0 - 73.0 % 01/02/2025 2:55 AM CDT [facility] LYMPHOCYTES 10.9(L) 18.0 - 42.0 % 01/02/2025 2:55 AM CDT [facility] MONOCYTES 6.3 4.0 - 12.0 % 01/02/2025 2:55 AM CDT [facility] EOSINOPHILS 0.0 0.0 - 5.0 % 01/02/2025 2:55 AM CDT [facility] BASOPHILS 0.2 0.0 - 1.0 % 01/02/2025 2:55 AM CDT [facility] ABSOLUTE NEUTROPHILS 8.05(H) 1.60 - 7.70 10(3)/mcL 01/02/2025 2:55 AM CDT [facility] ABSOLUTE LYMPHOCYTES 1.06(L) 1.30 - 3.20 10(3)/[facility] 01/02/2025 2:55 AM CDT [facility] ABSOLUTE MONOCYTES 0.61 0.20 - 1.00 10(3)/[facility] 01/02/2025 2:55 AM CDT [facility] ABSOLUTE EOSINOPHIL 0.00 0.00 - 0.40 10(3)/[facility] 01/02/2025 2:55 AM CDT [facility] ABSOLUTE BASOPHILS 0.02 0.00 - 0.10 10(3)/[facility] 01/02/2025 2:55 AM CDT [facility] NRBC PER 100 WBC 0 01/03/20 2:55 AM CDT [facility] Blood Venipuncture / Unknown 01/02/2025 2:22 AM CDT 01/02/2025 2:52 AM CDT us Guevara Up MD HEMATOLOGY ORDERABLES Carly l Result [facility] [address] [place] [address] * (ABNORMAL) CMP (COMPREHENSIVE METABOLIC PANEL) (01/02/2025 2:22 AM CDT) [facility] SODIUM 142 136 - 145 mmol/L 01/02/2025 3:22 AM CDT [facility] POTASSIUM 3.1(L) 3.5 - 5.1 mmol/L 01/02/2025 3:22 AM CDT [facility] CHLORIDE 100 98 - 107 mmol/L 01/02/2025 3:22 AM CDT [facility] CO2, VENOUS 28 22 - 30 mmol/L 01/02/2025 3:22 AM CDT [facility] ANION GAP 17.1 <18.0 mmol/L 01/02/2025 3:22 AM CDT [facility] GLUCOSE 125(H) 70 - 99 mg/dL 01/02/2025 3:22 AM CDT [facility] BUN 11 5 - 18 mg/dL 01/02/2025 3:22 AM CDT [facility] CREATININE, BLOOD 0.69 0.60 - 1.00 mg/dL 01/02/2025 3:22 AM CDT [facility] BUN/CREATININE RATIO 16 12 - 20 ratio 01/02/2025 3:22 AM CDT [facility] TOTAL PROTEIN 7.6 6.0 - 8.0 g/dL 01/02/2025 3:22 AM CDT [facility] ALBUMIN 4.8 3.5 - 5.0 g/dL 01/02/2025 3:22 AM CDT [facility] A/G RATIO 1.7 1.0 - 2.2 01/02/2025 3:22 AM CDT [facility] CALCIUM 9.8 8.7 - 10.5 mg/dL 01/02/2025 3:22 AM CDT [facility] T BILI 0.7 0.2 - 1.2 mg/dL 01/02/2025 3:22 AM CDT [facility] SGOT (AST) 22 <43 U/L 01/02/2025 3:22 AM CDT [facility] SGPT (ALT) 19 <56 U/L 01/02/2025 3:22 AM CDT [facility] ALKALINE PHOSPHATASE 64 40 - 150 U/L 01/02/2025 3:22 AM CDT [facility] GFR, ESTIMATED >60 >=60 01/02/2025 3:22 AM CDT [facility] Comment: Creatinine Clearance is the preferred criteria for selecting drug dose adjustments in renally impaired patients. The GFR is provided as additional pertinent clinical information. GFR is reported in mL/min/1.73 sq m. Calculation based on the Chronic Kidney Disease Epidemiology Collaboration (CKD- EPI) equation refit without adjustment for race. GFR, EST. >60 >=60 01/02/ 025 3:22 AM CDT [facility] GFR, EST. NONAFRICAN >60 >=60 01/02/2025 3:22 AM CDT [facility] Blood Venipuncture / Unknown 01/02/2025 2:22 AM CDT 01/02/2025 2:52 AM CDT us Guevara Up MD CHEMISTRY ORDERABLES Final Result Performing Organization Address City/State/[facility] Co de Phone Number [facility] [address] [place] [address] from Last 3 Months Insurance MEDICAID [place] * Guarantor: [facility] PO Account Type Relation to Patient Date of Phone Billing Address Institutional Other [id number] [place] [address] Care Teams Certified Coding Specialist Relationship Specialty Start Date End Date Provider, None [place] PCP - General 10/16/24
[2025-03-24 20:23] LABS: Trichomonas Vag PCR NOT DETECTED (NOT DETECTE)
== END 2025-03-24 10:43 | disposition home or self-care (01) ==
PROVIDERS: Emergency Provider Nurse Practitioner Family
DX: N89.8 Other specified noninflammatory disorders of vagina (principal); Z11.3 Encounter for screening for infections with a predominantly sexual mode of transmission; E03.9 Hypothyroidism, unspecified
CPT/HCPCS: 87070; 87491; 87591; 87661; 87798; 99213; G0463

== ENCOUNTER 2025-04-10 09:27 | Emergency (ER) | payer BC, SELFPAY ==
--- NOTE | ~2025-04-10 | XR_ITS ---
EXAM/PROCEDURE: XR chest 2V - 04/10/2025 10:00 CDT HISTORY: 24 years old Female with cough x 8 days, rhonchi L upper TECHNIQUE: Two view(s) of the chest. COMPARISON: None available. FINDINGS: LUNGS/ PLEURA: No focal consolidation. Mild perihilar bronchial wall thickening. HEART/ MEDIASTINUM: Heart appears normal in size. BONES: No acute osseous abnormality. OTHER: Visualized upper abdomen is unremarkable. IMPRESSION: No focal consolidation. Mild perihilar bronchial wall thickening, findings suggestive of respiratory bronchiolitis. Reviewed, dictated and finalized at location N. IMPRESSION: No focal consolidation. Mild perihilar bronchial wall thickening, findings sugg estive of respiratory bronchiolitis.
--- OUTSIDE RECORDS SUMMARY | 2025-04-10 09:34 | XMS_ITS | Clinical Summary ---
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
--- OUTSIDE RECORDS SUMMARY | 2025-04-10 09:34 | XMS_ITS | Encounter Summary ---
Author Organization [facility] Address [address] [place] [address] Phone Care Team Providers Care Staff Scientist Name Role Phone Provider, None Primary Care Provider Unavailabl e Encounter Details Date Type Department Care Team (Late st Contact Info) Description 01/21/2025 Lab Requisition [facility] Laboratory Services [address] [place] [id number] System, Referring Not In [place] Social History Tobacco Use Types Packs/Day Years Used Date Smoking Tobacco: Never Smokeless Tobacco: Never Alcohol Use Standard Drinks/Week Comments No 0 (1 standard drink = 0.6 oz pur e alcohol) Comments No Sex and Gender Information Value Date Recorded Sex Assigned at Female 01/02/2025 2:08 AM CDT 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 Gender Identity Female 01/02/2025 2:08 AM CDT [...] 0.00 <8.01 IU/mL 01/23/2025 9:47 AM CDT [facility] ANTIGEN 1 0.01 <0.35 IU/mL 01/23/2025 9:47 AM CDT [facility] ANTIGEN 2 0.01 <0.35 IU/mL 01/23/2025 9:47 AM CDT [facility] MITOGEN CONTROL 10.00 >0.49 IU/mL 01/24/20 9:47 AM CDT [facility] INTEPRETATION TB NEGATIVE NEGATIVE, NEGATIVE (TB antigen response less than 25% of internal negative control value) 01/23/2025 9:47 AM CDT [facility] Comment:No immune response t o Mycobacterium tuberculosis antigens was noted. M. tuberculosis infection unlikely. Blood Venipuncture / Unknown 01/21/2025 01/21/2025 3:32 PM CDT Narrative [facility] - 01/23/2025 9:47 AM CDT A POSITIVE [...] In System IMMUNOLOGY ORDERABLES Fi nal Result [facility] [address] [place] [address], [place] documented in this encounter Visit Diagnoses Not on filedocumented in this encounter Care Teams Staff Scientist Relationship Specialty Start Date End Date Provider, None [place] PCP - General 10/16/24 documented as of this encounter
--- OUTSIDE RECORDS SUMMARY | 2025-04-10 09:34 | XMS_ITS | Clinical Summary ---
Author Organization [facility] Address [address] [place] [address] Phone Care Team Providers Care Presidential Support Specialist Name Role Phone Provider, None Primary [...] for Nausea - 1st line. 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 Gender Identity Female 01/02/2025 2:08 AM CDT [...] 2-dose series) 05/29/2018 11/27/2017 Pap Smear 2022 Influenza Immunization (#1) 04/06/202505/07, 05/20/2013, 09/10/2012, Additional history exists SARS-COV-2 Immunization ( - 2023- season) 2025 Respiratory Syncytial Virus (RSV) Immunization (Adult) (1 [...] GOLD PLUS Routine 01/21/2025 12:00 AM CDT from Last 3 Months Results * QUANTIFERON-TB GOLD PLUS (01/21/2025 12:00 AM CDT) NIL CONTROL 0.00 <8.01 IU/mL 01/23/2025 9:47 AM CDT [facility] TB ANTIGEN 1 0.01 <0.35 IU/mL 01/23/2025 9:47 AM CDT [facility] TB ANTIGEN 2 0.01 <0.35 IU/mL 01/23/2025 9:47 AM CDT [facility] MITOGEN CONTROL 10.00 >0.49 IU/mL 01/24/20 9:47 AM CDT [facility] INTEPRETATION TB NEGATIVE NEGATIVE, NEGATIVE (TB antigen response less than 25% of internal negative control value) 01/23/2025 9:47 AM CDT [facility] Comment:No immune response t o Mycobacterium tuberculosis antigens was noted. M. tuberculosis infection unlikely. Blood Venipuncture / Unknown 01/21/2025 01/21/2025 3:32 PM CDT Narrative [facility] - 01/23/2025 9:47 AM CDT A [...] In System IMMUNOLOGY ORDERABLES Fi nal Result [facility] [address] [place] [address], from Last 3 Months Insurance [place]ID [place] * Guarantor: [facility] PO Account Type Relation to Patient Date of Phone Billing Address Institutional Other [address] [place] [address] Care Teams Presidential Support Specialist Relationship Specialty Start Date End Date Provider, None [place] PCP - General 10/16/24
[2025-04-10 09:35] VITALS: BP 134/80; PULSE 89; RESP 16; TEMP 36.5; O2SAT 100
--- NOTE | 2025-04-10 09:41 | ED.URI ---
HPI - URI/Sore Throat General Chief Complaint: Upper Respiratory Infection Stated Complaint: Headache/Cough Time Seen by Provider: 04/10/25 09:41 Source: patient Mode of arrival: ambulatory Limitations: no limitations History of Present Illness HPI Narrative: 24 yo F presents with c/o cough, congestion, PND, intermittent sore throat for 8 days. Concerned she may have covid. Boyfriend and child now getting sick. Symptoms not any worse but not improving. No CP or SOB. all systems reviewed And negative except as noted above. Related Data Allergies Allergy/AdvReac Type Severity Reaction Status Date / Time No Known Allergies Allergy Verified 03/24/25 10:18 [facility] Past Medical History Medical History Hypothyroidism Social History Social History Smoking status: Never smoker Comments At time of signature, agree with nursing past medical, surgical, social and family history. There is no relevant family history pertinent to the presenting complaint. Exam Narrative: GENERAL: This is a well-nourished, well-developed patient, in no apparent distress. HEAD: normocephalic, atraumatic. EYES: PERRL. Sclera clear/white. Vision is grossly intact. EARS: External ears normal, auditory canals clear and without drainage, TMs normal without perforation. Hearing grossly intact. NOSE: External nose normal moderate congestion, clear nasal drainage THROAT: Mucous membranes moist, mild erythema postnasal drainage. No swelling or exudates NECK: Neck supple, non-tender without lymphadenopathy, masses or thyromegaly. CARDIOVASCULAR: Regular rate and rhythm without murmurs, gallops, or rubs. RESPIRATORY: Clear to auscultation. Breath sounds equal bilaterally. No wheezes, rales, or rhonchi. SKIN: warm, Dry, intact with no suspicious lesions or rash, good texture and turgor. NEURO: awake, alert, and oriented to person, place and time. There were no obvious focal neurologic abnormalities. EXTREMITIES: No joint tenderness, effusion, or edema noted. Course Course Level of Care: Express Care Visit Vital Signs Vital signs: Vital Signs Temperature 36.5 C 04/10/25 09:35 Pulse Rate 89 04/10/25 09:35 Respiratory Rate 16 04/10/25 09:35 Blood Pressure 134/80 04/10/25 09:35 Pulse Oximetry 100 04/10/25 09:35 Oxygen Delivery Room Air 04/10/25 09:35 Temperature 36.5 C 04/10/25 09:35 Pulse Rate 89 04/10/25 09:35 Respiratory Rate 16 04/10/25 09:35 Blood Pressure 134/80 04/10/25 09:35 Pulse Oximetry 100 04/10/25 09:35 Oxygen Delivery Room Air 04/10/25 09:35 reviewed MDM - URI/Sore Throat MDM Narrative Medical decision making narrative: negative COVID and influenza test. Chest x-ray is negative for pneumonia. Recommend patient take [id number] medications to treat viral symptoms. Will treat bronchiolitis with prednisone and albuterol inhaler. Imaging Data My impression: Agree with Radiology Radiologist's impression: TECHNIQUE: Two view(s) of the chest. COMPARISON: None available. FINDINGS: LUNGS/ PLEURA: No focal consolidation. Mild perihilar bronchial wall thickening. HEART/ MEDIASTINUM: Heart appears normal in size. BONES: No acute osseous abnormality. OTHER: Visualized upper abdomen is unremarkable. IMPRESSION: No focal consolidation. Mild perihilar bronchial wall thickening, findings suggestive of respiratory bronchiolitis. Discharge Plan Discharge Clinical Impression: Acute viral bronchiolitis Patient Disposition: Home Condition: Stable Instructions: Bronchiolitis (ED) Additional Instructions: your chest x-ray was negative for pneumonia. Your COVID and influenza test was negative today. Your symptoms are viral and may last 10-14 days. Take medications as prescribed. Drink at least 64 oz of water a day. Follow-up with your primary care physician if symptoms are not improving. Patient Language: Jamaican Prescriptions: New (DME) Aerochamber Plus Z Stat Spacer See Rx Instructions .Route Qty: 1 0RF Rx Instructions: As directed prednisone 20 mg tablet 40 mg PO DAILY 5 Days Qty: 10 0RF albuterol sulfate 90 mcg/actuation HFA aerosol inhaler 2 puff inhalation Q4-6H PRN (Reason: shortness of breath or wheezing) Qty: 8.5 0RF No Action fluconazole 150 mg tablet 150 mg PO ONCE Qty: 2 0RF Rx Instructions: as a single dose. May repeat in 72 hours if needed. Follow-up/Referrals: FawnKilo MD [Primary Care Provider, Unknown] Stand Alone Forms: Work/School Release IP Time of Disposition: 10:12
[2025-04-10 10:07] LABS: EDCOVIDSCREEN Negative (Negative); EDINFLUASCREEN Negative (Negative); EDINFLUBSCREEN Negative (Negative)
== END 2025-04-10 10:15 | disposition home or self-care (01) ==
PROVIDERS: Emergency Provider Nurse Practitioner Family; PCP Internal Medicine
DX: J21.9 Acute bronchiolitis, unspecified (principal); E03.9 Hypothyroidism, unspecified; Z20.822 Contact with and (suspected) exposure to COVID-19
CPT/HCPCS: 71046; 87426; 87804; 99213; G0463

== ENCOUNTER 2025-05-18 09:49 | Emergency (ER) | payer BC, SELFPAY ==
--- NOTE | 2025-05-18 09:53 | ED.EYEPROB ---
HPI - Eye Problem General Chief complaint: Eye Problems Stated complaint: right eye Time Seen by Provider: 05/18/25 10:05 Source: patient, RN notes reviewed and old records reviewed Mode of arrival: ambulatory Limitations: no limitations History of Present Illness HPI Narrative: 24 year old female who presents to [facility] with complaints of right eye upper eyelid swelling with no drainage or redness of sclera or conjunctiva this morning. Patient reports that she has no acute pain to her right eye or any visual changes.Patient reports that she has had pink eye in the past and these symptoms are different than that. chief complaint: other (swelling to the right upper eyelid) Onset (ago): hour(s) (this morning) Onset description: awoke with symptoms Duration: constant Location: right eye Eye Symptoms: other (swollen right upper eyelid) Severity: mild Treatments Prior to Arrival: none Related Data Allergies Allergy/AdvReac Type Severity Reaction Status Date / Time No Known Allergies Allergy Verified 05/18/25 09:59 Review of Systems Review of Systems: CONSTITUTIONAL: Denies fever, chills, or sweats. EYES: Denies visual changes. Reports no redness, irritation,or discharge. Patient reports right upper eyelid swollen this am with some minimal redness.. ENT: Denies rhinorrhea, congestion, sore throat, or otalgia. CARDIOVASCULAR: Denies chest pain, palpitations, or edema. RESPIRATORY: Denies cough or dyspnea. SKIN: Denies rash or itching. NEUROLOGIC: Denies headache All systems reviewed & are unremarkable except as noted in HPI and below PMFSH Past Medical History Medical History Asthma Gestational hypertension Hypothyroidism Surgical History Surgical History History of tonsillectomy and adenoidectomy Social History Social History Smoking status: Never smoker Comments At time of signature, agree with nursing past medical, surgical, social and family history. There is no relevant family history pertinent to the presenting complaint Exam Narrative: GENERAL: Well-appearing, well-nourished, and in no acute distress. HEAD: Normocephalic, atraumatic. EYES: PERRLA and EOMI. Right upper eye lid swollen with minimal redness noted with small white lesion midway along lash line,no visual changes or any drainage noted. ENT: Nares clear, no rhinorrhea or epistaxis. Mucous membranes moist. NECK: Supple.no lymphadenopathy CHEST: Clear to auscultation. No respiratory distress. SAO2 100% on room air HEART: Regular rate and rhythm. No murmur heard. Normal peripheral pulses. SKIN: Warm, dry, no rash. NEURO: No focal deficits. Alert and oriented x3. Course Course Emergency Course: Patient is aware of diagnosis, understands and agrees to treatment plan. Anticipatory guidance given. Patient agrees to follow-up as directed and is aware of reasons to seek care at the emergency department. Portions of this record may have been created with voice recognition software Level of Care: Express Care Visit Vital Signs Vital signs: Vital Signs Temperature 36.7 C 05/18/25 09:55 Pulse Rate 90 05/18/25 09:55 Respiratory Rate 18 05/18/25 09:55 Blood Pressure 132/69 05/18/25 09:55 Pulse Oximetry 100 05/18/25 09:55 Oxygen Delivery Room Air 05/18/25 09:55 Temperature 36.7 C 05/18/25 09:55 Pulse Rate 90 05/18/25 09:55 Respiratory Rate 18 05/18/25 09:55 Blood Pressure 132/69 05/18/25 09:55 Pulse Oximetry 100 05/18/25 09:55 Oxygen Delivery Room Air 05/18/25 09:55 Reviewed MDM - Eye Problem MDM Narrative Medical decision making narrative: Consideration of the following conditions may be warranted for the presenting problem, they are not final diagnoses: Bacterial conjunctivitis, allergic conjunctivitis, viral conjunctivitis, foreign body, blepharitis, chalazion, hordeolum, corneal abrasion.? Exam findings show no acute concerns or changes; patient is non-toxic appearing and is in no distress.? Patient is appropriate for outpatient treatment and follow-up. Differential Diagnosis Differential diagnosis: Likely conjunctivitis and other (swelling and redness right upper eyelid, external hordeolum right upper eye) Medical Records Attestation: I reviewed the patient's medical records. Critical Care Time Critical Care Time Critical Care Time: No Discharge Plan Discharge Clinical Impression: Swelling of right upper eyelid Hordeolum externum of right eye Qualifiers: Eyelid: upper Qualified Code(s): H00.011 - Hordeolum externum right upper eyelid Patient Disposition: Home Condition: Stable Instructions: Antibiotic Form, Kevin (ED), How to Use Eye Drops (ED) Additional Instructions: Cold compresses to the eyes for comfort May need warm compresses to remove debris in the morning When cleaning the eyes used a washcloth in one direction then change washcloths or use a cotton ball in one direction and then his cotton balls Eyedrops as directed--may be more soothing if left in the refrigerator Do not share medicine--do not touch the eye with the medicine Tylenol or ibuprofen for pain Avoid screen time--television, computer, tablet or phone. Also no reading or driving Follow-up with PCP or covering machine operator as directed if no improvement in 48 hours If your symptoms persist, change or worsen significantly before you can contact your personal physician then please, without delay, go to the emergency department for further evaluation. Follow-up with PCP in 7-10 days or sooner if needed Follow up with PCP soon in regards to your blood pressure which is elevated above threshold for referral. Blood pressure above 120/80 may indicate pre-hypertension. 132/69 Patient Language: German Prescriptions: New ofloxacin 0.3 % drops See Rx Instructions .ROUTE .COMPLEX Qty: 10 0RF Rx Instructions: put 1-2 drps into affected eye(s) every 2-4 h x 2 days, then 1-2 drps 4 times/day days 3-7 No Action (DME) Aerochamber Plus Z Stat Spacer See Rx Instructions .Route Qty: 1 0RF Rx Instructions: As directed albuterol sulfate 90 mcg/actuation HFA aerosol inhaler 2 puff inhalation Q4-6H PRN (Reason: shortness of breath or wheezing) Qty: 8.5 0RF Follow-up/Referrals: PHYSICIAN,HUMANITIES DEPARTMENT CHAIR [Primary Care Provider, Internal Medicine] Time of Disposition: 10:17 Quality [place] Coma Scale Eyes: Open Verbal: Oriented and Alert Motor: Follows Commands Gloria Coma Total Score: 15
[2025-05-18 09:55] VITALS: BP 132/69; PULSE 90; RESP 18; TEMP 36.7; O2SAT 100
--- OUTSIDE RECORDS SUMMARY | 2025-05-18 10:36 | XMS_ITS | Clinical Summary ---
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
--- OUTSIDE RECORDS SUMMARY | 2025-05-18 10:36 | XMS_ITS | Clinical Summary ---
Author Organization [facility] Address [facility] [place] [address] Care Team Providers Care Director Alliance Marketing Name Role Phone None, Provider MD Primary [...] Noted Date Diagnosed Date Irregular uterine contractions 08/05/2024 Hyperemesis gravidarum with metabolic disturbanc e 02/24/2024 Hyperemesis affecting , antepartum 02/04 Hyperemesis gravidarum 01/14/2024 Other chest pain 01/14/2024 Family History Medical History Relation Comments Alcohol/Drug [...] from your doctor or pharmacy? Never 08/05/2024 [facility] Utilities Answer Date Recorded In the past 12 months has e electric, gas, oil, or water company threatened to shut off services in your [...] No 08/05/2024 Social Connection and Isolation Panel Answer Date Recorded In a typical week, how many times do you talk on the phone with family, friends, or neighbors? Three times a week 08/05/20 How often do you get togethe r with friends or relatives? Three times a week 08/05/2024 How often do you attend chur ch or temple services? Never 08/05/2024 Do you belong to any clubs o r organizations such as buddhism groups, unions, fraternal or athletic groups, or [...] Recorded Patient Health Questionnaire-2 Score 0 08/05/2024 [facility] [place] of Occupat ional Health - Occupational Stress [...] any time in the past 12 m [facility], were you homeless or living in [...] 3:15 PM CDT Height 160 cm (5' 3) 10/31/2024 3:15 PM CDT Body Mass Index [...] series) 05/29/2018 11/27/2017 COVID-19 Vaccine (1 - season) 2025 Influenza Adult (#1) 2025 05/29/2018, 05/20/2013, 09/10/2012, Additional history exists DTaP, Tdap and Td Vaccines (8 - Td or Tdap) 05/12/2033 05/12/2023, 02/22/2012, 05/23/2007, Additional history exists Pneumococcal Vaccine: Pediatrics (0 to 5 Years) and At-Risk Patients (6 to 49 Years) Aged Out 04/19/2004, 01/10/2003, 07/10/2002, Additional history exists No longer eligible based on patient's age to complete this topic Hepatitis A Vaccines Completed 08/17/2006, 05/12/20 05 Hepatitis B Vaccines Completed 05/16/2010, 07/10/2002, 07/10/2002, Additional history exists Meningococcal Vaccine Completed 11/27/2017, 013 Hepatitis C Completed 01/14/2024 RSV Immunizations Under 20 Months Aged Out No longer eligible based on patient's age to complete this topic Procedures Procedure Name Priority Date/Time Associated Diagnosis Comments HEPATITIS C ANTIBODY Routine 01/14/2024 from Last 3 Months or Most Recently Relevant to Health Maintenance Results * HEPATITIS C ANTIBODY (01/14/2024) HEPATITIS C AB Non-Reacti ve us Default History Genericprovider LABORATORY Final Result from Last 3 Months or Most Recently Relevant to Health Maintenance Insurance MEDICAID Advance Directives * Full Code (Latest Code Status on File) Date Activated Date Inactivated Comments 08/05/2024 9:03 AM 08/06/2024 9:50 PM * Full Code Date Activated Date Inactivated Comments 02/24/2024 7:49 AM 02/24/2024 9:41 PM Care Teams Director [employer] Marketing Relationship Specialty Start Date End Date None, Provider, PCP - General UNKNOWN PHYSICIAN SPECIALTY 05/12/24
--- OUTSIDE RECORDS SUMMARY | 2025-05-18 10:36 | XMS_ITS | Encounter Summary ---
Author Organization [facility] Address [facility] [place] [address] Care Team Providers Care Podiatric Surgeon Name Role Phone Shilo Byrd MD Primary Care Provider [phone] None, Provider Primary Care Provider Unavaila ble Encounter Details Date Type Department Care Team (Late st Contact Info) Description 01/11/2019 Abstract [facility] CONVERSION [address] [place] [address] , Generic ConversionMD Social History Tobacco Use [...] on filedocumented in this encounter Care Teams Podiatric Surgeon Relationship Specialty Start Date End Date Shilo Byrd MD [address] [place] [address] PCP - General PEDIATRICS 10/18/19 05/11/24 None, ProviderMD PCP - General UNKNOWN PHYSICIAN SPECIALTY 05/12/24 documented as of this encounter
--- OUTSIDE RECORDS SUMMARY | 2025-05-18 10:38 | XMS_ITS | Encounter Summary ---
Author Organization [facility] Address [address] [place] [address] Phone Care Team Providers Care Vacuum Furnace Operator Name Role Phone Provider, None Primary Care Provider Unavailabl e Encounter Details Date Type Department Care Team (Late st Contact Info) Description 01/21/2025 Lab Requisition 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 Gender Identity Female 01/02/2025 2:08 AM [...] 0.00 <8.01 IU/mL 01/23/2025 9:47 AM CDT [facility] TB ANTIGEN 1 0.01 <0.35 IU/mL 01/23/2025 9:47 AM CDT [facility] TB ANTIGEN 2 0.01 <0.35 IU/mL 01/23/2025 9:47 AM CDT [facility] MITOGEN CONTROL 10.00 >0.49 IU/mL 01/24/20 9:47 AM CDT [facility] INTEPRETATION TB NEGATIVE NEGATIVE, NEGATIVE (TB antigen response less than 25% of internal negative control value) 01/23/2025 9:47 AM CDT [facility] Comment:No immune response t o Mycobacterium tuberculosis antigens was noted. M. tuberculosis infection unlikely. Blood Venipuncture / Unknown 01/21/2025 01/21/2025 3:32 PM CDT Narrative [facility] - 01/23/2025 9:47 AM CDT A POSITIVE [...] In System IMMUNOLOGY ORDERABLES Fi nal Result [facility] [address] [place] [address], [place] documented in this encounter Visit Diagnoses Not on filedocumented in this encounter Care Teams Vacuum Furnace Operator Relationship Specialty Start Date End Date Provider, None [place] PCP - General 10/16/24 documented as of this encounter
--- OUTSIDE RECORDS SUMMARY | 2025-05-18 10:38 | XMS_ITS | Clinical Summary ---
Author Organization [facility] Address [address] [place] [address] Phone Care Team Providers Care Wine Fermenter Name Role Phone Provider, None Primary Care [...] - 1st line. 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
== END 2025-05-18 10:19 | disposition home or self-care (01) ==
PROVIDERS: Emergency Provider Registered Nurse
DX: H00.011 Hordeolum externum right upper eyelid (principal); E03.9 Hypothyroidism, unspecified; J45.909 Unspecified asthma, uncomplicated
CPT/HCPCS: 99213; G0463